=== PATIENT | female | born 1940 | race Caucasian/White ===

== ENCOUNTER 2020-03-13 11:50 | Outpatient (CLI) | payer MEDICARE, SELFPAY ==
--- NOTE | 2020-03-13 11:56 | MM_ITS ---
WS: [id number] BILATERAL DIGITAL SCREENING MAMMOGRAPHY WITH CAD CLINICAL INFORMATION: SCREENING HISTORY: Screening mammogram. No current complaints. COMPARISON: TECHNIQUE: Bilateral CC and MLO views. FINDINGS: Inverted right nipple Scattered fibroglandular densities bilaterally. No suspicious focal mass, asymmetry, calcifications, or architectural distortion. No evidence of malignancy. Punctate and lucent centered calcifications. Vascular calcifications. MM/[place] [id number] IMPRESSION: BI-RADS: 2-Benign FOLLOW UP: 1 Year Follow-up Recommend return to annual screening mammography.
== END 2020-03-13 11:51 | disposition home or self-care (01) ==
LOC: RADSHAW 11:53
PROVIDERS: PCP Nurse Practitioner Family; Visit Provider Nurse Practitioner Family
DX: Z12.31 Encounter for screening mammogram for malignant neoplasm of breast (principal)
CPT/HCPCS: 77067

== ENCOUNTER 2020-10-10 14:46 | Outpatient (CLI) | payer MEDICARE, SELFPAY ==
--- NOTE | 2020-10-10 14:54 | XR_ITS ---
WS: [id number] Left wrist, 3 views, 10/10/2020 Clinical Data: INJURY OF RIGHT AND LEFT WRIST, INITIAL ENCOUNTER Comparison: None. Findings: There is an irregularity noted on the dorsal view which may represent a triquetral fracture. The PA a nd oblique views are normal. The distal left radius and ulna are unremarkable. XR/XR wrist LT min 3V* [id number] Impression: Possible triquetral fracture of the left wrist.
--- NOTE | 2020-10-10 14:54 | XR_ITS ---
WS: [id number] Right wrist, 3 views, 10/10/2020 Clinical Data: INJURY OF RIGHT AND LEFT WRIST, INITIAL ENCOUNTER Comparison: None. Findings: No fractures or dislocations are seen. The carpal bones are intact. There is no soft tissue swelling. The distal radius and ulna are not remarkable. XR/XR wrist RT min 3V* [id number] Impression: Negative right wrist.
== END 2020-10-10 14:47 | disposition home or self-care (01) ==
PROVIDERS: PCP Nurse Practitioner Family; Visit Provider Nurse Practitioner Family
DX: S69.92XA Unspecified injury of left wrist, hand and finger(s), initial encounter (principal); S69.91XA Unspecified injury of right wrist, hand and finger(s), initial encounter; X58.XXXA Exposure to other specified factors, initial encounter
CPT/HCPCS: 73110

== ENCOUNTER → 2020-11-10 11:16 | Outpatient (BNVA) | payer MEDICARE, SELFPAY | PROVIDERS: PCP Nurse Practitioner Family; Visit Provider Orthopaedic Surgery | DX: S62.001A Unspecified fracture of navicular [scaphoid] bone of right wrist, initial encounter for closed fracture (principal); X58.XXXA Exposure to other specified factors, initial encounter; Z46.89 Encounter for fitting and adjustment of other specified devices; S62.024D Nondisplaced fracture of middle third of navicular [scaphoid] bone of right wrist, subsequent encounter for fracture with routine healing; X58.XXXD Exposure to other specified factors, subsequent encounter | CPT/HCPCS: 73110; 97760; L3984 ==

== ENCOUNTER 2020-11-10 15:06 | Outpatient (CLI) | payer MEDICARE, SELFPAY | END 2020-11-10 15:07 | disposition home or self-care (01) | LOC: SPT 15:07 | PROVIDERS: PCP Nurse Practitioner Family; Visit Provider Orthopaedic Surgery | DX: Z46.89 Encounter for fitting and adjustment of other specified devices (principal); S62.024D Nondisplaced fracture of middle third of navicular [scaphoid] bone of right wrist, subsequent encounter for fracture with routine healing; X58.XXXD Exposure to other specified factors, subsequent encounter | CPT/HCPCS: 97760; L3984 ==

== ENCOUNTER → 2020-12-09 09:25 | Outpatient (BNVA) | payer MEDICARE, SELFPAY | PROVIDERS: PCP Nurse Practitioner Family; Visit Provider Orthopaedic Surgery | DX: S66.911A Strain of unspecified muscle, fascia and tendon at wrist and hand level, right hand, initial encounter (principal); S66.912A Strain of unspecified muscle, fascia and tendon at wrist and hand level, left hand, initial encounter; S62.001A Unspecified fracture of navicular [scaphoid] bone of right wrist, initial encounter for closed fracture; W19.XXXA Unspecified fall, initial encounter | CPT/HCPCS: 73110 ==

== ENCOUNTER → 2021-12-16 10:16 | Outpatient (BNVA) | payer MEDICARE, SELFPAY | PROVIDERS: PCP Family Medicine; Visit Provider Family Medicine | DX: E03.9 Hypothyroidism, unspecified (principal); E78.2 Mixed hyperlipidemia; I10 Essential (primary) hypertension; Z76.89 Persons encountering health services in other specified circumstances; R79.89 Other specified abnormal findings of blood chemistry | CPT/HCPCS: 80053; 80061; 84439; 84443; 85025 ==

== ENCOUNTER 2022-06-27 12:08 | Inpatient (IN) | payer MEDICARE, SELFPAY ==
[2022-06-27 12:13] VITALS: BP 127/77; PULSE 114; RESP 24; TEMP 36.9; O2SAT 96
[2022-06-27 13:13] LABS: Glucose Point of Care 145 mg/dL (70-110)
--- NOTE | 2022-06-27 14:39 | W.ED.ABDPA2 ---
HPI - Abdominal Pain General: Chief Complaint: Abdominal Pain Stated Complaint: stomach pain Time Seen by Provider: 06/27/22 14:39 History of Present Illness: Ms. Butcher is an 81-year-old lady with history of hypertension, hyperlipidemia, thyroid disorder, depression presenting to the emergency department due to generalized illness. She reports approximately 3 days of subjective fevers chills and associated abdominal discomfort. Cramping bilateral pain associated nausea. Worsening in course and moderate in intensity. Denies changes in bowel movements or urination. Denies other specific provoking factors. No other specific changes in health, exacerbating, or alleviating factors identified. Onset (ago): day(s) Pain Consistency: constant Severity: moderate Quality: cramping Radiation: none Migration to: no migration Exacerbating factors: eating, movement and other Relieving factors: nothing Associated Symptoms: Reports nausea, poor appetite and other Review of Systems General: Reports: 10 or more systems reviewed and unremarkable except in HPI and below GI: Reports: nausea and other PFSH ED PFSH: Medical History (Updated 07/01/22 @ 00:00 by JESSICA Go) History of hyperlipidemia Hyperlipidemia Hypertension JAK2 [id number] mutation Surgical History H/O hemorrhoidectomy H/O oophorectomy H/O thyroidectomy H/O: hysterectomy Family History Father Brain aneurysm Mother Scleroderma CAD (coronary artery disease) Brother CAD (coronary artery disease) Social History Smoking and tobacco status: never smoked Alcohol intake: never Female Reproductive History: Spontaneous abortions: No Physical Exam Const: COMMON NORMALS: alert GENERAL APPEARANCE: cooperative and well developed HENMT: COMMON NORMALS: normocephalic and atraumatic HEAD & SCALP: normocephalic and atraumatic THROAT: posterior oropharynx normal Eye: COMMON NORMALS: conjunctivae normal CONJUNCTIVA: Yes conjunctivae normal SCLERA: sclerae normal Neck/C-Spine: COMMON NORMALS: supple GENERAL: Yes trachea midline Resp: COMMON NORMALS: clear to auscultation bilaterally EFFORT & INSPECTION: Yes able to speak in complete sentences AUSCULTATION: clear to auscultation bilaterally Cardio: COMMON NORMALS: regular rate and regular rhythm RATE: regular rate RHYTHM: regular rhythm GI: COMMON NORMALS: Soft to palpation PALPATION: Yes Soft to palpation, Yes Tenderness to palpation present (GI), No Guarding due to palpation present (GI) and No Rigid due to palpation Extremity: GENERAL: Yes normal exam except as noted and No edema Neuro: COMMON NORMALS: moves all extremities SENSORIUM/ORIENTATION: Yes alert and No Orientation impaired Psych: COMMON NORMALS: mental status grossly normal and Normal thought process present THOUGHT PROCESS: Normal thought process present Course Vital Signs: Vital signs: Vital Signs Temperature 98.5 F 06/30/22 11:53 Pulse Rate 82 06/30/22 11:53 Respiratory Rate 18 06/30/22 11:53 Blood Pressure 106/74 06/30/22 11:53 Pulse Oximetry 94 06/30/22 11:53 Oxygen Delivery Me thod 06/30/22 11:53 Oxygen Flow Rate 4 06/29/22 07:47 MDM - Abdominal Pain Medical Decision Making 81-year-old lady presenting with abdominal pain for a few days associated with generalized illness. Exam as above. Abdominal tenderness without evidence of acute surgical abdomen. EKG notable for sinus rhythm with nonspecific ST segment abnormalities. Left axis deviation. Mild irregularity. Normal intervals. No STEMI. Similar upon repeat. Labs notable for leukocytosis with elevated platelet count. Metabolic panel with mild evidence of dehydration and metabolic stress. Negative range 2-hour delta troponin. No UTI. Viral panel is negative. Chest x-ray with mild left basilar infiltrate, no lobar consolidation or pneumothorax. CT abdomen pelvis with some evidence of constipation, incidental findings discussed with patient. Patient treated with antiemetic, analgesia, IV fluids and antibiotics. Only mild improvement. Given degree of illness as well as physical exam findings and lack of significant improvement patient requires inpatient observation for pneumonia, abdominal pain, dehydration. The results of ED evaluation were discussed with the patient including plan for admission due to requirement for level of care not available if discharged to prevent significant worsening/deterioration. Patient agreeable with plan. Discussed with hospitalist service who was agreeable to admit patient. Medical Records I reviewed the patient's medical records. Lab Data I reviewed the patient's lab results. 06/27/22 15:25 06/27/22 15:25 Labs/Radiology: Radiology Impressions Chest X-Ray 06/27/22 14:41 IMPRESSION: Slight increased interstitial markings left lung base and consider mild interstitial left basilar infiltrate. No consolidation. Abdomen/Pelvis CT 06/27/22 15:01 IMPRESSION: 1. Mild interstitial infiltrate posterior right lung base could reflect acute or chronic change. 2. Suggestion of bilateral hypodense renal cortical cysts. 3. Colonic diverticulosis without CT findings to indicate diverticulitis. 4. 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 5. Increased stool within the distal colon within the pelvis. 6. Suggestion of prior hysterectomy. 7. Degenerative changes with degenerative disc disease lumbar spine, along with prominent old or chronic appearing compression deformity at T12. COMMENTS: Consistent with the [employer] [place] [employer]'s Incidental Findings Committee white paper (J Am Nataliia Radiol 2018): Any incidental renal lesion less than 1 cm or classified as too small to characterize, or any incidental cystic renal lesion characterized as simple-appearing, is likely benign. No follow-up imaging is recommended for these lesions per consensus recommendations based on imaging criteria. Chest CT 06/28/22 08:00 IMPRESSION: 1. Volume loss RIGHT lower lobe with elevation RIGHT hemidiaphragm. Patchy infiltrates in the RIGHT lower lobe with subsegmental atelectasis in RIGHT middle lobe and RIGHT lower lobe with air bronchograms. Recommend correlation for pneumonia. 2. LEFT lung is well aerated. 3. No other acute findings. Head CT 06/28/22 08:00 IMPRESSION: 1. No evidence of intracranial hemorrhage or mass effect. 2. . Mild small vessel changes with moderate parenchymal volume loss. 3. Intracranial vascular calcification. 4. No acute intracranial findings. Laboratory Results WBC 17.2 10^3/uL (4.0-10.0) H 06/27/22 15:25 RBC 4.55 10^6/uL (4.1-5.3) 06/27/22 15:25 Hgb 12.8 g/dL (11.5-15.3) 06/27/22 15:25 Hct 41.1 % (37.0-47.0) 06/27/22 15:25 MCV 90.3 fl (81-99) 06/27/22 15:25 MCH 28.1 pg (28.0-34.0) 06/27/22 15:25 MCHC 31.1 g/dL (30.0-36.0) 06/27/22 15:25 RDW 15.1 % (12.1-15.1) 06/27/22 15:25 Plt Count 575 10^3/cmm (130-400) H 06/27/22 15:25 MPV 11.6 fL (7.4-10.4) H 06/27/22 15:25 Neut % (Auto) 70.2 % 06/27/22 15:25 Lymph % (Auto) 20.2 % 06/27/22 15:25 [place] % (Auto) 7.1 % 06/27/22 15:25 Eos % (Auto) 0.6 % 06/27/22 15:25 Baso % (Auto) 1.0 % 06/27/22 15:25 Neut # (Auto) 12.09 10^3/uL (1.8-7.7) H 06/27/22 15:25 Lymph # (Auto) 3.5 10^3/uL (0.8-4.8) 06/27/22 15:25 [place] # (Auto) 1.2 10^3/uL (0.2-0.9) H 06/27/22 15:25 Eos # (Auto) 0.1 10^3/uL (0.0-0.8) 06/27/22 15:25 Baso # (Auto) 0.2 10^3/uL (0.0-0.1) H 06/27/22 15:25 Nucleated RBC % (auto) 0 % 06/27/22 15:25 Nucleated RBCs # 0.0 /100WBC 06/27/22 15:25 ESR 14 mm/hr (0-15) 06/27/22 15:25 Sodium 140 mmol/L (136-145) 06/27/22 15:25 Potassium 5.2 mmol/L (3.5-5.1) H 06/27/22 15:25 Chloride 103 mmol/L (98-107) 06/27/22 15:25 Carbon Dioxide 23 mmol/L (22-29) 06/27/22 15:25 Anion Gap 19.2 (5-19) H 06/27/22 15:25 BUN 40 mg/dL (8-23) H 06/27/22 15:25 Creatinine 0.9 mg/dL (0.5-0.9) 06/27/22 15:25 GFR Calculation Not Reportable 06/27/22 15:25 Glucose 126 mg/dL (65-115) H 06/27/22 15:25 POC Glucose 145 mg/dL (70-110) H 06/27/22 13:04 Estimat Average Glucose 137 06/27/22 15:25 Hemoglobin A1c 6.4 % (4.0-6.0) H 06/27/22 15:25 Calculated Osmolality 301 mOsm/kg (285-295) H 06/27/22 15:25 Lactate 2.9 mmol/L (0.5-2.2) H 06/27/22 15:25 Calcium 10.1 mg/dL (8.5-10.5) 06/27/22 15:25 Total Bilirubin 0.4 mg/dL (0.15-1.2) 06/27/22 15:25 AST 11 U/L (0-32) 06/27/22 15:25 ALT 8 U/L (0-33) 06/27/22 15:25 Alkaline Phosphatase 57 U/L (35-105) 06/27/22 15:25 Troponin T Baseline 9 ng/L (0-10) 06/27/22 15:25 Troponin T 120 Minute 8.96 ng/L (0-10) 06/27/22 16:41 Delta Troponin T -0.04 ABS# (0-10) L 06/27/22 16:41 C-Reactive Protein 3.0 mg/L (0.0-4.9) 06/27/22 16:41 NT-Pro-B Natriuret Pep 150 pg/mL (0-450) 06/27/22 16:41 Total Protein 6.9 g/dL (6.6-8.7) 06/27/22 15:25 Albumin 3.9 g/dL (3.5-5.2) 06/27/22 15:25 Globulin 3.0 g/dL (1.3-4.6) 06/27/22 15:25 Triglycerides 137 mg/dL (0-150) 06/27/22 16:41 Cholesterol 121 mg/dL (0-200) 06/27/22 16:41 LDL Cholesterol, Calc 66 mg/dL (50-129) 06/27/22 16:41 HDL Cholesterol 28 mg/dL (60-100) L 06/27/22 16:41 LDL/HDL Ratio 2.36 RATIO (0.00-3.22) 06/27/22 16:41 Cholesterol/HDL Ratio 4.32 mg/dL (0.0-4.40) 06/27/22 16:41 Lipase 33 U/L (13-60) 06/27/22 15:25 Procalcitonin 0.10 ng/mL (0-0.5) 06/27/22 16:41 TSH 1.52 uIU/mL (0.27-4.20) 06/27/22 16:41 Urine Color Dark yellow (Yellow) 06/27/22 15:31 Urine Appearance Clear (CLEAR) 06/27/22 15:31 Urine pH 5 (5-7) 06/27/22 15:31 Ur Specific [place] 1.020 (1.005-1.030) 06/27/22 15:31 Urine Protein Neg (Negative) 06/27/22 15:31 Urine Glucose (UA) Norm (Normal) 06/27/22 15:31 Urine Ketones 1+ (Negative) H 06/27/22 15:31 Urine Blood Neg (Negative) 06/27/22 15:31 Urine Nitrate Negative (Negative) 06/27/22 15:31 Urine Bilirubin 1+ (Negative) H 06/27/22 15:31 Urine Urobilinogen Norm mg/dL (Negative) 06/27/22 15:31 Ur Leukocyte Esterase Negative (Negative) 06/27/22 15:31 Salicylates 0.3 mg/dL (3-10) L 06/27/22 16:41 Urine Opiates Screen Negative ng/mL (Negative) 06/27/22 15:31 Acetaminophen < 5.0 ug/mL (10-30) L 06/27/22 16:41 Ur Barbiturates Screen Negative ng/mL (Negative) 06/27/22 15:31 Ur Phencyclidine Scrn Negative ng/mL (Negative) 06/27/22 15:31 Ur Amphetamines Screen Negative ng/mL (Negative) 06/27/22 15:31 U Benzodiazepines Scrn Negative ng/mL (Negative) 06/27/22 15:31 Urine Cocaine Screen Negative ng/mL (Negative) 06/27/22 15:31 U Marijuana (THC) Screen Negative ng/mL (Negative) 06/27/22 15:31 Ethyl Alcohol 10 mg/dL (0-10) 06/27/22 16:41 Influenza Type A Ag negative (Negative) 06/27/22 17:24 Influenza Type B Ag negative (Negative) 06/27/22 17:24 SARS-CoV-2 Ag (Rapid) negative (Negative) 06/27/22 17:24 Discharge Plan Discharge Patient Disposition: Placed in Observation Admit Provider: Chris Alan Clinical Impression: Pneumonia, Abdominal pain, Diarrhea, Leukocytosis, Dehydration Discharge Diet: Cardiac Discharge Activity: Increase activity as tolerated Coding Level of Care Code ED Paraeducator for Elias Miller
--- NOTE | 2022-06-27 14:41 | XRR_ITS ---
PROCEDURE INFORMATION: Exam: XR Chest Exam date and time: 06/27/2022 2:51 PM Age: 81 years old Clinical indication: Dyspnea; Additional info: Tachycardia TECHNIQUE: Imaging protocol: Radiologic exam of the chest. Views: 1 view. COMPARISON: CR XR chest 2V* [id number] 11/02/2017 2:41 PM FINDINGS: Lungs: Small amount of right basilar atelectasis or scarring. Slight increased interstitial markings in the left lung base with today's exam in relation to prior exam and consider minimal interstitial infiltrate. No consolidation. Pleural spaces: Unremarkable. No pleural effusion. No pneumothorax. Heart/Mediastinum: Unremarkable. No cardiomegaly. Vasculature: Mild arteriosclerosis of the thoracic aorta. Diaphragm: [id number] chronic eventration of the right hemidiaphragm with prior exam November 02, 2017. Bones/joints: Spondylotic change thoracic spine. XR/XR chest 1V portable [id number] IMPRESSION: Slight increased interstitial markings left lung base and consider mild interstitial left basilar infiltrate. No consolidation.
--- NOTE | 2022-06-27 15:01 | CTR_ITS ---
PROCEDURE INFORMATION: Exam: CT Abdomen And Pelvis With Contrast Exam date and time: 06/27/2022 4:20 PM Age: 81 years old Clinical indication: Abdominal pain; Generalized; Additional info: Abd pain TECHNIQUE: Imaging protocol: Computed tomography of the abdomen and pelvis with contrast. Radiation optimization: All CT scans at this facility use at least one of these dose optimization techniques: automated exposure control; mA and/or kV adjustment per patient size (includes targeted exams where dose is matched to clinical indication); or iterative reconstruction. Contrast material: OMNI 350; Contrast volume: 100 ml; Contrast route: INTRAVENOUS (IV); COMPARISON: CR XR KUB [id number] 12/06/2016 2:02 PM RADIATION DOSE METRICS: Total DLP (mGy-cm): 932.56 FINDINGS: Lungs: Lung windows through the lung bases demonstrate mild interstitial infiltrate within the posterior right lung base (not within the left lung base as questioned on chest radiograph). Liver: Normal. No mass. Benign calcified granuloma within the left lobe. Gallbladder and bile ducts: Normal. No calcified stones. No ductal dilation. Pancreas: Normal. No ductal dilation. Spleen: Normal. No splenomegaly. Adrenal glands: Normal. No mass. Kidneys and ureters: A couple of rounded hypodense foci with partial exophytic appearance and predominant fluid density with Hounsfield measurements are seen from the cortex of both kidneys, of 1-1.5 cm in approximate size. These findings likely reflect small renal cysts. Kidneys are otherwise unremarkable. Stomach and bowel: Colonic diverticulosis is seen without CT findings to indicate diverticulitis. Mild increased stool load within the distal colon within the pelvis. Appendix: The appendix is visualized and no CT findings of appendicitis. Intraperitoneal space: Unremarkable. No free air. No significant fluid collection. Vasculature: Atherosclerotic disease of the abdominal aorta and tributaries, without aneurysmal dilatation of the abdominal aorta. Lymph nodes: Unremarkable. No enlarged lymph nodes. Urinary bladder: Unremarkable as visualized. Reproductive: Suggestion of prior hysterectomy. Bones/joints: Degenerative change lumbar spine with degenerative disc disease, along with mild spondylolisthesis L4-5. Prominent old or chronic appearing compression deformity of T12 is seen with increased kyphosis at this level. Soft tissues: Tiny supraumbilical hernia of fat. CT/CT abdomen pelvis w con* [id number] IMPRESSION: 1. Mild interstitial infiltrate posterior right lung base could reflect acute or chronic change. 2. Suggestion of bilateral hypodense renal cortical cysts. 3. Colonic diverticulosis without CT findings to indicate diverticulitis. 4. 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 5. Increased stool within the distal colon within the pelvis. 6. Suggestion of prior hysterectomy. 7. Degenerative changes with degenerative disc disease lumbar spine, along with prominent old or chronic appearing compression deformity at T12. COMMENTS: Consistent with the [place] [employer]'s Incidental Findings Committee white paper (J Am Nataliia Radiol 2018): Any incidental renal lesion less than 1 cm or classified as too small to characterize, or any incidental cystic renal lesion characterized as simple-appearing, is likely benign. No follow-up imaging is recommended for these lesions per consensus recommendations based on imaging criteria.
--- NOTE | 2022-06-27 15:04 | ECG_ITS ---
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 Measurements Intervals [place] Rate: 79 P: -18 SD: 180 QRS: -15 QRSD: 84 T: 42 QT: 370 QTc: 425 Interpretive Statements SINUS RHYTHM INFERIOR MYOCARDIAL INFARCTION , PROBABLY OLD [40+ ms Q WAVE AND/OR ST/T ABNORMALITY IN II/aVF] No previous ECG available for comparison Electronically Signed On 06-29-2022 7:45:46 MILK POWDER GRINDER by Shelton Nash M.D. [id number]
[2022-06-27 15:47] LABS: Add Urine Microscopic? NO; Charge for UA Resulting for Rev
[2022-06-27 15:47] LABS: Basophils # 0.2 10^3/uL (0.0-0.1); Eosinophils # 0.1 10^3/uL (0.0-0.8); Eosinophils % 0.6 %; Hematocrit 41.1 % (37.0-47.0); Hemoglobin 12.8 g/dL (11.5-15.3); Lymphocytes # 3.5 10^3/uL (0.8-4.8); Lymphocytes % 20.2 %; Mean Corpuscular HGB Conc 31.1 g/dL (30.0-36.0); Mean Corpuscular Hemoglobin 28.1 pg (28.0-34.0); Mean Corpuscular Volume 90.3 fl (81-99); Mean Platelet Volume 11.6 fL (7.4-10.4); Monocytes # 1.2 10^3/uL (0.2-0.9); Monocytes % 7.1 %; Neutrophils # 12.09 10^3/uL (1.8-7.7); Neutrophils % 70.2 %; Nucleated Red Blood Cells % 0 %; Platelet Count 575 10^3/cmm (130-400); Red Blood Count 4.55 10^6/uL (4.1-5.3); Red Cell Distribution Width 15.1 % (12.1-15.1); White Blood Count 17.2 10^3/uL (4.0-10.0)
[2022-06-27 15:49] LABS: Urine Appearance Clear (CLEAR); Urine Color Dark Yellow (Yellow)
[2022-06-27 15:50] LABS: Bilirubin Urine 1+ (Negative); Blood Urine Neg (Negative); Glucose Urine UA Norm (Normal); Ketones Urine 1+ (Negative); Leukocyte Esterase Urine Negative (Negative); Nitrate Urine Negative (Negative); Protein Urine Neg (Negative); Urobilinogen Urine Norm (Negative); pH Urine 5 (5-7)
[2022-06-27 16:04] LABS: Lactate (Lactic Acid level) 2.9 mmol/L (0.5-2.2)
[2022-06-27 16:05] LABS: Alanine Aminotransferase 8 U/L (0-33); Albumin Level 3.9 g/dL (3.5-5.2); Alkaline Phosphatase 57 U/L (35-105); Aspartate Amino Transferase 11 U/L (0-32); Blood Urea Nitrogen 40 mg/dL (8-23); Calcium 10.1 mg/dL (8.5-10.5); Carbon Dioxide 23 mmol/L (22-29); Chloride 103 mmol/L (98-107); Creatinine Clr Calc Pharmacy 48.9575; Glucose 126 mg/dL (65-115); Lipase 33 U/L (13-60); Osmolality Calculated 301 mOsm/kg (285-295); Sodium 140 mmol/L (136-145); Total Bilirubin 0.4 mg/dL (0.15-1.2); Total Protein 6.9 g/dL (6.6-8.7)
[2022-06-27 16:06] LABS: Troponin(5th) Baseline 9 ng/L (0-10)
[2022-06-27 16:07] LABS: Anion Gap 19.2 (5-19); Potassium 5.2 mmol/L (3.5-5.1)
[2022-06-27] MEDS: iohexol 350 mg/mL 500 mL Btl (per mL) IV (16:21)
--- NOTE | 2022-06-27 16:41 | ECG_ITS ---
[facility] Test Date: 2022-06-27 Pat Name: Rain Butcher Department: Room: Gender: Female Egg Buyer: : 1940 Requested By: Sudeep Paez Order Number: [id number] Brandon MD: Shelton Nash M.D. Measurements Intervals [place] Rate: 77 P: 6 UT: 188 QRS: -13 QRSD: 86 T: 55 QT: 380 QTc: 430 Interpretive Statements SINUS RHYTHM WITH SINUS ARRHYTHMIA POSSIBLE INFERIOR MYOCARDIAL INFARCTION , PROBABLY OLD [30 ms Q WAVE IN II/aVF] Compared to ECG 06/27/2022 15:04:51 No significant changes Electronically Signed On 06-29-2022 7:50:54 MILLWRIGHT INSTRUCTOR by Shelton Nash M.D. [email or web address] [email or web address]/store/[id number] f
[2022-06-27] MEDS: sodium chloride 0.9% 1,000 ML 999 ML IV (17:04)
[2022-06-27 17:13] LABS: Troponin 5 2HR 8.96 ng/L (0-10)
[2022-06-27 17:49] LABS: Troponin 5 2HR Delta -0.04 ABS# (0-10)
[2022-06-27] MEDS: piperacillin-tazobactam 4.5 GM in sodium chloride 0.9% (plus) 50 ML IV (18:17)
[2022-06-27 18:20] VITALS: BP 133/92; PULSE 87; RESP 16; O2SAT 91
[2022-06-27 18:53] LABS: Influenza A by IFA negative (Negative); Influenza B by IFA negative (Negative)
[2022-06-27 18:54] LABS: SARS Covid-2 Antigen negative (Negative)
--- NOTE | 2022-06-27 19:15 | PC.NURSE ---
REPORT GIVEN TO ANAIS Muñoz RN.
[2022-06-27] MEDS: LORazepam 2 mg/mL INJ 1 mL 0.5 MG IVP (20:22)
--- NOTE | 2022-06-27 20:41 | ECG_ITS ---
[facility] Test Date: 2022-06-27 Pat Name: Rain Butcher Department: Room: Gender: Female Support Specialist: : 1940 Requested By: Sudeep Paez Order Number: [id number] Brandon MD: Diana Plaza M.D. Measurements Intervals [place] Rate: P: 0 KS: 0 QRS: 0 QRSD: 0 T: 0 QT: 0 QTc: 0 Interpretive Statements SINUS RHYTHM WITH PAC'S WARNING: DATA QUALITY MAY AFFECT INTERPRETATION Compared to ECG 06/27/2022 16:40:34 Sinus rhythm no longer present Sinus arrhythmia no longer present Myocardial infarct finding no longer present Electronically Signed On 06-29-2022 7:50:31 FRONT LOADER RESIDENTIAL DRIVER by Diana Plaza M.D. [id number]
[2022-06-27 21:00] VITALS: BP 152/85; PULSE 101; RESP 18; TEMP 36.9; O2SAT 94
[2022-06-27 21:01] VITALS: BP 160/86; PULSE 98; O2SAT 96
[2022-06-27 21:13] VITALS: RESP 20
[2022-06-27 21:27] VITALS: PULSE 87; RESP 17; O2SAT 98
--- NOTE | 2022-06-27 21:28 | P.HP_ITS ---
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 Currently patient was seen in the emergency room, she is experiencing severe chills and rigors she tells me that she is alternating between hot and cold. And this has been happening for the last 4 days that is the primary reason why she is here in the emergency room. She has not been feeling well for the last 4 days, having alternating hot and cold, severe chills and rigors. She is also very anxious because she is having the symptoms that she does not align. She denies any headaches or any blurry vision or any neck pain or neck stiffness. No recent travel. No history of COVID-19 or flu positivity. No cough, no shortness of breath. She does tell me that today she started to experience some abdominal pain, mild, diffuse associated with dark- colored stools. Denies any history of food poisoning. Denies any recent blood thinner use. Denies any recent history of NSAID use. But she says that currently the symptoms are mild denies any current back pain, she did feel nauseous, poor appetite. No dysuria, no hematuria Review of Systems Const: Reports: chills; Denies: fever(s) Eyes: Denies: change in vision or blurry vision ENMT: Denies: nasal congestion Card: Denies: chest pain or palpitations Resp: Denies: dyspnea, productive cough, non-productive cough or wheezing GI: Denies: vomiting, hematemesis, diarrhea, constipation or hematochezia : Denies: flank pain, dysuria or urinary frequency Musc: Denies: neck pain or back pain Skin/Breast: Denies: rash Neuro: Denies: headache(s), dizziness or vertigo Psych: Denies: depression Endo: Denies: polyuria or polydipsia Forrest/Lymph: Denies: petechiae or tender lymph nodes Medications/Allergies Home Medications Medication Instructions Recorded Confirmed Last Taken Type cholecalciferol (vitamin D3) 50 50 mcg PO DAILY 12/16/21 05/06/22 Unknown Hi story mcg (2,000 unit) capsule docusate sodium 100 mg capsule 100 mg PO DAILY 12/16/21 05/06/22 Unknown History omega 8-nwa-oxt-fish oil 1,000 mg 1 cap PO DAILY 12/16/21 05/06/22 Unknown His tory (120 mg-180 mg) capsule (Fish Oil) gabapentin 400 mg capsule 400 mg PO TID #90 caps 01/22/22 05/06/22 Unknown Rx metoprolol succinate 50 mg 50 mg PO DAILY #90 tabs 01/22/22 05/06/22 Unknown Rx tablet,extended release 24 hr losartan 100 mg tablet 100 mg PO DAILY #90 tabs 02/05/22 05/06/22 Unknown Rx alendronate 70 mg tablet 70 mg PO .weekly #12 tabs 02/23/22 05/06/22 Unknown Rx levothyroxine 150 mcg tablet 150 mcg PO DAILY #90 tabs 02/23/22 05/06/22 Unknown Rx lovastatin 40 mg tablet 40 mg PO DAILY #90 tabs 02/23/22 05/06/22 Unknown Rx spironolactone 25 mg tablet 25 mg PO DAILY #90 tabs 02/23/22 05/06/22 Unknown Rx amoxicillin 875 mg-potassium 1 tab PO BID 7 days #14 tabs 03/17/22 05/06/22 Unknown Rx clavulanate 125 mg tablet venlafaxine 100 mg tablet See Rx Instructions .Route 03/17/22 05/06/22 Unknown Rx .COMPLEX #270 tabs mirtazapine 15 mg tablet See Rx Instructions .Route 04/05/22 05/06/22 Unknown Rx .COMPLEX #90 tabs Allergies Allergy/AdvReac Type Severity Reaction Status Date / Time No Known Allergies Allergy Verified 05/06/22 10:33 PFSH Acute PFSH: Medical History (Updated 06/27/22 @ 21:47 by Chris Alan MD) History of hyperlipidemia Hypertension JAK2 V617F mutation Surgical History (Updated 06/27/22 @ 21:34 by Chris Alan MD) H/O hemorrhoidectomy H/O oophorectomy H/O thyroidectomy H/O: hysterectomy Family History (Updated 06/27/22 @ 21:35 by Chris Alan MD) Father Brain aneurysm Mother Scleroderma CAD (coronary artery disease) Brother CAD (coronary artery disease) Social History (Updated 06/27/22 @ 21:35 by Chris Alan MD) Smoking and tobacco status: never smoked Alcohol intake: never Substance/Drug Use: never Female Reproductive History: Spontaneous abortions: No Vitals/I&O/Wt Last Vital Signs Temp 98.5 F 06/27/22 12:13 Pulse 98 06/27/22 21:01 Resp 20 H 06/27/22 21:13 BP 160/86 06/27/22 21:01 Pulse Ox 96 06/27/22 21:01 O2 Del Method 06/27/22 21:01 06/27/22 06/27/22 06/27/22 06:59 14:59 22:59 Intake Total 1050 / 1050 Balance 1050 / 1050 Weight last 48 hrs Weight 81.647 kg Physical Exam Const: COMMON NORMALS: no acute distress and patient oriented x3 HENMT: COMMON NORMALS: normocephalic HEAD & SCALP: normocephalic Eye: COMMON NORMALS: Equal, round and reactive pupils present and EOMs intact bilaterally Neck/C-Spine: COMMON NORMALS: no JVD GENERAL: Yes normal visual inspection and No Meningeal signs present Lymph: LYMPHATIC: no lymphadenopathy noted Chest: COMMONS NORMALS: normal inspection of the chest Resp: COMMON NORMALS: normal respiratory effort, No retractions, No use of accessory muscles and clear to auscultation bilaterally AUSCULTATION: clear to auscultation bilaterally Cardio: COMMON NORMALS: no JVD, regular rate, regular rhythm, S1 normal heart sound present and S2 normal heart sound present RATE: regular rate RHYTHM: regular rhythm HEART SOUNDS: S1 normal heart sound present and S2 normal hear t sound present GI: COMMON NORMALS: Normal to inspection, nondistended, normoactive bowel sounds present, Soft to palpation, non-tender, No hepatosplenomegaly present, no masses and no bruits PALPATION: Yes Soft to palpation and Yes No hepatosplenomegaly present : COMMON NORMALS: Yes no CVA tenderness Extremity: COMMON NORMALS: capillary refill normal, no clubbing, cyanosis or edema, no calf tenderness and no pedal edema Neuro: COMMON NORMALS: patient oriented x3, CN's II-XII intact bilaterally, moves all extremities, no focal motor deficits and no sensory deficits noted Psych: COMMON NORMALS: mental status grossly normal OTHER: anxious Data 06/27/22 15:25 06/27/22 15:25 Micro: Microbiology 06/27/22 18:04 Blood Culture - Preliminary Blood SPECIMEN COLLECTED 06/27/22 17:58 Blood Culture - Preliminary Blood SPECIMEN COLLECTED A&P Assessment and plan (1) Rigors: (2) Chills: (3) Pneumonia: (4) Abdominal pain: (5) Diarrhea: (6) Leukocytosis: (7) Dehydration: (8) Mixed dyslipidemia: (9) Acquired hypothyroidism: (10) Goals of care, counseling/discussion: (11) Thrombocytosis: (12) Elevated lactic acid level: (13) Acute encephalopathy: Plan Fatigue, malaise, chills, rigors -Etiology unclear at this point -However with her chills and or rigors seems a lot like bacteremia -COVID test negative, flu negative will order COVID PCR -UA negative for UTI -Abdominal CT negative for any acute source -Chest x-ray and abdominal CT possibly shows mild residual infiltrate posterior right lung base which could reflect acute or chronic change -We will obtain a CT of the chest however is not requiring any oxygen, Pro-Santiago, CRP, ESR -Sputum cultures, blood cultures, urine bacterial antigens -The other thought is could she have meningitis although my no meningeal signs she has been having intermittent episodes of confusion according to her, she was having episodes he was she was not acting right but cannot give exact detail -We will do CT of the head -Based upon work-up we will consider lumbar puncture -Also obtain a TSH rule out myxedema -For now we will keep her on broad-spectrum antibiotic therapy vancomycin, Zosyn -Goals of care discussion she would like to be a full code -DVT prophylaxis SCDs for now, hold off on Lovenox as there might be plans on a lumbar puncture Elevated lactic acid, etiology unclear possible dehydration IV fluids Thrombocytosis history of JAK2 positivity possibly reactive, IV fluids monitor Leukocytosis, as above, Resume home medications Abdominal pain/ diarrhea -Stool studies, no recent antibiotic use, no history of food poisoning, no his tory of well water use -Abdominal CT does show 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 -However her abdominal exam is not significant, no significant bowel tenderness or distention, no guarding, no rebound, no rigidity -Monitor lactic acid thought was could this be ischemic colitis and I think very unlikely -Treat nausea, vomiting Acute encephalopathy, following all commands, alcohol, salicylate, Tylenol, TSH Attestations Medical Necessity Statement*: Patient requires hospitalization, inpatient, greater than 2 midnights, for chills, rigors, elevated lactic acid, leukocytosis, fatigue, malaise, abdominal pain, uncertain etiology requiring further work-up Coding Level of Care Code Acute Code for Chg Fwd Diagnoses Rigors R68.89 Chills R68.83 Pneumonia J18.9 Abdominal pain R10.9 Diarrhea R19.7 Leukocytosis D72.829 Dehydration E86.0 Mixed dyslipidemia E78.2 Acquired hypothyroidism E03.9 Goals of care, counseling/discussion Z71.89 Thrombocytosis D75.839 Elevated lactic acid level R79.89 Acute encephalopathy G93.40
[2022-06-27 23:48] LABS: Erythrocyte Sedimentation Rate 14 mm/hr (0-15)
[2022-06-27] MEDS: pantoprazole 40 mg SDV IVP (23:53)
[2022-06-27] MEDS: sodium chloride 0.9% 1,000 ML 100 ML IV (23:54)
[2022-06-27] MEDS: vancomycin 1,000 MG in sodium chloride 0.9% 250 ML 250 MG IV (23:56)
[2022-06-28] VITALS (13 sets, daily range): BP systolic 123–167; BP diastolic 64–83; PULSE 60–98; RESP 16–20; TEMP 36.6–37.1; O2SAT 90–98
[2022-06-28 00:11] LABS: INR 1.14 (0.8-1.2)
[2022-06-28 00:15] LABS: Estmated Average Glucose 137; Hemoglobin A1C 6.4 % (4.0-6.0)
[2022-06-28 00:21] LABS: NT Pro B Type Natriuretic Pept 150 pg/mL (0-450); Thyroid Stimulating Hormone 1.52 uIU/mL (0.27-4.20)
[2022-06-28 00:23] LABS: Troponin 5 6HR 13.38 ng/L (0-10)
[2022-06-28 00:30] LABS: Troponin 5 6HR Delta 4.38 ng/L (0-12)
[2022-06-28 00:33] LABS: Chol HDL Ratio 4.32 mg/dL (0.0-4.40); Cholesterol 121 mg/dL (0-200); LDL Cholesterol Calculated 66 mg/dL (50-129); LDL HDL Ratio 2.36 RATIO (0.00-3.22); Triglycerides 137 mg/dL (0-150)
[2022-06-28 00:49] LABS: HDL Cholesterol 28 mg/dL (60-100)
[2022-06-28 00:50] LABS: Acetaminophen < 5.0 ug/mL (10-30); Alcohol Level 10 mg/dL (0-10); Salicylate 0.3 mg/dL (3-10)
[2022-06-28 02:14] LABS: Amphetamines Screen Urine Negative (Negative); Barbiturates Screen Urine Negative (Negative); Benzodiazepines Screen Urine Negative (Negative); Cocaine Screen Urine Negative (Negative); Opiate Screen Urine Negative (Negative); PCP Screen Urine Negative (Negative); THC Screen Urine Negative (Negative)
[2022-06-28] MEDS: piperacillin-tazobactam 3.375 GM in sodium chloride 0.9% (plus) 50 ML IV ×3 (02:29→17:47)
[2022-06-28 03:44] LABS: Adenovirus Not Detected (NOT DETECT); Chlamydia Pneumoniae Not Detected (NOT DETECT); Coronavirus 229E,HKU1,NL63,OC4 Not Detected (NOT DETECT); Human Metapneumovirus Not Detected (NOT DETECT); Human Rhinovirus/Enterovirus Not Detected (NOT DETECT); Influenza A Not Detected (NOT DETECT); Influenza A H1 Not Detected (NOT DETECT); Influenza A H1-2009 Not Detected (NOT DETECT); Influenza A H3 Not Detected (NOT DETECT); Influenza B Not Detected (NOT DETECT); Mycoplasma Pneumoniae Not Detected (NOT DETECT); Parainfluenza Virus Type 1 Not Detected (NOT DETECT); Parainfluenza Virus Type 2 Not Detected (NOT DETECT); Parainfluenza Virus Type 3 Not Detected (NOT DETECT); Parainfluenza Virus Type 4 Not Detected (NOT DETECT); Respiratory Syncytial Virus A Not Detected (NOT DETECT); Respiratory Syncytial Virus B Not Detected (NOT DETECT); SARS-COV-2 Not Detected (NOT DETECT)
[2022-06-28 05:50] LABS: Basophils # 0.1 10^3/uL (0.0-0.1); Basophils % 0.9 %; Eosinophils # 0.1 10^3/uL (0.0-0.8); Eosinophils % 0.5 %; Hematocrit 35.4 % (37.0-47.0); Hemoglobin 11.2 g/dL (11.5-15.3); Lymphocytes # 3.6 10^3/uL (0.8-4.8); Lymphocytes % 22.8 %; Mean Corpuscular HGB Conc 31.6 g/dL (30.0-36.0); Mean Corpuscular Hemoglobin 28.8 pg (28.0-34.0); Mean Platelet Volume 11.7 fL (7.4-10.4); Monocytes # 1.5 10^3/uL (0.2-0.9); Monocytes % 9.4 %; Neutrophils # 10.35 10^3/uL (1.8-7.7); Neutrophils % 65.9 %; Nucleated Red Blood Cells % 0 %; Platelet Count 452 10^3/cmm (130-400); Red Blood Count 3.89 10^6/uL (4.1-5.3); Red Cell Distribution Width 15.8 % (12.1-15.1); White Blood Count 15.7 10^3/uL (4.0-10.0)
[2022-06-28 06:09] LABS: Blood Urea Nitrogen 47 mg/dL (8-23); Carbon Dioxide 21 mmol/L (22-29); Chloride 110 mmol/L (98-107); Creatinine Clr Calc Pharmacy 55.0772; Glucose 110 mg/dL (65-115); Osmolality Calculated 307 mOsm/kg (285-295); Sodium 142 mmol/L (136-145)
[2022-06-28 06:11] LABS: Lactic Sepsis W/Reflex 1.5 mmol/L (0.5-2.2)
[2022-06-28 06:12] LABS: Anion Gap 15.6 (5-19); Potassium 4.6 mmol/L (3.5-5.1)
--- NOTE | 2022-06-28 08:00 | CT_ITS ---
WS: [id number] CT HEAD TECHNIQUE: Noncontrast CT of the head obtained from the skullbase to the vertex. CLINICAL INFORMATION: ams COMPARISON: MRI 2008 DLP: 1118.[address] scans at [facility] use at least one of these dose optimization techniques: automated e xposure control; mA and/or kV adjustment per patient size (includes targeted exams where dose is matc hed to clinical indication); or iterative reconstruction. FINDINGS: No evidence of intracranial hemorrhage or mass effect. Ventricular system and basal cisterns are dunn nt. Mild small vessel changes with moderate parenchymal volume loss. Incidental cavum septum pellucid um. Vascular calcification. No extra-axial fluid collections. No evidence of mass or mass effect. Paranasal sinuses and mastoid air cells are well aerated. .Normal visualized soft tissues. CT/CT head wo con* [id number] IMPRESSION: 1. No evidence of intracranial hemorrhage or mass effect. 2. . Mild small vessel changes with moderate parenchymal volume loss. 3. Intracranial vascular calcification. 4. No acute intracranial findings.
--- NOTE | 2022-06-28 08:00 | CT_ITS ---
WS: [id number] CT CHEST TECHNIQUE: Noncontrast CT of the chest with coronal and sagittal reformatted images. CLINICAL INFORMATION: fever, chills rigors COMPARISON: CT abdomen pelvis June 27, 2022 DLP: 458.[address] scans at [facility] use at least one of these dose optimization techniques: automated e xposure control; mA and/or kV adjustment per patient size (includes targeted exams where dose is matc hed to clinical indication); or iterative reconstruction. FINDINGS: Patchy interstitial and airspace infiltrates in RIGHT lower lobe suspicious for pneumonia. This is si milar in appearance the prior CT abdomen pelvis. LEFT lung is well aerated. Volume loss RIGHT lower l obe with elevation RIGHT hemidiaphragm. A few air bronchograms in the RIGHT lower lobe. Additional castaneda bsegmental atelectasis within the RIGHT middle lobe with volume loss. Upper lobes are well aerated. Normal caliber thoracic aorta. Aortic calcification. Coronary calcifica tion. No mediastinal or hilar lymphadenopathy. Small esophageal hernia. No axillary lymphadenopathy. Splenic artery calcification. Fatty atrophy of the pancreas. CT/CT chest wo con [id number] IMPRESSION: 1. Volume loss RIGHT lower lobe with elevation RIGHT hemidiaphragm. Patchy inf iltrates in the RIGHT lower lobe with subsegmental atelectasis in RIGHT middle lobe and RIGHT lower lobe with air bronchograms. Recommend correlation for pneu monia. 2. LEFT lung is well aerated. 3. No other acute findings.
--- NOTE | 2022-06-28 10:39 | P.PN_ITS ---
Subjective Subjective: History and physical reviewed. Patient reports she had some epigastric discomfort upon coming in but it is since improved. Nurse related she had a dark stool last night. She had another 1 today the nurse believes was melanotic. It has been sent for stool Hemoccult. Patient reports she feels w eak, but better than she did yesterday. She is somewhat anxious and wants to make sure she is receiving her venlafaxine. Medications: Reviewed: Yes Vitals/I&O/Wt Last Vital Signs Temp 98.5 F 06/28/22 07:25 Pulse 98 06/28/22 07:25 Resp 20 H 06/28/22 07:25 BP 143/83 06/28/22 07:25 Pulse Ox 94 06/28/22 07:25 O2 Del Method 06/28/22 07:25 06/27/22 06/28/22 06/28/22 22:59 06:59 14:59 Intake Total 1050 / 1050 1061.667 / 1061.667 Balance 1050 / 1050 1061.667 / 1061.667 Weight last 48 hrs Weight 81.647 kg Physical Exam Narrative: General exam is no distress, conversant Neck is supple no lymphadenopathy thyromegaly Cardiovascular regular rate and rhythm without murmur Lungs clear Abdomen is soft, positive bowel sounds Extremities no sinus clubbing or edema Neuro no obvious focal deficits. Data 06/28/22 05:33 06/28/22 05:33 Micro: Microbiology 06/27/22 15:31 Bacterial Antigens - Final Urine,Clean Catch 06/27/22 18:04 Blood Culture - Preliminary Blood SPECIMEN COLLECTED 06/27/22 17:58 Blood Culture - Preliminary Blood SPECIMEN COLLECTED A&P Assessment and plan (1) Abdominal pain: Concern of melanotic stool this morning. Increase Protonix to 40 mg twice daily INR was checked and normal Change diet to clear liquids Repeat hemoglobin now, perform serial hemoglobins Surgery consult for possible EGD Initial lactate elevated but on repeat normal (2) Acute encephalopathy: Likely secondary to pneumonia/abdominal pain. I think she is currently back to baseline (3) Pneumonia: Concern for right lung pneumonia Continue vancomycin, Zosyn Plan Hypertension, continue metoprolol Other medical problems as listed in past medical history Full code currently SCDs for DVT prophylaxis, anticoagulation contraindicated secondary to possible upper GI bleed Attestations Medical Necessity Statement*: Needs continued hospital stay secondary to upper GI bleeding, pneumonia Coding Level of Care Code Acute Code for Chg Fwd Diagnoses Abdominal pain R10.9 Acute encephalopathy G93.40 Pneumonia J18.9
[2022-06-28 11:37] LABS: Hematocrit 32.9 % (37.0-47.0); Hemoglobin 10.5 g/dL (11.5-15.3)
[2022-06-28] MEDS: pantoprazole 40 mg SDV IVP ×2 (11:54→23:27)
[2022-06-28] MEDS: venlafaxine 75 mg Tablet 150 MG PO (11:57)
--- NOTE | 2022-06-28 12:01 | PC.CHAP ---
Pastoral Care Encounter/Spiritual Assessment Type of Contact [] Declined dial marker visit [] Patient/Family/Request visit [] Outpatient visit [] Follow-up visit [] Physician referral [] Code/Alert [b] Routine visit [] Staff referral [] Actively dying [] Patient sleeping [] Family support [] [] Out of room [] Palliative care [] [] Receiving care in room [] Pre-surgical visit [] Trauma [] Long length of stay [] ICU visit [] Other: Relational/Emotional Strength [b] Patient feels connected with others/family/visitors/staff [] Distress [] Loneliness/isolation [] Abandonment Spirituality of Patient [b [] There are Spiritual issues to be addressed [employer]ylinder [employer] Helper Interventions [] Prayer [bxx]b Active listening []b Non-anxious presence b[] Spiritual/emotional support [] Crisis/trauma care [] Spiritual counseling [] Bereavement support [] Provided bereavement packet [] Provided Bible/devotional materials [] Provided toy/stuffed animal, coloring book to patient or family member [] Provided Communion [] Anointing/[place] [] Salvation [x] Completed spiritual assessment [] Other: Impact on Illness or Injury [] Angry [] Fearful [] Anxious [] Often cries [] Exhaustion [] Unable to work [] Unable to attend adventist [] Unable to walk/stand [] Unable to read [] Unable to drive [] Unable to eat/drink [] Unable to sleep [] Unable to be with family [] Patient intubated [] Other: Summary Time spent with patient 10 min
[2022-06-28] MEDS: sodium chloride 0.9% 1,000 ML 100 ML IV ×2 (14:11→23:28)
[2022-06-28] MEDS: gabapentin 400 mg Capsule PO ×2 (14:16→20:41)
--- NOTE | 2022-06-28 14:19 | P.CONIM_ITS ---
Providers/Reason For Consult Consulting Physician/Specialty*: Dr. Jaime Singh DO/General surgery Reason for Consult*: Melena Attending Physician: Davion Church MD Primary Care Provider: Robin Crum DO History of Present Illness History of Present Illness Rain Butcher is a 81 year old female who presents to the hospital with weakness and chills. She was found to have pneumonia. While in the hospital today she had melanotic stools. Patient is acutely confused. She is only oriented to self. For this reason HPI and review of systems are limited. The is at the bedside. He says she is not normally confused. She denies any abdominal pain, nausea, emesis. The says there was no melanotic stools yesterday. She reports that she does not normally get heartburn. Review of Systems General: Reports: ROS unobtainable due to mental status Medications/Allergies Home Medications Medication Instructions Recorded Confirmed Last Taken Type cholecalciferol (vitamin D3) 50 50 mcg PO DAILY 12/16/21 06/28/22 Unknown History mcg (2,000 unit) capsule docusate sodium 100 mg capsule 100 mg PO DAILY 12/16/21 06/28/22 Unknown History omega 8-szl-ctw-fish oil 1,000 mg 1 cap PO DAILY 12/16/21 06/28/22 Unknown History (120 mg-180 mg) capsule (Fish Oil) gabapentin 400 mg capsule 400 mg PO TID #90 caps 01/22/22 06/28/22 Unknown Rx metoprolol succinate 50 mg 50 mg PO DAILY #90 tabs 01/22/22 06/28/22 Unknown Rx tablet,extended release 24 hr losartan 100 mg tablet 100 mg PO DAILY #90 tabs 02/05/22 06/28/22 Unknown Rx alendronate 70 mg tablet 70 mg PO .weekly #12 tabs 02/23/22 06/28/22 Unknown Rx levothyroxine 150 mcg tablet 150 mcg PO DAILY #90 tabs 02/23/22 06/28/22 Unknown Rx lovastatin 40 mg tablet 40 mg PO DAILY #90 tabs 02/23/22 06/28/22 Unknown Rx spironolactone 25 mg tablet 25 mg PO DAILY #90 tabs 02/23/22 06/28/22 Unknown Rx venlafaxine 100 mg tablet See Rx Instructions .Route 03/17/22 06/28/22 Unknown Rx .COMPLEX #270 tabs mirtazapine 15 mg tablet See Rx Instructions .Route 04/05/22 06/28/22 Unknown Rx .COMPLEX #90 tabs Allergies Allergy/AdvReac Type Severity Reaction Status Date / Time No Known Allergies Allergy Verified 05/06/22 10:33 Current Medications Generic Name Dose Route Start Last Admin Trade Name Juwan PRN Reason Stop Dose Admin Gabapentin 400 mg 06/28/22 15:00 06/28/22 14:16 Gabapentin 400 Mg Capsule PO 400 mg TID DARIUS Administration Sodium Chloride 1,000 mls @ 100 mls/hr 06/27/22 22:47 06/28/22 14:11 Sodium Chloride 0.9% IV 100 mls/hr .Q10H DARIUS Administration Piperacillin Sod/Tazobactam 50 mls @ 12.5 mls/hr 06/28/22 02:00 06/28/22 11:55 Sod 3.375 gm/ Sodium Chloride IV 12.5 mls/hr Q8H DARIUS Administration Vancomycin HCl 1,000 mg/ 250 mls @ 250 mls/hr 06/27/22 23:00 06/28/22 07:32 Sodium Chloride IV Infused Q24H DARIUS Infusion Pantoprazole Sodium 40 mg 06/28/22 10:45 06/28/22 11:54 Pantoprazole 40 Mg Sdv IVP 40 mg Q12H DARIUS Administration Venlafaxine HCl 150 mg 06/28/22 12:00 06/28/22 11:57 Venlafaxine 75 Mg Tablet PO 150 mg QNOON DARIUS Administration PFSH Acute PFSH: Medical History (Updated 06/28/22 @ 14:23 by Jaime Singh DO) History of hyperlipidemia Hyperlipidemia Hypertension JAK2 V617F mutation Surgical History H/O hemorrhoidectomy H/O oophorectomy H/O thyroidectomy H/O: hysterectomy Family History Father Brain aneurysm Mother Scleroderma CAD (coronary artery disease) Brother CAD (coronary artery disease) Social History Smoking and tobacco status: never smoked Alcohol intake: never Substance/Drug Use: never Female Reproductive History: Spontaneous abortions: No Vitals/I&O/Wt Last Vital Signs Temp 98.4 F 06/28/22 12:00 Pulse 60 06/28/22 12:00 Resp 20 H 06/28/22 12:00 BP 126/64 06/28/22 12:00 Pulse Ox 98 06/28/22 12:00 O2 Del Method 06/28/22 12:00 06/27/22 06/28/22 06/28/22 22:59 06:59 14:59 Intake Total 1050 / 1050 1300.000 / 1300.000 Balance 1050 / 1050 1300.000 / 1300.000 Weight last 48 hrs Weight 180 lb Physical Exam Narrative: General : Patient is well developed, oriented only to self Head : Normal cephalic, a-traumatic. Ears : Pinnae and external canal are normal. Hearing is normal. Eyes : PERRLA, Sclera and injection are normal. No conjunctival discharge. Nose : Mucous membranes are without erythema. Throat : buccal mucosa is normal, gums are without significant recession or hypertrophy. Lungs : Equal chest rise bilaterally, no use of accessory muscles, trachea is midline. Cor : Rate and rhythm are normal. Abdomen : Soft, ND, NT, no g/r/m Extremities : No edema, no cyanosis or clubbing, dorsalis pedis pulses are present bilaterally, non-tender to palpation of calves. Upper extremities are normal bilaterally. Back : non-tender to palpation, no CVA tenderness. Neuro : CN II - XII intact, Upper and lower extremities have equal and full strength Data 06/28/22 11:03 06/28/22 05:33 Micro: Microbiology 06/27/22 10:30 Occult Blood (FIT) - Final Stool 06/27/22 15:31 Bacterial Antigens - Final Urine,Clean Catch 06/27/22 18:04 Blood Culture - Preliminary Blood SPECIMEN COLLECTED 06/27/22 17:58 Blood Culture - Preliminary Blood SPECIMEN COLLECTED A&P Assessment and plan (1) Melena: Plan EGD The risks and benefits of the procedure, including bleeding, infection, intestinal perforation requiring surgery, missed lesion were explained to the patient. The patient is understanding of the risks and wishes to proceed. Procedure will be at 7 AM tomorrow. She should continue her Protonix IV twice daily. Coding Level of Care Code Acute Code for [facility] Fwd Diagnoses Melena K92.1
[2022-06-28] MEDS: venlafaxine 75 mg Tablet PO (17:50)
[2022-06-28 19:16] LABS: Hematocrit 31.5 % (37.0-47.0); Hemoglobin 9.8 g/dL (11.5-15.3)
[2022-06-28] MEDS: metoprolol tartrate 25 mg Tablet PO (20:41)
[2022-06-28] MEDS: vancomycin 1,000 MG in sodium chloride 0.9% 250 ML 250 MG IV (23:27)
[2022-06-29] VITALS (28 sets, daily range): BP systolic 123–175; BP diastolic 64–100; PULSE 62–123; RESP 16–20; TEMP 36.4–37; O2SAT 91–98
[2022-06-29] MEDS: piperacillin-tazobactam 3.375 GM in sodium chloride 0.9% (plus) 50 ML IV ×3 (02:11→17:27)
[2022-06-29 06:12] LABS: Basophils # 0.2 10^3/uL (0.0-0.1); Basophils % 1.2 %; Eosinophils # 0.6 10^3/uL (0.0-0.8); Eosinophils % 5.1 %; Hematocrit 30.8 % (37.0-47.0); Hemoglobin 9.2 g/dL (11.5-15.3); Lymphocytes # 3.6 10^3/uL (0.8-4.8); Lymphocytes % 29.4 %; Mean Corpuscular HGB Conc 29.9 g/dL (30.0-36.0); Mean Corpuscular Hemoglobin 28.7 pg (28.0-34.0); Mean Platelet Volume 11.5 fL (7.4-10.4); Monocytes # 0.9 10^3/uL (0.2-0.9); Monocytes % 7.5 %; Neutrophils # 6.93 10^3/uL (1.8-7.7); Neutrophils % 56.2 %; Nucleated Red Blood Cells % 0 %; Platelet Count 492 10^3/cmm (130-400); Red Blood Count 3.21 10^6/uL (4.1-5.3); White Blood Count 12.3 10^3/uL (4.0-10.0)
[2022-06-29 06:28] LABS: Blood Urea Nitrogen 29 mg/dL (8-23); Calcium 8.3 mg/dL (8.5-10.5); Carbon Dioxide 20 mmol/L (22-29); Chloride 112 mmol/L (98-107); Creatinine Clr Calc Pharmacy 55.0772; Glucose 97 mg/dL (65-115); Osmolality Calculated 296 mOsm/kg (285-295); Sodium 140 mmol/L (136-145)
[2022-06-29] MEDS: sodium chloride 0.9% 1,000 ML 30 ML IV (06:39)
--- NOTE | 2022-06-29 07:02 | ANES.PREANE2 ---
Pre-Anesthetic Assessment Height/Weight: Height 1.63 m Weight 81.647 kg Temp Pulse Resp BP Pulse Ox O2 Del Method 97.7 F 77 16 155/84 92 06/29/22 06:31 06/29/22 06:31 06/29/22 06:31 06/29/22 06:31 06/29/22 06:31 06/29/22 06:31 Preop Diagnosis: Melanic stools, abd pain Operation Date: 06/29/22 06:45 Proposed Procedures p EGD(Not Applicable) - Jaime Singh, DO Was Beta Buzz taken within 24 hours: Yes Was Clonidine taken within 24 hours: N/A Last intake: Intake Last Liquid Date 06/28/22 Last Solid Date 06/28/22 Social No alcohol and No tobacco Exam alert, oriented x 3, clear to auscultation bilaterally and regular rate & rhythm Airway Submandibular: within normal limits Cervical ROM: within normal limits Mallampati: Class II Dentition: false History/ROS No significant history except as noted and No significant complaints Pulmonary None reported CV/HEM Hypertension None reported Hepatic None reported GI None reported Metabolic Thyroid Disease Musc/skel Osteoarthritis/DJD Hx Morrison's Palsy Neuropsych None reported Anesthetic Plan ASA status: 3 Anesthesia: Anesthesia Evaluation and MAC Risk of > 500 ml blood loss (7ml/kg in children): No Medications/Allergies Home Medications Medication Instructions Recorded Confirmed Last Taken Type cholecalciferol (vitamin D3) 50 50 mcg PO DAILY 12/16/21 06/28/22 Unknown History mcg (2,000 unit) capsule docusate sodium 100 mg capsule 100 mg PO DAILY 12/16/21 06/28/22 Unknown History omega 1-poy-xbx-fish oil 1,000 mg 1 cap PO DAILY 12/16/21 06/28/22 Unknown History (120 mg-180 mg) capsule (Fish Oil) gabapentin 400 mg capsule 400 mg PO TID #90 caps 01/22/22 06/28/22 Unknown Rx metoprolol succinate 50 mg 50 mg PO DAILY #90 tabs 01/22/22 06/28/22 Unknown Rx tablet,extended release 24 hr losartan 100 mg tablet 100 mg PO DAILY #90 tabs 02/05/22 06/28/22 Unknown Rx alendronate 70 mg tablet 70 mg PO .weekly #12 tabs 09/20/22 01/23/23 Unknown Rx levothyroxine 150 mcg tablet 150 mcg PO DAILY #90 tabs 02/23/22 06/28/22 Unknown Rx lovastatin 40 mg tablet 40 mg PO DAILY #90 tabs 02/23/22 06/28/22 Unknown Rx spironolactone 25 mg tablet 25 mg PO DAILY #90 tabs 02/23/22 06/28/22 Unknown Rx venlafaxine 100 mg tablet See Rx Instructions .Route 03/17/22 06/28/22 Unknown Rx .COMPLEX #270 tabs mirtazapine 15 mg tablet See Rx Instructions .Route 04/05/22 06/28/22 Unknown Rx .COMPLEX #90 tabs Allergies Allergy/AdvReac Type Severity Reaction Status Date / Time No Known Allergies Allergy Verified 05/06/22 10:33 Current Medications Generic Name Dose Route Start Last Admin Trade Name Freq PRN Reason Stop Dose Admin Gabapentin 400 mg 06/28/22 15:00 06/28/22 20:41 Gabapentin 400 Mg Capsule PO 400 mg TID DARIUS Administration Sodium Chloride 1,000 mls @ 100 mls/hr 06/27/22 22:47 06/28/22 23:28 Sodium Chloride 0.9% IV 100 mls/hr .Q10H DARIUS Administration Piperacillin Sod/Tazobactam 50 mls @ 12.5 mls/hr 06/28/22 02:00 06/29/22 02:11 Sod 3.375 gm/ Sodium Chloride IV 12.5 mls/hr Q8H DARIUS Administration Vancomycin HCl 1,000 mg/ 250 mls @ 250 mls/hr 06/27/22 23:00 06/28/22 23:27 Sodium Chloride IV 250 mls/hr Q24H DARIUS Administration Sodium Chloride 1,000 mls @ 30 mls/hr 06/29/22 06:30 06/29/22 06:39 Sodium Chloride 0.9% IV 06/30/22 06:29 30 mls/hr .Q24H DARIUS Administration Metoprolol Tartrate 25 mg 06/28/22 21:00 06/28/22 20:41 Metoprolol Tartrate 25 Mg Tablet PO 25 mg BID@0900,2100 DARIUS Administration Pantoprazole Sodium 40 mg 06/28/22 10:45 06/28/22 23:27 Pantoprazole 40 Mg Sdv IVP 40 mg Q12H DARIUS Administration Venlafaxine HCl 150 mg 06/28/22 12:00 06/28/22 11:57 Venlafaxine 75 Mg Tablet PO 150 mg QNOON DARIUS Administration Venlafaxine HCl 75 mg 06/28/22 18:00 06/28/22 17:50 Venlafaxine 75 Mg Tablet PO 75 mg QPM DARIUS Administration [facility] Anesthesia Medical History (Updated 06/28/22 @ 14:23 by Jaime Singh DO) History of hyperlipidemia Hyperlipidemia Hypertension JAK2 [id number] mutation Surgical History H/O hemorrhoidectomy H/O oophorectomy H/O thyroidectomy H/O: hysterectomy Family History Father Brain aneurysm Mother Scleroderma CAD (coronary artery disease) Brother CAD (coronary artery disease) Social History Smoking and tobacco status: never smoked Alcohol intake: never Substance/Drug Use: never Female Reproductive History Spontaneous abortions: No Data Anesthesia 06/29/22 05:49 06/29/22 05:49 Short CBC 06/27/22 06/28/22 06/28/22 Range/Units 15:25 05:33 11:03 WBC 17.2 H 15.7 H (4.0-10.0) 10^3/uL Hgb 12.8 11.2 L 10.5 L (11.5-15.3) g/dL Hct 41.1 35.4 L 32.9 L (37.0-47.0) % MCV 90.3 91.0 (81-99) fl Plt Count 575 H 452 H (130-400) 10^3/cmm Neut % (Auto) 70.2 65.9 % Neut # (Auto) 12.09 H 10.35 H (1.8-7.7) 10^3/uL 06/28/22 06/29/22 Range/Units 19:06 05:49 WBC 12.3 H (4.0-10.0) 10^3/uL Hgb 9.8 L 9.2 L (11.5-15.3) g/dL Hct 31.5 L 30.8 L (37.0-47.0) % MCV 96.0 D (81-99) fl Plt Count 492 H (130-400) 10^3/cmm Neut % (Auto) 56.2 % Neut # (Auto) 6.93 (1.8-7.7) 10^3/uL BMP 06/27/22 06/28/22 06/29/22 15:25 05:33 05:49 Sodium 140 142 140 Potassium 5.2 H 4.6 4.0 Chloride 103 110 H 112 H Carbon Dioxide 23 21 L 20 L BUN 40 H 47 H 29 H Creatinine 0.9 0.7 0.8 Glucose 126 H 110 97 Calcium 10.1 9.0 8.3 L Cardiac Enzymes 06/27/22 06/27/22 06/27/22 Range/Units 15:25 16:41 16:41 Troponin T Baseline 9 (0-10) ng/L Troponin T 120 Minute 8.96 (0-10) ng/L Delta Troponin T -0.04 L (0-10) ABS# Troponin T Hi Sens 6Hr (0-10) ng/L Troponin T Hi Sens 6Hr Delta (0-12) ng/L NT-Pro-B Natriuret Pep 150 (0-450) pg/mL 06/27/22 Range/Units 23:43 Troponin T Baseline (0-10) ng/L Troponin T 120 Minute (0-10) ng/L Delta Troponin T (0-10) ABS# Troponin T Hi Sens 6Hr 13.38 H (0-10) ng/L Troponin T Hi Sens 6Hr Delta 4.38 (0-12) ng/L NT-Pro-B Natriuret Pep (0-450) pg/mL Liver Function 06/27/22 Range/Units 15:25 Total Bilirubin 0.4 (0.15-1.2) mg/dL AST 11 (0-32) U/L ALT 8 (0-33) U/L Alkaline Phosphatase 57 (35-105) U/L Albumin 3.9 (3.5-5.2) g/dL Urine 06/27/22 Range/Units 15:31 Urine Color Dark yellow (Yellow) Urine Appearance Clear (CLEAR) Urine pH 5 (5-7) Ur Specific [place] 1.020 (1.005-1.030) Urine Protein Neg (Negative) Urine Glucose (UA) Norm (Normal) Urine Ketones 1+ H (Negative) Urine Nitrate Negative (Negative) Urine Bilirubin 1+ H (Negative) Ur Leukocyte Esterase Negative (Negative) COVID Results 06/27/22 06/28/22 17:24 01:40 Coronavirus 229E (PCR) Not detected SARS-CoV-2 (PCR) Not detected SARS-CoV-2 Ag (Rapid) negative Coags 06/27/22 06/27/22 06/27/22 15:25 16:41 23:43 ESR 14 PT 14.90 INR 1.14 C-Reactive Protein 3.0 Microbiology 06/27/22 18:04 Blood Culture - Preliminary Blood NEGATIVE TO DATE 06/27/22 17:58 Blood Culture - Preliminary Blood NEGATIVE TO DATE 06/28/22 01:40 MRSA Culture - Final Nose 06/27/22 10:30 C.difficile Toxin B Gene (PCR) - Final Stool 06/27/22 10:30 Occult Blood (FIT) - Final Stool 06/27/22 15:31 Bacterial Antigens - Final Urine,Clean Catch Cardiac Studies: No Data to Display
--- NOTE | 2022-06-29 07:03 | W.PM.OPSUD ---
Surgery/Procedure H&P Update DATE OF PROCEDURE: June 29, 2022 DATE H&P PERFORMED: 06/28/22 PLANNED PROCEDURE: Operation Date: 06/29/22 06:45 Proposed Procedures p EGD(Not Applicable) - Jaime Singh DO
--- NOTE | 2022-06-29 07:15 | P.ANESASSM_ITS ---
Pre-Anesthetic Assessment Height/Weight: Height 1.63 m Weight 81.647 kg Temp Pulse Resp BP Pulse Ox O2 Del Method 97.7 F 77 16 155/84 92 06/29/22 06:31 06/29/22 06:31 06/29/22 06:31 06/29/22 06:31 06/29/22 06:31 06/29/22 06:31 Preop Diagnosis: Melanic stools, abd pain Operation Date: 06/29/22 06:45 Proposed Procedures p EGD(Not Applicable) - Jaime Singh, DO Was Beta Buzz taken within 24 hours: Yes Last intake: Intake Last Liquid Date 06/28/22 Last Solid Date 06/28/22 Social No alcohol and No tobacco Exam alert, oriented x 3, clear to auscultation bilaterally and regular rate & rhythm Airway Submandibular: within normal limits Cervical ROM: within normal limits Mallampati: Class II Dentition: false History/ROS No significant history except as noted and No significant complaints Pulmonary None reported CV/HEM Hypertension None reported Hepatic None reported GI None reported Metabolic Thyroid Disease [facility] [place] Osteoarthritis/DJD Neuropsych Dementia Hx Morrison's palsy Anesthetic Plan ASA status: 3 Anesthesia: Anesthesia Evaluation and MAC Risk of > 500 ml blood loss (7ml/kg in children): No Medications/Allergies Home Medications Medication Instructions Recorded Confirmed Last Taken Type cholecalciferol (vitamin D3) 50 50 mcg PO DAILY 12/16/21 06/28/22 Unknown History mcg (2,000 unit) capsule docusate sodium 100 mg capsule 100 mg PO DAILY 12/16/21 06/28/22 Unknown History omega 7-lfc-rgt-fish oil 1,000 mg 1 cap PO DAILY 12/16/21 06/28/22 Unknown History (120 mg-180 mg) capsule (Fish Oil) gabapentin 400 mg capsule 400 mg PO TID #90 caps 01/22/22 06/28/22 Unknown Rx metoprolol succinate 50 mg 50 mg PO DAILY #90 tabs 01/22/22 06/28/22 Unknown Rx tablet,extended release 24 hr losartan 100 mg tablet 100 mg PO DAILY #90 tabs 02/05/22 06/28/22 Unknown Rx alendronate 70 mg tablet 70 mg PO .weekly #12 tabs 02/23/22 06/28/22 Unknown Rx levothyroxine 150 mcg tablet 150 mcg PO DAILY #90 tabs 02/23/22 06/28/22 Unknown Rx lovastatin 40 mg tablet 40 mg PO DAILY #90 tabs 02/23/22 06/28/22 Unknown Rx spironolactone 25 mg tablet 25 mg PO DAILY #90 tabs 02/23/22 06/28/22 Unknown Rx venlafaxine 100 mg tablet See Rx Instructions .Route 03/17/22 06/28/22 Unknown Rx .COMPLEX #270 tabs mirtazapine 15 mg tablet See Rx Instructions .Route 04/05/22 06/28/22 Unknown Rx .COMPLEX #90 tabs Allergies Allergy/AdvReac Type Severity Reaction Status Date / Time No Known Allergies Allergy Verified 05/06/22 10:33 Current Medications Generic Name Dose Route Start Last Admin Trade Name eNoq PRN Reason Stop Dose Admin Gabapentin 400 mg 06/28/22 15:00 06/28/22 20:41 Gabapentin 400 Mg Capsule PO 400 mg TID DARIUS Administration Sodium Chloride 1,000 mls @ 100 mls/hr 06/27/22 22:47 06/28/22 23:28 Sodium Chloride 0.9% IV 100 mls/hr .Q10H DARIUS Administration Piperacillin Sod/Tazobactam 50 mls @ 12.5 mls/hr 06/28/22 02:00 06/29/22 02:11 Sod 3.375 gm/ Sodium Chloride IV 12.5 mls/hr Q8H DARIUS Administration Vancomycin HCl 1,000 mg/ 250 mls @ 250 mls/hr 06/27/22 23:00 06/28/22 23:27 Sodium Chloride IV 250 mls/hr Q24H DARIUS Administration Sodium Chloride 1,000 mls @ 30 mls/hr 06/29/22 06:30 06/29/22 06:39 Sodium Chloride 0.9% IV 06/30/22 06:29 30 mls/hr .Q24H DARIUS Administration Metoprolol Tartrate 25 mg 06/28/22 21:00 06/28/22 20:41 Metoprolol Tartrate 25 Mg Tablet PO 25 mg BID@0900,2100 DARIUS Administration Pantoprazole Sodium 40 mg 06/28/22 10:45 06/28/22 23:27 Pantoprazole 40 Mg Sdv IVP 40 mg Q12H DARIUS Administration Venlafaxine HCl 150 mg 06/28/22 12:00 06/28/22 11:57 Venlafaxine 75 Mg Tablet PO 150 mg QNOON DARIUS Administration Venlafaxine HCl 75 mg 06/28/22 18:00 06/28/22 17:50 Venlafaxine 75 Mg Tablet PO 75 mg QPM DARIUS Administration [facility] Anesthesia Medical History (Updated 06/28/22 @ 14:23 by Jaime Singh DO) History of hyperlipidemia Hyperlipidemia Hypertension JAK2 V617F mutation Surgical History H/O hemorrhoidectomy H/O oophorectomy H/O thyroidectomy H/O: hysterectomy Family History Father Brain aneurysm Mother Scleroderma CAD (coronary artery disease) Brother CAD (coronary artery disease) Social History Smoking and tobacco status: never smoked Alcohol intake: never Substance/Drug Use: never Female Reproductive History Spontaneous abortions: No Data Anesthesia 06/29/22 05:49 06/29/22 05:49 Short CBC 06/27/22 06/28/22 06/28/22 Range/Units 15:25 05:33 11:03 WBC 17.2 H 15.7 H (4.0-10.0) 10^3/uL Hgb 12.8 11.2 L 10.5 L (11.5-15.3) g/dL Hct 41.1 35.4 L 32.9 L (37.0-47.0) % MCV 90.3 91.0 (81-99) fl Plt Count 575 H 452 H (130-400) 10^3/cmm Neut % (Auto) 70.2 65.9 % Neut # (Auto) 12.09 H 10.35 H (1.8-7.7) 10^3/uL 06/28/22 06/29/22 Range/Units 19:06 05:49 WBC 12.3 H (4.0-10.0) 10^3/uL Hgb 9.8 L 9.2 L (11.5-15.3) g/dL Hct 31.5 L 30.8 L (37.0-47.0) % MCV 96.0 D (81-99) fl Plt Count 492 H (130-400) 10^3/cmm Neut % (Auto) 56.2 % Neut # (Auto) 6.93 (1.8-7.7) 10^3/uL BMP 06/27/22 06/28/22 06/29/22 15:25 05:33 05:49 Sodium 140 142 140 Potassium 5.2 H 4.6 4.0 Chloride 103 110 H 112 H Carbon Dioxide 23 21 L 20 L BUN 40 H 47 H 29 H Creatinine 0.9 0.7 0.8 Glucose 126 H 110 97 Calcium 10.1 9.0 8.3 L Cardiac Enzymes 06/27/22 06/27/22 06/27/22 Range/Units 15:25 16:41 16:41 Troponin T Baseline 9 (0-10) ng/L Troponin T 120 Minute 8.96 (0-10) ng/L Delta Troponin T -0.04 L (0-10) ABS# Troponin T Hi Sens 6Hr (0-10) ng/L Troponin T Hi Sens 6Hr Delta (0-12) ng/L NT-Pro-B Natriuret Pep 150 (0-450) pg/mL 06/27/22 Range/Units 23:43 Troponin T Baseline (0-10) ng/L Troponin T 120 Minute (0-10) ng/L Delta Troponin T (0-10) ABS# Troponin T Hi Sens 6Hr 13.38 H (0-10) ng/L Troponin T Hi Sens 6Hr Delta 4.38 (0-12) ng/L NT-Pro-B Natriuret Pep (0-450) pg/mL Liver Function 06/27/22 Range/Units 15:25 Total Bilirubin 0.4 (0.15-1.2) mg/dL AST 11 (0-32) U/L ALT 8 (0-33) U/L Alkaline Phosphatase 57 (35-105) U/L Albumin 3.9 (3.5-5.2) g/dL Urine 06/27/22 Range/Units 15:31 Urine Color Dark yellow (Yellow) Urine Appearance Clear (CLEAR) Urine pH 5 (5-7) Ur Specific [place] 1.020 (1.005-1.030) Urine Protein Neg (Negative) Urine Glucose (UA) Norm (Normal) Urine Ketones 1+ H (Negative) Urine Nitrate Negative (Negative) Urine Bilirubin 1+ H (Negative) Ur Leukocyte Esterase Negative (Negative) COVID Results 06/27/22 06/28/22 17:24 01:40 Coronavirus 229E (PCR) Not detected SARS-CoV-2 (PCR) Not detected SARS-CoV-2 Ag (Rapid) negative Coags 06/27/22 06/27/22 06/27/22 15:25 16:41 23:43 ESR 14 PT 14.90 INR 1.14 C-Reactive Protein 3.0 Microbiology 06/27/22 18:04 Blood Culture - Preliminary Blood NEGATIVE TO DATE 06/27/22 17:58 Blood Culture - Preliminary Blood NEGATIVE TO DATE 06/28/22 01:40 MRSA Culture - Final Nose 06/27/22 10:30 C.difficile Toxin B Gene (PCR) - Final Stool 06/27/22 10:30 Occult Blood (FIT) - Final Stool 06/27/22 15:31 Bacterial Antigens - Final Urine,Clean Catch Cardiac Studies: No Data to Display
[2022-06-29] MEDS: EPINEPHrine 1 mg/mL INJ XX (07:37)
--- NOTE | 2022-06-29 08:52 | P.PN_ITS ---
Subjective Subjective: Rain reports her black and tarry stools have slowed down. She underwent an EGD this morning demonstrated a gastric ulcer with a small amount of bleeding as well as some gastritis. Epinephrine was used on the ulcer. She denies any abdominal discomfort. Medications: Reviewed: Yes Vitals/I&O/Wt Last Vital Signs Temp 98.1 F 06/29/22 07:29 Pulse 71 06/29/22 08:03 Resp 20 H 06/29/22 08:03 BP 136/83 06/29/22 08:03 Pulse Ox 92 06/29/22 08:03 O2 Del Method 06/29/22 08:03 O2 Flow Rate 4 06/29/22 07:47 06/28/22 06/29/22 06/29/22 22:59 06:59 14:59 Intake Total 100 / 1400.000 928.333 / 2328.333 600 / 600 Balance 100 / 1400.000 928.333 / 2328.333 600 / 600 Weight last 48 hrs Weight 81.647 kg Physical Exam Narrative: General exam is no distress Neck is supple no lymphadenopathy thyromegaly Cardiovascular regular rate and rhythm without murmur Lungs clear Abdomen is soft, positive bowel sounds Extremities no sinus clubbing or edema Neuro no obvious focal deficits. Skin without rash Data 06/29/22 05:49 06/29/22 05:49 Micro: Microbiology 06/27/22 18:04 Blood Culture - Preliminary Blood NEGATIVE TO DATE 06/27/22 17:58 Blood Culture - Preliminary Blood NEGATIVE TO DATE 06/28/22 01:40 MRSA Culture - Final Nose 06/27/22 10:30 C.difficile Toxin B Gene (PCR) - Final Stool 06/27/22 10:30 Occult Blood (FIT) - Final Stool 06/27/22 15:31 Bacterial Antigens - Final Urine,Clean Catch A&P Assessment and plan (1) Abdominal pain: Melanotic stool started occurring while in the hospital consistent with upper GI bleed. EGD today demonstrated gastritis, gastric ulcer with small amount of bleeding and epinephrine was injected Continue Protonix to 40 mg IV twice daily INR was checked and normal Diet has been advanced by surgery, and Carafate added Repeat CBC tomorrow (2) Acute encephalopathy: Likely secondary to pneumonia/abdominal pain. I think she is currently back to baseline (3) Pneumonia: Concern for right lung pneumonia Continue Zosyn Discontinue vancomycin, MRSA PCR negative Blood cultures are negative to date. Plan Hypertension, continue metoprolol Other medical problems as listed in past medical history Full code currently SCDs for DVT prophylaxis, anticoagulation contraindicated secondary to possible upper GI bleed Attestations Medical Necessity Statement*: Needs continued hospitalization for close monitoring following upper GI bleeding, with treatment of bleeding ulcer this morning by EGD. Coding Level of Care Code Acute Code for [facility] Fwd Diagnoses Abdominal pain R10.9 Acute encephalopathy G93.40 Pneumonia J18.9
[2022-06-29] MEDS: losartan 50 mg Tablet PO (09:30)
[2022-06-29] MEDS: pantoprazole 40 mg SDV IVP ×2 (11:01→23:51)
[2022-06-29] MEDS: sucralfate 1 gm/10 mL Oral Liq UDC PO ×3 (11:12→20:00)
--- NOTE | 2022-06-29 12:27 | ANE.PACU2 ---
Inpatient post-anesthesia follow up: Airway intact: Yes Vital signs: Temperature 97.6 F Pulse Rate 68 Respiratory Rate 20 Blood Pressure 156/80 Pulse Oximetry 93 Oxygen Delivery Me thod Room Air Oxygen Flow Rate 4 Fraction of Inspir ed Oxygen Hydration adequate: Yes Nausea and vomiting: No Pain level: 1 Mental status: Baseline
[2022-06-29] MEDS: venlafaxine 75 mg Tablet 150 MG PO ×2 (12:55→17:27)
[2022-06-29 13:19] LABS: Cytomegalovirus Antibody (IGM) <30.00 AU/mL
[2022-06-29] MEDS: sodium chloride 0.9% 1,000 ML 100 ML IV ×2 (14:19→23:52)
[2022-06-29] MEDS: gabapentin 400 mg Capsule PO ×2 (17:27→20:01)
[2022-06-29] MEDS: venlafaxine 75 mg Tablet PO (17:30)
[2022-06-29] MEDS: metoprolol tartrate 25 mg Tablet PO (20:00)
[2022-06-30] VITALS (12 sets, daily range): BP systolic 106–150; BP diastolic 72–80; PULSE 64–82; RESP 16–20; TEMP 36.8–36.9; O2SAT 91–98
[2022-06-30] MEDS: piperacillin-tazobactam 3.375 GM in sodium chloride 0.9% (plus) 50 ML IV ×2 (01:44→10:15)
[2022-06-30 04:53] LABS: Basophils # 0.1 10^3/uL (0.0-0.1); Eosinophils # 0.7 10^3/uL (0.0-0.8); Eosinophils % 6.7 %; Hematocrit 29.4 % (37.0-47.0); Hemoglobin 9.1 g/dL (11.5-15.3); Lymphocytes # 3.6 10^3/uL (0.8-4.8); Lymphocytes % 33.4 %; Mean Corpuscular Hemoglobin 28.7 pg (28.0-34.0); Mean Corpuscular Volume 92.7 fl (81-99); Mean Platelet Volume 10.9 fL (7.4-10.4); Monocytes # 0.9 10^3/uL (0.2-0.9); Monocytes % 8.4 %; Neutrophils # 5.44 10^3/uL (1.8-7.7); Neutrophils % 49.9 %; Nucleated Red Blood Cells % 0 %; Platelet Count 391 10^3/cmm (130-400); Red Blood Count 3.17 10^6/uL (4.1-5.3); White Blood Count 10.9 10^3/uL (4.0-10.0)
[2022-06-30 05:13] LABS: Anion Gap 12.7 (5-19); Blood Urea Nitrogen 16 mg/dL (8-23); Calcium 8.3 mg/dL (8.5-10.5); Carbon Dioxide 21 mmol/L (22-29); Chloride 112 mmol/L (98-107); Creatinine Clr Calc Pharmacy 55.0772; Glucose 93 mg/dL (65-115); Osmolality Calculated 295 mOsm/kg (285-295); Potassium 3.7 mmol/L (3.5-5.1); Sodium 142 mmol/L (136-145)
[2022-06-30] MEDS: venlafaxine 75 mg Tablet 112.5 MG PO (05:50)
[2022-06-30] MEDS: sucralfate 1 gm/10 mL Oral Liq UDC PO ×2 (06:40→10:56)
[2022-06-30] MEDS: levothyroxine 150 mcg Tablet PO (08:49)
[2022-06-30] MEDS: atorvastatin 40 mg Tablet 20 MG PO (08:49)
[2022-06-30] MEDS: losartan 50 mg Tablet PO (08:49)
[2022-06-30] MEDS: metoprolol tartrate 25 mg Tablet PO (08:49)
[2022-06-30] MEDS: gabapentin 400 mg Capsule PO (08:49)
--- NOTE | 2022-06-30 09:17 | P.DS_ITS ---
Discharge Providers Date of Admission: 06/27/22 21:15 Date of Discharge: June 30, 2022 Attending Provider at Admission: Chris Alan MD Attending Provider at Discharge: Davion Church MD Primary Care Provider: Robin Crum DO Diagnoses at Discharge Discharge Diagnosis (1) Abdominal pain: Status: Acute (2) Acute encephalopathy: Status: Acute (3) Pneumonia: Status: Acute Reason for Visit Reason for Visit: stomach pain Hospital Course Hospital Course Rain is an 81-year-old white female who presented to the hospital with fatigue, chills, and some abdominal discomfort. Pneumonia was diagnosed and she was started on antibiotics. Shortly after admission to her hospital. Chest CT was consistent with pneumonia. Head CT negative. Abdominal CT demonstrated increased stool burden. Shortly after admission it became apparent that she was having an upper GI bleed with melanotic stools. She was placed on Protonix IV and serial hemoglobins were obtained. Surgery consult was obtained. She underwent an EGD on June 29, demonstrating gastritis and a gastric ulcer with a small amount of bleeding. Epinephrine was injected with resolution of bleeding. She continue to be followed until the next day and hemoglobin was stable. She was tolerating a soft diet without difficulty. Surgery believes she could be discharged home, on Protonix and Carafate. I discussed with her the importance of not using any anti-inflammatories. She will follow-up with surgery in 2 weeks by telehealth, her primary care provider in 3 to 5 days with a CBC. She should return for any bleeding. She will also finish a short course of Augmentin for concern of pneumonia. She was given an opportunity to ask questions, and agreed with the plan. Discharge hemoglobin was 9.1. Physical Exam Narrative: General exam no distress Neck is supple Cardiovascular regular rate and rhythm without murmur Lungs clear Abdomen is soft with positive bowel sounds. No obvious organomegaly exam is deferred Extremities no cyanosis clubbing or edema, cap refill brisk. Skin no rash Discharge Data Studies Completed and Pending Completed Studies During Hospitalization Category Date Time Status CT abdomen pelvis w con* [id number] Stat Cat Scan 06/27/22 15:[address] chest wo con [id number] Routine Cat Scan 06/28/22 08:[address] head wo con* [id number] Routine Cat Scan 06/28/22 08:00 Completed XR chest 1V portable [id number] Stat Exams 06/27/22 14:41 Completed Pending at discharge Category Date Time Status Blood Culture Stat Lab 06/27/22 18:04 Results Fecal Occult Blood [Immunochemical Fecal OCB] Routine Lab 06/28/22 10:38 Ordered Sputum Culture and Gram Stain Stat Lab 06/27/22 21:27 Uncollected Pathology: Surgical [PTH] Routine Pth 06/29/22 07:29 Received Radiology Impressions Chest X-Ray 06/27/22 14:41 IMPRESSION: Slight increased interstitial markings left lung base and consider mild interstitial left basilar infiltrate. No consolidation. Abdomen/Pelvis CT 06/27/22 15:01 IMPRESSION: 1. Mild interstitial infiltrate posterior right lung base could reflect acute or chronic change. 2. Suggestion of bilateral hypodense renal cortical cysts. 3. Colonic diverticulosis without CT findings to indicate diverticulitis. 4. 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 5. Increased stool within the distal colon within the pelvis. 6. Suggestion of prior hysterectomy. 7. Degenerative changes with degenerative disc disease lumbar spine, along with prominent old or chronic appearing compression deformity at T12. COMMENTS: Consistent with the [employer]'s Incidental Findings Committee white paper (J Am Nataliia Radiol 2018): Any incidental renal lesion less than 1 cm or classified as too small to characterize, or any incidental cystic renal lesion characterized as simple-appearing, is likely benign. No follow-up imaging is recommended for these lesions per consensus recommendations based on imaging criteria. Chest CT 06/28/22 08:00 IMPRESSION: 1. Volume loss RIGHT lower lobe with elevation RIGHT hemidiaphragm. Patchy infiltrates in the RIGHT lower lobe with subsegmental atelectasis in RIGHT middle lobe and RIGHT lower lobe with air bronchograms. Recommend correlation for pneumonia. 2. LEFT lung is well aerated. 3. No other acute findings. Head CT 06/28/22 08:00 IMPRESSION: 1. No evidence of intracranial hemorrhage or mass effect. 2. . Mild small vessel changes with moderate parenchymal volume loss. 3. Intracranial vascular calcification. 4. No acute intracranial findings. Laboratory Results WBC 10.9 10^3/uL (4.0-10.0) H 06/30/22 04:38 RBC 3.17 10^6/uL (4.1-5.3) L 06/30/22 04:38 Hgb 9.1 g/dL (11.5-15.3) L 06/30/22 04:38 Hct 29.4 % (37.0-47.0) L 06/30/22 04:38 MCV 92.7 fl (81-99) 06/30/22 04:38 MCH 28.7 pg (28.0-34.0) 06/30/22 04:38 MCHC 31.0 g/dL (30.0-36.0) 06/30/22 04:38 RDW 16.0 % (12.1-15.1) H 06/30/22 04:38 Plt Count 391 10^3/cmm (130-400) 06/30/22 04:38 MPV 10.9 fL (7.4-10.4) H 06/30/22 04:38 Neut % (Auto) 49.9 % 06/30/22 04:38 Lymph % (Auto) 33.4 % 06/30/22 04:38 [place] % (Auto) 8.4 % 06/30/22 04:38 Eos % (Auto) 6.7 % 06/30/22 04:38 Baso % (Auto) 1.0 % 06/30/22 04:38 Neut # (Auto) 5.44 10^3/uL (1.8-7.7) 06/30/22 04:38 Lymph # (Auto) 3.6 10^3/uL (0.8-4.8) 06/30/22 04:38 [place] # (Auto) 0.9 10^3/uL (0.2-0.9) 06/30/22 04:38 Eos # (Auto) 0.7 10^3/uL (0.0-0.8) 06/30/22 04:38 Baso # (Auto) 0.1 10^3/uL (0.0-0.1) 06/30/22 04:38 Nucleated RBC % (auto) 0 % 06/30/22 04:38 Nucleated RBCs # 0.0 /100WBC 06/30/22 04:38 ESR 14 mm/hr (0-15) 06/27/22 15:25 PT 14.90 SECONDS (12.1-14.9) 06/27/22 23:43 INR 1.14 (0.8-1.2) 06/27/22 23:43 Sodium 142 mmol/L (136-145) 06/30/22 04:38 Potassium 3.7 mmol/L (3.5-5.1) 06/30/22 04:38 Chloride 112 mmol/L (98-107) H 06/30/22 04:38 Carbon Dioxide 21 mmol/L (22-29) L 06/30/22 04:38 Anion Gap 12.7 (5-19) 06/30/22 04:38 BUN 16 mg/dL (8-23) 06/30/22 04:38 Creatinine 0.8 mg/dL (0.5-0.9) 06/30/22 04:38 GFR Calculation Not Reportable 06/30/22 04:38 Glucose 93 mg/dL (65-115) 06/30/22 04:38 POC Glucose 145 mg/dL (70-110) H 06/27/22 13:04 Estimat Average Glucose 137 06/27/22 15:25 Hemoglobin A1c 6.4 % (4.0-6.0) H 06/27/22 15:25 Calculated Osmolality 295 mOsm/kg (285-295) 06/30/22 04:38 Lactic Acid 1.5 mmol/L (0.5-2.2) 06/28/22 05:33 Lactate 2.9 mmol/L (0.5-2.2) H 06/27/22 15:25 Calcium 8.3 mg/dL (8.5-10.5) L 06/30/22 04:38 Magnesium 2.0 mg/dL (1.7-2.3) 06/29/22 05:49 Total Bilirubin 0.4 mg/dL (0.15-1.2) 06/27/22 15:25 AST 11 U/L (0-32) 06/27/22 15:25 ALT 8 U/L (0-33) 06/27/22 15:25 Alkaline Phosphatase 57 U/L (35-105) 06/27/22 15:25 Troponin T Baseline 9 ng/L (0-10) 06/27/22 15:25 Troponin T 120 Minute 8.96 ng/L (0-10) 06/27/22 16:41 Delta Troponin T -0.04 ABS# (0-10) L 06/27/22 16:41 Troponin T Hi Sens 6Hr 13.38 ng/L (0-10) H 06/27/22 23:43 Troponin T Hi Sens 6Hr Delta 4.38 ng/L (0-12) 06/27/22 23:43 C-Reactive Protein 3.0 mg/L (0.0-4.9) 06/27/22 16:41 NT-Pro-B Natriuret Pep 150 pg/mL (0-450) 06/27/22 16:41 Total Protein 6.9 g/dL (6.6-8.7) 06/27/22 15:25 Albumin 3.9 g/dL (3.5-5.2) 06/27/22 15:25 Globulin 3.0 g/dL (1.3-4.6) 06/27/22 15:25 Triglycerides 137 mg/dL (0-150) 06/27/22 16:41 Cholesterol 121 mg/dL (0-200) 06/27/22 16:41 LDL Cholesterol, Calc 66 mg/dL (50-129) 06/27/22 16:41 HDL Cholesterol 28 mg/dL (60-100) L 06/27/22 16:41 LDL/HDL Ratio 2.36 RATIO (0.00-3.22) 06/27/22 16:41 Cholesterol/HDL Ratio 4.32 mg/dL (0.0-4.40) 06/27/22 16:41 Lipase 33 U/L (13-60) 06/27/22 15:25 Procalcitonin 0.10 ng/mL (0-0.5) 06/27/22 16:41 TSH 1.52 uIU/mL (0.27-4.20) 06/27/22 16:41 Urine Color Dark yellow (Yellow) 06/27/22 15:31 Urine Appearance Clear (CLEAR) 06/27/22 15:31 Urine pH 5 (5-7) 06/27/22 15:31 Ur Specific [place] 1.020 (1.005-1.030) 06/27/22 15:31 Urine Protein Neg (Negative) 06/27/22 15:31 Urine Glucose (UA) Norm (Normal) 06/27/22 15:31 Urine Ketones 1+ (Negative) H 06/27/22 15:31 Urine Blood Neg (Negative) 06/27/22 15:31 Urine Nitrate Negative (Negative) 06/27/22 15:31 Urine Bilirubin 1+ (Negative) H 06/27/22 15:31 Urine Urobilinogen Norm mg/dL (Negative) 06/27/22 15:31 Ur Leukocyte Esterase Negative (Negative) 06/27/22 15:31 Salicylates 0.3 mg/dL (3-10) L 06/27/22 16:41 Urine Opiates Screen Negative ng/mL (Negative) 06/27/22 15:31 Acetaminophen < 5.0 ug/mL (10-30) L 06/27/22 16:41 Ur Barbiturates Screen Negative ng/mL (Negative) 06/27/22 15:31 Ur Phencyclidine Scrn Negative ng/mL (Negative) 06/27/22 15:31 Ur Amphetamines Screen Negative ng/mL (Negative) 06/27/22 15:31 U Benzodiazepines Scrn Negative ng/mL (Negative) 06/27/22 15:31 Urine Cocaine Screen Negative ng/mL (Negative) 06/27/22 15:31 U Marijuana (THC) Screen Negative ng/mL (Negative) 06/27/22 15:31 Ethyl Alcohol 10 mg/dL (0-10) 06/27/22 16:41 Coronavirus 229E (PCR) Not detected (NOT DETECT) 06/28/22 01:40 CMV IgG Ab 4.10 U/mL H 06/27/22 23:43 CMV IgM Ab <30.00 AU/mL 06/27/22 23:43 Influenza Type A Ag negative (Negative) 06/27/22 17:24 Influenza Type B Ag negative (Negative) 06/27/22 17:24 SARS-CoV-2 (PCR) Not detected (NOT DETECT) 06/28/22 01:40 SARS-CoV-2 Ag (Rapid) negative (Negative) 06/27/22 17:24 Vitals Last Vital Signs Temp 98.5 F 06/30/22 07:58 Pulse 74 06/30/22 07:58 Resp 20 H 06/30/22 07:58 BP 134/74 06/30/22 08:49 Pulse Ox 97 06/30/22 07:58 O2 Del Method 06/30/22 07:58 O2 Flow Rate 4 06/29/22 07:47 Discharge Plan Discharge Patient Disposition: Home Condition: Stable Prescriptions: New pantoprazole [Protonix] 40 mg tablet,delayed release (DR/EC) 40 mg PO BID Qty: 60 0RF amoxicillin-pot clavulanate 875-125 mg tablet 1 tab PO BID Qty: 10 0RF sucralfate 100 mg/mL Suspension 1 g PO AC&BEDTIME Qty: 120 0RF Continued venlafaxine 100 mg tablet See Rx Instructions .ROUTE .COMPLEX Qty: 270 1RF Rx Instructions: TAKE 1 AND 1/4 TABS IN THE MORNING, 1 AND 1/2 TABS AT NOON, AND 1 TAB AT NIGHT docusate sodium 100 mg capsule 100 mg PO DAILY cholecalciferol (vitamin D3) 50 mcg (2,000 unit) capsule 50 mcg PO DAILY metoprolol succinate 50 mg tablet extended release 24 hr 50 mg PO DAILY Qty: 90 4RF gabapentin 400 mg capsule 400 mg PO TID Qty: 90 2RF losartan 100 mg tablet 100 mg PO DAILY Qty: 90 1RF spironolactone 25 mg tablet 25 mg PO DAILY Qty: 90 1RF lovastatin 40 mg tablet 40 mg PO DAILY Qty: 90 3RF levothyroxine 150 mcg tablet 150 mcg PO DAILY Qty: 90 3RF alendronate 70 mg tablet 70 mg PO .weekly Qty: 12 1RF Rx Instructions: Take one tablet by mouth weekly mirtazapine 15 mg tablet See Rx Instructions .ROUTE .COMPLEX Qty: 90 1RF Dose Instruction: TAKE 1 TABLET EVERY DAY Rx Instructions: TAKE 1 TABLET EVERY DAY Discontinued omega 4-aeq-bxr-fish oil [Fish Oil] 1,000 mg (120 mg-180 mg) capsule 1 cap PO DAILY Discharge Orders: Discharge Order (Routine); Ordered 06/30/22 Ordered By: Davion Church Referrals: Robin Crum DO [Primary Care Provider] - 4-7 days (CBC on follow-up) Jaime Singh DO [Physician] - 2 weeks (Telehealth visit) Discharge Diet: Cardiac Discharge Activity: Increase activity as tolerated Patient Instructions: GI Discharge Instructions, Opioid Safety Activity Restrictions/Additional Instructions: Take all medicine as prescribed Do not take any anti-inflammatories Return for any bleeding Carafate should be taken for 1 month Protonix should be taken for minimum of 6 weeks twice daily, then further instruction by surgery or family practice regarding continuation Patient's Health Concerns: Abdominal pain Assessment: Upper GI bleed with gastric ulcer Pneumonia Plan of Treatment: Avoid anti-inflammatories Protonix, Carafate Finish antibiotic treatment Discharge Attestations Time Spent in Discharge Care*: greater than 30 min Quality Metrics Clinical Quality Measures [ No reported AMI, CVA or VTE this stay] Coding Level of Care Code Acute Chg FW DC note Diagnoses Abdominal pain R10.9 Acute encephalopathy G93.40 Pneumonia J18.9
[2022-06-30] MEDS: sodium chloride 0.9% 1,000 ML 100 ML IV (10:16)
[2022-06-30] MEDS: pantoprazole 40 mg SDV IVP (10:56)
--- NOTE | 2022-06-30 13:48 | PC.SOCIAL ---
IMM update IMM updated with patient at bedside. Copy of page 2 provided. Patient verbalized understanding. Copy in chart initialed, dated and timed.
== END 2022-06-30 12:16 | disposition home health service (06) | DRG 377 ==
LOC: ER 20:19 → MEDSURG 22:47
PROVIDERS: Surgery; Admitting Provider Family Medicine; Emergency Provider Emergency Medicine; PCP Family Medicine; Visit Provider Internal Medicine
PROC: 0DJ08ZZ Inspection of Upper Intestinal Tract, Via Natural or Artificial Opening Endoscopic (ICD-10-PCS; CPT 43235; principal; 2022-06-29 06:45)
DX: K25.4 Chronic or unspecified gastric ulcer with hemorrhage (principal); J18.9 Pneumonia, unspecified organism; K29.51 Unspecified chronic gastritis with bleeding; I10 Essential (primary) hypertension; E78.2 Mixed hyperlipidemia; E03.9 Hypothyroidism, unspecified; F41.9 Anxiety disorder, unspecified; F32.A Depression, unspecified; D50.9 Iron deficiency anemia, unspecified; E86.0 Dehydration; D75.839 Thrombocytosis, unspecified
CPT/HCPCS: 36415; 36416; 43239; 43255; 70450; 71045; 71250; 74177; 80048; 80053; 80061; 80306; 80307; 81003; 82274; 82962; 83036; 83605; 83690; 83735; 83880; 84145; 84443; 84484; 85014; 85018; 85025; 85610; 85651; 86140; 86403; 87040; 87426; 87493; 87506; 87635; 87641; 87804; 88305; 93005; 94664; 96365; 96375; 99285; C9113; J0171; J2060; J2543; J3370; J3490; J7030; J7050; Q9967

== ENCOUNTER 2022-07-13 16:26 | Emergency (ER) | payer MEDICARE, SELFPAY ==
[2022-07-13 16:36] VITALS: BP 186/82; PULSE 84; RESP 17; TEMP 36.8; O2SAT 97; BMI 30.4
--- NOTE | 2022-07-13 18:28 | ED_ITS ---
HPI - General Adult General: Chief complaint: Extremity Problem,Nontraumatic Stated complaint: facial swelling Time Seen by Provider: 07/13/22 17:00 History of Present Illness: Ms. Butcher is an 81-year-old lady scented to the emergency department due to left-sided facial swelling and pain. She reports perhaps eating some nuts but does not recall any specific pain until the next mo rning when she woke up with left-sided facial pain and swelling. She has limited range of motion of the jaw and pain that radiates down the neck. Moderate in intensity and worse with jaw movement. No airway compromise or other signs of systemic illness. No history of similar. No other specific changes in health, exacerbating, or alleviating factors identified. Onset (ago): day(s) Location: face Radiation: neck Severity: moderate Quality: aching and sharp Pain Consistency: constant Relieving factors: none Exacerbating factors: other (Jaw range of motion) Review of Systems General: Reports: 10 or more systems reviewed and unremarkable except in HPI and below PFSH ED PFSH: Medical History History of hyperlipidemia Hyperlipidemia Hypertension JAK2 V617F mutation Surgical History H/O hemorrhoidectomy H/O oophorectomy H/O thyroidectomy H/O: hysterectomy Family History Father Brain aneurysm Mother Scleroderma CAD (coronary artery disease) Brother CAD (coronary artery disease) Social History Smoking and tobacco status: never smoked Alcohol intake: never Female Reproductive History: Spontaneous abortions: No Physical Exam Const: COMMON NORMALS: alert GENERAL APPEARANCE: cooperative and well developed HENMT: COMMON NORMALS: atraumatic HEAD & SCALP: atraumatic OTHER: Significant left-sided facial swelling about the posterior mandible and inframandibular region, mild overlying erythema, no evidence of intraoral pathology or distortion of normal anatomy, no acute concern over airway compromise. No evidence of WET [employer]ESS [employer] MILLER or deep tissue infection within the oropharynx. Eye: COMMON NORMALS: conjunctivae normal CONJUNCTIVA: Yes conjunctivae normal SCLERA: sclerae normal Neck/C-Spine: COMMON NORMALS: supple GENERAL: Yes trachea midline Resp: COMMON NORMALS: clear to auscultation bilaterally EFFORT & INSPECTION: Yes able to speak in complete sentences AUSCULTATION: clear to auscultation bilaterally Cardio: COMMON NORMALS: regular rate and regular rhythm RATE: regular rate RHYTHM: regular rhythm GI: COMMON NORMALS: Soft to palpation PALPATION: Yes Soft to palpation and No Tenderness to palpation present (GI) Extremity: GENERAL: Yes normal exam except as noted and No edema Neuro: COMMON NORMALS: moves all extremities SENSORIUM/ORIENTATION: Yes alert and No Orientation impaired Psych: COMMON NORMALS: mental status grossly normal and Normal thought process present THOUGHT PROCESS: Normal thought process present Course Vital Signs: Vital signs: Vital Signs Temperature 98.2 F 07/13/22 16:36 Pulse Rate 84 07/13/22 16:36 Respiratory Rate 16 07/13/22 22:31 Blood Pressure 186/82 07/13/22 16:36 Pulse Oximetry 97 07/13/22 16:36 Oxygen Delivery Me thod 07/13/22 16:36 [facility] - General Adult Medical Decision Making 81-year-old lady presenting with facial swelling. Exam as above. Patient is nontoxic. Labs notable for leukocytosis, near baseline normocytic anemia, thrombocytosis which is likely reactive. No significant metabolic abnormalities. CT imaging demonstrates left parotitis which likely explain symptoms. Discussed results with the patient. Patient improved with analgesia, she was also given antibiotics. The results of ED evaluation were discussed with the patient including prescriptions and/or symptomatic cares (if applicable) including appropriate and responsible use, followup plan, and return precautions. The patient verbalized understanding and felt safe for discharge. Medical Records I reviewed the patient's medical records. Lab Data I reviewed the patient's lab results. 07/13/22 19:50 07/13/22 19:[address] 07/13/22 18:43 IMPRESSION: 1. Infectious versus inflammatory left parotitis, with mild surrounding cellulitis or edema. An underlying neoplastic process is considered unlikely but cannot be entirely excluded without IV contrast. 2. Prominent left cervical and submandibular lymph nodes are most likely reactive. Neck CT 07/13/22 18:43 IMPRESSION: 1. Diffuse left parotid enhancement and enlargement, consistent with infectious versus inflammatory parotitis. No evidence for neoplastic process. Laboratory Results WBC 18.2 10^3/uL (4.0-10.0) H 07/13/22 19:50 RBC 3.72 10^6/uL (4.1-5.3) L 07/13/22 19:50 Hgb 10.4 g/dL (11.5-15.3) L 07/13/22 19:50 Hct 33.6 % (37.0-47.0) L 07/13/22 19:50 MCV 90.3 fl (81-99) 07/13/22 19:50 MCH 28.0 pg (28.0-34.0) 07/13/22 19:50 MCHC 31.0 g/dL (30.0-36.0) 07/13/22 19:50 RDW 16.9 % (12.1-15.1) H 07/13/22 19:50 Plt Count 514 10^3/cmm (130-400) H 07/13/22 19:50 MPV 11.6 fL (7.4-10.4) H 07/13/22 19:50 Neut % (Auto) 71.4 % 07/13/22 19:50 Lymph % (Auto) 15.6 % 07/13/22 19:50 [place] % (Auto) 10.1 % 07/13/22 19:50 Eos % (Auto) 1.8 % 07/13/22 19:50 Baso % (Auto) 0.7 % 07/13/22 19:50 Neut # (Auto) 12.97 10^3/uL (1.8-7.7) H 07/13/22 19:50 Lymph # (Auto) 2.8 10^3/uL (0.8-4.8) 07/13/22 19:50 [place] # (Auto) 1.8 10^3/uL (0.2-0.9) H 07/13/22 19:50 Eos # (Auto) 0.3 10^3/uL (0.0-0.8) 07/13/22 19:50 Baso # (Auto) 0.1 10^3/uL (0.0-0.1) 07/13/22 19:50 Nucleated RBC % (auto) 0 % 07/13/22 19:50 Nucleated RBCs # 0.0 /100WBC 07/13/22 19:50 Sodium 136 mmol/L (136-145) 07/13/22 19:50 Potassium 4.3 mmol/L (3.5-5.1) 07/13/22 19:50 Chloride 100 mmol/L (98-107) 07/13/22 19:50 Carbon Dioxide 25 mmol/L (22-29) 07/13/22 19:50 Anion Gap 15.3 (5-19) 07/13/22 19:50 BUN 13 mg/dL (8-23) 07/13/22 19:50 Creatinine 0.8 mg/dL (0.5-0.9) 07/13/22 19:50 GFR Calculation Not Reportable 07/13/22 19:50 Glucose 103 mg/dL (65-115) 07/13/22 19:50 Calculated Osmolality 282 mOsm/kg (285-295) L 07/13/22 19:50 Calcium 10.3 mg/dL (8.5-10.5) 07/13/22 19:50 Total Bilirubin 0.6 mg/dL (0.15-1.2) 07/13/22 19:50 AST 10 U/L (0-32) 07/13/22 19:50 ALT < 5 U/L (0-33) 07/13/22 19:50 Alkaline Phosphatase 73 U/L (35-105) 07/13/22 19:50 Total Protein 7.5 g/dL (6.6-8.7) 07/13/22 19:50 Albumin 4.2 g/dL (3.5-5.2) 07/13/22 19:50 Globulin 3.3 g/dL (1.3-4.6) 07/13/22 19:50 Discharge Plan Discharge Patient Disposition: Home Clinical Impression: Acute parotitis, Leukocytosis Condition: Stable Prescriptions: New ondansetron 4 mg tablet,disintegrating 4 mg PO Q8H PRN (Reason: nausea and vomiting) Qty: 15 0RF oxycodone 5 mg tablet 5 mg PO Q4H PRN (Reason: pain) Qty: 18 0RF No Action docusate sodium 100 mg capsule 100 mg PO DAILY cholecalciferol (vitamin D3) 50 mcg (2,000 unit) capsule 50 mcg PO DAILY clarithromycin 500 mg tablet 500 mg PO BID 14 Days Qty: 28 0RF amoxicillin 500 mg tablet 1,000 mg PO BID 14 Days Qty: 56 0RF metoprolol succinate 50 mg tablet extended release 24 hr 50 mg PO DAILY Qty: 90 4RF spironolactone 25 mg tablet 25 mg PO DAILY Qty: 90 1RF lovastatin 40 mg tablet 40 mg PO DAILY Qty: 90 3RF levothyroxine 150 mcg tablet 150 mcg PO DAILY Qty: 90 3RF alendronate 70 mg tablet 70 mg PO .weekly Qty: 12 1RF Rx Instructions: Take one tablet by mouth weekly mirtazapine 15 mg tablet See Rx Instructions .ROUTE .COMPLEX Qty: 90 1RF Dose Instruction: TAKE 1 TABLET EVERY DAY Rx Instructions: TAKE 1 TABLET EVERY DAY losartan 100 mg tablet See Rx Instructions .ROUTE .COMPLEX Qty: 90 0RF Dose Instruction: TAKE 1 TABLET EVERY DAY Rx Instructions: TAKE 1 TABLET EVERY DAY venlafaxine 100 mg tablet See Rx Instructions .ROUTE .COMPLEX Qty: 338 0RF Dose Instruction: TAKE 1 AND 1/4 TABS IN THE MORNING, 1 AND 1/2 TABS AT NOON, AND 1 TAB AT NIGHT Rx Instructions: TAKE 1 AND 1/4 TABS IN THE MORNING, 1 AND 1/2 TABS AT NOON, AND 1 TAB AT NIGHT gabapentin 400 mg capsule See Rx Instructions .ROUTE .COMPLEX Qty: 90 0RF Dose Instruction: TAKE 1 CAPSULE THREE TIMES DAILY Rx Instructions: TAKE 1 CAPSULE THREE TIMES DAILY sucralfate 100 mg/mL Suspension 1 g PO AC&BEDTIME Qty: 120 0RF Protonix 40 mg tablet,delayed release (DR/EC) 40 mg PO BID Qty: 60 0RF amoxicillin-pot clavulanate 875-125 mg tablet 1 tab PO BID Qty: 10 0RF Discharge Orders: Discharge ED (Routine); Ordered 07/13/22 Ordered By: Sudeep Paez Referrals: Robin Crum DO [Primary Care Provider] - Discharge Diet: Usual diet Discharge Activity: Increase activity as tolerated Patient Instructions: Opioid Safety, Parotid Gland Infection Activity Restrictions/Additional Instructions: Thank you for visiting the emergency department. You were seen and evaluated for facial swelling and pain. The most likely cause of your symptoms is a condition called parotitis. This will be treated with antibiotics. May use Tylenol. Please continue to avoid NSAIDs given history of ulcers. I will prescribe oxycodone, use this cautiously as discussed. Please follow-up with your primary care provider. Return to the emergency department for worsening symptoms, uncontrolled pain, fevers, difficulty breathing or swallowing, or anything else that you are concerned about and feel needs emergency department evaluation Coding Level of Care Code ED Licensed Practical Nurse Clinic Nurse for Elias Miller
--- NOTE | 2022-07-13 18:28 | ED_ITS ---
HPI - Extremity Problem General: Chief complaint: Extremity Problem,Nontraumatic Stated complaint: facial swelling Time Seen by Provider: 07/13/22 17:00 [facility] ED PFSH: Medical History History of hyperlipidemia Hyperlipidemia Hypertension JAK2 V617F mutation Surgical History H/O hemorrhoidectomy H/O oophorectomy H/O thyroidectomy H/O: hysterectomy Family History Father Brain aneurysm Mother Scleroderma CAD (coronary artery disease) Brother CAD (coronary artery disease) Social History Smoking and tobacco status: never smoked Alcohol intake: never Female Reproductive History: Spontaneous abortions: No Course Vital Signs: Vital signs: Vital Signs Temperature 98.2 F 07/13/22 16:36 Pulse Rate 84 07/13/22 16:36 Respiratory Rate 17 07/13/22 16:36 Blood Pressure 186/82 07/13/22 16:36 Pulse Oximetry 97 07/13/22 16:36 Oxygen Delivery Me thod 07/13/22 16:36 Discharge Plan Discharge Condition: Stable Prescriptions: No Action docusate sodium 100 mg capsule 100 mg PO DAILY cholecalciferol (vitamin D3) 50 mcg (2,000 unit) capsule 50 mcg PO DAILY metoprolol succinate 50 mg tablet extended release 24 hr 50 mg PO DAILY Qty: 90 4RF gabapentin 400 mg capsule 400 mg PO TID Qty: 90 2RF spironolactone 25 mg tablet 25 mg PO DAILY Qty: 90 1RF lovastatin 40 mg tablet 40 mg PO DAILY Qty: 90 3RF levothyroxine 150 mcg tablet 150 mcg PO DAILY Qty: 90 3RF alendronate 70 mg tablet 70 mg PO .weekly Qty: 12 1RF Rx Instructions: Take one tablet by mouth weekly mirtazapine 15 mg tablet See Rx Instructions .ROUTE .COMPLEX Qty: 90 1RF Dose Instruction: TAKE 1 TABLET EVERY DAY Rx Instructions: TAKE 1 TABLET EVERY DAY losartan 100 mg tablet See Rx Instructions .ROUTE .COMPLEX Qty: 90 0RF Dose Instruction: TAKE 1 TABLET EVERY DAY Rx Instructions: TAKE 1 TABLET EVERY DAY venlafaxine 100 mg tablet See Rx Instructions .ROUTE .COMPLEX Qty: 338 0RF Dose Instruction: TAKE 1 AND 1/4 TABS IN THE MORNING, 1 AND 1/2 TABS AT NOON, AND 1 TAB AT NIGHT Rx Instructions: TAKE 1 AND 1/4 TABS IN THE MORNING, 1 AND 1/2 TABS AT NOON, AND 1 TAB AT NIGHT sucralfate 100 mg/mL Suspension 1 g PO AC&BEDTIME Qty: 120 0RF Protonix 40 mg tablet,delayed release (DR/EC) 40 mg PO BID Qty: 60 0RF amoxicillin-pot clavulanate 875-125 mg tablet 1 tab PO BID Qty: 10 0RF Referrals: Robin Crum DO [Primary Care Provider] - Coding Level of Care Code ED Engineering Manager for Elias Miller
--- NOTE | 2022-07-13 18:43 | CTR_ITS ---
PROCEDURE INFORMATION: Exam: CT Neck With Contrast Exam date and time: 07/13/2022 9:28 PM Age: 81 years old Clinical indication: Mass, lump, or swelling in neck; Left; Additional info: L facial/neck swellling TECHNIQUE: Imaging protocol: Computed tomography of the neck with contrast. Radiation optimization: All CT scans at this facility use at least one of these dose optimization techniques: automated exposure control; mA and/or kV adjustment per patient size (includes targeted exams where dose is matched to clinical indication); or iterative reconstruction. Contrast material: OMNI 350; Contrast volume: 95 ml; Contrast route: INTRAVENOUS (IV); Other protocol: This patient has received 4 known CTs and 0 known cardiac nuclear medicine studies in the 12 months prior to the current study. COMPARISON: CT facial bones wo con* [id number] 07/13/2022 7:17 PM RADIATION DOSE METRICS: Total DLP (mGy-cm): 251.61 FINDINGS: Orbital cavities: Prior cataract surgery. Paranasal sinuses: Retention cyst in the left maxillary sinus. The other sinuses are clear. Dental: Edentulous patient with dentures in place. Pharynx: Unremarkable. No significant tonsillar enlargement. Larynx: Unremarkable. Epiglottis is normal. Prevertebral and retropharyngeal spaces: Unremarkable. Salivary glands: Diffuse enlargement and non masslike parenchymal enhancement of the left parotid gland. The right parotid gland and submandibular glands are unremarkable. Thyroid: Resection of the thyroid gland with calcifications and scarring in the left thyroid bed. Lymph nodes: Benign sized left cervical and submandibular lymph nodes are most likely reactive. Trachea: Visualized trachea is unremarkable. Lungs: Mild atelectasis or scarring in both lungs. Bones/joints: Curvature and degenerative changes of the cervical spine. Soft tissues: Mild soft tissue edema surrounding the left parotid gland. CT/CT neck w con* [id number] IMPRESSION: 1. Diffuse left parotid enhancement and enlargement, consistent with infectious versus inflammatory parotitis. No evidence for neoplastic process.
--- NOTE | 2022-07-13 18:43 | CTR_ITS ---
PROCEDURE INFORMATION: Exam: CT Maxillofacial Without Contrast Exam date and time: 07/13/2022 7:17 PM Age: 81 years old Clinical indication: Mass, lump, or swelling; Other: Swelling in front of left ear; Jaw pain; Additional info: L mandiublar pain, swelling TECHNIQUE: Imaging protocol: Computed tomography of the face without contrast. Radiation optimization: All CT scans at this facility use at least one of these dose optimization techniques: automated exposure control; mA and/or kV adjustment per patient size (includes targeted exams where dose is matched to clinical indication); or iterative reconstruction. Other protocol: This patient has received 3 known CTs and 0 known cardiac nuclear medicine studies in the 12 months prior to the current study. COMPARISON: CT head wo con* [id number] 06/28/2022 8:20 AM RADIATION DOSE METRICS: Total DLP (mGy-cm): 549.38 FINDINGS: Orbital cavities: Prior cataract surgery. Bones/joints: Degenerative changes of the cervical spine and left TMJ. No fracture. Paranasal sinuses: Retention cyst in the left maxillary sinus. The other sinuses are clear. Salivary glands: Diffuse enlargement of the left parotid gland with multiple tiny intraparotid lymph nodes. No focal lesion identified. Lymph nodes: Prominent left cervical and submandibular lymph nodes are most likely reactive. Soft tissues: Subcutaneous and mild submandibular fat stranding surrounding the left parotid gland. The right parotid gland and the submandibular glands are within normal limits. Dental: The patient is edentulous with dentures in place. CT/CT facial bones wo con* [id number] IMPRESSION: 1. Infectious versus inflammatory left parotitis, with mild surrounding cellulitis or edema. An underlying neoplastic process is considered unlikely but cannot be entirely excluded without IV contrast. 2. Prominent left cervical and submandibular lymph nodes are most likely reactive.
[2022-07-13 19:58] LABS: Basophils # 0.1 10^3/uL (0.0-0.1); Basophils % 0.7 %; Eosinophils # 0.3 10^3/uL (0.0-0.8); Eosinophils % 1.8 %; Hematocrit 33.6 % (37.0-47.0); Hemoglobin 10.4 g/dL (11.5-15.3); Lymphocytes # 2.8 10^3/uL (0.8-4.8); Lymphocytes % 15.6 %; Mean Corpuscular Volume 90.3 fl (81-99); Mean Platelet Volume 11.6 fL (7.4-10.4); Monocytes # 1.8 10^3/uL (0.2-0.9); Monocytes % 10.1 %; Neutrophils # 12.97 10^3/uL (1.8-7.7); Neutrophils % 71.4 %; Nucleated Red Blood Cells % 0 %; Platelet Count 514 10^3/cmm (130-400); Red Blood Count 3.72 10^6/uL (4.1-5.3); Red Cell Distribution Width 16.9 % (12.1-15.1); White Blood Count 18.2 10^3/uL (4.0-10.0)
[2022-07-13] MEDS: morphine 4 mg/mL SDV 1 mL IVP ×2 (20:03→22:31)
[2022-07-13 20:19] LABS: Alanine Aminotransferase < 5 U/L (0-33); Albumin Level 4.2 g/dL (3.5-5.2); Alkaline Phosphatase 73 U/L (35-105); Anion Gap 15.3 (5-19); Aspartate Amino Transferase 10 U/L (0-32); Blood Urea Nitrogen 13 mg/dL (8-23); Calcium 10.3 mg/dL (8.5-10.5); Carbon Dioxide 25 mmol/L (22-29); Chloride 100 mmol/L (98-107); Globulin 3.3 g/dL (1.3-4.6); Glucose 103 mg/dL (65-115); Osmolality Calculated 282 mOsm/kg (285-295); Potassium 4.3 mmol/L (3.5-5.1); Sodium 136 mmol/L (136-145); Total Bilirubin 0.6 mg/dL (0.15-1.2); Total Protein 7.5 g/dL (6.6-8.7)
[2022-07-13] MEDS: clindamycin 600 MG/50 ML PREMIX 100 MG IV (20:40)
[2022-07-13] MEDS: iohexol 350 mg/mL 500 mL Btl (per mL) IV (21:33)
[2022-07-13 22:31] VITALS: RESP 16
== END 2022-07-13 22:40 | disposition home or self-care (01) ==
PROVIDERS: Emergency Provider Emergency Medicine; PCP Family Medicine
DX: K11.21 Acute sialoadenitis (principal); D72.829 Elevated white blood cell count, unspecified; E78.5 Hyperlipidemia, unspecified; I10 Essential (primary) hypertension
CPT/HCPCS: 70486; 70491; 80053; 85025; 96365; 96375; 96376; 99285; J2270; J3490; Q9967

== ENCOUNTER → 2022-07-14 16:03 | Outpatient (BNVA) | payer MEDICARE, SELFPAY | PROVIDERS: PCP Family Medicine; Visit Provider Surgery | DX: Z09 Encounter for follow-up examination after completed treatment for conditions other than malignant neoplasm (principal); K29.70 Gastritis, unspecified, without bleeding; B96.81 Helicobacter pylori [H. pylori] as the cause of diseases classified elsewhere | CPT/HCPCS: 99212 ==

== ENCOUNTER 2022-10-06 20:10 | Emergency (ER) | payer MEDICARE, SELFPAY ==
[2022-10-06 20:13] VITALS: BP 166/61; PULSE 73; RESP 18; TEMP 36.7; O2SAT 96; BMI 29.3
--- NOTE | 2022-10-06 20:51 | XRR_ITS ---
PROCEDURE INFORMATION: Exam: XR Left Hand Exam date and time: 10/06/2022 9:00 PM Age: 81 years old Clinical indication: Left; Patient HX: C/O hand pain with swelling. No injury. TECHNIQUE: Imaging protocol: Radiologic exam of the left hand. Views: 3 or more views. COMPARISON: No relevant prior studies available. FINDINGS: Bones/joints: Three views submitted. The lateral view of the digits is somewhat limited due to overlapping. Well-corticated ossific density at the dorsal carpal region measuring about 4 mm which may represent an old injury. Otherwise no obvious acute fracture dislocation. Osteopenia is present. There is moderate-marked joint space narrowing osteophyte formation and subchondral cysts involving multiple joints, most pronounced at the DIP and 1st CMC joints consistent with osteoarthritis. No obvious bony erosions. Soft tissues: No soft tissue gas. There is soft tissue thickening/swelling around the 4th proximal phalanx. If there is a concern for soft tissue pathology, follow-up assessment by targeted ultrasound or MRI correlation may also be considered. XR/XR hand LT min 3V* [id number] IMPRESSION: Osteoarthritis with no obvious acute fracture. Soft tissue and other findings as above.
--- NOTE | 2022-10-06 20:51 | W.ED.EXTPRO ---
HPI - Extremity Problem General: Chief complaint: Extremity Injury, Upper Stated complaint: pain and swelling left thumb Time Seen by Provider: 10/06/22 20:51 History of Present Illness: 81-year-old female comes in today with pain and swelling of the left metacarpal joint thumb. Patient been using some yard work over the weekend and tonight she noticed increased pain and swelling to the left MCP joint of the thumb on the left hand. Patient has a history of fracture to the hand. Review of the record also noted a history of cellulitis in the hands. Patient appears nontoxic. Patient appears in no acute distress. There does seem to be some streaking from the joint up to the mid arm. Associated symptoms: Deny chest pain or fever(s) Review of Systems General: Reports: 10 or more systems reviewed and unremarkable except in HPI and below Const: Denies: fever(s) Card: Denies: chest pain Resp: Denies: dyspnea GI: Denies: vomiting : Denies: difficulty voiding Musc: Reports: extremity pain, joint pain, joint swelling, joint redness and joint warmth PFSH ED PFSH: Medical History History of hyperlipidemia Hyperlipidemia Hypertension JAK2 [id number] mutation Surgical History H/O hemorrhoidectomy H/O oophorectomy H/O thyroidectomy H/O: hysterectomy Family History Father Brain aneurysm Mother Scleroderma CAD (coronary artery disease) Brother CAD (coronary artery disease) Social History Smoking and tobacco status: never smoked Alcohol intake: never Substance/Drug Use: never Female Reproductive History: Spontaneous abortions: No Physical Exam Const: COMMON NORMALS: alert HENMT: COMMON NORMALS: normocephalic HEAD & SCALP: normocephalic Neck/C-Spine: COMMON NORMALS: full ROM Chest: COMMONS NORMALS: normal inspection of the chest Resp: COMMON NORMALS: normal respiratory effort and clear to auscultation bilaterally AUSCULTATION: clear to auscultation bilaterally Cardio: COMMON NORMALS: regular rate and regular rhythm RATE: regular rate RHYTHM: regular rhythm GI: COMMON NORMALS: non-tender Back/Pelvis: COMMON NORMALS: thoracic and lumbar spine normal to inspection Extremity: LEFT UPPER EXTREMITY: Yes hand & digits (Erythema and warmth to the metacarpal joint left thumb) Left hand and digits: Yes inspection Neuro: SENSORIUM/ORIENTATION: Yes alert Skin: NARRATIVE SKIN EXAM: Redness to the metacarpal joint of left thumb with some streaking up to the mid inner forearm Course Vital Signs: Vital signs: Vital Signs Temperature 98.0 F 10/06/22 20:13 Pulse Rate 73 10/06/22 20:13 Respiratory Rate 18 10/06/22 20:13 Blood Pressure 166/61 10/06/22 20:13 Pulse Oximetry 96 10/06/22 20:13 Oxygen Delivery Me thod Room Air 10/06/22 20:13 MDM - Extremity (Nontraumatic) Medical Decision Making 81-year-old female comes in today for pain and swelling with redness to the left metacarpal joint. Patient reports she was doing some yard work this weekend and then started having some pain and discomfort today and then noticed redness and swelling to the joint area tonight. Patient has a significantly enlarged joint. Patient reports been big since her fall last year to the same hand. Review of the record also noted a history of cellulitis to the hand. Patient has some tenderness to the joint but has good range of motion with distal cap refill and sensation. Differential diagnosis includes inflammatory arthritis, osteoarthritis, cellulitis, septic arthritis. No signs of severe illness is noted. Suspect probably osteoarthritis flare or gouty arthritis. Patient was given 10 mg of dexamethasone and started on Celebrex. I will cover for secondary cellulitis due to patient's history of yard work. Patient was given a gram of Rocephin will be continued on Keflex due to his no sign of abscess or significant fluid collection. Patient reported understanding of care plan and need for follow-up or return. Discharge Plan Discharge Patient Disposition: Home Clinical Impression: Arthritis of carpometacarpal (CMC) joint of left thumb, History of cellulitis Condition: Stable Prescriptions: New celecoxib 200 mg capsule 200 mg PO BID Qty: 20 0RF cephalexin 500 mg capsule 500 mg PO TID 7 Days Qty: 21 0RF No Action gabapentin 400 mg capsule See Rx Instructions .ROUTE .COMPLEX Qty: 270 3RF Dose Instruction: TAKE 1 CAPSULE THREE TIMES DAILY Rx Instructions: TAKE 1 CAPSULE THREE TIMES DAILY docusate sodium 100 mg capsule 100 mg PO DAILY cholecalciferol (vitamin D3) 50 mcg (2,000 unit) capsule 50 mcg PO DAILY clarithromycin 500 mg tablet 500 mg PO BID 14 Days Qty: 28 0RF amoxicillin 500 mg tablet 1,000 mg PO BID 14 Days Qty: 56 0RF metoprolol succinate 50 mg tablet extended release 24 hr 50 mg PO DAILY Qty: 90 4RF lovastatin 40 mg tablet 40 mg PO DAILY Qty: 90 3RF levothyroxine 150 mcg tablet 150 mcg PO DAILY Qty: 90 3RF mirtazapine 15 mg tablet See Rx Instructions .ROUTE .COMPLEX Qty: 90 1RF Dose Instruction: TAKE 1 TABLET EVERY DAY Rx Instructions: TAKE 1 TABLET EVERY DAY losartan 100 mg tablet See Rx Instructions .ROUTE .COMPLEX Qty: 90 0RF Dose Instruction: TAKE 1 TABLET EVERY DAY Rx Instructions: TAKE 1 TABLET EVERY DAY venlafaxine 100 mg tablet See Rx Instructions .ROUTE .COMPLEX Qty: 338 0RF Dose Instruction: TAKE 1 AND 1/4 TABS IN THE MORNING, 1 AND 1/2 TABS AT NOON, AND 1 TAB AT NIGHT Rx Instructions: TAKE 1 AND 1/4 TABS IN THE MORNING, 1 AND 1/2 TABS AT NOON, AND 1 TAB AT NIGHT alendronate 70 mg tablet See Rx Instructions .ROUTE .COMPLEX Qty: 12 0RF Dose Instruction: TAKE 1 TABLET ONE TIME WEEKLY Rx Instructions: TAKE 1 TABLET ONE TIME WEEKLY spironolactone 25 mg tablet See Rx Instructions .ROUTE .COMPLEX Qty: 90 0RF Dose Instruction: TAKE 1 TABLET EVERY DAY Rx Instructions: TAKE 1 TABLET EVERY DAY sucralfate 100 mg/mL Suspension 1 g PO AC&BEDTIME Qty: 120 0RF Protonix 40 mg tablet,delayed release (DR/EC) 40 mg PO BID Qty: 60 0RF ondansetron 4 mg tablet,disintegrating 4 mg PO Q8H PRN (Reason: nausea and vomiting) Qty: 15 0RF oxycodone 5 mg tablet 5 mg PO Q4H PRN (Reason: pain) Qty: 18 0RF Discharge Orders: Discharge ED (Routine); Ordered 10/06/22 Ordered By: Shayne Bolden Referrals: Robin Crum DO [Primary Care Provider] - Discharge Diet: Usual diet Discharge Activity: Increase activity as tolerated Patient Instructions: Arthritis (ED) Activity Restrictions/Additional Instructions: Take cephalexin 500 mg 3 times a day for the next 7 days. Use Celebrex 200 mg 1 capsule 2 times a day for pain and inflammation. Rest hand. Follow-up with primary care in 3 to 5 days for recheck. Return to emergency department for worsening symptoms such as increasing swelling to the hand, high fever, or new concerns. Coding Level of Care Code ED Personnel Associate for Elias Miller
[2022-10-06] MEDS: dexamethasone 10 mg/mL INJ IM (21:20)
[2022-10-06] MEDS: cefTRIAXone 1,000 MG in water for injection-sterile 2.1 ML 1 MG IM (21:20)
== END 2022-10-06 21:27 | disposition home or self-care (01) ==
PROVIDERS: Emergency Provider Nurse Practitioner Family; PCP Family Medicine
DX: M18.9 Osteoarthritis of first carpometacarpal joint, unspecified (principal); I10 Essential (primary) hypertension; E78.5 Hyperlipidemia, unspecified
CPT/HCPCS: 73130; 96372; 99284; J0696; J1100

== ENCOUNTER → 2023-06-07 13:46 | Outpatient (BNVA) | payer MEDICARE, SELFPAY | PROVIDERS: PCP Family Medicine; Visit Provider Family Medicine | DX: N64.4 Mastodynia (principal); N63.0 Unspecified lump in unspecified breast; E03.9 Hypothyroidism, unspecified; I10 Essential (primary) hypertension; E78.2 Mixed hyperlipidemia; R79.89 Other specified abnormal findings of blood chemistry; L82.1 Other seborrheic keratosis; Z79.899 Other long term (current) drug therapy | CPT/HCPCS: 80053; 80061; 83036; 84439; 84443; 85025 ==

== ENCOUNTER 2023-06-23 12:20 | Outpatient (CLI) | payer MEDICARE, SELFPAY ==
--- NOTE | 2023-06-23 12:23 | MM_ITS ---
WS: [id number] BILATERAL 3D TOMOSYNTHESIS DIGITAL DIAGNOSTIC MAMMOGRAPHY WITH CAD CLINICAL INFORMATION: Right Breast pain, Bilateral breast lumps. HISTORY: RIGHT nipple itching COMPARISON: 2020 TECHNIQUE: Bilateral CC, MLO, and ML views. FINDINGS: Scattered fibroglandular densities bilaterally. Punctate and lucent centered calcifications. Vascular calcifications. No parenchymal abnormalities at the RIGHT areola. Ultrasound is pending. LEFT breast is unremarkable and unchanged. ULTRASOUND BREAST RIGHT TECHNIQUE: Ultrasound right breast focused area of concern. CLINICAL INFORMATION: Right Breast pain, Bilateral breast lumps. FINDINGS: Ultrasound RIGHT breast in the area of concern RIGHT areola. No suspicious findings deep to the RIGHT areola. No suspicious lesions to target for biopsy. No cystic or solid lesions. Normal underlying pa renchymal tissue. Recommend return to annual screening mammography. IMPRESSION: MM/[place] [id number] BI-RADS: 2-Benign FOLLOW UP: 1 Year Follow-up Recommend return to annual screening mammography.
== END 2023-06-23 12:21 | disposition home or self-care (01) ==
LOC: RAD 12:20
PROVIDERS: PCP Family Medicine; Visit Provider Family Medicine
DX: N64.4 Mastodynia (principal); N63.41 Unspecified lump in right breast, subareolar; N63.20 Unspecified lump in the left breast, unspecified quadrant; R92.323 Mammographic fibroglandular density, bilateral breasts
CPT/HCPCS: 76642; 77062; G0279

== ENCOUNTER 2023-08-26 10:32 | Inpatient (IN) | payer MEDICARE, SELFPAY ==
[2023-08-26] VITALS (55 sets, daily range): BP systolic 120–168; BP diastolic 58–81; PULSE 75–104; RESP 16–38; TEMP 36.4–37.2; O2SAT 78–96; BMI 29.2
--- NOTE | 2023-08-26 10:37 | XR_ITS ---
WS: [id number] Portable AP upright chest, 08/26/2023 Clinical Data: dyspnea/cough Comparison: Portable chest, 06/27/2022 Findings: The right diaphragm remains elevated. There our patchy opacities over the surface of both t he right and left diaphragms which may represent atelectasis and/or pneumonia. The upper lobes are cl ear. The heart has not changed in size. No pneumothorax is present. The aortic arch and descending th oracic aorta show calcification and minimal tortuosity. Impression: 1. Bilateral patchy opacities over the surface of both diaphragms which may represent atelectasis and /or pneumonia. 2. Atherosclerosis and elevated right diaphragm.
--- NOTE | 2023-08-26 10:37 | CTR_ITS ---
PROCEDURE INFORMATION: Exam: CT Head Without Contrast Exam date and time: 08/26/2023 11:12 AM Age: 82 years old Clinical indication: Altered mental status/memory loss; Additional info: Fall/ams TECHNIQUE: Imaging protocol: Computed tomography of the head without contrast. Radiation optimization: All CT scans at this facility use at least one of these dose optimization techniques: automated exposure control; mA and/or kV adjustment per patient size (includes targeted exams where dose is matched to clinical indication); or iterative reconstruction. COMPARISON: CT head wo con* [id number] 06/28/2022 8:20 AM RADIATION DOSE METRICS: Total DLP (mGy-cm): 1092.08 FINDINGS: Brain: No acute intracranial hemorrhage or abnormal intracranial mass effect is identified. Mild chronic appearing small-vessel ischemic changes are noted in the white matter. There are no subdural collections. Cerebral ventricles: The ventricles are stable size and position compared to 06/28/2022.Cavum septi pellucidum is noted as an incidental variant. Paranasal sinuses: Large mucous retention cyst posteriorly in the left maxillary sinus. Mastoid air cells: Visualized portions of mastoid sinuses are not opacified. Bones/joints: No obvious fracture or aggressive destructive lesion involving the cranium. Soft tissues: Other than as stated above, no obvious acute abnormality. CT/CT head wo con* [id number] IMPRESSION: No acute intracranial hemorrhage or mass effect.
--- NOTE | 2023-08-26 10:54 | ECG_ITS ---
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 Measurements Intervals [place] Rate: 98 P: 0 AR: 0 QRS: -37 QRSD: 85 T: 38 QT: 312 QTc: 399 Interpretive Statements SUPRAVENTRICULAR RHYTHM LEFT AXIS DEVIATION [QRS AXIS < -30] POSSIBLE ANTERIOR MYOCARDIAL INFARCTION , PROBABLY OLD [30 ms Q WAVE IN V3/V4, OR R < 0.2 mV IN V4] POSSIBLE INFERIOR MYOCARDIAL INFARCTION , PROBABLY OLD [30 ms Q WAVE IN II/aVF] Compared to ECG 06/27/2022 20:59:33 Supraventricular rhythm now present Left-axis deviation now present Myocardial infarct finding now present Sinus rhythm no longer present Electronically Signed On 08-27-2023 15:55:57 CDT by Shelton Nash M.D. [email or web address]
[2023-08-26 11:15] LABS: Basophils % 0.6 %; Hematocrit 37.2 % (36-47); Lymphocytes # 0.8 10^3/uL (0.8-4.8); Lymphocytes % 17.1 %; Mean Corpuscular HGB Conc 30.4 g/dL (30-55); Mean Corpuscular Hemoglobin 22.9 pg (27-33); Mean Corpuscular Volume 75.3 fl (85-98); Monocytes # 0.4 10^3/uL (0.2-0.9); Monocytes % 7.7 %; Neutrophils # 3.46 10^3/uL (1.8-7.7); Neutrophils % 73.7 %; Nucleated Red Blood Cells % 0 %; Platelet Count 191 10^3/cmm (157-399); Red Blood Count 4.94 10^6/uL (3.85-5.65); Red Cell Distribution Width 20.2 % (12.1-15.1); White Blood Count 4.69 10^3/uL (3.29-11.43)
--- NOTE | 2023-08-26 11:18 | W.ED.AMS ---
HPI - Altered Mental Status General: Chief Complaint: Altered Mental Status Stated Complaint: AMS/ fall on tuesday Time Seen by Provider: 08/26/23 10:37 Source: patient Mode of arrival: EMS History of Present Illness: 82 yo female presents to the ER with compalitns of confusion and hypoxia. Pt not asnwering questions well. Fell 2 days ago and was able to get up on her own. Usually she ambulates independently. She continues to be very weak had a bit of a cough. Last evening she slept in her chair when she got up to try to get out this morning she is tumbled onto the floor and was not able to stand. Her last known well was approximately 12 hours prior to arrival. MD complaint: altered mental status and confusion Timing confirmed by: spouse Severity: mild Review of Systems Const: Denies: fever(s) or chills Card: Denies: chest pain Resp: Denies: dyspnea GI: Denies: abdominal pain : Denies: dysuria, urinary frequency or urinary urgency Musc: Denies: neck pain or back pain Skin/Breast: Denies: rash PFSH ED PFSH: Medical History 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 History of hyperlipidemia Hypertension Surgical History H/O thyroidectomy H/O oophorectomy H/O: hysterectomy H/O hemorrhoidectomy Family History Father Brain aneurysm Mother Scleroderma CAD (coronary artery disease) Brother CAD (coronary artery disease) Social History Smoking and tobacco/nicotine status: never used tobacco/nicotine Alcohol intake: never Substance/Drug Use: never Female Reproductive History: Spontaneous abortions: No Physical Exam Const: GENERAL APPEARANCE: cooperative and comfortable ORIENTATION/CONSCIOUSNESS: Yes awake HENMT: COMMON NORMALS: normocephalic, atraumatic and hearing grossly normal bilaterally HEAD & SCALP: normocephalic and atraumatic Resp: COMMON NORMALS: normal respiratory effort, No retractions, No use of accessory muscles and clear to auscultation bilaterally AUSCULTATION: clear to auscultation bilaterally Cardio: COMMON NORMALS: regular rate, regular rhythm and No murmurs present (Cardio) RATE: regular rate RHYTHM: regular rhythm GI: COMMON NORMALS: Soft to palpation and No hepatosplenomegaly present AUSCULTATION: Yes normoactive bowel sounds PALPATION: Yes Soft to palpation, No Tenderness to palpation present (GI), No Guarding due to palpation present (GI) and Yes No hepatosplenomegaly present Extremity: COMMON NORMALS: normal to inspection, capillary refill normal, no clubbing, cyanosis or edema, no calf tenderness and no pedal edema Skin: COMMON NORMALS: no rashes or lesions noted GENERAL SKIN EXAM: no rashes or lesions noted Course Vital Signs: Vital signs: Vital Signs Temperature 99.7 F H 08/27/23 08:00 Pulse Rate 102 H 08/27/23 08:00 Respiratory Rate 24 H 08/27/23 08:00 Blood Pressure 118/66 08/27/23 08:00 Pulse Oximetry 91 08/27/23 08:00 Oxygen Delivery Me thod Nasal Cannula 08/27/23 08:00 Oxygen Flow Rate 4 08/27/23 08:00 MDM - Altered Mental Status Medical Decision Making She does have pneumonia with hypoxia. She improves a bit with oxygenation but she is still fairly confused. She is 12 hours from last known well per the 's report. She may have had a stroke some of her confusion may be due to her pneumonia as well. From her her last known well was last night. CT of the head is negative. CTA head and neck pending. NIH score of 4. She is outside the window for thrombolytics and is not a thrombectomy candidate Medical Records I reviewed the patient's medical records. Lab Data I reviewed the patient's lab results. 08/27/23 04:47 08/27/23 04:[address] 08/26/23 10:37 IMPRESSION: No acute intracranial hemorrhage or mass effect. Abdomen/Pelvis CT 08/26/23 12:08 IMPRESSION: No obvious acute abnormality detected within the abdomen or pelvis. Various incidental and nonacute findings as reported above. Head/Neck CTA 08/26/23 13:44 IMPRESSION: No intracranial stenosis or occlusion IMPRESSION: No carotid or vertebral artery stenosis. REFERENCES: NASCET CRITERIA. The degree of stenosis in the cervical segment of the internal carotid artery is based on NASCET criteria. Normal is no stenosis. Mild is less than 50% stenosis. Moderate is 50-69% stenosis. Severe is 70% to 99% stenosis. Total occlusion is no detectable patent lumen. Laboratory Results WBC 4.69 10^3/uL (3.29-11.43) 08/26/23 10:10 RBC 4.94 10^6/uL (3.85-5.65) 08/26/23 10:10 Hgb 11.30 g/dL (11.27-16.99) 08/26/23 10:10 Hct 37.2 % (36-47) 08/26/23 10:10 MCV 75.3 fl (85-98) L 08/26/23 10:10 MCH 22.9 pg (27-33) L 08/26/23 10:10 MCHC 30.4 g/dL (30-55) 08/26/23 10:10 RDW 20.2 % (12.1-15.1) H 08/26/23 10:10 Plt Count 191 10^3/cmm (157-399) 08/26/23 10:10 MPV Not Reportable 08/26/23 10:10 Neut % (Auto) 73.7 % 08/26/23 10:10 Lymph % (Auto) 17.1 % 08/26/23 10:10 [place] % (Auto) 7.7 % 08/26/23 10:10 Eos % (Auto) 0.0 % 08/26/23 10:10 Baso % (Auto) 0.6 % 08/26/23 10:10 Neut # (Auto) 3.46 10^3/uL (1.8-7.7) 08/26/23 10:10 Lymph # (Auto) 0.8 10^3/uL (0.8-4.8) 08/26/23 10:10 [place] # (Auto) 0.4 10^3/uL (0.2-0.9) 08/26/23 10:10 Eos # (Auto) 0.0 10^3/uL (0.0-0.8) 08/26/23 10:10 Baso # (Auto) 0.0 10^3/uL (0.0-0.1) 08/26/23 10:10 Nucleated RBC % (auto) 0 % 08/26/23 10:10 Nucleated RBCs # 0.0 /100WBC 08/26/23 10:10 ESR 26 mm/hr (0-15) H 08/26/23 10:10 Sodium 131 mmol/L (136-145) L 08/26/23 10:10 Potassium 4.3 mmol/L (3.5-5.1) 08/26/23 10:10 Chloride 97 mmol/L (98-107) L 08/26/23 10:10 Carbon Dioxide 22 mmol/L (22-29) 08/26/23 10:10 Anion Gap 16.3 (5-19) 08/26/23 10:10 BUN 28 mg/dL (8-23) H 08/26/23 10:10 Creatinine 1.3 mg/dL (0.5-0.9) H 08/26/23 10:10 GFR Calculation Not Reportable 08/26/23 10:10 Glucose 83 mg/dL (65-115) 08/26/23 10:10 Calculated Osmolality 277 mOsm/kg (285-295) L 08/26/23 10:10 Lactic Acid 2.6 mmol/L (0.5-2.2) H 08/26/23 12:00 Calcium 9.0 mg/dL (8.5-10.5) 08/26/23 10:10 Magnesium 2.0 mg/dL (1.7-2.3) 08/26/23 10:10 Total Bilirubin 0.4 mg/dL (0.15-1.2) 08/26/23 10:10 AST 100 U/L (0-32) H 08/26/23 10:10 ALT 41 U/L (0-33) H 08/26/23 10:10 Alkaline Phosphatase 68 U/L (35-105) 08/26/23 10:10 Creatine Kinase 338 U/L (26-192) H* 08/26/23 10:10 Troponin T Baseline 19 ng/L (0-10) H 08/26/23 10:10 Troponin T 120 Minute 16.69 ng/L (0-10) H 08/26/23 12:00 Delta Troponin T -2.31 ABS# (0-10) L 08/26/23 12:00 C-Reactive Protein 32.4 mg/L (0.0-4.9) H 08/26/23 10:10 NT-Pro-B Natriuret Pep 492 pg/mL (0-450) H 08/26/23 12:00 Total Protein 7.3 g/dL (6.6-8.7) 08/26/23 10:10 Albumin 3.7 g/dL (3.5-5.2) 08/26/23 10:10 Globulin 3.6 g/dL (1.3-4.6) 08/26/23 10:10 Lipase 74 U/L (13-60) H 08/26/23 10:10 Procalcitonin 1.15 ng/mL (0-0.5) H 08/26/23 10:10 Urine Color Yellow (Yellow) 08/26/23 11:47 Urine Appearance Clear (CLEAR) 08/26/23 11:47 Urine pH 5 (5-7) 08/26/23 11:47 Ur Specific [place] 1.015 (1.005-1.030) 08/26/23 11:47 Urine Protein 1+ (Negative) H 08/26/23 11:47 Urine Glucose (UA) Norm (Normal) 08/26/23 11:47 Urine Ketones 1+ (Negative) H 08/26/23 11:47 Urine Blood 3+ (Negative) H 08/26/23 11:47 Urine Nitrate Negative (Negative) 08/26/23 11:47 Urine Bilirubin Neg (Negative) 08/26/23 11:47 Urine Urobilinogen Norm mg/dL (Negative) 08/26/23 11:47 Ur Leukocyte Esterase Negative (Negative) 08/26/23 11:47 Urine RBC 0-4 /hpf (0-2) H 08/26/23 11:47 Urine WBC 0-4 /hpf (0-5) H 08/26/23 11:47 Ur Squamous Epith Cells 5-10 /hpf (0-5) H 08/26/23 11:47 Amorphous Sediment Not Reportable 08/26/23 11:47 Urine Bacteria 1+ /hpf (NONE) H 08/26/23 11:47 Influenza Type A Ag negative (Negative) 08/26/23 13:53 Influenza Type B Ag negative (Negative) 03/22/24 13:53 All radiology interpretation(s) finalized by discharge Discharge Plan Discharge Patient Disposition: Admitted As Inpatient Admit Provider: Chris Alan Clinical Impression: Pneumonia, Acute CVA (cerebrovascular accident) Condition: Stable Coding Level of Care Code 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
--- NOTE | 2023-08-26 11:22 | PC.PHAR ---
FAMILY UNABLE TO VERIFY MEDICATIONS. PHONED [facility] MAIL ORDER. [facility] WENT OVER ENTIRE MED LIST BY PHONE. 08/26/23
[2023-08-26 11:40] LABS: Alanine Aminotransferase 41 U/L (0-33); Albumin Level 3.7 g/dL (3.5-5.2); Alkaline Phosphatase 68 U/L (35-105); Aspartate Amino Transferase 100 U/L (0-32); Blood Urea Nitrogen 28 mg/dL (8-23); Carbon Dioxide 22 mmol/L (22-29); Chloride 97 mmol/L (98-107); Creatinine Clr Calc Pharmacy 32.3763; Globulin 3.6 g/dL (1.3-4.6); Glucose 83 mg/dL (65-115); Lipase 74 U/L (13-60); Osmolality Calculated 277 mOsm/kg (285-295); Sodium 131 mmol/L (136-145); Total Bilirubin 0.4 mg/dL (0.15-1.2); Total Protein 7.3 g/dL (6.6-8.7)
[2023-08-26 11:42] LABS: Troponin(5th) Baseline 19 ng/L (0-10)
[2023-08-26 11:46] LABS: Anion Gap 16.3 (5-19); Creatine Phosphokinase 338 U/L (26-192); Potassium 4.3 mmol/L (3.5-5.1)
[2023-08-26 12:06] LABS: Add Urine Microscopic? YES; Bilirubin Urine Neg (Negative); Blood Urine 3+ (Negative); Glucose Urine UA Norm (Normal); Ketones Urine 1+ (Negative); Leukocyte Esterase Urine Negative (Negative); Nitrate Urine Negative (Negative); Protein Urine 1+ (Negative); Specific Gravity, Urine 1.015 (1.005-1.030); Urine Appearance Clear (CLEAR); Urine Color Yellow (Yellow); Urobilinogen Urine Norm (Negative); pH Urine 5 (5-7)
[2023-08-26 12:07] LABS: Add Urine Culture? No; Bacteria Urine 1+ /hpf; RBC Urine 0-4 /hpf (0-2); WBC Urine 0-4 /hpf (0-5)
--- NOTE | 2023-08-26 12:08 | CTR_ITS ---
PROCEDURE INFORMATION: Exam: CT Abdomen And Pelvis Without Contrast Exam date and time: 08/26/2023 12:57 PM Age: 82 years old Clinical indication: Abdominal pain TECHNIQUE: Imaging protocol: Computed tomography of the abdomen and pelvis without contrast. Radiation optimization: All CT scans at this facility use at least one of these dose optimization techniques: automated exposure control; mA and/or kV adjustment per patient size (includes targeted exams where dose is matched to clinical indication); or iterative reconstruction. COMPARISON: CT abdomen pelvis w con* [id number] 06/27/2022 4:20 PM RADIATION DOSE METRICS: Total DLP (mGy-cm): 984.37 FINDINGS: Lungs: Chronic right lower lobe atelectasis, increased slightly since 06/27/2022. Chronic elevation or eventration of right hemidiaphragm. Liver: No obvious acute abnormality of the unenhanced liver. Gallbladder and bile ducts: Moderately distended gallbladder without obvious gallbladder wall thickening or biliary duct dilation. Pancreas: No acute abnormality or obvious pancreatic duct dilation. Spleen: Spleen slightly prominent size but no acute abnormality detected. Adrenal glands: No suspicious adrenal masses. Kidneys and ureters: Unenhanced kidneys demonstrate no hydronephrosis. Stomach and bowel: Severe sigmoid diverticulosis without evidence of acute diverticulitis or bowel obstruction. Appendix: No evidence of appendicitis. Intraperitoneal space: No free intraperitoneal air, significant ascites, or localized fluid collections. Vasculature: Aortoiliac and visceral artery atherosclerotic disease without evidence of aneurysmal dilation the abdominal aorta. Lymph nodes: No enlarged lymph nodes. Urinary bladder: No significant bladder wall thickening. Reproductive: Visualized portions show no obvious acute abnormality. Bones/joints: Chronic multilevel lumbar degenerative disc disease and facet arthropathy with variable degrees of chronic narrowing of the lumbar canal. No obvious acute osseous abnormality detected. Severe chronic T12 compression deformity with posterior bony ridging encroaching on the canal, similar to prior study. Chronic grade 1 retrolisthesis at L3-L4 and grade 1 anterolisthesis at L4-L5 similar to prior study. Soft tissues: Unremarkable. CT/CT abdomen pelvis con [id number] IMPRESSION: No obvious acute abnormality detected within the abdomen or pelvis. Various incidental and nonacute findings as reported above.
--- NOTE | 2023-08-26 12:37 | ECG_ITS ---
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 Measurements Intervals [place] Rate: 97 P: 0 CT: 0 QRS: -27 QRSD: 84 T: 33 QT: 316 QTc: 402 Interpretive Statements SINUS RHYTHM POSSIBLE ANTERIOR MYOCARDIAL INFARCTION , PROBABLY OLD [30 ms Q WAVE IN V3/V4, OR R < 0.2 mV IN V4] Compared to ECG 08/26/2023 10:54:29 Left-axis deviation no longer present Myocardial infarct finding still present Electronically Signed On 08-27-2023 15:59:45 CDT by Shelton Nash M.D. [id number]
[2023-08-26 12:43] LABS: Lactic Sepsis W/Reflex 2.6 mmol/L (0.5-2.2)
[2023-08-26 12:47] LABS: Troponin 5 2HR 16.69 ng/L (0-10)
[2023-08-26 12:48] LABS: Troponin 5 2HR Delta -2.31 ABS# (0-10)
[2023-08-26] MEDS: sodium chloride 0.9% 1,000 ML 999 ML IV (13:33)
[2023-08-26] MEDS: levofloxacin-dextrose 5 % 500 MG/100 ML PREMIX 100 MG IV (13:35)
--- NOTE | 2023-08-26 13:44 | CTR_ITS ---
PROCEDURE INFORMATION: Exam: CTA Head With Contrast, Arteriography Exam date and time: 08/26/2023 2:24 PM Age: 82 years old Clinical indication: Other: CVA TECHNIQUE: Imaging protocol: Computed tomographic angiography of the head with contrast. Exam focused on the arteries. 3D rendering (Not supervised by radiologist): MIP and/or 3D reconstructed images were created by the technologist. Radiation optimization: All CT scans at this facility use at least one of these dose optimization techniques: automated exposure control; mA and/or kV adjustment per patient size (includes targeted exams where dose is matched to clinical indication); or iterative reconstruction. Contrast material: OMNI 350; Contrast volume: 100 ml; Contrast route: INTRAVENOUS (IV); COMPARISON: CT head wo con* [id number] 08/26/2023 11:12 AM RADIATION DOSE METRICS: Total DLP (mGy-cm): 443.12 FINDINGS: ANTERIOR CIRCULATION: Right internal carotid artery: There is calcified plaque in the right carotid siphon without significant stenosis. No aneurysm. Right middle cerebral artery: No occlusion or significant stenosis. No aneurysm. Right anterior cerebral artery: No occlusion or significant stenosis. No aneurysm. Left internal carotid artery: There is calcified plaque in the left carotid siphon without significant stenosis. No aneurysm. Left middle cerebral artery: No occlusion or significant stenosis. No aneurysm. Left anterior cerebral artery: No occlusion or significant stenosis. No aneurysm. POSTERIOR CIRCULATION: Right vertebral artery: No occlusion or significant stenosis. No aneurysm. Left vertebral artery: No occlusion or significant stenosis. No aneurysm. Basilar artery: No occlusion or significant stenosis. No aneurysm. Right posterior cerebral artery: No occlusion or significant stenosis. No aneurysm. Left posterior cerebral artery: No occlusion or significant stenosis. No aneurysm. Brain: See head CT PROCEDURE INFORMATION: Exam: CTA Neck With Contrast Exam date and time: 08/26/2023 2:24 PM Age: 82 years old Clinical indication: Other: CVA TECHNIQUE: Imaging protocol: Computed tomographic angiography of the neck with contrast. Exam focused on the cervical segments of the vasculature. 3D rendering (Not supervised by radiologist): MIP and/or 3D reconstructed images were created by the technologist. Radiation optimization: All CT scans at this facility use at least one of these dose optimization techniques: automated exposure control; mA and/or kV adjustment per patient size (includes targeted exams where dose is matched to clinical indication); or iterative reconstruction. Contrast material: OMNI 350; Contrast volume: 100 ml; Contrast route: INTRAVENOUS (IV); COMPARISON: CT neck w con* [id number] 07/13/2022 9:28 PM RADIATION DOSE METRICS: Total DLP (mGy-cm): 443.12 FINDINGS: Right common carotid artery: No stenosis. No dissection or occlusion. Right internal carotid artery: No stenosis of the extracranial segment. No dissection or occlusion. Right external carotid artery: No occlusion or stenosis of the origin. Left common carotid artery: No stenosis. No dissection or occlusion. Left internal carotid artery: No stenosis of the extracranial segment. No dissection or occlusion. Left external carotid artery: No occlusion or stenosis of the origin. Right vertebral artery: No stenosis. No dissection or occlusion. Left vertebral artery: No stenosis. No dissection or occlusion. Soft tissues: Normal. No significant soft tissue swelling. Bones/joints: There is multilevel cervical spondylosis and disc space narrowing. No fracture. Lungs: There is a partly visible focus of atelectasis or consolidation on the most inferior image. CT/CT angio headneck* [id number] IMPRESSION: No intracranial stenosis or occlusion IMPRESSION: No carotid or vertebral artery stenosis. REFERENCES: NASCET CRITERIA. The degree of stenosis in the cervical segment of the internal carotid artery is based on NASCET criteria. Normal is no stenosis. Mild is less than 50% stenosis. Moderate is 50-69% stenosis. Severe is 70% to 99% stenosis. Total occlusion is no detectable patent lumen.
[2023-08-26 14:08] LABS: Reflex Lactate Order REFLEX LACTIC ORDERD
[2023-08-26 14:11] LABS: Erythrocyte Sedimentation Rate 26 mm/hr (0-15)
[2023-08-26 14:15] LABS: Influenza A by IFA negative (Negative); Influenza B by IFA negative (Negative)
[2023-08-26] MEDS: iohexol 350 mg/mL 500 mL Btl (per mL) IV (14:24)
[2023-08-26 14:28] LABS: C Reactive Protein 32.4 mg/L (0.0-4.9)
[2023-08-26 14:35] LABS: Procalcitonin 1.15 ng/mL (0-0.5)
--- NOTE | 2023-08-26 15:29 | PM.HP ---
Providers/Chief Complaint Admitting Physician: Chris Alan MD Primary Care Provider: Robin Crum DO Chief Complaint: AMS/ fall on tuesday History of Present Illness Rain Butcher is a 82 year old female with a past medical history of hypothyroidism, iron deficiency anemia, JAK2 mutation, history of myeloproliferative disorder, hypertension, hyperlipidemia, who presents [facility] for falls, altered mental status. Currently patient is alert oriented x 0, she does not know her name, she does not know her birthdate, she does recognize her at bedside, she can follow commands she can squeeze my fingers bilaterally has good assembler engine strength, can lift both her legs off the gurney, with equal strength, but diminished strength, she is able to smile for me, her ytagan-vj-zrmt is abnormal bilaterally, pupils equal round reactive to light, she has global encephalopathy, she does have mild intermittent slurring of her words, NIH stroke scale is difficult to assess, given her global encephalopathy, but is at 8, her last known well normal was at 9 AM. 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 care of him, as he has cancer, she is ambulatory, she can cook she can clean, she takes care of the bills, she can drive a car, he tells me that this all started on Tuesday when she fell, trying to get up out of bed, her son had to come to her home to help her get up off the floor, they did not notice any confusion, there is nothing out of the ordinary, they went to sleep last night about 9 PM, they slept in the recliner, when her woke up this morning, their dog was in her lap, and she was a bit confused, and when she tried to get up out of the recliner she actually fell, this is when her noticed that she was very confused, mild intermittent slurring of her words, no facial droop, both legs were weak, so he called EMS to come out to their home, here in the emergency room, she is normotensive, heart rate 101, respiratory 25, she is on 4 L she does not use oxygen at home, workup in the emergency room chest x-ray shows radiographic evidence of pneumonia, white blood cell count 4.69, troponin 19, CRP 32.4, Pro-Santiago 1.15, CT head within normal limits, during my examination, she has abnormal ldblve-ez-[id number] bilaterally, she is globally encephalopathic I cannot discern any slurring of words no facial droop, she is able to track me, she does have some word finding difficulty, word salad, my concern was for acute CVA, she is out of the tPA window, discussed with the ER physician, about performing a CT angiogram of the head and neck, patient underwent CT angiogram of the head and neck, no large vessel occlusion, no acute thrombus, I went back and reexamined patient with family members at bedside including patient's son, she remains alert oriented x 0, she does not know her name, she can follow commands such as raising both arms, which she held up against gravity she is able to now lift both legs off the gurney and is able to hold him against gravity equal strength bilaterally but diminished significant in both lower extremities, I cannot discern any facial droop no slurring of words, I discussed with son and at bedside that she definitely has acute hypoxic respiratory failure likely secondary to pneumonia I am suspicious that this might be an aspiration pneumonia, from original fall potentially on Tuesday, the question is is that this is just a pneumonia or has she suffered a stroke, based upon her symptomatology and her history I am very suspicious that she has had a stroke potentially posterior circulation, my plan would be she has received Levaquin here in the emergency room continue antibiotics continue fluid management allow for permissive hypertension treat her if she has had a stroke unfortunate she is out of the window for tPA, she is not a thrombectomy candidate, or vascular stent candidate, but we can continue to medically manage her closely, patient son and voiced understanding, all questions answered, agreed to proceed, Review of Systems General: Reports: ROS unobtainable due to mental status Medications/Allergies Home Medications Medication Instructions Recorded Confirmed Last Taken Type cholecalciferol (vitamin D3) 50 50 mcg PO DAILY 12/16/21 08/26/23 Unknown History mcg (2,000 unit) capsule docusate sodium 100 mg capsule 100 mg PO DAILY 12/16/21 08/26/23 Unknown History levothyroxine 150 mcg tablet 150 mcg PO DAILY #90 tabs 01/31/23 08/26/23 08/26/23 Rx lovastatin 40 mg tablet 40 mg PO DAILY #90 tabs 01/31/23 08/26/23 08/25/23 Rx venlafaxine 100 mg tablet See Rx Instructions .Route 06/07/23 08/26/23 08/26/23 Rx .COMPLEX #338 tabs alendronate 70 mg tablet 70 mg PO Q7D 08/26/23 08/26/23 Unknown History gabapentin 400 mg capsule 400 mg PO TID 08/26/23 08/26/23 Unknown History losartan 100 mg tablet 100 mg PO DAILY 08/26/23 08/26/23 08/25/23 History metoprolol succinate 50 mg 50 mg PO DAILY 08/26/23 08/26/23 08/25/23 History tablet,extended release 24 hr mirtazapine 15 mg tablet 15 mg PO DAILY 08/26/23 08/26/23 08/25/23 History spironolactone 25 mg tablet 25 mg PO DAILY 08/26/23 08/26/23 08/25/23 History Allergies Allergy/AdvReac Type Severity Reaction Status Date / Time No Known Allergies Allergy Verified 07/25/23 13:53 PFSH Acute PFSH: Medical History 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 History of hyperlipidemia Hypertension Surgical History H/O thyroidectomy H/O oophorectomy H/O: hysterectomy H/O hemorrhoidectomy Family History Father Brain aneurysm Mother Scleroderma CAD (coronary artery disease) Brother CAD (coronary artery disease) Social History Smoking and tobacco/nicotine status: never used tobacco/nicotine Alcohol intake: never Substance/Drug Use: never Female Reproductive History: Spontaneous abortions: No Vitals/I&O/Wt Last Vital Signs Temp 99.0 F 08/26/23 10:33 Pulse 101 H 08/26/23 15:10 Resp 31 H 08/26/23 15:10 BP 135/58 08/26/23 15:10 Pulse Ox 91 08/26/23 15:10 O2 Del Method Nasal Cannula 08/26/23 10:33 O2 Flow Rate 4 08/26/23 10:33 08/26/23 08/26/23 08/26/23 06:59 14:59 22:59 Intake Total 100 / 100 Balance 100 / 100 Weight last 48 hrs Weight 77.111 kg Physical Exam Const: COMMON NORMALS: no acute distress HENMT: COMMON NORMALS: normocephalic HEAD & SCALP: normocephalic Eye: COMMON NORMALS: Equal, round and reactive pupils present OTHER: At times she is able to track me, both left and right, Neck/C-Spine: COMMON NORMALS: no JVD Lymph: LYMPHATIC: no lymphadenopathy noted Resp: COMMON NORMALS: normal respiratory effort, No retractions and No use of accessory muscles Cardio: COMMON NORMALS: regular rate, regular rhythm, S1 normal heart sound present and S2 normal heart sound present RATE: regular rate RHYTHM: regular rhythm HEART SOUNDS: S1 normal heart sound present and S2 normal heart sound present GI: COMMON NORMALS: Normal to inspection, nondistended, normoactive bowel sounds present, Soft to palpation and non-tender Extremity: COMMON NORMALS: no calf tenderness and no pedal edema Neuro: OTHER: Difficult to follow neurologic testing, NIH stroke scale at 8, is able to raise both arms above the gurney, equally, able to raise both legs but significant diminished tract bilaterally, no significant extension, has mild to moderate dysarthria, intermittent slurring according to family over his I could not discern any, she does have mild to moderate aphasia, 2 limb ataxia, normal facial symmetry, difficult to assess visual gomes, can perform 1 task such as blinking her eyes she is alert, keenly responsive Data 08/26/23 10:10 08/26/23 10:10 Micro: Microbiology 08/26/23 12:00 Blood Culture - Preliminary Blood SPECIMEN COLLECTED 08/26/23 12:00 Blood Culture - Preliminary Blood SPECIMEN COLLECTED A&P Assessment and plan (1) Acute encephalopathy: (2) Pneumonia: (3) Falls: (4) Acute CVA (cerebrovascular accident): (5) History of GI bleed: (6) Goals of care, counseling/discussion: (7) Essential hypertension: (8) Mixed dyslipidemia: (9) Thrombocytosis: (10) Chronic anemia: (11) Acute hypoxic respiratory failure: Plan Acute encephalopathy ? Likely multifactorial -Likely significant component related to pneumonia, possible aspiration pneumonia ? Highly suspicious for acute CVA also has an etiology given her NIH stroke scale of 8, her presentation and symptomatology ? CT head within normal limits, ? CTA head and neck within normal limits, ? Plan ? [facility] ? Start Rocephin azithromycin tomorrow morning ? Sputum cultures, blood cultures, ? Monitor respiratory status closely, ? Neurochecks, and a stroke scale, aspiration precautions ? Rectal aspirin ? Allow for permissive hypertension, treat systolic blood pressure if greater than 220 or diastolic blood pressure is greater than 120 ? Cardiac echo, consent?telemetry monitoring ? IV fluids, ? PT OT, speech therapy eval ? Goals of care discussion with , Rain so full code ? Lovenox for DVT prophylaxis Acute hypoxic respiratory failure ? Secondary to pneumonia, ? As above Acute CVA concerns, as above History of GI bleed, ? Monitor as patient is on aspirin, therapeutic Lovenox, ? Protonix Falls, PT OT - ? Full code, ?will need a one-to-one consider ? Will keep n.p.o. due to high aspiration risk, Attestations Medical Necessity Statement*: Tuesday, patient requires hospitalization, ifor acute encephalopathy concerning for acute CVA, concerns for pneumonia, respiratory failure, inpatient, greater than 2 midnights Diagnoses Acute encephalopathy G93.40 Pneumonia J18.9 Falls W19.XXXA Acute CVA (cerebrovascular accident) I63.9 History of GI bleed Z87.19 Goals of care, counseling/discussion Z71.89 Essential hypertension I10 Mixed dyslipidemia E78.2 Thrombocytosis D75.839 Chronic anemia D64.9 Acute hypoxic respiratory failure J96.01
[2023-08-26 16:18] LABS: NT Pro B Type Natriuretic Pept 492 pg/mL (0-450)
[2023-08-26] MEDS: pantoprazole 40 mg SDV IVP (16:40)
[2023-08-26] MEDS: aspirin 300 mg Supp PR (16:40)
[2023-08-26] MEDS: enoxaparin 40 mg/0.4 mL Syringe SUBCUT (16:40)
[2023-08-26] MEDS: sodium chloride 0.9% 1,000 ML 75 ML IV (16:41)
--- NOTE | 2023-08-26 16:43 | ECG_ITS ---
[facility] Test Date: 2023-08-26 Pat Name: Rain Butcher Department: Room: 255 Gender: Female Support Services Specialist: : 1940 Requested By: Heladio Vazquez Order Number: [id number] Brandon MD: Shelton Nash M.D. Measurements Intervals [place] Rate: 100 P: 20 [place]: 160 QRS: -27 QRSD: 86 T: 27 QT: 305 QTc: 395 Interpretive Statements SINUS TACHYCARDIA POSSIBLE ANTERIOR MYOCARDIAL INFARCTION , PROBABLY OLD [30 ms Q WAVE IN V3/V4, OR R < 0.2 mV IN V4] INFERIOR MYOCARDIAL INFARCTION , PROBABLY OLD [40+ ms Q WAVE AND/OR ST/T ABNORMALITY IN II/aVF] Compared to ECG 08/26/2023 12:37:57 Supraventricular rhythm no longer present Myocardial infarct finding still present Electronically Signed On 08-27-2023 15:58:47 CDT by Shelton Nash M.D. [id number]
[2023-08-26 17:54] LABS: Lactic Acid level (Lactate) 2.3 mmol/L (0.5-2.2)
[2023-08-26 18:13] LABS: Troponin 5 6HR 18.49 ng/L (0-10)
[2023-08-26 18:20] LABS: Cholesterol 78 mg/dL (0-200); HDL Cholesterol 15 mg/dL (60-100); LDL Cholesterol Calculated 27 mg/dL (50-129); Thyroid Stimulating Hormone 2.09 uIU/mL (0.27-4.20); Triglycerides 178 mg/dL (0-150)
[2023-08-26 18:22] LABS: Troponin 5 6HR Delta -0.51 ng/L (0-12)
[2023-08-26 19:31] LABS: Adenovirus Not Detected (NOT DETECT); Chlamydia Pneumoniae Not Detected (NOT DETECT); Coronavirus 229E,HKU1,NL63,OC4 Not Detected (NOT DETECT); Human Metapneumovirus Not Detected (NOT DETECT); Human Rhinovirus/Enterovirus Not Detected (NOT DETECT); Influenza A Not Detected (NOT DETECT); Influenza A H1 Not Detected (NOT DETECT); Influenza A H1-2009 Not Detected (NOT DETECT); Influenza A H3 Not Detected (NOT DETECT); Influenza B Not Detected (NOT DETECT); Mycoplasma Pneumoniae Not Detected (NOT DETECT); Parainfluenza Virus Type 1 Not Detected (NOT DETECT); Parainfluenza Virus Type 2 Not Detected (NOT DETECT); Parainfluenza Virus Type 3 Not Detected (NOT DETECT); Parainfluenza Virus Type 4 Not Detected (NOT DETECT); Respiratory Syncytial Virus A Not Detected (NOT DETECT); Respiratory Syncytial Virus B Not Detected (NOT DETECT); SARS-COV-2 Not Detected (NOT DETECT)
[2023-08-26 20:15] LABS: Estmated Average Glucose 123; Hemoglobin A1C 5.9 % (4.0-6.0)
[2023-08-26 21:51] LABS: Glucose Urine UA Norm (Normal); Ketones Urine Negative (Negative); Protein Urine Trace (Negative); Specific Gravity, Urine 1.005 (1.005-1.030); Urine Appearance Clear (CLEAR); Urine Color Yellow (Yellow); pH Urine 5 (5-7)
[2023-08-26 21:52] LABS: Bacteria Urine 2+ /hpf; Bilirubin Urine Neg (Negative); Blood Urine 3+ (Negative); Hyaline Casts Urine 0-4 /lpf; Leukocyte Esterase Urine Negative (Negative); Mucus Urine TRACE /hpf; Nitrate Urine Negative (Negative); RBC Urine 0-4 /hpf (0-2); Squamous Epithelial Cell Urine 0-4 /hpf (0-5); Urobilinogen Urine Neg (Negative); WBC Urine 0-4 /hpf (0-5)
[2023-08-27] VITALS (11 sets, daily range): BP systolic 102–153; BP diastolic 54–71; PULSE 73–118; RESP 19–32; TEMP 37–39.1; O2SAT 90–95
[2023-08-27] MEDS: pantoprazole 40 mg SDV IVP ×2 (02:55→15:56)
[2023-08-27] MEDS: sodium chloride 0.9% 1,000 ML 75 ML IV ×2 (05:03→21:14)
[2023-08-27] MEDS: cefTRIAXone 1,000 MG in sodium chloride 0.9% (plus) 50 ML 100 MG IV (05:04)
[2023-08-27 05:25] LABS: Basophils % 0.4 %; Hematocrit 31.5 % (36-47); Lymphocytes # 0.6 10^3/uL (0.8-4.8); Lymphocytes % 23.4 %; Mean Corpuscular HGB Conc 30.2 g/dL (30-55); Mean Corpuscular Hemoglobin 22.5 pg (27-33); Mean Corpuscular Volume 74.6 fl (85-98); Monocytes # 0.2 10^3/uL (0.2-0.9); Monocytes % 8.2 %; Neutrophils % 66.4 %; Nucleated Red Blood Cells % 0 %; Platelet Count 132 10^3/cmm (157-399); Red Blood Count 4.22 10^6/uL (3.85-5.65); Red Cell Distribution Width 19.7 % (12.1-15.1); White Blood Count 2.56 10^3/uL (3.29-11.43)
[2023-08-27 05:38] LABS: Procalcitonin 1.22 ng/mL (0-0.5)
[2023-08-27 05:43] LABS: Alanine Aminotransferase 41 U/L (0-33); Alkaline Phosphatase 55 U/L (35-105); Anion Gap 15.1 (5-19); Aspartate Amino Transferase 95 U/L (0-32); Blood Urea Nitrogen 27 mg/dL (8-23); C Reactive Protein 43.3 mg/L (0.0-4.9); Calcium 7.7 mg/dL (8.5-10.5); Carbon Dioxide 19 mmol/L (22-29); Chloride 106 mmol/L (98-107); Creatinine Clr Calc Pharmacy 35.0744; Globulin 2.5 g/dL (1.3-4.6); Glucose 83 mg/dL (65-115); Magnesium 1.9 mg/dL (1.7-2.3); Osmolality Calculated 286 mOsm/kg (285-295); Phosphorus 3.7 mg/dL (2.5-4.5); Potassium 4.1 mmol/L (3.5-5.1); Sodium 136 mmol/L (136-145); Total Bilirubin 0.3 mg/dL (0.15-1.2); Total Protein 5.5 g/dL (6.6-8.7)
[2023-08-27] MEDS: azithromycin 500 MG in sodium chloride 0.9% 250 ML 250 MG IV (05:57)
[2023-08-27] MEDS: levothyroxine 100 mcg SDV 75 MCG IVP (09:03)
--- NOTE | 2023-08-27 13:44 | P.PN_ITS ---
Subjective 2 Subjective: Patient was seen this morning, nursing staff at bedside, speech therapy at bedside, this morning she has a slight left facial droop, she has slight left upper extremity weakness 3 out of 5, left lower extremity strength compared to the right is 4 out of 5, continues to have word salad, word finding difficulty she does not know her name, she does not know the place, she can follow commands she is able to smile for me she is able to move her extremities, spoke to patient's outside the room, about patient's acute CVA continue to medically manage, PT OT, speech eval, aspirin, permissive hypertension, he voiced understanding, all questions answered Vitals/I&O/Wt Last Vital Signs Temp 99.7 F H 08/27/23 08:00 Pulse 102 H 08/27/23 08:00 Resp 24 H 08/27/23 08:00 BP 118/66 08/27/23 08:00 Pulse Ox 91 08/27/23 08:00 O2 Del Method Nasal Cannula 08/27/23 08:00 O2 Flow Rate 4 08/27/23 08:00 08/26/23 08/27/23 08/27/23 22:59 06:59 14:59 Intake Total 1000 / 1100 1011.25 / 2111.25 250 / 250 Output Total 845 / 845 Balance 1000 / 1100 166.25 / 1266.25 250 / 250 Weight last 48 hrs Weight 78.245 kg Weight 77.111 kg Weight 77.111 kg Physical Exam 2 Const: COMMON NORMALS: no acute distress Eye: COMMON NORMALS: Equal, round and reactive pupils present PUPIL: Yes Equal, round and reactive pupils present Resp: COMMON NORMALS: normal respiratory effort, No retractions, No use of accessory muscles and clear to auscultation bilaterally AUSCULTATION: clear to auscultation bilaterally Cardio: COMMON NORMALS: regular rate, regular rhythm, S1 normal heart sound present and S2 normal heart sound present RATE: regular rate RHYTHM: r egular rhythm HEART SOUNDS: S1 normal heart sound present and S2 normal heart sound present GI: COMMON NORMALS: Normal to inspection, nondistended, normoactive bowel sounds present and non-tender Extremity: COMMON NORMALS: no pedal edema Neuro: OTHER: Alert oriented x 0, word finding difficulty, receptive aphasia, can follow commands, at times, left upper extremity strength 3 out of 5 in left lower extremity strength 4-5, slight left facial droop Psych: COMMON NORMALS: mental status grossly normal Urinary Catheter Management: [place]: Cath Placed During This Visit: yes Reason for Continuing Indwelling Catheter: Acute Urinary Retention or Obstruction Urinary Catheter Date of Insertion: 08/26/23 Urinary Catheter Time of Insertion: 21:33 Data 08/27/23 04:47 08/27/23 04:47 Micro: Microbiology 08/26/23 12:00 Blood Culture - Preliminary Blood NEGATIVE TO DATE 08/26/23 12:00 Blood Culture - Preliminary Blood A&P Assessment and plan (1) Acute encephalopathy: (2) Pneumonia: (3) Falls: (4) Acute CVA (cerebrovascular accident): (5) History of GI bleed: (6) Goals of care, counseling/discussion: (7) Essential hypertension: (8) Mixed dyslipidemia: (9) Thrombocytosis: (10) Chronic anemia: (11) Acute hypoxic respiratory failure: Plan Acute encephalopathy ? Likely multifactorial - component related to pneumonia, possible aspiration pneumonia ? Acute CVA, Alert oriented x 0, word finding difficulty, receptive aphasia, can follow commands, at times, left upper extremity strength 3 out of 5 in left lower extremity strength 4-5, slight left facial droop ? CT head within normal limits, ? CTA head and neck within normal limits, ? Plan - Rocephin azithromycin tomorrow morning ? Sputum cultures, blood cultures, ? Monitor respiratory status closely, ? Neurochecks, and a stroke scale, aspiration precautions ? Rectal aspirin ? Allow for permissive hypertension, treat systolic blood pressure if greater than 220 or diastolic blood pressure is greater than 120 ? Cardiac echo, consent?telemetry monitoring ? IV fluids, ? PT OT, speech therapy eval ? Goals of care discussion with Rain is a full code ? Lovenox for DVT prophylaxis Acute hypoxic respiratory failure ? Secondary to pneumonia, ? As above Acute CVA , with left-sided deficits, out of tPA window, not a candidate for vascular intervention History of GI bleed, ? Monitor as patient is on aspirin, therapeutic Lovenox, ? Protonix [place], PT OT - ? Full code, ?will need a one-to-one consider ? Will keep n.p.o. due to high aspiration risk, speech therapy eval, will advance as tolerated Attestations 2 Medical Necessity Statement*: Patient requires hospitalization for acute CVA with left-sided deficits acute encephalopathy, respiratory failure secondary pneumonia Diagnoses Acute encephalopathy G93.40 Pneumonia J18.9 Falls W19.XXXA Acute CVA (cerebrovascular accident) I63.9 History of GI bleed Z87.19 Goals of care, counseling/discussion Z71.89 Essential hypertension I10 Mixed dyslipidemia E78.2 Thrombocytosis D75.839 Chronic anemia D64.9 Acute hypoxic respiratory failure J96.01
[2023-08-27] MEDS: enoxaparin 40 mg/0.4 mL Syringe SUBCUT (15:56)
[2023-08-27] MEDS: acetaminophen 1,000 MG/100 ML PIGGYBACK 400 MG IV (16:00)
[2023-08-27] MEDS: aspirin 300 mg Supp PR (16:01)
--- NOTE | 2023-08-27 16:57 | ECG_ITS ---
[facility] Test Date: 2023-08-27 Pat Name: Rain Butcher Department: Room: 255 Gender: Female Manager Clinical Pharmacy: : 1940 Requested By: Chris Alan Order Number: [id number] Brandon MD: Shelton Nash M.D. Measurements Intervals [place] Rate: 123 P: 0 CO: 0 QRS: -19 QRSD: 83 T: 31 QT: 307 QTc: 441 Interpretive Statements ATRIAL FIBRILLATION WITH RAPID VENTRICULAR RESPONSE WITH ABERRANT CONDUCTION OR VENTRICULAR PREMATURE COMPLEXES INFERIOR MYOCARDIAL INFARCTION , PROBABLY OLD [40+ ms Q WAVE AND/OR ST/T ABNORMALITY IN II/aVF] Compared to ECG 08/26/2023 16:43:48 Ventricular premature complex(es) now present Aberrant conduction of supraventricular beat(s) now present Sinus tachycardia no longer present Myocardial infarct finding still present Electronically Signed On 08-28-2023 23:56:47 CDT by Shelton Nash M.D. [id number]
--- NOTE | 2023-08-27 17:16 | PC.NURSE ---
Notified Dr. Dayanna trivedi of 102.4. No orders at this time
[2023-08-27 17:37] LABS: Troponin(5th) Baseline 24 ng/L (0-10)
[2023-08-27 18:08] LABS: Adenovirus Not Detected (NOT DETECT); Chlamydia Pneumoniae Not Detected (NOT DETECT); Coronavirus 229E,HKU1,NL63,OC4 Not Detected (NOT DETECT); Human Metapneumovirus Not Detected (NOT DETECT); Human Rhinovirus/Enterovirus Not Detected (NOT DETECT); Influenza A Not Detected (NOT DETECT); Influenza A H1 Not Detected (NOT DETECT); Influenza A H1-2009 Not Detected (NOT DETECT); Influenza A H3 Not Detected (NOT DETECT); Influenza B Not Detected (NOT DETECT); Mycoplasma Pneumoniae Not Detected (NOT DETECT); Parainfluenza Virus Type 1 Not Detected (NOT DETECT); Parainfluenza Virus Type 2 Not Detected (NOT DETECT); Parainfluenza Virus Type 3 Not Detected (NOT DETECT); Parainfluenza Virus Type 4 Not Detected (NOT DETECT); Respiratory Syncytial Virus A Not Detected (NOT DETECT); Respiratory Syncytial Virus B Not Detected (NOT DETECT); SARS-COV-2 Not Detected (NOT DETECT)
--- NOTE | 2023-08-27 18:51 | ECG_ITS ---
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 Measurements Intervals [place] Rate: 112 P: 0 NC: 0 QRS: -26 QRSD: 90 T: 26 QT: 337 QTc: 461 Interpretive Statements ATRIAL FIBRILLATION WITH RAPID VENTRICULAR RESPONSE INFERIOR MYOCARDIAL INFARCTION , PROBABLY OLD [40+ ms Q WAVE AND/OR ST/T ABNORMALITY IN II/aVF] Compared to ECG 08/27/2023 16:57:37 Ventricular premature complex(es) no longer present Aberrant conduction of supraventricular beat(s) no longer present Myocardial infarct finding still present Electronically Signed On 08-28-2023 23:59:30 CDT by Shelton Nash M.D. [email or web address] [email or web address] [email or web address]/OM/[id number]
--- NOTE | 2023-08-27 19:33 | PC.NURSE ---
Report given to Rupa in CSU. Pt status, diet, lab, v/s, and current orders discussed. All questions answered, will transport pt to CSU.
--- NOTE | 2023-08-27 19:37 | PC.NURSE ---
Notified Dr. lAan with patients heart rate in the 180s's. Vitals were BP 128/64, temp 98.6, 92% RA, 22 resp
--- NOTE | 2023-08-27 19:47 | CTR_ITS ---
PROCEDURE INFORMATION: Exam: CT Head Without Contrast Exam date and time: 08/27/2023 8:09 PM Age: 82 years old Clinical indication: Altered mental status/memory loss; Patient HX: Worsening mentation since sustaining a fall three days ago. Patient awake but non verbal. ; Additional info: AMS TECHNIQUE: Imaging protocol: Computed tomography of the head without contrast. Radiation optimization: All CT scans at this facility use at least one of these dose optimization techniques: automated exposure control; mA and/or kV adjustment per patient size (includes targeted exams where dose is matched to clinical indication); or iterative reconstruction. COMPARISON: CT angio headneck* [id number] 08/26/2023 2:24 PM RADIATION DOSE METRICS: Total DLP (mGy-cm): 1128.58 FINDINGS: Brain: No acute intracranial hemorrhage. No acute territorial region of dwyer-white dedifferentiation. No extra-axial collection. No mass effect or midline shift. Mild burden of nonspecific white matter hypoattenuation, likely chronic microvascular ischemic change. Generalized parenchymal volume loss. Cerebral ventricles: No acute hydrocephalus. Paranasal sinuses: Left maxillary sinus mucous retention cyst Visualized sinuses otherwise well-aerated. No fluid levels. Mastoid air cells: Visualized mastoid air cells are well aerated. Orbital cavities: No acute abnormality. Bones/joints: No acute calvarial fracture. Soft tissues: No acute abnormality. CT/CT head wo con* [id number] IMPRESSION: No acute intracranial hemorrhage or evidence of acute territorial infarct. If there is high clinical suspicion for acute ischemia, recommend MRI as CT sensitivity is limited.
[2023-08-27 20:06] LABS: Troponin 5 2HR 23.63 ng/L (0-10)
[2023-08-27 20:11] LABS: Troponin 5 2HR Delta -0.37 ABS# (0-10)
[2023-08-27] MEDS: amiodarone 150 MG/100 ML PREMIX 400 MG IV (20:27)
--- NOTE | 2023-08-27 22:51 | ECG_ITS ---
[facility] Test Date: 2023-08-27 Pat Name: Rain Butcher Department: Room: 111 Gender: Female Websphere Commerce Architect: : 1940 Requested By: Chris Alan Order Number: [id number] Brandon MD: Shelton Nash M.D. Measurements Intervals [place] Rate: 93 P: -58 AR: 140 QRS: -19 QRSD: 90 T: 10 QT: 369 QTc: 459 Interpretive Statements SINUS RHYTHM Compared to ECG 08/27/2023 18:20:25 Atrial fibrillation no longer present Myocardial infarct finding no longer present Electronically Signed On 08-28-2023 23:59:03 CDT by Shelton Nash M.D. [email or web address] Nok Labsgrove hill memorial hospitalPogoseatfair[facility].NetTalon/store/[id number]
[2023-08-27 23:48] LABS: Troponin 5 6HR 26.52 ng/L (0-10); Troponin 5 6HR Delta 2.52 ng/L (0-12)
[2023-08-27] MEDS: morphine 4 mg/mL SDV 1 mL 2 MG IVP (23:57)
[2023-08-28] VITALS (54 sets, daily range): BP systolic 80–156; BP diastolic 44–94; PULSE 82–117; RESP 19–56; TEMP 36.7–37.8; O2SAT 83–98
[2023-08-28] MEDS: pantoprazole 40 mg SDV IVP ×2 (04:32→15:33)
[2023-08-28] MEDS: acetaminophen 325 mg Tablet 650 MG PO (04:36)
[2023-08-28] MEDS: cefTRIAXone 1,000 MG in sodium chloride 0.9% (plus) 50 ML 100 MG IV (05:17)
[2023-08-28 05:28] LABS: Lymphocytes # 0.5 10^3/uL (0.8-4.8); Lymphocytes % 24.5 %; Mean Corpuscular HGB Conc 30.6 g/dL (30-55); Mean Corpuscular Hemoglobin 22.9 pg (27-33); Mean Corpuscular Volume 74.7 fl (85-98); Monocytes # 0.1 10^3/uL (0.2-0.9); Monocytes % 5.9 %; Neutrophils # 1.37 10^3/uL (1.8-7.7); Neutrophils % 67.1 %; Nucleated Red Blood Cells % 0 %; Platelet Count 118 10^3/cmm (157-399); Red Blood Count 4.42 10^6/uL (3.85-5.65); Red Cell Distribution Width 20.8 % (12.1-15.1); White Blood Count 2.04 10^3/uL (3.29-11.43)
[2023-08-28] MEDS: azithromycin 500 MG in sodium chloride 0.9% 250 ML 250 MG IV (05:52)
[2023-08-28 05:55] LABS: Procalcitonin 1.37 ng/mL (0-0.5)
[2023-08-28 06:00] LABS: Alanine Aminotransferase 42 U/L (0-33); Albumin Level 2.8 g/dL (3.5-5.2); Alkaline Phosphatase 54 U/L (35-105); Aspartate Amino Transferase 102 U/L (0-32); Blood Urea Nitrogen 27 mg/dL (8-23); C Reactive Protein 62.5 mg/L (0.0-4.9); Calcium 7.8 mg/dL (8.5-10.5); Carbon Dioxide 16 mmol/L (22-29); Chloride 110 mmol/L (98-107); Creatinine Clr Calc Pharmacy 32.8007; Globulin 2.8 g/dL (1.3-4.6); Glucose 105 mg/dL (65-115); Magnesium 1.9 mg/dL (1.7-2.3); Osmolality Calculated 295 mOsm/kg (285-295); Phosphorus 2.6 mg/dL (2.5-4.5); Sodium 140 mmol/L (136-145); Total Bilirubin 0.3 mg/dL (0.15-1.2); Total Protein 5.6 g/dL (6.6-8.7)
--- NOTE | 2023-08-28 08:34 | MRR_ITS ---
PROCEDURE INFORMATION: Exam: MR Head Without Contrast Exam date and time: 08/28/2023 11:08 AM Age: 82 years old Clinical indication: Altered mental status/memory loss and speech disturbance; Confusion or disorientation; Slurred speech; Additional info: CVA TECHNIQUE: Imaging protocol: Magnetic resonance imaging of the head without contrast. COMPARISON: CT head wo con* [id number] 08/27/2023 8:09 PM FINDINGS: Brain: Normal. No acute infarct. No hemorrhage. Subcortical and periventricular FLAIR hyperintensities which may reflect chronic ischemic small-vessel disease. No edema. Cerebral ventricles: Normal. No ventriculomegaly. Normal variant of cavum pellucidum. Bones/joints: Unremarkable. Paranasal sinuses: Partial opacification of the left maxillary sinus, representing mucous retention cyst. Mastoid air cells: Normal as visualized. No mastoid effusion. Orbital cavities: Unremarkable. Soft tissues: Unremarkable. MR/MR head wo con* [id number] IMPRESSION: 1. No acute ischemic stroke. 2. Left maxillary sinus mucous retention cyst, unchanged. 3. Chronic mild ischemic small-vessel disease, unchanged.
--- NOTE | 2023-08-28 08:36 | USCV_ITS ---
Rain Butcher Age: 82 Gender: F : 1940 Exam Date: 08/28/2023 09:43 Ordering Phys: Chris Alan MD Technologist: Colin Nunes [place] [facility] [place]: cva BP: / HR: 104 Rhythm: Sinus Technical Quality: Adequate MEASUREMENTS (Male / Female) Normal Values 2D ECHO LVOT Diameter 2.0 cm LV Ejection Fraction MOD 2C 73.6 % LV Ejection Fraction 2C AL 75.1 % LA Diameter 3.9 cm RA Systolic Volume 4C AL 31.5 ml RA Systolic Volume 4C MOD 29.4 ml Aorta at Sinotubular Diameter 2.3 cm IVC Diameter 1.9 cm M-MODE LA Ao Ratio MM 1.2 AV Cusp Separation MM 1.9 cm DOPPLER AV Peak Velocity 247.0 cm/s LVOT Peak Velocity 177.0 cm/s AV Area Cont Eq vti 2.1 cm squared AV Area Cont Eq pk 2.3 cm squared MV Peak Velocity 118.0 cm/s MV Area PHT 3.8 cm squared Mitral E to A Ratio 0.7 TV Peak Velocity 238.5 cm/s TR Peak Velocity 295.0 cm/s TR Peak Gradient 34.8 mmHg TR Mean Velocity 225.0 cm/s TR Mean Gradient 22.4 mmHg TR Velocity Time Integral 66.0 cm PV Peak Velocity 99.0 cm/s RV Ejection Time 0.2 s FINDINGS Left Ventricle Normal left ventricular size and systolic function, EF 73%.mild left ventricular hypertrophy. No regional wall motion abnormalities. Right Ventricle The right ventricle is normal in size and function. Right Atrium The right atrium is normal in size. Left Atrium The left atrium is normal in size. Mitral Valve Mild mitral annular calcification. Trace to mild mitral valve regurgitation. Aortic Valve Mild aortic valve stenosis, mean gradient 16.3 mmHg, KATE 2.1 cm squared. Peak velocity of 2.5 m/s Tricuspid Valve Trace tricuspid valve regurgitation. Pulmonic Valve No gross abnormalities noted Pericardium Normal pericardium without effusion. Aorta Normal ascending aorta dimension. IVC Normal inferior vena cava. CONCLUSIONS Normal left ventricular size and systolic function, EF 73%.mild left ventricular hypertrophy. No regional wall motion abnormalities. Mild mitral annular calcification. Trace to mild mitral valve regurgitation. Mild aortic valve stenosis, mean gradient 16.3 mmHg, KATE 2.1 cm squared. Peak velocity of 2.5 m/s Trace tricuspid valve regurgitation. Estimated pulmonary artery peak systolic pressure within normal limits No similar previous studies are available for comparison Dr Herminia Cortes MD [facility] (Electronically Signed) Final Date: 29 August 2023 21:19 S
[2023-08-28] MEDS: levothyroxine 100 mcg SDV 75 MCG IVP (08:53)
[2023-08-28 09:19] LABS: Ferritin 379 ng/mL (15-150); Iron 14 ug/dL (37-145)
[2023-08-28 09:34] LABS: Folate Level 4.4 ng/mL (4.8-37.3); Vitamin B12 294 pg/mL (232-1245)
[2023-08-28] MEDS: aspirin 81 mg EC Tablet PO (10:00)
--- NOTE | 2023-08-28 10:03 | XRR_ITS ---
PROCEDURE INFORMATION: Exam: XR Chest Exam date and time: 08/28/2023 9:44 AM Age: 82 years old Clinical indication: Shortness of breath; Additional info: SOB TECHNIQUE: Imaging protocol: Radiologic exam of the chest. Views: 1 view. COMPARISON: CR XR chest 1V portable [id number] 08/26/2023 10:56 AM FINDINGS: Lungs: Chronic elevation of the right hemidiaphragm with compressive atelectasis, unchanged. Pleural spaces: No pneumothorax. Mild blunting of the left costophrenic angle which may represent a small left-sided pleural effusion. Heart/Mediastinum: Mild cardiomegaly, unchanged. Bones/joints: Unremarkable. XR/XR chest 1V portable [id number] IMPRESSION: 1. Chronic elevation of the right hemidiaphragm with compressive atelectasis, unchanged. 2. Mild cardiomegaly, unchanged. 3. Mild blunting of the left costophrenic angle which may represent a small left-sided pleural effusion.
[2023-08-28 10:06] LABS: ABG PCO2 32.6 mmHg (35-45); ABG PH Result 7.32 (7.35-7.45); Alveolar-Arterial Oxygen Gradi 5.4 mmHg (5-10); Arterial Blood Gas Hematocrit 30.8 % (37-47); Base Excess ABG -8.6 mmol/L (-2.0-2.0); Blood Gas Operator Identificat AMH; Blood Gas Sample Site Brachial, right; Blood Gas Sample Type Arterial; HCO3 ABG 16.6 mmol/L (22-26); HGB O2 Sat 91.2 % (95-100); Ionized Calcium Level - ABG 1.2 mmol/L (1.1-1.4); Methemoglobin 1.1 % (0.4-1.5); Oxygen Device OXY MASK; Oxygen Saturation ABG 93.2; PO2 ABG 66.8 mmHg (80.0-100.0); Potassium Level - ABG 3.6 mmol/L (3.5-5.0); Total Hemoglobin 10.1 g/dL (12-16)
[2023-08-28] MEDS: morphine 4 mg/mL SDV 1 mL 2 MG IVP (10:46)
--- NOTE | 2023-08-28 11:00 | PC.PHAR ---
VANCOMYCIN PHARMACY TO DOSE Vanco Initial Dosing Patient Information Sex F M/F Last Name Hadley AGE 82 years First Name Rain Ht 64 inches : 1940 ABW 79.2 kg Location: [facility] IBW 54.7 kg If loading dose given: DW 64.5 kg Loading DOSE: 1250 mg SCr 1.3 mg/dl This Dose = 19.4 mg/kg CrCl 27.8 ml/min 1st dose Cmax: 25.5 mcg/ml Vd 48.375 liters Time elapsed: 48.0 hrs Ke 0.027 hrs-1 Serum Conc. = 6.8 mcg/ml t1/2 25 hrs Hrs until 20 mcg/ml 9.8 hrs Hrs until 15 mcg/ml 20.3 hours Hrs until 10 mcg/ml 35.0 hours Dose Tau (Freq) Levels expected Standard 1250 48 Cmax 34.3 Targets 19.38 37.8 Cpeak 33.4 25 to 40 mg/kg hours Cmin 9.7 10 to 20
--- NOTE | 2023-08-28 11:18 | USR_ITS ---
PROCEDURE INFORMATION: Exam: US Duplex Lower Extremity Veins, Bilateral Exam date and time: 08/28/2023 4:18 PM Age: 82 years old Clinical indication: Abnormal findings; Abnormal lab test; Elevated d-dimer; Additional info: Dvt TECHNIQUE: Imaging protocol: Real-time duplex ultrasound of the bilateral extremities with 2-D dwyer scale, color Doppler flow and spectral waveform analysis including responses to compression and other maneuvers (when performed) with image documentation. Complete exam focused on the lower extremity veins. COMPARISON: CT abdomen pelvis wo con [id number] 08/26/2023 12:57 PM FINDINGS: Right deep veins: Unremarkable. The common femoral, femoral, proximal profunda femoral and popliteal veins are patent without thrombus. Normal Doppler waveforms. Normal compressibility and/or augmentation response. Left deep veins: Unremarkable. The common femoral, femoral, proximal profunda femoral and popliteal veins are patent without thrombus. Normal Doppler waveforms. Normal compressibility and/or augmentation response. Superficial veins: Greater saphenous veins at the saphenofemoral junctions are patent bilaterally without thrombus. Soft tissues: Mild soft tissue edema US/CV venous duplex [facility] [id number] IMPRESSION: No evidence of deep vein thrombosis.
[2023-08-28] MEDS: vancomycin 1,250 MG/250 ML PIGGYBACK 250 MG IV (12:25)
[2023-08-28] MEDS: sodium bicarbonate 8.4% 1 mEq/mL 50mL Syr 50 MEQ IVP (12:26)
[2023-08-28] MEDS: FUROsemide 10 mg/mL SDV 4mL 40 MG IVP ×2 (12:26→18:25)
[2023-08-28] MEDS: LORazepam 2 mg/mL INJ 1 mL 0.5 MG IVP (12:27)
[2023-08-28 13:03] LABS: NT Pro B Type Natriuretic Pept 2102 pg/mL (0-450)
--- NOTE | 2023-08-28 13:20 | P.PN_ITS ---
Subjective 2 Subjective: -Yesterday evening, patient developed A- fib with RVR, moved down to CSU placed on an amiodarone drip, given amiodarone bolus, this morning she is converted over to normal sinus rhythm, out of A-fib, normotensive, did have febrile episodes in the last 24 hours, on 7 L Patient was seen early this morning, currently on 7 L, family members at bedside she is alert to person, not to place, not to time she can follow commands she does have a left facial droop mild, left upper extremity weakness is difficult for hold for her to follow commands to assess left lower extremity strength, discussed with patient's family members about her respiratory failure we will have to monitor respiratory status closely, she did have low-grade fevers throughout the night ? Will give her 40 mg IV Lasix, an amp of bicarb she does have metabolic acidosis, ? ABG shows hypoxic respiratory failure, return to 12 L, will monitor respiratory status closely keep n.p.o. as I am suspicious she might have a aspiration pneumonitis or recurrent aspiration, keep n.p.o. ? Will broaden antibiotic coverage to vancomycin, Zosyn ? Patient had received morphine, Ativan for MRI due to agitation, and severe back pain ? Patient went to MRI, she was taken to CT to do a CAT scan of her lungs, I observed her in CAT scan, her O2 sats are in the 76-78, instructed nursing staff to take patient back to CSU, As patient was taken back to CSU, was placed on 12 L, O2 stats to remain in the low 80s ? She was placed on BiPAP, ? Currently resting comfortably on BiPAP, she does awaken, but falls back asleep, will repeat ABG in 2 hours, currently O2 sats 100% on 60%, ? Patient's family informed about patient's worsening respiratory status, will broaden her antibiotic coverage, diurese her, she does have evidence of metabolic acidosis ? Will order CT angiogram of the chest when she is more stable, ? Patient is currently alert to person, not to place, not to time she does awaken, but falls back asleep does not follow commands currently on BiPAP, normotensive, normal sinus rhythm heart rates in the 90s Vitals/I&O/Wt Last Vital Signs Temp 100.0 F H 08/28/23 07:21 Pulse 94 03/24/24 12:20 Resp 35 H 08/28/23 09:50 BP 113/46 08/28/23 07:21 Pulse Ox 97 08/28/23 12:20 O2 Del Method Oxymask 08/28/23 10:05 O2 Flow Rate 12 08/28/23 10:05 FiO2 65 08/28/23 12:20 08/27/23 08/28/23 08/28/23 22:59 06:59 14:59 Intake Total 1225.25 / 1475.25 498.869 / 0205.216 2172 / 1200 Balance 1225.25 / 1475.25 498.869 / 5983.240 1311 / 1200 Weight last 48 hrs Weight 79.197 kg Weight 78.245 kg Weight 77.111 kg Physical Exam 2 Const: COMMON NORMALS: no acute distress EXAM LIMITATIONS: altered mental status ORIENTATION/CONSCIOUSNESS: Yes awake, Yes oriented to person and Yes confused; not oriented to place and not oriented to time Eye: COMMON NORMALS: Equal, round and reactive pupils present and EOMs intact bilaterally PUPIL: Yes Equal, round and reactive pupils present Resp: COMMON NORMALS: normal respiratory effort, No retractions and No use of accessory muscles AUSCULTATION: crackles and wheezes Cardio: COMMON NORMALS: regular rate, regular rhythm, S1 normal heart sound present and S2 normal heart sound present RATE: regular rate RHYTHM: r egular rhythm HEART SOUNDS: S1 normal heart sound present and S2 normal heart sound present GI: COMMON NORMALS: Normal to inspection, nondistended, normoactive bowel sounds present and non-tender Extremity: COMMON NORMALS: no pedal edema Neuro: SENSORIUM/ORIENTATION: Yes oriented to person, No oriented to place and No oriented to time OTHER: Slight left facial droop, left upper extremity weakness 4-5 compared to 5 of 5 in the right, left lower extremity weakness, remains encephalopathic Psych: COMMON NORMALS: mental status grossly normal Urinary Catheter Management: [place]: Cath Placed During This Visit: yes Reason for Continuing Indwelling Catheter: Acute Urinary Retention or Obstruction Urinary Catheter Date of Insertion: 08/26/23 Urinary Catheter Time of Insertion: 21:33 Data 08/28/23 05:06 08/28/23 05:06 Micro: Microbiology 08/26/23 12:00 Blood Culture - Preliminary Blood Staphylococcus sp coag neg 08/26/23 12:00 Blood Culture - Preliminary Blood NEGATIVE TO DATE A&P Assessment and plan (1) Gram-positive bacteremia: (2) Acute hypoxic respiratory failure: (3) Atrial fibrillation with RVR: (4) Acute encephalopathy: (5) Pneumonia: (6) Falls: (7) Acute CVA (cerebrovascular accident): (8) History of GI bleed: (9) Goals of care, counseling/discussion: (10) Essential hypertension: (11) Mixed dyslipidemia: (12) Thrombocytosis: (13) Chronic anemia: Plan Acute encephalopathy ? Likely multifactorial - component related to pneumonia, possible aspiration pneumonia ? Acute CVA, Alert oriented x 0, word finding difficulty, receptive aphasia, can follow commands, at times, left upper extremity strength 3 out of 5 in left lower extremity strength 4-5, slight left facial droop ? CT head within normal limits, ? CTA head and neck within normal limits, ? Plan ? Sputum cultures, blood cultures, ? Monitor respiratory status closely, ? Neurochecks, and a stroke scale, aspiration precautions ? Rectal aspirin ? Allow for permissive hypertension, treat systolic blood pressure if greater than 220 or diastolic blood pressure is greater than 120 ? Cardiac echo, consent ?telemetry monitoring ? DC IV fluids ? PT OT, speech therapy eval ? Goals of care discussion with Rain is a full code ? Lovenox for DVT prophylaxis Acute hypoxic respiratory failure ? Secondary to pneumonia -suspicion for recurrent aspiration event, ? Fluid overload ? A-fib with RVR ? Plan ?monitor respiratory status closely, ? Repeat ABG ? Continue BiPAP ? Broaden antibiotic coverage to vancomycin, Zosyn, ? Will keep n.p.o., will consider modified barium swallow based on clinical progress, ? Cardiac echo pending ? Venous ultrasound pending, ? Will consider CT angiogram the chest Atrial fibrillation with rapid ventricular response ? Continue amiodarone drip, ? Anticoagulation currently on hold due to acute encephalopathy likely secondary acute CVA, risk of hemorrhagic conversion Acute hypoxic respiratory failure ? Secondary to pneumonia, ? As above Acute CVA , with left-sided deficits, out of tPA window, not a candidate for vascular intervention History of GI bleed, ? Monitor as patient is on aspirin, therapeutic Lovenox, ? Protonix Folic acid deficiency, start folic acid Falls, PT OT - ? Full code, ?will need a one-to-one consider ? Will keep n.p.o. due to high aspiration risk, -Yesterday evening, patient developed A-fib with RVR, moved down to CSU placed on an amiodarone drip, given amiodarone bolus, this morning she is converted over to normal sinus rhythm, out of A-fib, normotensive, did have febrile episodes in the last 24 hours, on 7 L Patient was seen early this morning, currently on 7 L, family members at bedside she is alert to person, not to place, not to time she can follow commands she does have a left facial droop mild, left upper extremity weakness is difficult for hold for her to follow commands to assess left lower extremity strength, discussed with patient's family members about her respiratory failure we will have to monitor respiratory status closely, she did have low-grade fevers throughout the night ? Will give her 40 mg IV Lasix, an amp of bicarb she does have metabolic acidosis, ? ABG shows hypoxic respiratory failure, return to 12 L, will monitor respiratory status closely keep n.p.o. as I am suspicious she might have a aspiration pneumonitis or recurrent aspiration, keep n.p.o. ? Will broaden antibiotic coverage to vancomycin, Zosyn ? Patient had received morphine, Ativan for MRI due to agitation, and severe back pain ? Patient went to MRI, she was taken to CT to do a CAT scan of her lungs, I observed her in CAT scan, her O2 sats are in the 76-78, instructed nursing staff to take patient back to CSU, As patient was taken back to CSU, was placed on 12 L, O2 stats to remain in the low 80s ? She was placed on BiPAP, ? Currently resting comfortably on BiPAP, she does awaken, but falls back asleep, will repeat ABG in 2 hours, currently O2 sats 100% on 60%, ? Patient's family informed about patient's worsening respiratory status, will broaden her antibiotic coverage, diurese her, she does have evidence of metabolic acidosis ? Will order CT angiogram of the chest when she is more stable, ? Spoke to patient, spoke to nursing staff spoke to patient's family multiple times, patient seen multiple times Attestations 2 Medical Necessity Statement*: Patient requires hospitalization for acute hypoxic respiratory failure, recurrent aspiration aspiration pneumonia, fluid overload, systolic CHF, acute CVA, Diagnoses Gram-positive bacteremia R78.81 Acute hypoxic respiratory failure J96.01 Atrial fibrillation with RVR I48.91 Acute encephalopathy G93.40 Pneumonia J18.9 Falls W19.XXXA Acute CVA (cerebrovascular accident) I63.9 History of GI bleed Z87.19 Goals of care, counseling/discussion Z71.89 Essential hypertension I10 Mixed dyslipidemia E78.2 Thrombocytosis D75.839 Chronic anemia D64.9
[2023-08-28 14:08] LABS: ABG PCO2 32.3 mmHg (35-45); ABG PH Result 7.35 (7.35-7.45); Base Excess ABG -6.7 mmol/L (-2.0-2.0); Blood Gas Allen Test Pos; Blood Gas Sample Type Arterial; PO2 ABG 93.8 mmHg (80.0-100.0)
[2023-08-28 14:09] LABS: Blood Gas Operator Identificat MONRO; Blood Gas Sample Site Radial, left; Oxygen Device BIPAP; PO2 FiO2 Ratio Arterial Blood 0
[2023-08-28] MEDS: piperacillin-tazobactam 3.375 GM in sodium chloride 0.9% (plus) 50 ML IV ×2 (14:46→21:06)
[2023-08-28] MEDS: enoxaparin 40 mg/0.4 mL Syringe SUBCUT (15:33)
[2023-08-28 17:23] LABS: Anion Gap 17.8 (5-19); Blood Urea Nitrogen 37 mg/dL (8-23); Carbon Dioxide 17 mmol/L (22-29); Chloride 112 mmol/L (98-107); Glucose 103 mg/dL (65-115); Osmolality Calculated 305 mOsm/kg (285-295); Potassium 3.8 mmol/L (3.5-5.1); Sodium 143 mmol/L (136-145)
[2023-08-28 17:25] LABS: Creatinine Clr Calc Pharmacy 28.4272
[2023-08-28 22:10] LABS: ABG PCO2 31.1 mmHg (35-45); ABG PH Result 7.38 (7.35-7.45); Arterial Blood Gas Hematocrit 30.4 % (37-47); Base Excess ABG -5.7 mmol/L (-2.0-2.0); Blood Gas Allen Test Pos; Blood Gas Sample Site Radial, right; Blood Gas Sample Type Arterial; HCO3 ABG 18.5 mmol/L (22-26); Oxygen Device BIPAP; PO2 ABG 81.3 mmHg (80.0-100.0); PO2 FiO2 Ratio Arterial Blood 0
--- NOTE | 2023-08-28 23:00 | PC.NURSE ---
Spoke with regarding patients elevated HR, in afib. The patient had previously been on an amio gtt but was switched to PO. The patient however was not awake or alert enough to take PO so had not been getting her PO dose. gave orders to restart amiodarone gtt at maintance dose. Before starting gtt patient BPs were noted to be soft, running 80/48. said give 250ml bolus and start amiodarone gtt.
[2023-08-28] MEDS: sodium chloride 0.9% 250 ML IV (23:14)
[2023-08-29] VITALS (54 sets, daily range): BP systolic 83–130; BP diastolic 40–65; PULSE 84–121; RESP 18–40; TEMP 36.4–38.4; O2SAT 66–99
--- NOTE | 2023-08-29 03:03 | PC.NURSE ---
Spoke with regarding patient pulling at tubes and wires, pulling off BIPAP. Nursing made patient one to one for safety and to prevent patient from pulling out IV and removing tele. gave order for patient to be a one to one sit.
[2023-08-29] MEDS: LORazepam 2 mg/mL INJ 1 mL 0.5 MG IVP (04:06)
[2023-08-29] MEDS: piperacillin-tazobactam 3.375 GM in sodium chloride 0.9% (plus) 50 ML IV ×3 (04:07→20:09)
[2023-08-29] MEDS: pantoprazole 40 mg SDV IVP ×2 (04:07→16:11)
[2023-08-29 05:12] LABS: Basophils % 0.4 %; Hematocrit 32.7 % (36-47); Mean Corpuscular HGB Conc 31.5 g/dL (30-55); Mean Corpuscular Hemoglobin 22.9 pg (27-33); Mean Corpuscular Volume 72.8 fl (85-98); Monocytes # 0.2 10^3/uL (0.2-0.9); Neutrophils # 1.41 10^3/uL (1.8-7.7); Neutrophils % 52.7 %; Nucleated Red Blood Cells % 0 %; Platelet Count 102 10^3/cmm (157-399); Red Blood Count 4.49 10^6/uL (3.85-5.65); Red Cell Distribution Width 20.8 % (12.1-15.1); White Blood Count 2.67 10^3/uL (3.29-11.43)
[2023-08-29 05:34] LABS: Procalcitonin 1.83 ng/mL (0-0.5)
[2023-08-29 05:38] LABS: Alanine Aminotransferase 36 U/L (0-33); Albumin Level 2.6 g/dL (3.5-5.2); Alkaline Phosphatase 49 U/L (35-105); Anion Gap 18.9 (5-19); Aspartate Amino Transferase 83 U/L (0-32); Blood Urea Nitrogen 41 mg/dL (8-23); C Reactive Protein 78.8 mg/L (0.0-4.9); Calcium 7.8 mg/dL (8.5-10.5); Carbon Dioxide 18 mmol/L (22-29); Chloride 115 mmol/L (98-107); Creatinine Clr Calc Pharmacy 22.4426; Globulin 2.7 g/dL (1.3-4.6); Glucose 84 mg/dL (65-115); Osmolality Calculated 315 mOsm/kg (285-295); Phosphorus 3.7 mg/dL (2.5-4.5); Potassium 3.9 mmol/L (3.5-5.1); Sodium 148 mmol/L (136-145); Total Bilirubin 0.2 mg/dL (0.15-1.2); Total Protein 5.3 g/dL (6.6-8.7)
--- NOTE | 2023-08-29 07:00 | XRR_ITS ---
PROCEDURE INFORMATION: Exam: XR Chest Exam date and time: 08/29/2023 6:20 AM Age: 82 years old Clinical indication: Shortness of breath; Additional info: SOB TECHNIQUE: Imaging protocol: Radiologic exam of the chest. Views: 1 view. COMPARISON: CR (CHEST, ) 08/28/2023 9:44 AM FINDINGS: Lungs: Marked elevation of the right hemidiaphragm with mild bilateral airspace disease. Pleural spaces: No significant pleural effusion. Heart/Mediastinum: No cardiomegaly. Bones/joints: Degenerative change. XR/XR chest 1V portable [id number] IMPRESSION: Marked elevation of the right hemidiaphragm with mild bilateral airspace disease.
[2023-08-29] MEDS: albumin 50 G/200 ML BAG 60 G IV (08:32)
[2023-08-29] MEDS: sodium bicarbonate 8.4% 1 mEq/mL 50mL Syr 50 MEQ IVP (08:33)
[2023-08-29 09:08] LABS: NT Pro B Type Natriuretic Pept 1579 pg/mL (0-450)
[2023-08-29 09:28] LABS: Lactic Sepsis W/Reflex 3.1 mmol/L (0.5-2.2)
--- NOTE | 2023-08-29 10:02 | PC.NURSE ---
Patient is to be kept NPO, she is unable to swallow at this time. Provider ordered to change her aspirin to rectally from oral.
[2023-08-29] MEDS: aspirin 300 mg Supp PR (10:09)
[2023-08-29 10:29] LABS: ABG PCO2 35.8 mmHg (35-45); ABG PH Result 7.37 (7.35-7.45); Arterial Blood Gas Hematocrit 28.5 % (37-47); Base Excess ABG -4.4 mmol/L (-2.0-2.0); Blood Gas Allen Test Pos; Blood Gas Operator Identificat WALCI; Blood Gas Sample Site Radial, left; Blood Gas Sample Type Arterial; HCO3 ABG 20.4 mmol/L (22-26); Oxygen Device BIPAP; PO2 FiO2 Ratio Arterial Blood 0
[2023-08-29 10:55] LABS: Reflex Lactate Order REFLEX LACTIC ORDERD
[2023-08-29] MEDS: levothyroxine 100 mcg SDV 75 MCG IVP (12:05)
[2023-08-29 12:24] LABS: Lactic Acid level (Lactate) 3.5 mmol/L (0.5-2.2)
--- NOTE | 2023-08-29 13:33 | P.PN_ITS ---
Subjective 2 Subjective: Overnight patient developed A-fib with RVR placed back on amiodarone drip, this morning patient was seen, she is alert to person, not to place, not to time she remains encephalopathic she is on 60% FiO2, atrial fibrillation blood pressures are soft but maps around 65, afebrile overnight, urine output has been lackluster this morning, she is about 200 cc in the bag had a detailed discussion with the patient's at bedside, discussed respiratory failure likely secondary fluid overload aspiration pneumonia, aspiration pneumonitis, with evidence of sepsis given her elevated lactic acid, she is encephalopathic so it is hard for me to discern any focal weakness from her stroke, we discussed MRI findings within normal limits, but did discuss that she did have significant left-sided deficits, that it could take time for MRI to show the left-sided deficits, it is highly suspicious that she did have a stroke with her atrial fibrillation which has professed to itself here in the hospital, my concern would be her worsening respiratory status requiring ICU admission and intubation, and mechanical ventilation and intubation renal failure, as her urine output has been lackluster, and her creatinine is up to 1.9, discussed morbidity and mortality associated with the respiratory failure her renal failure, he voiced understanding, all questions answered, he tells me he wants everything to be done for now, will continue to monitor closely ? 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 Had a detailed discussion with patient's son at bedside discussed patient's respiratory failure likely from fluid overload load, recurrent aspiration pneumonia aspiration pneumonitis or sepsis elevated lactic acid, soft blood pressures A-fib, discussed my concerns for her respiratory status, requiring ICu admission, intubation, and her worsening renal function potentially requiring dialysis will consult nephrology, discussed monitoring her closely, but she might require ICU admission based on clinical progress might require intubation, might require dialysis, she remains a full code as per her , he voiced understanding, all questions answered, agreed to proceed ? Plan for today continue BiPAP therapy, continue broad-spectrum antibiotic, monitor urine function closely consult nephrology, he voiced understanding, all questions answered Vitals/I&O/Wt Last Vital Signs Temp 98.6 F 08/29/23 08:00 Pulse 84 08/29/23 10:35 Resp 18 08/29/23 08:00 BP 101/58 08/29/23 08:00 Pulse Ox 99 08/29/23 10:35 O2 Del Method BiPAP 08/29/23 08:00 O2 Flow Rate 12 08/28/23 10:05 FiO2 60 08/29/23 10:35 08/28/23 08/29/23 08/29/23 22:59 06:59 14:59 Intake Total 247.778 / 1697.778 300 / 1997.778 441.149 / 441.149 Output Total 1150 / 1150 400 / 1550 Balance -902.222 / 547.778 -100 / 447.778 441.149 / 441.149 Weight last 48 hrs Weight 78.018 kg Weight 79.197 kg Physical Exam 2 Const: COMMON NORMALS: no acute distress EXAM LIMITATIONS: altered mental status Eye: COMMON NORMALS: Equal, round and reactive pupils present PUPIL: Yes Equal, round and reactive pupils present Neck/C-Spine: COMMON NORMALS: no JVD Resp: COMMON NORMALS: normal respiratory effort, No retractions and No use of accessory muscles AUSCULTATION: crackles Cardio: COMMON NORMALS: no JVD, regular rate, regular rhythm, S1 normal heart sound present and S2 normal heart sound present RATE: regular rate RHYTHM: regular rhythm HEART SOUNDS: S1 normal heart sound present and S2 normal heart sound present GI: COMMON NORMALS: Normal to inspection, nondistended, normoactive bowel sounds present and non-tender Extremity: COMMON NORMALS: no pedal edema Urinary Catheter Management: Barksdale: Cath Placed During This Visit: yes Reason for Continuing Indwelling Catheter: Acute Urinary Retention or Obstruction Urinary Catheter Date of Insertion: 08/26/23 Urinary Catheter Time of Insertion: 21:33 Data 08/29/23 04:51 08/29/23 04:51 Micro: Microbiology 08/29/23 11:17 Blood Culture - Preliminary Blood SPECIMEN COLLECTED 08/29/23 11:12 Blood Culture - Preliminary Blood SPECIMEN COLLECTED 08/26/23 12:00 Blood Culture - Preliminary Blood Staphylococcus sp coag neg A&P Assessment and plan (1) Gram-positive bacteremia: (2) Acute hypoxic respiratory failure: (3) Atrial fibrillation with RVR: (4) Acute encephalopathy: (5) Pneumonia: (6) Falls: (7) Acute CVA (cerebrovascular accident): (8) History of GI bleed: (9) Goals of care, counseling/discussion: (10) Essential hypertension: (11) Mixed dyslipidemia: (12) Thrombocytosis: (13) Chronic anemia: (14) Acute kidney injury: (15) Sepsis: (16) Folic acid deficiency: (17) Aspiration pneumonia: (18) Aspiration pneumonitis: (19) Fluid overload: (20) CHF exacerbation: Plan Acute encephalopathy ? Likely multifactorial - component related to pneumonia, aspiration pneumonia, hypoxia, fluid overload, CHF exacerbation ? Acute CVA, Alert oriented x 0, word finding difficulty, receptive aphasia, can follow commands, at times, left upper extremity strength 3 out of 5 in left lower extremity strength 4-5, slight left facial droop ? Now with more global encephalopathy ? CT head within normal limits, ? CTA head and neck within normal limits, MRI no acute findings ? Plan ? Keep n.p.o. ? Sputum cultures, blood cultures, ? Monitor respiratory status closely, ? Neurochecks, and a stroke scale, aspiration precautions ? Rectal aspirin ? Allow for permissive hypertension, treat systolic blood pressure if greater than 220 or diastolic blood pressure is greater than 120 ? Cardiac ech0 ?telemetry monitoring ? DC IV fluids ? PT OT, speech therapy eval ? Goals of care discussion with Rain is a full code ? Lovenox for DVT prophylaxis Acute hypoxic respiratory failure ? Secondary to pneumonia -component related to pneumonia, aspiration pneumonia, hypoxia, fluid overload, CHF exacerbation ? Fluid overload ? A-fib with RVR ? Plan ?monitor respiratory status closely, ? Keep n.p.o. ? Continue BiPAP ? vancomycin, Zosyn, ? Will keep n.p.o., will consider modified barium swallow based on clinical progress, ? Status post 2 doses of IV Lasix hold off for now given elevated creatinine ? 1 dose of IV albumin ? Cardiac echo pending ? Venous ultrasound within normal limits ?Monitor respiratory status closely Sepsis, secondary to pneumonia, aspiration pneumonitis, sepsis features met given elevated lactic acid, leukopenia, elevated inflammatory markers, encephalopathy, hypoxia, soft blood pressures Acute kidney injury ? Likely multifactorial from sepsis, contrast-induced nephropathy, ? Consult nephrology, - Monitor urine output, monitor creatinine Atrial fibrillation with rapid ventricular response ? Continue amiodarone drip, ? Anticoagulation currently on hold due to acute encephalopathy likely secondary acute CVA, risk of hemorrhagic conversion Acute hypoxic respiratory failure ? Secondary to pneumonia, ? As above Acute CVA , with left-sided deficits, out of tPA window, not a candidate for vascular intervention History of GI bleed, ? Monitor as patient is on aspirin, therapeutic Lovenox, ? Protonix Folic acid deficiency, start folic acid Falls, PT OT - ? Full code, ?will need a one-to-one consider ? Will keep n.p.o. due to high aspiration risk, -Yesterday evening, patient developed A-fib with RVR, moved down to [facility] placed on an amiodarone drip, given amiodarone bolus, this morning she is converted over to normal sinus rhythm, out of A-fib, normotensive, did have febrile episodes in the last 24 hours, on 7 L Patient was seen early this morning, currently on 7 L, family members at bedside she is alert to person, not to place, not to time she can follow commands she does have a left facial droop mild, left upper extremity weakness is difficult for hold for her to follow commands to assess left lower extremity strength, discussed with patient's family members about her respiratory failure we will have to monitor respiratory status closely, she did have low-grade fevers throughout the night ? Will give her 40 mg IV Lasix, an amp of bicarb she does have metabolic acidosis, ? ABG shows hypoxic respiratory failure, return to 12 L, will monitor respiratory status closely keep n.p.o. as I am suspicious she might have a aspiration pneumonitis or recurrent aspiration, keep n.p.o. ? Will broaden antibiotic coverage to vancomycin, Zosyn ? Patient had received morphine, Ativan for MRI due to agitation, and severe back pain ? Patient went to MRI, she was taken to CT to do a CAT scan of her lungs, I observed her in CAT scan, her O2 sats are in the 76-78, instructed nursing staff to take patient back to CSU, As patient was taken back to CSU, was placed on 12 L, O2 stats to remain in the low 80s ? She was placed on BiPAP, ? Currently resting comfortably on BiPAP, she does awaken, but falls back asleep, will repeat ABG in 2 hours, currently O2 sats 100% on 60%, ? Patient's family informed about patient's worsening respiratory status, will broaden her antibiotic coverage, diurese her, she does have evidence of metabolic acidosis ? Will order CT angiogram of the chest when she is more stable, ? Spoke to patient, spoke to nursing staff spoke to patient's family multiple times, patient seen multiple times Attestations 2 Medical Necessity Statement*: Patient requires hospitalization for respiratory failure, sepsis, pneumonia, aspiration pneumonitis, stroke, acute kidney injury, encephalopathy elevated lactic acid, sepsis Diagnoses Gram-positive bacteremia R78.81 Acute hypoxic respiratory failure J96.01 Atrial fibrillation with RVR I48.91 Acute encephalopathy G93.40 Pneumonia J18.9 Falls W19.XXXA Acute CVA (cerebrovascular accident) I63.9 History of GI bleed Z87.19 Goals of care, counseling/discussion Z71.89 Essential hypertension I10 Mixed dyslipidemia E78.2 Thrombocytosis D75.839 Chronic anemia D64.9 Acute kidney injury N17.9 Sepsis A41.9 Folic acid deficiency E53.8 Aspiration pneumonia J69.0 Aspiration pneumonitis J69.0 Fluid overload E87.70 CHF exacerbation I50.9
--- NOTE | 2023-08-29 13:54 | PC.SOCIAL ---
Pg 2 IMM Explained to pt's & her son Pg 2 IMM. No questions voiced. Provided pt a copy. Initialed, dated, & timed a copy & placed in chart.
--- NOTE | 2023-08-29 14:29 | PC.NURSE ---
Provider and respiratory was notified that patient is starting to pull at her Bipap. Family is asking if she could have it off for now. An oxymask is placed at 11L
--- NOTE | 2023-08-29 14:29 | PM.CONSULT ---
Providers/Reason For Consult Consulting Physician/Specialty*: kommana/nephrology Reason for Consult*: JEISON Attending Physician: Chris Alan MD Primary Care Provider: Robin Crum DO History of Present Illness History of Present Illness Rain Butcher is a 82 year old female patient is a 82-year-old female with past medical history of hypothyroidism history of myeloproliferative disorder, hypertension, dyslipidemia was admitted to the hospital due to falls and altered mental status on 08/26/2023. In the emergency department she was tachycardic lab data significant for elevated CRP and troponin. Chest x-ray showed possible pneumonia. Patient received IV contrast for CT angiogram of the head and neck which was negative.. Over the course of the next 3 days patient has developed A-fib with RVR. Patient continued to have altered mental status and worsening respiratory failure currently requiring 11 L of O2 by facemask, family at bedside. Baseline creatinine was 0.7, creatinine on presentation was 1.3 worsened to 1.9 today. Poor p.o. intake and lethargic. Review of Systems Narrative: cannot obtain Medications/Allergies Home Medications Medication Instructions Recorded Confirmed Last Taken Type cholecalciferol (vitamin D3) 50 50 mcg PO DAILY 12/16/21 08/26/23 Unknown History mcg (2,000 unit) capsule docusate sodium 100 mg capsule 100 mg PO DAILY 12/16/21 08/26/23 Unknown History levothyroxine 150 mcg tablet 150 mcg PO DAILY #90 tabs 01/31/23 08/26/23 08/26/23 Rx lovastatin 40 mg tablet 40 mg PO DAILY #90 tabs 01/31/23 08/26/23 08/25/23 Rx venlafaxine 100 mg tablet See Rx Instructions .Route 06/07/23 08/26/23 08/26/23 Rx .COMPLEX #338 tabs alendronate 70 mg tablet 70 mg PO Q7D 08/26/23 08/26/23 Unknown History gabapentin 400 mg capsule 400 mg PO TID 08/26/23 08/26/23 Unknown History losartan 100 mg tablet 100 mg PO DAILY 08/26/23 08/26/23 08/25/23 History metoprolol succinate 50 mg 50 mg PO DAILY 08/26/23 08/26/23 08/25/23 History tablet,extended release 24 hr mirtazapine 15 mg tablet 15 mg PO DAILY 08/26/23 08/26/23 08/25/23 History spironolactone 25 mg tablet 25 mg PO DAILY 08/26/23 08/26/23 08/25/23 History Allergies Allergy/AdvReac Type Severity Reaction Status Date / Time No Known Allergies Allergy Verified 07/25/23 13:53 Current Medications Generic Name Dose Route Start Last Admin Trade Name Freq PRN Reason Stop Dose Admin Acetaminophen 650 mg 08/26/23 15:54 08/28/23 04:36 Acetaminophen 325 Mg Tablet PO 650 mg Q6H PRN Administration Mild/Mod Pain Or Temp >/= 101 Aspirin 300 mg 08/29/23 09:00 08/29/23 10:09 Aspirin 300 Mg Supp [place] 300 mg DAILY DARIUS Administration Atorvastatin Calcium 40 mg 08/28/23 21:00 08/28/23 21:05 Atorvastatin 40 Mg Tablet PO Not Given BEDTIME DARIUS Ferrous Sulfate 325 mg 08/28/23 18:00 08/29/23 10:03 Ferrous Sulfate Ec 325 Mg Tablet PO Not Given BIDWM DARIUS Folic Acid 1 mg 08/28/23 18:00 08/29/23 10:04 Folic Acid 1 Mg Tablet PO Not Given BID DARISU Piperacillin Sod/Tazobactam 50 mls @ 12.5 mls/hr 08/28/23 13:00 08/29/23 12:05 Sod 3.375 gm/ Sodium Chloride IV 12.5 mls/hr Q8H DARIUS Administration Protocol Vancomycin/PEG/NADA/Lysine/Water 1,250 mg in 250 mls @ 250 mls/hr 08/28/23 11:00 08/28/23 13:26 Vancocin IV Infused Q48H DARIUS Infusion Amiodarone HCl/Dextrose 360 mg in 200 mls @ 0 mls/hr 08/28/23 22:30 08/29/23 10:44 Nexterone IV 0.5 mg/min .Q0M DARIUS 16.67 mls/hr Administration Protocol Per Protocol Levothyroxine Sodium 75 mcg 08/29/23 10:20 08/29/23 12:05 Levothyroxine 100 Mcg Sdv IVP 75 mcg DAILY DARIUS Administration Lorazepam 0.5 mg 08/28/23 11:31 08/29/23 04:06 Lorazepam 2 Mg/Ml Inj 1 Ml IVP 0.5 mg Q8H PRN Administration ANXIETY Morphine Sulfate 2 mg 08/26/23 15:54 08/28/23 10:46 Morphine 4 Mg/Ml Sdv 1 Ml IVP 2 mg Q4H PRN Administration SEVERE PAIN Pantoprazole Sodium 40 mg 08/26/23 15:54 08/29/23 04:07 Pantoprazole 40 Mg Sdv IVP 40 mg Q12H DARIUS Administration Sucralfate 1 gm 08/28/23 11:30 08/29/23 11:58 Sucralfate 1 Gm/10 Ml Oral Liq Udc PO Not Given Q12H DARIUS PFSH Acute PFSH: Medical History 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 History of hyperlipidemia Hypertension Surgical History H/O thyroidectomy H/O oophorectomy H/O: hysterectomy H/O hemorrhoidectomy Family History Father Brain aneurysm Mother Scleroderma CAD (coronary artery disease) Brother CAD (coronary artery disease) Social History Smoking and tobacco/nicotine status: never used tobacco/nicotine Alcohol intake: never Substance/Drug Use: never Female Reproductive History: Spontaneous abortions: No Vitals/I&O/Wt Last Vital Signs Temp 98.6 F 08/29/23 08:00 Pulse 96 08/29/23 14:20 Resp 29 H 08/29/23 14:20 BP 93/45 08/29/23 14:20 Pulse Ox 95 08/29/23 14:20 O2 Del Method BiPAP 08/29/23 14:20 O2 Flow Rate 12 08/28/23 10:05 FiO2 60 08/29/23 10:35 08/28/23 08/29/23 08/29/23 22:59 06:59 14:59 Intake Total 247.778 / 1697.778 300 / 1997.778 441.149 / 441.149 Output Total 1150 / 1150 400 / 1550 Balance -902.222 / 547.778 -100 / 447.778 441.149 / 441.149 Weight last 48 hrs Weight 78.018 kg Weight 79.197 kg Physical Exam Narrative: lethargic , no distress family @ bedside + edema Urinary Catheter Management: Barksdale: Cath Placed During This Visit: yes Reason for Continuing Indwelling Catheter: Acute Urinary Retention or Obstruction Urinary Catheter Date of Insertion: 08/26/23 Urinary Catheter Time of Insertion: 21:33 Data 08/29/23 04:51 08/29/23 04:51 Micro: Microbiology 08/29/23 11:17 Blood Culture - Preliminary Blood SPECIMEN COLLECTED 08/29/23 11:12 Blood Culture - Preliminary Blood SPECIMEN COLLECTED 08/26/23 12:00 Blood Culture - Preliminary Blood Staphylococcus sp coag neg A&P Assessment and plan (1) Acute kidney injury: Plan 1. Acute kidney injury: Baseline creatinine was 0.7 in June 2023. Now has an JEISON with a creatinine of 1.9. Most likely multifactorial including possible ATN in the setting of infection/pneumonia and contrast exposure. -Discussed with family at bedside-discussed options of temporary dialysis if renal function gets worse versus conservative management. Family indicated that they will discuss with the rest of the family and inform regarding choice of treatments. -Continue to monitor renal function closely, -Avoid nephrotoxins and IV contrast studies 2. Acute on chronic respiratory failure: Multifactorial in the setting of pneumonia and volume overload, Lasix as needed 3. Metabolic acidosis: Mild, monitor 4. Hyponatremia: Sodium 148, monitor encourage p.o. fluid intake for now Consult Attestations Medical Necessity Statement: per victorino Coding Level of Care Code Acute Code for [facility] Fwd Diagnoses Acute kidney injury N17.9
[2023-08-29] MEDS: enoxaparin 30 mg/0.3 mL Syringe SUBCUT (16:11)
[2023-08-29] MEDS: morphine 4 mg/mL SDV 1 mL 2 MG IVP ×2 (16:36→22:25)
[2023-08-30] VITALS (28 sets, daily range): BP systolic 92–135; BP diastolic 38–64; PULSE 70–107; RESP 19–39; TEMP 36.6–38; O2SAT 86–97
--- NOTE | 2023-08-30 00:23 | PC.NURSE ---
Spoke with regarding patient will temp 101.2, on ABT and has been afebrile since 08/26. Patient only has PO Tylenol ordered but is NPO. ordered rectal Tylenol PRN.
[2023-08-30] MEDS: acetaminophen 650 mg Supp PR (00:57)
[2023-08-30] MEDS: haloperidol inj 5 mg/mL INJ 1 mL 1 MG IM ×2 (01:02→10:55)
[2023-08-30 03:52] LABS: Basophils % 0.8 %; Hematocrit 30.3 % (36-47); Lymphocytes % 50.1 %; Mean Corpuscular HGB Conc 30.7 g/dL (30-55); Mean Corpuscular Hemoglobin 22.6 pg (27-33); Mean Corpuscular Volume 73.5 fl (85-98); Monocytes # 0.2 10^3/uL (0.2-0.9); Neutrophils # 1.63 10^3/uL (1.8-7.7); Neutrophils % 40.8 %; Nucleated Red Blood Cells % 0 %; Platelet Count 124 10^3/cmm (157-399); Red Blood Count 4.12 10^6/uL (3.85-5.65); Red Cell Distribution Width 21.3 % (12.1-15.1); White Blood Count 3.99 10^3/uL (3.29-11.43)
[2023-08-30 04:03] LABS: INR 1.28 (0.8-1.2)
[2023-08-30 04:15] LABS: Alanine Aminotransferase 26 U/L (0-33); Alkaline Phosphatase 42 U/L (35-105); Anion Gap 17.7 (5-19); Aspartate Amino Transferase 65 U/L (0-32); Blood Urea Nitrogen 48 mg/dL (8-23); C Reactive Protein 62.7 mg/L (0.0-4.9); Calcium 7.7 mg/dL (8.5-10.5); Carbon Dioxide 21 mmol/L (22-29); Chloride 115 mmol/L (98-107); Creatinine Clr Calc Pharmacy 22.2785; Globulin 2.7 g/dL (1.3-4.6); Glucose 88 mg/dL (65-115); Magnesium 2.3 mg/dL (1.7-2.3); Osmolality Calculated 322 mOsm/kg (285-295); Phosphorus 4.3 mg/dL (2.5-4.5); Potassium 3.7 mmol/L (3.5-5.1); Slide Review Slide Review Perform; Sodium 150 mmol/L (136-145); Total Bilirubin 0.3 mg/dL (0.15-1.2); Total Protein 5.7 g/dL (6.6-8.7)
[2023-08-30] MEDS: piperacillin-tazobactam 3.375 GM in sodium chloride 0.9% (plus) 50 ML IV ×3 (04:15→22:02)
[2023-08-30 04:16] LABS: Lactate (Lactic Acid level) 2.4 mmol/L (0.5-2.2); Mean Platelet Volume 13.8 fL (7.4-10.4)
[2023-08-30] MEDS: pantoprazole 40 mg SDV IVP ×2 (04:16→17:04)
[2023-08-30 04:30] LABS: NT Pro B Type Natriuretic Pept 2967 pg/mL (0-450)
[2023-08-30 04:51] LABS: ABG PCO2 48.5 mmHg (35-45); ABG PH Result 7.29 (7.35-7.45); Arterial Blood Gas Hematocrit 28.7 % (37-47); Base Excess ABG -3.4 mmol/L (-2.0-2.0); Blood Gas Sample Site Brachial, right; Blood Gas Sample Type Arterial; HCO3 ABG 23.2 mmol/L (22-26); Oxygen Device OXY MASK; PO2 ABG 64.4 mmHg (80.0-100.0); PO2 FiO2 Ratio Arterial Blood 0
[2023-08-30] MEDS: aspirin 300 mg Supp PR (09:37)
[2023-08-30] MEDS: levothyroxine 100 mcg SDV 75 MCG IVP (09:37)
--- NOTE | 2023-08-30 10:43 | CT_ITS ---
WS: [id number] CT HEAD TECHNIQUE: Noncontrast CT of the head obtained from the skullbase to the vertex. CLINICAL INFORMATION: ams COMPARISON: CT 08/27/2023 DLP: 1057.[address] scans at [facility] use at least one of these dose optimization techniques: automated e xposure control; mA and/or kV adjustment per patient size (includes targeted exams where dose is matc hed to clinical indication); or iterative reconstruction. FINDINGS: No evidence of intracranial hemorrhage or mass effect. Ventricular system and basal cisterns are dunn nt. Mild small vessel changes with moderate parenchymal volume loss. No extra-axial fluid collections . No evidence of mass or mass effect. Cavum septum pellucida and vergae. Intracranial vascular calcif ication. Incidental small lipoma along the falx. Paranasal sinuses and mastoid air cells are well aerated. .Normal visualized soft tissues. IMPRESSION: 1. No evidence of intracranial hemorrhage or mass effect. 2. No acute intracranial findings.
[2023-08-30] MEDS: vancomycin 1,250 MG/250 ML PIGGYBACK 250 MG IV (10:56)
[2023-08-30 13:52] LABS: Anion Gap 18.6 (5-19); Blood Urea Nitrogen 46 mg/dL (8-23); Calcium 7.6 mg/dL (8.5-10.5); Carbon Dioxide 20 mmol/L (22-29); Chloride 114 mmol/L (98-107); Creatinine Clr Calc Pharmacy 21.4044; Glucose 87 mg/dL (65-115); Osmolality Calculated 319 mOsm/kg (285-295); Potassium 3.6 mmol/L (3.5-5.1); Sodium 149 mmol/L (136-145)
--- NOTE | 2023-08-30 16:18 | P.PN_ITS ---
Subjective 2 Subjective: Patient was seen this morning, patient's and son are at bedside, patient received Ativan and morphine during the night, she is a bit somnolent, but does awaken, does not follow commands, is on 40% BiPAP, had a febrile episode at night, discussed extensively with patient's family that urine output was 950, her creatinine has stabilized to 1.9, she still has severe respiratory failure, renal failure, will continue to monitor her closely monitor her serum sodium, will repeat her CT of her head, spoke to nephrology, Vitals/I&O/Wt Last Vital Signs Temp 97.9 F 08/30/23 09:42 Pulse 82 08/30/23 13:55 Resp 24 H 08/30/23 13:55 BP 113/60 08/30/23 12:00 Pulse Ox 86 L 08/30/23 13:55 O2 Del Method Nasal Cannula 08/30/23 13:55 O2 Flow Rate 5 08/30/23 13:55 FiO2 40 08/30/23 13:22 08/30/23 08/30/23 08/30/23 06:59 14:59 22:59 Intake Total 50 / 733.132 500 / 500 Output Total 450 / 975 Balance -400 / -241.868 500 / 500 Weight last 48 hrs Weight 79.832 kg Weight 78.018 kg Physical Exam 2 Const: COMMON NORMALS: no acute distress EXAM LIMITATIONS: altered mental status Resp: COMMON NORMALS: normal respiratory effort, No retractions, No use of accessory muscles and clear to auscultation bilaterally AUSCULTATION: clear to auscultation bilaterally Cardio: COMMON NORMALS: regular rate, regular rhythm, S1 normal heart sound present and S2 normal heart sound present RATE: regular rate RHYTHM: r egular rhythm HEART SOUNDS: S1 normal heart sound present and S2 normal heart sound present GI: COMMON NORMALS: Normal to inspection, nondistended, normoactive bowel sounds present and non-tender Extremity: COMMON NORMALS: no pedal edema Urinary Catheter Management: Barksdale: Cath Placed During This Visit: yes Reason for Continuing Indwelling Catheter: Acute Urinary Retention or Obstruction Urinary Catheter Date of Insertion: 08/26/23 Urinary Catheter Time of Insertion: 21:33 Data 08/30/23 03:43 08/30/23 13:27 Micro: Microbiology 08/26/23 12:00 Blood Culture - Final Blood Staphylococcus hominis 08/29/23 11:17 Blood Culture - Preliminary Blood NEGATIVE TO DATE 08/29/23 11:12 Blood Culture - Preliminary Blood NEGATIVE TO DATE A&P Assessment and plan (1) Gram-positive bacteremia: (2) Acute hypoxic respiratory failure: (3) Atrial fibrillation with RVR: (4) Acute encephalopathy: (5) Pneumonia: (6) Falls: (7) Acute CVA (cerebrovascular accident): (8) History of GI bleed: (9) Goals of care, counseling/discussion: (10) Essential hypertension: (11) Mixed dyslipidemia: (12) Thrombocytosis: (13) Chronic anemia: (14) Acute kidney injury: (15) Sepsis: (16) Folic acid deficiency: (17) Aspiration pneumonia: (18) Aspiration pneumonitis: (19) Fluid overload: (20) CHF exacerbation: (21) Hypernatremia: Plan Acute encephalopathy ? Likely multifactorial - component related to pneumonia, aspiration pneumonia, hypoxia, fluid overload, CHF exacerbation ? Acute CVA, Alert oriented x 0, word finding difficulty, receptive aphasia, can follow commands, at times, left upper extremity strength 3 out of 5 in left lower extremity strength 4-5, slight left facial droop ? Now with more global encephalopathy ? CT head within normal limits, ? CTA head and neck within normal limits, MRI no acute findings ? Plan ? Keep n.p.o. ? Sputum cultures, blood cultures, ? Monitor respiratory status closely, ? Neurochecks, and a stroke scale, aspiration precautions ? Rectal aspirin ? Allow for permissive hypertension, treat systolic blood pressure if greater than 220 or diastolic blood pressure is greater than 120 ? Cardiac ech0 Normal left ventricular size and systolic function, EF 73%.mild left ventricular hypertrophy. No regional wall motion abnormalities. Mild mitral annular calcification. Trace to mild mitral valve regurgitation. Mild aortic valve stenosis, mean gradient 16.3 mmHg, KATE 2.1 cm squared. Peak velocity of 2.5 m/s Trace tricuspid valve regurgitation. Estimated pulmonary artery peak systolic pressure within normal limits No similar previous studies are available for comparison ?telemetry monitoring ? DC IV fluids ? PT OT, speech therapy eval ? Goals of care discussion with , Rain is a full code ? Lovenox for DVT prophylaxis Acute hypoxic respiratory failure ? Secondary to pneumonia -component related to pneumonia, aspiration pneumonia, hypoxia, fluid overload, CHF exacerbation ? Fluid overload ? A-fib with RVR ? Plan ?monitor respiratory status closely, ? Keep n.p.o. ? Continue BiPAP ? vancomycin, Zosyn, ? Will keep n.p.o., will consider modified barium swallow based on clinical progress, ? Status post 2 doses of IV Lasix hold off for now given elevated creatinine ? 1 dose of IV albumin ? Cardiac echo pending ? Venous ultrasound within normal limits ?Monitor respiratory status closely Sepsis, secondary to pneumonia, aspiration pneumonitis, sepsis features met given elevated lactic acid, leukopenia, elevated inflammatory markers, encephalopathy, hypoxia, soft blood pressures Acute kidney injury ? Likely multifactorial from sepsis, contrast-induced nephropathy, ? Consult nephrology, - Monitor urine output, monitor creatinine Atrial fibrillation with rapid ventricular response ? Continue amiodarone drip, ? Anticoagulation currently on hold due to acute encephalopathy likely secondary acute CVA, risk of hemorrhagic conversion Acute hypoxic respiratory failure ? Secondary to pneumonia, ? As above Acute CVA , with left-sided deficits, out of tPA window, not a candidate for vascular intervention History of GI bleed, ? Monitor as patient is on aspirin, therapeutic Lovenox, ? Protonix Folic acid deficiency, start folic acid Hyponatremia, monitor serum sodiums, will consider D5 water based on clinical progress Falls, PT OT - ? Full code, ?will need a one-to-one consider ? Will keep n.p.o. due to high aspiration risk, Patient was seen this morning, patient's and son are at bedside, patient received Ativan and morphine during the night, she is a bit somnolent, but does awaken, does not follow commands, is on 40% BiPAP, had a febrile episode at night, discussed extensively with patient's family that urine output was 950, her creatinine has stabilized to 1.9, she still has severe respiratory failure, renal failure, will continue to monitor her closely monitor her serum sodium, will repeat her CT of her head, spoke to nephrology, - Attestations 2 Medical Necessity Statement*: Patient requires hospitalization for acute hypoxic respiratory failure, encephalopathy, acute renal failure, hyponatremia, sepsis, pneumonia Diagnoses Gram-positive bacteremia R78.81 Acute hypoxic respiratory failure J96.01 Atrial fibrillation with RVR I48.91 Acute encephalopathy G93.40 Pneumonia J18.9 Falls [id number].XXXA Acute CVA (cerebrovascular accident) I63.9 History of GI bleed Z87.19 Goals of care, counseling/discussion Z71.89 Essential hypertension I10 Mixed dyslipidemia E78.2 Thrombocytosis D75.839 Chronic anemia D64.9 Acute kidney injury N17.9 Sepsis A41.9 Folic acid deficiency E53.8 Aspiration pneumonia J69.0 Aspiration pneumonitis J69.0 Fluid overload E87.70 CHF exacerbation I50.9 Hypernatremia E87.0
[2023-08-30] MEDS: enoxaparin 30 mg/0.3 mL Syringe SUBCUT (17:04)
--- NOTE | 2023-08-30 22:52 | P.PN_ITS ---
Subjective 2 Subjective: on bipap Medications: Reviewed: Yes Vitals/I&O/Wt Last Vital Signs Temp 98.5 F 08/30/23 21:34 Pulse 83 08/30/23 21:34 Resp 35 H 08/30/23 21:34 BP 130/58 08/30/23 21:34 Pulse Ox 94 08/30/23 21:34 O2 Del Method Oxymask 08/30/23 21:34 O2 Flow Rate 10 08/30/23 20:20 FiO2 40 08/30/23 13:22 08/30/23 08/30/23 08/30/23 06:59 14:59 22:59 Intake Total 50 / 733.132 500 / 500 50 / 550 Output Total 450 / 975 550 / 550 Balance -400 / -241.868 500 / 500 -500 / 0 Weight last 48 hrs Weight 79.832 kg Weight 78.018 kg Physical Exam 2 Narrative: lethargic , no distress family @ bedside + edema Urinary Catheter Management: Barksdale: Cath Placed During This Visit: yes Reason for Continuing Indwelling Catheter: Accurate Measurement of Urinary Output in Critically Ill Patients Urinary Catheter Date of Insertion: 08/26/23 Urinary Catheter Time of Insertion: 21:33 Data 08/30/23 03:43 08/30/23 13:27 Micro: Microbiology 08/26/23 12:00 Blood Culture - Final Blood Staphylococcus hominis 08/29/23 11:17 Blood Culture - Preliminary Blood NEGATIVE TO DATE 08/29/23 11:12 Blood Culture - Preliminary Blood NEGATIVE TO DATE A&P Assessment and plan (1) Acute kidney injury: Plan 1. Acute kidney injury: Baseline creatinine was 0.7 in June 2023. Now has an JEISON with a creatinine of 2.0. Most likely multifactorial including possible ATN in the setting of infection/pneumonia and contrast exposure. -Discussed with family at bedside-discussed options of temporary dialysis if renal function gets worse versus conservative management. Family indicated that they will discuss with the rest of the family and inform regarding choice of treatments. -PRN lasix -Continue to monitor renal function closely, -Avoid nephrotoxins and IV contrast studies 2. Acute on chronic respiratory failure: Multifactorial in the setting of pneumonia and volume overload, Lasix as needed 3. Metabolic acidosis: Mild, monitor 4. Hypernatremia: Sodium 148, monitor encourage p.o. fluid intake for now Attestations 2 Medical Necessity Statement*: per medicine Coding Level of Care Code Acute Code for Chg Fwd Diagnoses Acute kidney injury N17.9
[2023-08-31] VITALS (11 sets, daily range): BP systolic 145–159; BP diastolic 57–83; PULSE 76–104; RESP 16–28; TEMP 36.4–37; O2SAT 91–97; BMI 29.5
[2023-08-31] MEDS: morphine 4 mg/mL SDV 1 mL 2 MG IVP ×2 (01:29→15:25)
[2023-08-31 03:52] LABS: Basophils # 0.1 10^3/uL (0.0-0.1); Basophils % 1.7 %; Eosinophils % 0.2 %; Hematocrit 33.3 % (36-47); Lymphocytes # 2.7 10^3/uL (0.8-4.8); Lymphocytes % 55.8 %; Mean Corpuscular HGB Conc 29.4 g/dL (30-55); Mean Corpuscular Hemoglobin 22.5 pg (27-33); Mean Corpuscular Volume 76.4 fl (85-98); Monocytes # 0.3 10^3/uL (0.2-0.9); Monocytes % 5.8 %; Neutrophils % 35.1 %; Nucleated Red Blood Cells % 0.4 %; Platelet Count 157 10^3/cmm (157-399); Red Blood Count 4.36 10^6/uL (3.85-5.65); White Blood Count 4.84 10^3/uL (3.29-11.43)
[2023-08-31 04:05] LABS: INR 1.48 (0.8-1.2)
[2023-08-31 04:12] LABS: Slide Review Slide Review Perform
[2023-08-31 04:13] LABS: Mean Platelet Volume 13.2 fL (7.4-10.4)
[2023-08-31 04:24] LABS: Lactate (Lactic Acid level) 2.4 mmol/L (0.5-2.2)
[2023-08-31 04:26] LABS: NT Pro B Type Natriuretic Pept 1747 pg/mL (0-450); Procalcitonin 1.03 ng/mL (0-0.5)
[2023-08-31 04:29] LABS: Alanine Aminotransferase 24 U/L (0-33); Albumin Level 2.9 g/dL (3.5-5.2); Alkaline Phosphatase 45 U/L (35-105); Anion Gap 17.6 (5-19); Aspartate Amino Transferase 49 U/L (0-32); Blood Urea Nitrogen 49 mg/dL (8-23); C Reactive Protein 46.2 mg/L (0.0-4.9); Calcium 7.9 mg/dL (8.5-10.5); Carbon Dioxide 22 mmol/L (22-29); Chloride 119 mmol/L (98-107); Creatinine Clr Calc Pharmacy 25.1816; Globulin 2.9 g/dL (1.3-4.6); Glucose 94 mg/dL (65-115); Magnesium 2.5 mg/dL (1.7-2.3); Osmolality Calculated 333 mOsm/kg (285-295); Phosphorus 3.5 mg/dL (2.5-4.5); Potassium 3.6 mmol/L (3.5-5.1); Sodium 155 mmol/L (136-145); Total Bilirubin 0.4 mg/dL (0.15-1.2); Total Protein 5.8 g/dL (6.6-8.7)
[2023-08-31 05:33] LABS: ABG PCO2 42.1 mmHg (35-45); ABG PH Result 7.36 (7.35-7.45); Arterial Blood Gas Hematocrit 31.4 % (37-47); Base Excess ABG -1.6 mmol/L (-2.0-2.0); Blood Gas Allen Test Pos; Blood Gas Sample Site Radial, right; Blood Gas Sample Type Arterial; HCO3 ABG 23.8 mmol/L (22-26); Oxygen Device OXY MASK
[2023-08-31] MEDS: pantoprazole 40 mg SDV IVP ×2 (05:44→15:36)
[2023-08-31] MEDS: piperacillin-tazobactam 3.375 GM in sodium chloride 0.9% (plus) 50 ML IV ×3 (05:44→21:49)
[2023-08-31] MEDS: levothyroxine 100 mcg SDV 75 MCG IVP (08:15)
[2023-08-31] MEDS: aspirin 300 mg Supp PR (08:15)
--- NOTE | 2023-08-31 08:35 | XR_ITS ---
WS: [id number] Exam: XR chest 1V portable [id number] Date/Time of Exam: 08/31/2023 9:09 AM Reason For Exam: sob Compared to the latest exam 08/29/2023. Patchy airspace infiltrates have developed throughout both lungs since last exam. Mild cardiac enlarg ement unchanged. No pneumothorax. Chronically elevated RIGHT diaphragm. No pleural effusions are seen . The mediastinum is normal in contour. Bony structures are intact. IMPRESSION: 1. Patchy airspace infiltrates seen throughout both lungs which have developed since the last study. 2. Mild cardiac enlargement unchanged.
--- NOTE | 2023-08-31 09:28 | PC.SOCIAL ---
IMM Update Pg. 2 of IMM updated and reviewed with patient's . Copy provided. Copy in chart updated.
[2023-08-31] MEDS: haloperidol inj 5 mg/mL INJ 1 mL 1 MG IM (10:26)
[2023-08-31] MEDS: dextrose 5% 1,000 ML 50 ML IV (12:56)
[2023-08-31 14:33] LABS: Sodium 157 mmol/L (136-145)
--- NOTE | 2023-08-31 14:58 | P.PN_ITS ---
Subjective 2 Subjective: Patient was seen this morning, is at bedside, she is alert to person, not to place, not to time she remains encephalopathic, throughout the night she had episodes of agitation and pulling at her oxime mask, pulling on her IVs, pupils are equal round reactive to light, currently normal sinus rhythm, on 15 L, oxygen mask, Vitals/I&O/Wt Last Vital Signs Temp 97.6 F 08/31/23 05:44 Pulse 104 H 08/31/23 11:35 Resp 22 H 08/31/23 11:35 BP 145/72 08/31/23 05:44 Pulse Ox 97 08/31/23 11:35 O2 Del Method Oxymask 08/31/23 11:35 O2 Flow Rate 15 08/31/23 11:35 FiO2 40 08/30/23 13:22 08/30/23 08/31/23 08/31/23 22:59 06:59 14:59 Intake Total 50 / 550 250 / 800 250 / 250 Output Total 1000 / 1000 275 / 1275 Balance -950 / -450 -25 / -475 250 / 250 Weight last 48 hrs Weight 78.109 kg Weight 79.832 kg Physical Exam 2 Const: COMMON NORMALS: no acute distress ORIENTATION/CONSCIOUSNESS: Yes awake and Yes confused; not oriented to person, not oriented to place and not oriented to time HENMT: COMMON NORMALS: normocephalic HEAD & SCALP: normocephalic Eye: COMMON NORMALS: Equal, round and reactive pupils present PUPIL: Yes Equal, round and reactive pupils present Neck/C-Spine: COMMON NORMALS: no lymphadenopathy Resp: COMMON NORMALS: normal respiratory effort, No retractions, No use of accessory muscles and clear to auscultation bilaterally AUSCULTATION: clear to auscultation bilaterally Cardio: COMMON NORMALS: regular rate, regular rhythm, S1 normal heart sound present and S2 normal heart sound present RATE: regular rate RHYTHM: r egular rhythm HEART SOUNDS: S1 normal heart sound present and S2 normal heart sound present GI: COMMON NORMALS: Normal to inspection, nondistended, normoactive bowel sounds present and non-tender Extremity: COMMON NORMALS: no pedal edema Neuro: SENSORIUM/ORIENTATION: No oriented to person, No oriented to place and No oriented to time Urinary Catheter Management: [place]: Cath Placed During This Visit: yes Reason for Continuing Indwelling Catheter: Accurate Measurement of Urinary Output in Critically Ill Patients Urinary Catheter Date of Insertion: 08/26/23 Urinary Catheter Time of Insertion: 21:33 Data 08/31/23 03:38 08/31/23 13:20 Micro: Microbiology 08/26/23 12:00 Blood Culture - Final Blood NO GROWTH AFTER 5 DAYS 08/26/23 12:00 Blood Culture - Final Blood Staphylococcus hominis 08/29/23 11:17 Blood Culture - Preliminary Blood NEGATIVE TO DATE 08/29/23 11:12 Blood Culture - Preliminary Blood NEGATIVE TO DATE A&P Assessment and plan (1) Gram-positive bacteremia: (2) Acute hypoxic respiratory failure: (3) Atrial fibrillation with RVR: (4) Acute encephalopathy: (5) Pneumonia: (6) Falls: (7) Acute CVA (cerebrovascular accident): (8) History of GI bleed: (9) Goals of care, counseling/discussion: (10) Essential hypertension: (11) Mixed dyslipidemia: (12) Thrombocytosis: (13) Chronic anemia: (14) Acute kidney injury: (15) Sepsis: (16) Folic acid deficiency: (17) Aspiration pneumonia: (18) Aspiration pneumonitis: (19) Fluid overload: (20) CHF exacerbation: (21) Hypernatremia: Plan Acute encephalopathy ? Likely multifactorial - component related to pneumonia, aspiration pneumonia, hypoxia, fluid overload, CHF exacerbation ? Acute CVA, Alert oriented x 0, word finding difficulty, receptive aphasia, can follow commands, at times, left upper extremity strength 3 out of 5 in left lower extremity strength 4-5, slight left facial droop ?Continues to have global encephalopathy ? Hypernatremia potentially a role ? Possible gabapentin withdrawal ? CT head within normal limits, ? CTA head and neck within normal limits, MRI no acute findings ? Plan ? Keep n.p.o. ? Sputum cultures, blood cultures, ? Monitor respiratory status closely, ? Neurochecks, and a stroke scale, aspiration precautions ? Rectal aspirin ? Completed permissive hypertension window ? Cardiac ech0 Normal left ventricular size and systolic function, EF 73%.mild left ventricular hypertrophy. No regional wall motion abnormalities. Mild mitral annular calcification. Trace to mild mitral valve regurgitation. Mild aortic valve stenosis, mean gradient 16.3 mmHg, KATE 2.1 cm squared. Peak velocity of 2.5 m/s Trace tricuspid valve regurgitation. Estimated pulmonary artery peak systolic pressure within normal limits No similar previous studies are available for comparison ?telemetry monitoring ? DC IV fluids ? PT OT, speech therapy eval ? Goals of care discussion with , Rain is a full code ? Lovenox for DVT prophylaxis Acute hypoxic respiratory failure ? Secondary to pneumonia -component related to pneumonia, aspiration pneumonia, hypoxia, fluid overload, CHF exacerbation ? Fluid overload ? A-fib with RVR ? Plan ?monitor respiratory status closely, ? Keep n.p.o. ? Continue BiPAP ? vancomycin, Zosyn, ? Will keep n.p.o., will consider modified barium swallow based on clinical progress, ? Status post 2 doses of IV Lasix hold off for now given elevated creatinine -Cardiac echo -CONCLUSIONS Normal left ventricular size and systolic function, EF 73%.mild left ventricular hypertrophy. No regional wall motion abnormalities. Mild mitral annular calcification. Trace to mild mitral valve regurgitation. Mild aortic valve stenosis, mean gradient 16.3 mmHg, KATE 2.1 cm squared. Peak velocity of 2.5 m/s Trace tricuspid valve regurgitation. Estimated pulmonary artery peak systolic pressure within normal limits No similar previous studies are available for comparison ? Venous ultrasound within normal limits ?Monitor respiratory status closely Sepsis, resolving secondary to pneumonia, aspiration pneumonitis, sepsis features met given elevated lactic acid, leukopenia, elevated inflammatory markers, encephalopathy, hypoxia, soft blood pressures Acute kidney injury, 1.7 ? Likely multifactorial from sepsis, contrast-induced nephropathy, ? Consult nephrology, - Monitor urine output, monitor creatinine Atrial fibrillation with rapid ventricular response ? Continue amiodarone drip, ? Anticoagulation currently on hold due to acute encephalopathy likely secondary acute CVA, risk of hemorrhagic conversion Acute hypoxic respiratory failure ? Secondary to pneumonia, ? As above Acute CVA , with left-sided deficits, out of tPA window, not a candidate for vascular intervention History of GI bleed, ? Monitor as patient is on aspirin, therapeutic Lovenox, ? Protonix Folic acid deficiency, start folic acid Hypernatremia -Spoke to nephrology ? Start D5 water ? Check serum sodiums every 4 hours Falls, PT OT - ? Full code, ?will need a one-to-one consider ? Will keep n.p.o. due to high aspiration risk, Patient was seen this morning, patient's and son are at bedside, patient received Ativan and morphine during the night, she is a bit somnolent, but does awaken, does not follow commands, is on 40% BiPAP, had a febrile episode at night, discussed extensively with patient's family that urine output was 950, her creatinine has stabilized to 1.9, she still has severe respiratory failure, renal failure, will continue to monitor her closely monitor her serum sodium, will repeat her CT of her head, spoke to nephrology, - Attestations 2 Medical Necessity Statement*: Patient requires hospitalization for acute hypoxic respiratory failure 50 L, acute renal failure, aspiration pneumonia, sepsis, acute encephalopathy, acute CVA Diagnoses Gram-positive bacteremia R78.81 Acute hypoxic respiratory failure J96.01 Atrial fibrillation with RVR I48.91 Acute encephalopathy G93.40 Pneumonia J18.9 Falls [id number].XXXA Acute CVA (cerebrovascular accident) I63.9 History of GI bleed Z87.19 Goals of care, counseling/discussion Z71.89 Essential hypertension I10 Mixed dyslipidemia E78.2 Thrombocytosis D75.839 Chronic anemia D64.9 Acute kidney injury N17.9 Sepsis A41.9 Folic acid deficiency E53.8 Aspiration pneumonia J69.0 Aspiration pneumonitis J69.0 Fluid overload E87.70 CHF exacerbation I50.9 Hypernatremia E87.0
[2023-08-31] MEDS: enoxaparin 30 mg/0.3 mL Syringe SUBCUT (15:26)
--- NOTE | 2023-08-31 15:47 | P.PN_ITS ---
Subjective 2 Subjective: pt lethargic , unresponsive Medications: Reviewed: Yes Vitals/I&O/Wt Last Vital Signs Temp 97.6 F 08/31/23 05:44 Pulse 104 H 08/31/23 11:35 Resp 28 H 08/31/23 15:25 BP 145/72 08/31/23 05:44 Pulse Ox 92 08/31/23 15:25 O2 Del Method Oxymask 08/31/23 11:35 O2 Flow Rate 15 08/31/23 11:35 FiO2 40 08/30/23 13:22 08/31/23 08/31/23 08/31/23 06:59 14:59 22:59 Intake Total 250 / 800 250 / 250 200 / 450 Output Total 275 / 1275 Balance -25 475 250 / 250 200 / 450 Weight last 48 hrs Weight 78.109 kg Weight 79.832 kg Physical Exam 2 Narrative: lethargic , no distress family @ bedside + edema Urinary Catheter Management: Barksdale: Cath Placed During This Visit: yes Reason for Continuing Indwelling Catheter: Accurate Measurement of Urinary Output in Critically Ill Patients Urinary Catheter Date of Insertion: 08/26/23 Urinary Catheter Time of Insertion: 21:33 Data 08/31/23 03:38 08/31/23 13:20 Micro: Microbiology 08/26/23 12:00 Blood Culture - Final Blood NO GROWTH AFTER 5 DAYS 08/26/23 12:00 Blood Culture - Final Blood Staphylococcus hominis 08/29/23 11:17 Blood Culture - Preliminary Blood NEGATIVE TO DATE 08/29/23 11:12 Blood Culture - Preliminary Blood NEGATIVE TO DATE A&P Assessment and plan (1) Acute kidney injury: Plan 1. Acute kidney injury: Baseline creatinine was 0.7 in June 2023. Now has an JEISON with a creatinine of 2.0 range . Most likely multifactorial including possible ATN in the setting of infection/pneumonia and contrast exposure. -Discussed with family at bedside-discussed options of temporary dialysis if renal function gets worse versus conservative management. Family indicated that they will discuss with the rest of the family and inform regarding choice of treatments. -PRN lasix -Continue to monitor renal function closely, -Avoid nephrotoxins and IV contrast studies - overall poor prognosis 2. Acute on chronic respiratory failure: Multifactorial in the setting of pneumonia and volume overload, Lasix as needed 3. Metabolic acidosis: Mild, monitor 4. Hypernatremia: Sodium 157 , on d5w - increase to 75 cc/hr Attestations 2 Medical Necessity Statement*: per [facility] Coding Level of Care Code Acute Code for g Fwd Diagnoses Acute kidney injury N17.9
--- NOTE | 2023-08-31 17:44 | PC.NURSE ---
pt did open her eyes to name today.does not follow commands.does move all extremities spontaneously at times.continues to pull at iv's and lines requiring 1:1 sitter care.
[2023-08-31 19:58] LABS: Sodium 156 mmol/L (136-145)
[2023-08-31 21:04] LABS: Glucose Point of Care 125 mg/dL (70-110)
[2023-08-31 21:48] LABS: Sodium 155 mmol/L (136-145)
[2023-09-01] VITALS (25 sets, daily range): BP systolic 146–176; BP diastolic 62–97; PULSE 79–104; RESP 17–45; TEMP 36.3–39; O2SAT 84–98
[2023-09-01 01:21] LABS: Sodium 156 mmol/L (136-145)
[2023-09-01 04:12] LABS: Basophils # 0.1 10^3/uL (0.0-0.1); Basophils % 1.3 %; Eosinophils % 0.4 %; Lymphocytes # 2.9 10^3/uL (0.8-4.8); Lymphocytes % 61.1 %; Mean Corpuscular HGB Conc 29.7 g/dL (30-55); Mean Corpuscular Hemoglobin 22.7 pg (27-33); Mean Corpuscular Volume 76.6 fl (85-98); Monocytes # 0.2 10^3/uL (0.2-0.9); Neutrophils # 1.42 10^3/uL (1.8-7.7); Neutrophils % 29.9 %; Nucleated Red Blood Cells % 0.6 %; Platelet Count 175 10^3/cmm (157-399); Red Blood Count 4.44 10^6/uL (3.85-5.65); Red Cell Distribution Width 22.5 % (12.1-15.1); White Blood Count 4.76 10^3/uL (3.29-11.43)
[2023-09-01 04:22] LABS: INR 1.74 (0.8-1.2)
[2023-09-01 04:30] LABS: ABG PCO2 36.9 mmHg (35-45); ABG PH Result 7.45 (7.35-7.45); Arterial Blood Gas Hematocrit 31.2 % (37-47); Base Excess ABG 1.4 mmol/L (-2.0-2.0); Blood Gas Allen Test Pos; Blood Gas Sample Site Radial, left; Blood Gas Sample Type Arterial; HCO3 ABG 25.4 mmol/L (22-26); Oxygen Device BIPAP; PO2 FiO2 Ratio Arterial Blood 0
[2023-09-01 04:35] LABS: Alanine Aminotransferase 20 U/L (0-33); Albumin Level 2.8 g/dL (3.5-5.2); Alkaline Phosphatase 47 U/L (35-105); Anion Gap 14.5 (5-19); Aspartate Amino Transferase 34 U/L (0-32); Blood Urea Nitrogen 37 mg/dL (8-23); C Reactive Protein 29.7 mg/L (0.0-4.9); Carbon Dioxide 22 mmol/L (22-29); Chloride 120 mmol/L (98-107); Creatinine Clr Calc Pharmacy 32.5794; Globulin 2.7 g/dL (1.3-4.6); Glucose 134 mg/dL (65-115); Magnesium 2.6 mg/dL (1.7-2.3); Osmolality Calculated 327 mOsm/kg (285-295); Phosphorus 1.5 mg/dL (2.5-4.5); Potassium 3.5 mmol/L (3.5-5.1); Sodium 153 mmol/L (136-145); Total Bilirubin 0.4 mg/dL (0.15-1.2); Total Protein 5.5 g/dL (6.6-8.7)
[2023-09-01] MEDS: pantoprazole 40 mg SDV IVP ×2 (04:39→15:49)
[2023-09-01 04:40] LABS: Lactate (Lactic Acid level) 3.4 mmol/L (0.5-2.2)
[2023-09-01 04:42] LABS: NT Pro B Type Natriuretic Pept 933 pg/mL (0-450); Procalcitonin 0.57 ng/mL (0-0.5)
[2023-09-01 04:46] LABS: Slide Review Slide Review Perform
[2023-09-01 04:48] LABS: Mean Platelet Volume 13.5 fL (7.4-10.4)
[2023-09-01] MEDS: dextrose 5% 1,000 ML 75 ML IV ×2 (04:51→20:31)
[2023-09-01] MEDS: piperacillin-tazobactam 3.375 GM in sodium chloride 0.9% (plus) 50 ML IV ×3 (04:52→20:07)
[2023-09-01] MEDS: acetaminophen 650 mg Supp PR ×2 (05:19→20:04)
[2023-09-01] MEDS: morphine 4 mg/mL SDV 1 mL 2 MG IVP ×2 (05:19→21:54)
[2023-09-01 06:39] LABS: Glucose Point of Care 146 mg/dL (70-110)
[2023-09-01 08:41] LABS: Sodium 152 mmol/L (136-145)
--- NOTE | 2023-09-01 09:36 | PM.PN ---
Subjective Subjective: on bipap Medications: Reviewed: Yes Vitals/I&O/Wt Last Vital Signs Temp 98.0 F 09/01/23 08:00 Pulse 79 09/01/23 08:00 Resp 24 H 09/01/23 08:00 BP 146/62 09/01/23 08:00 Pulse Ox 93 09/01/23 07:45 O2 Del Method BiPAP 09/01/23 07:40 O2 Flow Rate 15 08/31/23 11:35 FiO2 40 09/01/23 07:40 08/31/23 09/01/23 09/01/23 22:59 06:59 14:59 Intake Total 445.833 / 695.833 854.167 / 1550.000 50 / 50 Output Total 650 / 650 500 / 1150 Balance -204.167 / 45.833 354.167 / 400.000 50 / 50 Weight last 48 hrs Weight 81.193 kg Weight 78.109 kg Physical Exam Narrative: on bipap family @ bedside no edema Urinary Catheter Management: Barksdale: Cath Placed During This Visit: yes Reason for Continuing Indwelling Catheter: Accurate Measurement of Urinary Output in Critically Ill Patients Urinary Catheter Date of Insertion: 08/26/23 Urinary Catheter Time of Insertion: 21:33 Data 09/01/23 04:04 09/01/23 07:50 Micro: Microbiology 08/26/23 12:00 Blood Culture - Final Blood NO GROWTH AFTER 5 DAYS A&P Assessment and plan (1) Acute kidney injury: Plan 1. Acute kidney injury: Baseline creatinine was 0.7 in June 2023. Now has an JEISON with a creatinine of 2.0 range . Most likely multifactorial including possible ATN in the setting of infection/pneumonia and contrast exposure. -cr improving , ordered IV lasix 60 mg x1 -Continue to monitor renal function closely, -Avoid nephrotoxins and IV contrast studies 2. Acute on chronic respiratory failure: Multifactorial in the setting of pneumonia and volume overload, Lasix as needed 3. Metabolic acidosis: Mild, monitor 4. Hypernatremia: Sodium 152 , on d5w -, DC when pt able to take pO Attestations Medical Necessity Statement*: per medicine Coding Level of Care Code Acute Code for [facility] Diagnoses Acute kidney injury N17.9
[2023-09-01] MEDS: levothyroxine 100 mcg SDV 75 MCG IVP (09:43)
[2023-09-01] MEDS: FUROsemide 10 mg/mL SDV 10mL 60 MG IVP (09:43)
[2023-09-01] MEDS: aspirin 300 mg Supp PR (09:44)
[2023-09-01] MEDS: vancomycin 1,250 MG/250 ML PIGGYBACK 250 MG IV (10:41)
[2023-09-01] MEDS: haloperidol inj 5 mg/mL INJ 1 mL 1 MG IM (10:41)
[2023-09-01 11:53] LABS: Glucose Point of Care 125 mg/dL (70-110)
--- NOTE | 2023-09-01 12:15 | XR_ITS ---
WS: [id number] Exam: XR chest 1V portable [id number] Date/Time of Exam: 09/01/2023 12:15 PM Reason For Exam: resp failure Comparison 08/31/2023. Previously noted bilateral infiltrates have resolved. Plaque atelectasis in the RIGHT base. Chronical ly elevated RIGHT diaphragm. Normal cardiomediastinal silhouette. IMPRESSION: 1. Previously noted bilateral infiltrates have resolved. 2. Plaque atelectasis in the RIGHT lower lung zone.
--- NOTE | 2023-09-01 12:22 | P.PN_ITS ---
Subjective 2 Subjective: patient was sen this morning, she does awaken to do her name, but falls back asleep, is significantly encephalopathic, does have equal pupillary reflexes, does withdraw from pain, does localize pain, does respond to her name, she had 1 episode of fever during the night and since then has been normotensive, heart rates are reasonable, currently normal sinus rhythm, patient's is at bedside discussed her persistent respiratory failure and encephalopathy, given her creatinine is reasonable, discussed risk and benefits of performing a CT angiogram of the chest to rule out a PE as she remains in respiratory failure 40% FiO2 on the BiPAP, agreed to proceed, we will continue to monitor mentation, will consider further imaging of her brain MRI based on clinical progress, her serum sodium levels have improved slightly there 152, will continue D5 water, Vitals/I&O/Wt Last Vital Signs Temp 97.4 F L 09/01/23 11:57 Pulse 86 09/01/23 11:57 Resp 22 H 09/01/23 11:57 BP 150/63 09/01/23 11:57 Pulse Ox 84 L 09/01/23 11:57 O2 Del Method BiPAP 09/01/23 07:40 O2 Flow Rate 15 08/31/23 11:35 FiO2 40 09/01/23 10:54 08/31/23 09/01/23 09/01/23 22:59 06:59 14:59 Intake Total 445.833 / 695.833 854.167 / 1550.000 50 / 50 Output Total 650 / 650 500 / 1150 Balance -204.167 / 45.833 354.167 / 400.000 50 / 50 Weight last 48 hrs Weight 81.193 kg Weight 78.109 kg Physical Exam 2 Const: COMMON NORMALS: no acute distress EXAM LIMITATIONS: altered mental status ORIENTATION/CONSCIOUSNESS: Yes awake and Yes confused; not oriented to person, not oriented to place and not oriented to time Resp: COMMON NORMALS: normal respiratory effort, No retractions, No use of accessory muscles and clear to auscultation bilaterally AUSCULTATION: clear to auscultation bilaterally Cardio: COMMON NORMALS: regular rate, regular rhythm, S1 normal heart sound present and S2 normal heart sound present RATE: regular rate RHYTHM: r egular rhythm HEART SOUNDS: S1 normal heart sound present and S2 normal heart sound present GI: COMMON NORMALS: Normal to inspection, nondistended, normoactive bowel sounds present and non-tender Extremity: COMMON NORMALS: no pedal edema Neuro: SENSORIUM/ORIENTATION: No oriented to person, No oriented to place and No oriented to time Urinary Catheter Management: Barksdale: Cath Placed During This Visit: yes Reason for Continuing Indwelling Catheter: Accurate Measurement of Urinary Output in Critically Ill Patients Urinary Catheter Date of Insertion: 08/26/23 Urinary Catheter Time of Insertion: 21:33 Data 09/01/23 04:04 09/01/23 12:08 Micro: Microbiology 08/26/23 12:00 Blood Culture - Final Blood NO GROWTH AFTER 5 DAYS A&P Assessment and plan (1) Gram-positive bacteremia: (2) Acute hypoxic respiratory failure: (3) Atrial fibrillation with RVR: (4) Acute encephalopathy: (5) Pneumonia: (6) Falls: (7) Acute CVA (cerebrovascular accident): (8) History of GI bleed: (9) Goals of care, counseling/discussion: (10) Essential hypertension: (11) Mixed dyslipidemia: (12) Thrombocytosis: (13) Chronic anemia: (14) Acute kidney injury: (15) Sepsis: (16) Folic acid deficiency: (17) Aspiration pneumonia: (18) Aspiration pneumonitis: (19) Fluid overload: (20) CHF exacerbation: (21) Hypernatremia: Plan Acute encephalopathy ? Likely multifactorial - component related to pneumonia, aspiration pneumonia, hypoxia, fluid overload, CHF exacerbation ? Acute CVA, Alert oriented x 0, word finding difficulty, receptive aphasia, can follow commands, at times, left upper extremity strength 3 out of 5 in left lower extremity strength 4-5, slight left facial droop ?Continues to have global encephalopathy ? Hypernatremia potentially a role ? Possible gabapentin withdrawal ? CT head within normal limits, ? CTA head and neck within normal limits, MRI no acute findings ? Plan ? Keep n.p.o. ? Sputum cultures, blood cultures, so far unremarkable ? Monitor respiratory status closely, ? Neurochecks, and a stroke scale, aspiration precautions ? Rectal aspirin ? Completed permissive hypertension window ? Cardiac ech0 Normal left ventricular size and systolic function, EF 73%.mild left ventricular hypertrophy. No regional wall motion abnormalities. Mild mitral annular calcification. Trace to mild mitral valve regurgitation. Mild aortic valve stenosis, mean gradient 16.3 mmHg, KATE 2.1 cm squared. Peak velocity of 2.5 m/s Trace tricuspid valve regurgitation. Estimated pulmonary artery peak systolic pressure within normal limits No similar previous studies are available for comparison ?telemetry monitoring ? On D5 water ? PT OT, speech therapy eval ? Goals of care discussion with Rain is a full code ? Lovenox for DVT prophylaxis Acute hypoxic respiratory failure ? Secondary to pneumonia -component related to pneumonia, aspiration pneumonia, hypoxia, fluid overload, CHF exacerbation ? Fluid overload ? A-fib with RVR ? Plan ?monitor respiratory status closely, ? Keep n.p.o. ? Continue BiPAP ? vancomycin, Zosyn, ? 1 dose IV Lasix ? Given persistent hypoxic respiratory failure, will do a CT angiogram of the chest to rule out PE, given elevated D-dimer, -Cardiac echo -CONCLUSIONS Normal left ventricular size and systolic function, EF 73%.mild left ventricular hypertrophy. No regional wall motion abnormalities. Mild mitral annular calcification. Trace to mild mitral valve regurgitation. Mild aortic valve stenosis, mean gradient 16.3 mmHg, KATE 2.1 cm squared. Peak velocity of 2.5 m/s Trace tricuspid valve regurgitation. Estimated pulmonary artery peak systolic pressure within normal limits No similar previous studies are available for comparison ? Venous ultrasound within normal limits ?Monitor respiratory status closely Sepsis, resolving secondary to pneumonia, aspiration pneumonitis, sepsis features met given elevated lactic acid, leukopenia, elevated inflammatory markers, encephalopathy, hypoxia, soft blood pressures Staph hominis bacteremia, likely contamination repeat blood cultures negative Acute kidney injury, 1.3 ? Likely multifactorial from sepsis, contrast-induced nephropathy, ? Consult nephrology, - Monitor urine output, monitor creatinine Atrial fibrillation with rapid ventricular response ? Off amiodarone drip ? Anticoagulation currently on hold due to acute encephalopathy likely secondary acute CVA, risk of hemorrhagic conversion Acute hypoxic respiratory failure ? Secondary to pneumonia, ? As above Acute CVA , with left-sided deficits, out of tPA window, not a candidate for vascular intervention History of GI bleed, ? Monitor as patient is on aspirin, ? Protonix Folic acid deficiency, start folic acid Hypernatremia -Spoke to nephrology ? D5 water ? Check serum sodiums every 4 hours Falls, PT OT - ? Full code, ?will need a one-to-one consider ? Will keep n.p.o. due to high aspiration risk, patient was sen this morning, she does awaken to do her name, but falls back asleep, is significantly encephalopathic, does have equal pupillary reflexes, does withdraw from pain, does localize pain, does respond to her name, she had 1 episode of fever during the night and since then has been normotensive, heart rates are reasonable, currently normal sinus rhythm, patient's is at bedside discussed her persistent respiratory failure and encephalopathy, given her creatinine is reasonable, discussed risk and benefits of performing a CT angiogram of the chest to rule out a PE as she remains in respiratory failure 40% FiO2 on the BiPAP, agreed to proceed, we will continue to monitor mentation, will consider further imaging of her brain MRI based on clinical progress, her serum sodium levels have improved slightly there 152, will continue D5 water, - Attestations 2 Medical Necessity Statement*: Patient requires hospitalization for acute hypoxic respiratory failure, secondary to pneumonia, now proceeding to CT abdomen distress, encephalopathy Diagnoses Gram-positive bacteremia R78.81 Acute hypoxic respiratory failure J96.01 Atrial fibrillation with RVR I48.91 Acute encephalopathy G93.40 Pneumonia J18.9 Falls W19.XXXA Acute CVA (cerebrovascular accident) I63.9 History of GI bleed Z87.19 Goals of care, counseling/discussion Z71.89 Essential hypertension I10 Mixed dyslipidemia E78.2 Thrombocytosis D75.839 Chronic anemia D64.9 Acute kidney injury N17.9 Sepsis A41.9 Folic acid deficiency E53.8 Aspiration pneumonia J69.0 Aspiration pneumonitis J69.0 Fluid overload E87.70 CHF exacerbation I50.9 Hypernatremia E87.0
[2023-09-01 12:59] LABS: Sodium 154 mmol/L (136-145); Thyroid Stimulating Hormone 2.79 uIU/mL (0.27-4.20)
[2023-09-01 13:00] LABS: Reflex FDPQ test REFLEX FDP QUEST TES
[2023-09-01 13:20] LABS: INR 1.87 (0.8-1.2)
[2023-09-01 13:21] LABS: D Dimer 3.12 ug/mLFEU (0-0.59)
[2023-09-01 13:22] LABS: Fibrinogen 244 mg/dL (174-498); Partial Thromboplastin Time 40.3 SECONDS (23.9-36.7)
[2023-09-01 13:24] LABS: Ammonia 79 umol/L (11-51)
--- NOTE | 2023-09-01 14:55 | CTR_ITS ---
PROCEDURE INFORMATION: Exam: CTA Chest With Contrast Exam date and time: 09/01/2023 9:30 PM Age: 82 years old Clinical indication: Dyspnea; Additional info: SOB, resp failure, TECHNIQUE: Imaging protocol: Computed tomographic angiography of the chest with contrast. Exam focused on the arteries. 3D rendering (Not supervised by radiologist): MIP and/or 3D reconstructed images were created by the technologist. Radiation optimization: All CT scans at this facility use at least one of these dose optimization techniques: automated exposure control; mA and/or kV adjustment per patient size (includes targeted exams where dose is matched to clinical indication); or iterative reconstruction. Contrast material: OMNI 350; Contrast volume: 54 ml; Contrast route: INTRAVENOUS (IV); COMPARISON: CT chest wo con [id number] 06/28/2022 8:23 AM RADIATION DOSE METRICS: Total DLP (mGy-cm): 384.4 FINDINGS: Pulmonary arteries: Evaluation for pulmonary thromboembolism is limited beyond the main and interlobar pulmonary arteries due to marked respiratory motion. No central PE. Aorta: No evidence of aneurysmal dilatation or dissection of the thoracic aorta. Lungs: There is mid to lower lung atelectasis bilaterally, predominantly dependent, likely related to the expiratory phase of respiration. There is segmental atelectasis of the right basilar segments. Superimposed infection would be difficult to exclude in the proper clinical setting. Pleural spaces: Trace-small left-sided pleural effusion. No pneumothorax. Heart: No cardiomegaly. No pericardial effusion. Mediastinal space: No evidence of mediastinal mass, fluid collection or hematoma. Lymph nodes: No mediastinal or hilar adenopathy. Bones/joints: No evidence of acute fracture or aggressive osseous lesion. Soft tissues: No evidence of fluid collection or hematoma in the superficial soft tissues. Other findings: No evidence of acute abnormality in the upper abdomen. Hepatic cirrhosis and splenomegaly. CT/CT angio chest PE protcl [id number] IMPRESSION: 1. No evidence of central PE or acute aortic abnormality. 2. Mid to lower lung atelectasis. Superimposed infection in the right lung base would be difficult to exclude in the proper clinical setting. 3. Trace-small left-sided pleural effusion.
[2023-09-01] MEDS: enoxaparin 30 mg/0.3 mL Syringe SUBCUT (16:03)
--- NOTE | 2023-09-01 16:13 | CTR_ITS ---
PROCEDURE INFORMATION: Exam: CT Head Without Contrast Exam date and time: 09/01/2023 9:28 PM Age: 82 years old Clinical indication: Altered mental status/memory loss; Additional info: AMS TECHNIQUE: Imaging protocol: Computed tomography of the head without contrast. Radiation optimization: All CT scans at this facility use at least one of these dose optimization techniques: automated exposure control; mA and/or kV adjustment per patient size (includes targeted exams where dose is matched to clinical indication); or iterative reconstruction. COMPARISON: CT head wo con* [id number] 08/30/2023 11:07 AM RADIATION DOSE METRICS: Total DLP (mGy-cm): 1083.7 FINDINGS: Brain: Sequela of mild chronic microvascular ischemic changes. Villegas-white differentiation is otherwise maintained. No evidence of intra-axial or extra-axial hemorrhage. No mass effect or midline shift. Basilar cisterns are patent. Cerebral ventricles: No hydrocephalus. Paranasal sinuses: The visualized paranasal sinuses are well aerated. Mastoid air cells: The visualized mastoids and middle ears are clear. Bones/joints: The visualized calvarium and bony orbits are intact. Soft tissues: No gross soft tissue abnormality. CT/CT head wo con* [id number] IMPRESSION: 1. No acute intracranial abnormality.
[2023-09-01 20:55] LABS: Sodium 157 mmol/L (136-145)
[2023-09-01 21:11] LABS: Glucose Point of Care 121 mg/dL (70-110)
[2023-09-01 21:18] LABS: ABG PCO2 36.5 mmHg (35-45); ABG PH Result 7.44 (7.35-7.45); Alveolar-Arterial Oxygen Gradi 23.3 mmHg (5-10); Arterial Blood Gas Hematocrit 31.4 % (37-47); Base Excess ABG 0.4 mmol/L (-2.0-2.0); Blood Gas Allen Test Pos; Blood Gas Sample Site Radial, right; Blood Gas Sample Type Arterial; Carboxyhemoglobin 1.1 %THgb (0.4-20.1); HCO3 ABG 24.5 mmol/L (22-26); HGB O2 Sat 90.8 % (95-100); Ionized Calcium Level - ABG 1.2 mmol/L (1.1-1.4); Methemoglobin 1.2 % (0.4-1.5); Oxygen Device BIPAP; Oxygen Saturation ABG 92.9; PO2 ABG 60.6 mmHg (80.0-100.0); PO2 FiO2 Ratio Arterial Blood 0; Potassium Level - ABG 3.1 mmol/L (3.5-5.0); Total Hemoglobin 10.2 g/dL (12-16)
[2023-09-01] MEDS: iohexol 350 mg/mL 500 mL Btl (per mL) IV (21:36)
[2023-09-01] MEDS: acetaminophen 1,000 MG/100 ML PIGGYBACK 400 MG IV (21:44)
--- NOTE | 2023-09-01 22:14 | PC.NURSE ---
I have contact the doc multiple this evening about this patients respirations and temp, received new orders and carried out got the doc to come see pt, pt is being transfer to ICU
--- NOTE | 2023-09-01 22:39 | P.PCN_ITS ---
Acute Procedures Intubation: Time out performed: Yes Sedative: etomidate Mg given: 20 Paralytic: rocuronium Mg given: 100 Laryngoscope: fiber optic video scope Assist device used: fiber optic device ET tube size: 8 ET tube uncuffed: No Tube secured depth (cm): 20 Tube secured location: lips Tube placement confirmation: visualized tube passing through cords, equal breath sounds bilaterally, no breath sounds over epigastrium, confirmation by capnometry and color change noted Patient tolerated procedure: well Intubation complications: none Additional comments: Please note there was a lot of superficial skin sloughing noted around her epiglottis, it almost looks like a thin textured film of plastic which could h ave been the cause of worsening of hypoxia and tachypnea That was suctioned Endotracheal tube was passed through the vocal cords, color change was noted Initially endotracheal tube was around 23 cm at the lip her O2 saturation was around 84%, we retracted the tube up to 20 cm her O2 saturation improved above 91% Blood pressure stable Will get chest x-ray after getting OG tube Total time spent: 30 minutes
--- NOTE | 2023-09-01 22:39 | PM.CCNAC ---
Critical Care Event Note - I was asked to evaluate physician because of her tachypnea Reviewed the chart, reviewed progress note, nephrology note, CTA chest did not show any signs of PE, she has significant atelectasis of right lung, she is febrile, cannot take p.o. Tylenol IV Tylenol was administered . She does have low phosphorus along high magnesium creatinine 1.3 Patient was tachypneic her work of breathing was extremely high She was semiconscious Will be redirectable but falls back to sleep right away Drowsy state It was very dangerous for her to stay on BiPAP she will not be able to make her needs known in case she was nauseous I requested stat transfer to ICU to intubate her Son was notified The high probability of a clinically significant, sudden or life threatening deterioration of the patient's [] system(s) required my full and direct attention, intervention and personal management. The critical care time is as shown. This time is in addition to time spent performing any reported procedures but includes the following: [x] Data and vital sign review and interpretation [x] Patient assessment, examination and intervention [x] Documentation [x] Medication orders and management Critical Care Time Code activated: No Critical Care Time (min): 30 Additional information about critical care time: 30 Coding Level of Care Code Acute Code for Chg Fwd
[2023-09-01] MEDS: etomidate 2 mg/mL INJ SDV 10 mL 20 MG IVP (22:53)
[2023-09-01] MEDS: rocuronium 10 mg/mL INJ 5mL 100 MG IVP (22:54)
--- NOTE | 2023-09-01 22:58 | XRR_ITS ---
PROCEDURE INFORMATION: Exam: XR Chest Exam date and time: 09/01/2023 10:19 PM Age: 82 years old Clinical indication: Device placement; Ett placement (vent status); Additional info: Intubation TECHNIQUE: Imaging protocol: Radiologic exam of the chest. Views: 1 view. COMPARISON: CT angio chest PE protcl [id number] 09/01/2023 9:30 PM FINDINGS: Tubes, catheters and devices: Endotracheal tube tip in place 3.7 cm above the geeta. Enteric tube tip extending below the diaphragm inferiorly off the field of view. Lungs: Right lower lobe atelectasis versus minimal infiltrate. Pleural spaces: Unremarkable. No pleural effusion. No pneumothorax. Heart/Mediastinum: Unremarkable. No cardiomegaly. Bones/joints: Unremarkable. XR/XR chest 1V portable [id number] IMPRESSION: 1. Endotracheal tube tip in place 3.7 cm above the geeta. 2. Enteric tube tip extending below the diaphragm inferiorly off the field of view. 3. Right lower lobe atelectasis versus minimal infiltrate.
[2023-09-01] MEDS: propofol 1,000 MG/100 ML INJ 4.87000000000000011 MG IV (23:03)
--- NOTE | 2023-09-01 23:26 | PC.NURSE ---
Pt arrived from [facility]. This nurse checked IV access and orders. Dr. Robles placed orders for meds for intubation. After intubation, D5W resumed.
[2023-09-02] VITALS (62 sets, daily range): BP systolic 97–143; BP diastolic 40–73; PULSE 67–110; RESP 16–29; TEMP 36.5–38.7; O2SAT 89–98
[2023-09-02 00:28] LABS: ABG PCO2 36.6 mmHg (35-45); Arterial Blood Gas Hematocrit 31.6 % (37-47); Base Excess ABG -1.7 mmol/L (-2.0-2.0); Blood Gas Allen Test Pos; Blood Gas Sample Site Radial, left; Blood Gas Sample Type Arterial; Blood Gas Tidal Volume 0.45; HCO3 ABG 22.8 mmol/L (22-26); Oxygen Device VENT; PO2 FiO2 Ratio Arterial Blood 0
[2023-09-02] MEDS: norepinephrine 4 MG/250 ML BAG 7.5 MG IV (01:06)
[2023-09-02 01:13] LABS: Sodium 150 mmol/L (136-145)
[2023-09-02] MEDS: morphine 4 mg/mL SDV 1 mL 2 MG IVP ×4 (01:30→20:47)
[2023-09-02] MEDS: pantoprazole 40 mg SDV IVP ×2 (04:04→15:00)
[2023-09-02] MEDS: piperacillin-tazobactam 3.375 GM in sodium chloride 0.9% (plus) 50 ML IV ×3 (04:04→20:46)
[2023-09-02 04:06] LABS: Basophils % 0.5 %; Eosinophils % 0.2 %; Hematocrit 31.1 % (36-47); Lymphocytes # 3.8 10^3/uL (0.8-4.8); Lymphocytes % 58.7 %; Mean Corpuscular HGB Conc 29.9 g/dL (30-55); Mean Corpuscular Hemoglobin 22.2 pg (27-33); Mean Corpuscular Volume 74.2 fl (85-98); Monocytes # 0.3 10^3/uL (0.2-0.9); Monocytes % 4.5 %; Neutrophils # 2.09 10^3/uL (1.8-7.7); Neutrophils % 32.7 %; Nucleated Red Blood Cells % 0.5 %; Platelet Count 188 10^3/cmm (157-399); Red Blood Count 4.19 10^6/uL (3.85-5.65); Red Cell Distribution Width 22.2 % (12.1-15.1); White Blood Count 6.39 10^3/uL (3.29-11.43)
[2023-09-02 04:30] LABS: Slide Review Slide Review Perform
[2023-09-02 04:32] LABS: Mean Platelet Volume 13.3 fL (7.4-10.4)
[2023-09-02 04:38] LABS: Alanine Aminotransferase 18 U/L (0-33); Albumin Level 2.7 g/dL (3.5-5.2); Alkaline Phosphatase 46 U/L (35-105); Anion Gap 18.2 (5-19); Aspartate Amino Transferase 32 U/L (0-32); Blood Urea Nitrogen 41 mg/dL (8-23); C Reactive Protein 19.4 mg/L (0.0-4.9); Calcium 7.6 mg/dL (8.5-10.5); Carbon Dioxide 21 mmol/L (22-29); Chloride 118 mmol/L (98-107); Creatinine Clr Calc Pharmacy 25.3934; Globulin 3.3 g/dL (1.3-4.6); Glucose 146 mg/dL (65-115); Magnesium 2.4 mg/dL (1.7-2.3); Osmolality Calculated 331 mOsm/kg (285-295); Phosphorus 2.2 mg/dL (2.5-4.5); Potassium 3.2 mmol/L (3.5-5.1); Sodium 154 mmol/L (136-145); Total Bilirubin 0.4 mg/dL (0.15-1.2)
[2023-09-02 04:40] LABS: Procalcitonin 0.83 ng/mL (0-0.5)
[2023-09-02 04:45] LABS: ABG PCO2 38.2 mmHg (35-45); ABG PH Result 7.38 (7.35-7.45); Blood Gas Allen Test Pos; Blood Gas Sample Site Radial, left; Blood Gas Sample Type Arterial; Blood Gas Tidal Volume 0.45; HCO3 ABG 22.8 mmol/L (22-26); Oxygen Device VENT; PO2 ABG 83.6 mmHg (80.0-100.0); PO2 FiO2 Ratio Arterial Blood 0
--- NOTE | 2023-09-02 07:05 | P.PN_ITS ---
Subjective 2 Subjective: intubated overnight on 40 % fio2 Medications: Reviewed: Yes Vitals/I&O/Wt Last Vital Signs Temp 98.7 F 09/02/23 04:34 Pulse 71 09/02/23 05:53 Resp 16 09/02/23 04:31 BP 104/54 09/02/23 04:34 Pulse Ox 96 09/02/23 04:34 O2 Del Method BiPAP 09/01/23 21:30 O2 Flow Rate 15 08/31/23 11:35 FiO2 50 09/02/23 04:31 09/01/23 09/02/23 09/02/23 22:59 06:59 14:59 Intake Total 1150 / 1450 121.010 / 1571.010 54.057 / 54.057 Output Total 900 / 1400 400 / 1800 Balance 250 / 50 -278.990 / -228.990 54.057 / 54.057 Weight last 48 hrs Weight 79.379 kg Weight 81.193 kg Physical Exam 2 Narrative: on bipap family @ bedside no edema Urinary Catheter Management: [place]ks[place]: Cath Placed During This Visit: yes Reason for Continuing Indwelling Catheter: Accurate Measurement of Urinary Output in Critically Ill Patients Urinary Catheter Date of Insertion: 08/26/23 Urinary Catheter Time of Insertion: 21:33 Data 09/02/23 03:45 09/02/23 06:36 Micro: Microbiology 09/01/23 00:48 Blood Culture - Preliminary Blood SPECIMEN COLLECTED 09/01/23 00:44 Blood Culture - Preliminary Blood SPECIMEN COLLECTED A&P Assessment and plan (1) Acute kidney injury: Plan 1. Acute kidney injury: Baseline creatinine was 0.7 in June 2023. Now has an JEISON with a creatinine of 2.0 range . Most likely multifactorial including possible ATN in the setting of infection/pneumonia and contrast exposure. -cr improving , ordered IV lasix 60 mg x1 -Continue to monitor renal function closely, -Avoid nephrotoxins and IV contrast studies 2. Acute on chronic respiratory failure: Multifactorial in the setting of pneumonia and volume overload,on vent , on levophed 3. Metabolic acidosis: Mild, monitor 4. Hypernatremia: Sodium 154 , free water via OGT 300 ml q 6 hours Attestations 2 Medical Necessity Statement*: per medicne Coding Level of Care Code Acute Code for [facility] Diagnoses Acute kidney injury N17.9
[2023-09-02 07:13] LABS: NT Pro B Type Natriuretic Pept 1185 pg/mL (0-450); Sodium 151 mmol/L (136-145)
[2023-09-02] MEDS: albuterol 2.5 mg/3 mL Neb INHALATION (08:02)
[2023-09-02] MEDS: ferrous sulfate EC 325 mg Tablet PO ×2 (09:31→17:06)
[2023-09-02] MEDS: aspirin 81 mg EC Tablet PO (09:31)
[2023-09-02] MEDS: folic acid 1 mg Tablet PO ×2 (09:31→17:06)
[2023-09-02] MEDS: FUROsemide 10 mg/mL SDV 10mL 60 MG IVP (09:32)
[2023-09-02] MEDS: acyclovir 1,000 MG in sodium chloride 0.9% 250 ML 270 MG IV ×2 (10:04→18:12)
[2023-09-02] MEDS: levothyroxine 100 mcg SDV 75 MCG IVP (10:04)
[2023-09-02] MEDS: dextrose 5% 1,000 ML 75 ML IV (10:21)
--- NOTE | 2023-09-02 10:40 | PC.NURSE ---
MTS notified of pt now on vent.
[2023-09-02] MEDS: sucralfate 1 gm/10 mL Oral Liq UDC PO ×2 (11:25→22:48)
--- NOTE | 2023-09-02 11:48 | PC.OT ---
Pt place on hold for OT services due to pt being placed on intubation last night; will attempt treatment at later time.
--- NOTE | 2023-09-02 12:15 | PC.NURSE ---
Vent alarming; Pt coughing and reaching for tubing. She did grasp her OG. Suctioning provided. Repositioning provided. Pt setled down. OG and ETT remain intact and in place.
--- NOTE | 2023-09-02 12:29 | PC.SOCIAL ---
IMM Updated Updated pt's on IMM. No questions voiced. Provided him a copy. Initialed, dated, & timed copy in chart.
[2023-09-02 13:01] LABS: Sodium 150 mmol/L (136-145)
--- NOTE | 2023-09-02 13:30 | PC.NURSE ---
PICC placement on hold at this time. Spoke with Dr Alan, he okay'd. Levophed stopped at this time. Dr Alan has been speaking with family about probably neurological insult and care choices.
[2023-09-02] MEDS: levETIRAcetam 1,000 MG/100 ML PREMIX 400 MG IV (13:46)
--- NOTE | 2023-09-02 13:51 | PC.NURSE ---
Vascular access nurse to place PICC line as ordered. Pt bedside nurse, Sultana, states pt may be going on comfort care and PICC not indicated. Dr. Alan notified. PICC cancelled at this time.
--- NOTE | 2023-09-02 14:07 | P.PN_ITS ---
Subjective 2 Subjective: Patient was seen this morning, overnight events, patient went into respiratory distress, tachypneic, was intubated currently on 40% FiO2, on 6 of Levophed, febrile episodes at night, this morning she was seen with family members at bedside, has pupillary reflex, has corneal reflex, has cough reflex, she does not withdraw from pain, Babinski is downward going bilaterally, she does open her eyes to her name, but does not track, urine output 1300 ? I had a detailed discussion with patient's son, patient's , and also spoke to patient's [id number] over the phone -Discussed patient's acute hypoxic respi ratory failure, likely secondary to pneumonia, aspiration pneumonitis, fluid overload now developing acute respiratory distress syndrome, given her increased oxygen requirements, acute respiratory distress syndrome has increased risk of morbidity and mortality, risk of prolonged intubation, risk of requiring tracheostomy, however we can give her time, and see if her ox requirements improved, although she is on 40% ? In terms of her kidney function creatinine is up to 1.7 will continue to monitor her urine output was 1300, ? Cardiac echo was within normal limits, ? All her cultures have been unremarkable ? Given her fevers, seems like cyclic fevers, my concern would be already drug induced fevers or other central fevers from significant neurologic injury ?in terms of her encephalopathy, acute CVA, patient remains globally encephalopathic, since this morning at about 7, her propofol was turned off upon my request, upon my examination, she is not following commands will continue to recheck her neurologic status, but my concern is is that with her hypoxic respiratory failure with her acute CVA, she sustained significant neurologic injury and my concern is that this will be Rain's quality of life, she will likely require life-sustaining interventions such as ventilation, tracheostomy, PEG tube placement -Other possibility includes withdrawal f rom gabapentin, venlafaxine, resume, -Other possibilities include possible se izures would require trial of seizures ? Other possibilities include possible viral encephalitis will do a trial of acyclovir ? However as per my discussion with patient's family on Tuesday, and review of patient's healthcare directive, she would not want any life-sustaining measures such as tracheostomy prolonged intubation, PEG tube placement if the likelihood of meaningful recovery is very unlikely, in addition along the lines of her wishes, she would want all life-sustaining measures to be discontinued if the likelihood of meaningful recovery is very unlikely ? However there is certainly a dwyer area she just been intubated, continuing medical interventions the question is that how long do we give her before making that decision to proceed with her wishes and make her comfortable and ease her pain and ease her suffering and terminally extubate her ? This is ultimately up to her , and her family, what I would encourage is for the family to have a meeting, give him time to digest the information, I would keep her off sedation and monitor mentation, within the next 24 to 48 hours if her mentation does not improve, I would say that the likelihood of her having meaningful recovery is fairly unlikely, I did do a CT of her head yesterday, it was within normal limits, unfortunate cannot do an MRI given that we do not have portable MRIs here at [facility], ? I have also given her a trial of Keppra to see if that improves her mentation potentially she could be having subclinical seizures, unfortunately do not do EEGs here over the weekend ? Certainly if the family decides we could consult neurology on Tuesday do an EEG, hopefully that could help in the decision-making process, ? But I advised family that I think it would be reasonable to give her time monitor mentation, and to see if her mentation has improved, and if it is ultimately up to their decision if they want all life-sustaining measures to be discontinued, for us to ease her pain and ease her suffering allow her to pass away comfortably on hospice care I think that would be reasonable and in line with her wishes, as it is my concern that she has had sustained significant neurologic injury and she will not have a good quality of life Vitals/I&O/Wt Last Vital Signs Temp 97.8 F 09/02/23 12:30 Pulse 95 09/02/23 12:30 Resp 19 H 09/02/23 13:53 BP 138/68 09/02/23 12:30 Pulse Ox 93 09/02/23 13:53 O2 Del Method Mechanical Ventilation 09/02/23 12:30 O2 Flow Rate 15 08/31/23 11:35 FiO2 40 09/02/23 13:53 09/01/23 09/02/23 09/02/23 22:59 06:59 14:59 Intake Total 1150 / 1450 121.010 / 8587.351 0266.014 / 1818.014 Output Total 900 / 1400 400 / 1800 Balance 250 / 50 -278.990 / -609.615 8872.014 / 1818.014 Weight last 48 hrs Weight 79.379 kg Weight 81.193 kg Physical Exam 2 Const: COMMON NORMALS: no acute distress OTHER: Currently intubated, off sedation Resp: COMMON NORMALS: normal respiratory effort, No retractions, No use of accessory muscles and clear to auscultation bilaterally AUSCULTATION: clear to auscultation bilaterally Cardio: COMMON NORMALS: regular rate, regular rhythm, S1 normal heart sound present and S2 normal heart sound present RATE: regular rate RHYTHM: r egular rhythm HEART SOUNDS: S1 normal heart sound present and S2 normal heart sound present GI: COMMON NORMALS: Normal to inspection, nondistended, normoactive bowel sounds present and non-tender Extremity: COMMON NORMALS: no pedal edema Urinary Catheter Management: [place]: Cath Placed During This Visit: yes Reason for Continuing Indwelling Catheter: Accurate Measurement of Urinary Output in Critically Ill Patients Urinary Catheter Date of Insertion: 08/26/23 Urinary Catheter Time of Insertion: 21:33 Data 09/02/23 03:45 09/02/23 12:31 Micro: Microbiology 09/02/23 04:40 Gram Stain - Final Sputum - Endotracheal Tube Aspirate 09/01/23 00:48 Blood Culture - Preliminary Blood SPECIMEN COLLECTED 09/01/23 00:44 Blood Culture - Preliminary Blood SPECIMEN COLLECTED A&P Assessment and plan (1) Gram-positive bacteremia: (2) Acute hypoxic respiratory failure: (3) Atrial fibrillation with RVR: (4) Acute encephalopathy: (5) Pneumonia: (6) Falls: (7) Acute CVA (cerebrovascular accident): (8) History of GI bleed: (9) Goals of care, counseling/discussion: (10) Essential hypertension: (11) Mixed dyslipidemia: (12) Thrombocytosis: (13) Chronic anemia: (14) Acute kidney injury: (15) Sepsis: (16) Folic acid deficiency: (17) Aspiration pneumonia: (18) Aspiration pneumonitis: (19) Fluid overload: (20) CHF exacerbation: (21) Hypernatremia: Plan Acute encephalopathy -Concerns for irreversible neurologic injury, from acute CVA, hypoxia -Continues to have cyclic fevers, concerns for central fevers ? Likely multifactorial - component related to pneumonia, aspiration pneumonia, hypoxia, fluid overload, CHF exacerbation ? Acute CVA, Alert oriented x 0, word finding difficulty, receptive aphasia, can follow commands, at times, left upper extremity strength 3 out of 5 in left lower extremity strength 4-5, slight left facial droop, however now globally encephalopathic ?Continues to have global encephalopathy ? Hypernatremia potentially playing a role ? Possible gabapentin withdrawal? Venlafaxine withdrawal? Resume gabapentin, venlafaxine ? Repeat CT head within normal limits, ? CTA head and neck within normal limits, MRI no acute findings likely it was done too early to show any radiographic findings from acute CVA ? Plan ? Keep n.p.o. ? Sputum cultures, blood cultures, so far unremarkable ? Monitor respiratory status closely, ? Neurochecks, and a stroke scale, aspiration precautions ? aspirin ? Completed permissive hypertension window ? Cardiac echo Normal left ventricular size and systolic function, EF 73%.mild left ventricular hypertrophy. No regional wall motion abnormalities. Mild mitral annular calcification. Trace to mild mitral valve regurgitation. Mild aortic valve stenosis, mean gradient 16.3 mmHg, KATE 2.1 cm squared. Peak velocity of 2.5 m/s Trace tricuspid valve regurgitation. Estimated pulmonary artery peak systolic pressure within normal limits No similar previous studies are available for comparison ?telemetry monitoring ? On D5 water -Resume gabapentin, venlafaxine -Will do a trial of Keppra ? PT OT, speech therapy eval ? Goals of care discussion with , Rain is a full code ? Lovenox for DVT prophylaxis Acute hypoxic respiratory failure ? Secondary to pneumonia -component related to pneumonia, aspiration pneumonia, hypoxia, fluid overload, CHF exacerbation ? Fluid overload ? A-fib with RVR ? Plan -Currently intubated, on mechanical ventilation, 40 percent FiO2, minimize PEEP, minimize tidal volume ?monitor respiratory status closely, ? Keep n.p.o. ? Continue BiPAP ? vancomycin, Zosyn, -Trial for acyclovir for viral encephalitis ? Given persistent hypoxic respiratory failure, will do a CT angiogram of the chest to rule out PE, given elevated D-dimer, negative for PE -Cardiac echo -CONCLUSIONS Normal left ventricular size and systolic function, EF 73%.mild left ventricular hypertrophy. No regional wall motion abnormalities. Mild mitral annular calcification. Trace to mild mitral valve regurgitation. Mild aortic valve stenosis, mean gradient 16.3 mmHg, KATE 2.1 cm squared. Peak velocity of 2.5 m/s Trace tricuspid valve regurgitation. Estimated pulmonary artery peak systolic pressure within normal limits No similar previous studies are available for comparison ? Venous ultrasound within normal limits ?Monitor respiratory status closely Sepsis, currently on 6 of Levophed, wean as tolerated resolving secondary to pneumonia, aspiration pneumonitis, sepsis features met given elevated lactic acid, leukopenia, elevated inflammatory markers, encephalopathy, hypoxia, soft blood pressures Staph hominis bacteremia, likely contamination repeat blood cultures negative Acute kidney injury, 1.7 ? Likely multifactorial from sepsis, contrast-induced nephropathy, ? Consult nephrology, - Monitor urine output, monitor creatinine Atrial fibrillation with rapid ventricular response ? Off amiodarone drip ? Anticoagulation currently on hold due to acute encephalopathy likely secondary acute CVA, risk of hemorrhagic conversion Acute hypoxic respiratory failure ? Secondary to pneumonia, aspiration pneumonitis ? As above Acute CVA , with left-sided deficits, out of tPA window, not a candidate for vascular intervention History of GI bleed, ? Monitor as patient is on aspirin, ? Protonix Folic acid deficiency, start folic acid Hypernatremia -Spoke to nephrology ? D5 water ? Check serum sodiums every 4 hours Falls, PT OT - ? Full code, ?will need a one-to-one consider ? Will keep n.p.o. due to high aspiration risk, Patient was seen this morning, overnight events, patient went into respiratory distress, tachypneic, was intubated currently on 40% FiO2, on 6 of Levophed, febrile episodes at night, this morning she was seen with family members at bedside, has pupillary reflex, has corneal reflex, has cough reflex, she does not withdraw from pain, Babinski is downward going bilaterally, she does open her eyes to her name, but does not track, urine output 1300 ? I had a detailed discussion with patient's son, patient's , and also spoke to patient's [id number] over the phone -Discussed patient's acute hypoxic respiratory failure, likely secondary to pneumonia, aspiration pneumonitis, fluid overload now developing acute respiratory distress syndrome, given her increased oxygen requirements, acute respiratory distress syndrome has increased risk of morbidity and mortality, risk of prolonged intubation, risk of requiring tracheostomy, however we can give her time, and see if her ox requirements improved, although she is on 40% ? In terms of her kidney function creatinine is up to 1.7 will continue to monitor her urine output was 1300, ? Cardiac echo was within normal limits, ? All her cultures have been unremarkable ? Given her fevers, seems like cyclic fevers, my concern would be already drug induced fevers or other central fevers from significant neurologic injury ?in terms of her encephalopathy, acute CVA, patient remains globally encephalopathic, since this morning at about 7, her propofol was turned off upon my request, upon my examination, she is not following commands will continue to recheck her neurologic status, but my concern is is that with her hypoxic respiratory failure with her acute CVA, she sustained significant neurologic injury and my concern is that this will be Rain's quality of life, she will likely require life-sustaining interventions such as ventilation, tracheostomy, PEG tube placement -Other possibility includes withdrawal from gabapentin, venlafaxine, resume, -Other possibilities include possible seizures would require trial of seizures ? Other possibilities include possible viral encephalitis will do a trial of acyclovir ? However as per my discussion with patient's family on Tuesday, and review of patient's healthcare directive, she would not want any life-sustaining measures such as tracheostomy prolonged intubation, PEG tube placement if the likelihood of meaningful recovery is very unlikely, in addition along the lines of her wishes, she would want all life-sustaining measures to be discontinued if the likelihood of meaningful recovery is very unlikely ? However there is certainly a dwyer area she just been intubated, continuing medical interventions the question is that how long do we give her before making that decision to proceed with her wishes and make her comfortable and ease her pain and ease her suffering and terminally extubate her ? This is ultimately up to her , and her family, what I would encourage is for the family to have a meeting, give him time to digest the information, I would keep her off sedation and monitor mentation, within the next 24 to 48 hours if her mentation does not improve, I would say that the likelihood of her having meaningful recovery is fairly unlikely, I did do a CT of her head yesterday, it was within normal limits, unfortunate cannot do an MRI given that we do not have portable MRIs here at [facility], ? I have also given her a trial of Keppra to see if that improves her mentation potentially she could be having subclinical seizures, unfortunately do not do EEGs here over the weekend ? Certainly if the family decides we could consult neurology on Tuesday do an EEG, hopefully that could help in the decision-making process, ? But I advised family that I think it would be reasonable to give her time monitor mentation, and to see if her mentation has improved, and if it is ultimately up to their decision if they want all life-sustaining measures to be discontinued, for us to ease her pain and ease her suffering allow her to pass away comfortably on hospice care I think that would be reasonable and in line with her wishes, as it is my concern that she has had sustained significant neurologic injury and she will not have a good quality of life - Attestations 2 Medical Necessity Statement*: Patient requires hospitalization for concerns for acute acute encephalopathy secondary to irreversible neurologic injury, acute respiratory failure, pneumonia, sepsis, acute renal failure, acute CVA Coding Level of Care Code Critical Care >/= 30 minutes Critical care time (in minutes): 60 The high probability of a clinically significant, sudden or life threatening deterioration, as referenced in this documentation, required my full and direct attention, intervention and personal management. The critical care time shown is in addition to time spent performing any reported separately billable procedures and includes the following: [x] Data and vital sign review and interpretation [x ] Patient assessment, examination and intervention [x] Medication orders and management [x] Patient/Family updates as able [x] Care Coordination and Documentation. Diagnoses Gram-positive bacteremia R78.81 Acute hypoxic respiratory failure J96.01 Atrial fibrillation with RVR I48.91 Acute encephalopathy G93.40 Pneumonia J18.9 Falls W19.XXXA Acute CVA (cerebrovascular accident) I63.9 History of GI bleed Z87.19 Goals of care, counseling/discussion Z71.89 Essential hypertension I10 Mixed dyslipidemia E78.2 Thrombocytosis D75.839 Chronic anemia D64.9 Acute kidney injury N17.9 Sepsis A41.9 Folic acid deficiency E53.8 Aspiration pneumonia J69.0 Aspiration pneumonitis J69.0 Fluid overload E87.70 CHF exacerbation I50.9 Hypernatremia E87.0
[2023-09-02] MEDS: gabapentin 400 mg Capsule PO ×2 (15:00→22:48)
--- NOTE | 2023-09-02 15:52 | PC.OT ---
Spoke with nursing. Patient has experienced a decline in function. She has moved to the ICU and is on a ventilator. Will hold OT today. Updated plan of care to reflect current status.
[2023-09-02 16:27] LABS: Ammonia 118 umol/L (11-51)
[2023-09-02 16:33] LABS: Sodium 149 mmol/L (136-145); Thyroid Stimulating Hormone 1.67 uIU/mL (0.27-4.20)
[2023-09-02] MEDS: enoxaparin 30 mg/0.3 mL Syringe SUBCUT (17:06)
--- NOTE | 2023-09-02 19:20 | PC.NURSE ---
Shift report: Pt remains intubated. FIO2 requirements reduced today. She is now on FIO2 of 40%. Propofol gtt stopped this am. No purposeful movement noted. She does seems to localize to painful stimuli at the time fo this note. She does not follow commands nor does she open her eyes to voice or pain. She moves her head side to side with suctioning and/or oral care. She was coughing earlier and her hand did raise in that direction. She did tolerate weaning off Levophed today. Sinus rhythm noted on monitor throughout shift. She was thrashing slightly in bed and Family reported she does have back pain, so morphine admin for her comfort. She did calm down and rest better after. Fever started again this afternoon at 1530 101.7 then [id number] it was 101.4. Urine out put of 825noted. No BM or flatulence n toed this shift.
[2023-09-02] MEDS: atorvastatin 40 mg Tablet PO (20:46)
[2023-09-02] MEDS: venlafaxine 75 mg Tablet 100 MG PO (20:46)
[2023-09-02] MEDS: acetaminophen 650 mg Supp PR (20:47)
--- NOTE | 2023-09-02 21:35 | PC.NURSE ---
At the beginning of this nurse's shift the levophed drip was stopped. MAR was updated to reflect this.
[2023-09-03] VITALS (54 sets, daily range): BP systolic 85–128; BP diastolic 44–65; PULSE 73–139; RESP 16–23; TEMP 36.6–38.6; O2SAT 86–100
[2023-09-03] MEDS: acyclovir 1,000 MG in sodium chloride 0.9% 250 ML 270 MG IV ×2 (00:58→09:14)
[2023-09-03] MEDS: chlorhexidine gluconate 4% Btl 118 mL 1 APPLIC TOPICAL (01:00)
[2023-09-03 01:04] LABS: Sodium 146 mmol/L (136-145)
[2023-09-03] MEDS: morphine 4 mg/mL SDV 1 mL 2 MG IVP (02:47)
--- NOTE | 2023-09-03 02:56 | ECG_ITS ---
[facility] Test Date: 2023-09-03 Pat Name: Rain Butcher Department: Room: ICU11 Gender: Female Germ Drier: : [id number] Requested By: Shay Robles Order Number: [id number] Brandon MD: Herminia Cortes M.D. Measurements Intervals [place] Rate: 139 P: 0 MT: 0 QRS: -35 QRSD: 88 T: 43 QT: 334 QTc: 508 Interpretive Statements Sinus tachycardia with occasional PACs LEFT AXIS DEVIATION [QRS AXIS < -30] LOW QRS VOLTAGE IN EXTREMITY LEADS [QRS DEFLECTION < 0.5 mV IN LIMB LEADS] PATTERN CONSISTENT WITH PULMONARY DISEASE Compared to ECG 08/27/2023 21:58:54 Left-axis deviation now present Low QRS voltage now present Sinus rhythm no longer present Electronically Signed On 09-03-2023 11:08:01 CDT by Herminia Cortes M.D. [id number]
--- NOTE | 2023-09-03 03:00 | PC.NURSE ---
At 0238 the patient converted to A-fib with tachycardia with a heart rate of 145. Dr. Robles was contacted and he ordered for an EKG to be done and to push 150 mg of amiodarone and to start an amiodarone drip.
[2023-09-03] MEDS: amiodarone 50 mg/mL SDV 3 mL 150 MG IVP (03:05)
[2023-09-03] MEDS: pantoprazole 40 mg SDV IVP ×2 (03:31→16:17)
[2023-09-03 04:16] LABS: Basophils % 0.5 %; Eosinophils % 0.5 %; Hematocrit 29.3 % (36-47); Lymphocytes # 3.8 10^3/uL (0.8-4.8); Lymphocytes % 57.4 %; Mean Corpuscular HGB Conc 30.7 g/dL (30-55); Mean Corpuscular Hemoglobin 22.5 pg (27-33); Mean Corpuscular Volume 73.3 fl (85-98); Monocytes # 0.3 10^3/uL (0.2-0.9); Monocytes % 4.4 %; Neutrophils # 2.36 10^3/uL (1.8-7.7); Neutrophils % 35.8 %; Nucleated Red Blood Cells % 0 %; Platelet Count 172 10^3/cmm (157-399); Red Cell Distribution Width 22.3 % (12.1-15.1); White Blood Count 6.57 10^3/uL (3.29-11.43)
[2023-09-03 04:19] LABS: ABG PCO2 32.4 mmHg (35-45); ABG PH Result 7.43 (7.35-7.45); Arterial Blood Gas Hematocrit 29.9 % (37-47); Base Excess ABG -2.5 mmol/L (-2.0-2.0); Blood Gas Allen Test Pos; Blood Gas Sample Site Radial, right; Blood Gas Sample Type Arterial; Fractionated Inspired Oxygen 0.6 %; HCO3 ABG 21.3 mmol/L (22-26); Oxygen Device VENT; PO2 ABG 69.1 mmHg (80.0-100.0); PO2 FiO2 Ratio Arterial Blood 0
[2023-09-03 04:20] LABS: Blood Gas Tidal Volume 0.45
[2023-09-03 04:37] LABS: Ammonia 94 umol/L (11-51)
[2023-09-03 04:39] LABS: Lactate (Lactic Acid level) 3.5 mmol/L (0.5-2.2)
[2023-09-03 04:40] LABS: Alanine Aminotransferase 18 U/L (0-33); Albumin Level 2.4 g/dL (3.5-5.2); Alkaline Phosphatase 41 U/L (35-105); Anion Gap 18.2 (5-19); Aspartate Amino Transferase 44 U/L (0-32); Blood Urea Nitrogen 50 mg/dL (8-23); C Reactive Protein 20.5 mg/L (0.0-4.9); Calcium 7.1 mg/dL (8.5-10.5); Carbon Dioxide 20 mmol/L (22-29); Chloride 114 mmol/L (98-107); Creatinine Clr Calc Pharmacy 18.5604; Globulin 3.4 g/dL (1.3-4.6); Glucose 106 mg/dL (65-115); Osmolality Calculated 322 mOsm/kg (285-295); Phosphorus 3.2 mg/dL (2.5-4.5); Potassium 3.2 mmol/L (3.5-5.1); Sodium 149 mmol/L (136-145); Total Bilirubin 0.5 mg/dL (0.15-1.2); Total Protein 5.8 g/dL (6.6-8.7)
[2023-09-03 04:50] LABS: NT Pro B Type Natriuretic Pept 639 pg/mL (0-450)
[2023-09-03 05:02] LABS: Creatine Phosphokinase 43 U/L (26-192)
[2023-09-03] MEDS: piperacillin-tazobactam 3.375 GM in sodium chloride 0.9% (plus) 50 ML IV ×3 (05:03→20:54)
[2023-09-03] MEDS: gabapentin 400 mg Capsule PO ×3 (05:44→22:38)
[2023-09-03] MEDS: ferrous sulfate EC 325 mg Tablet PO ×2 (08:34→17:32)
[2023-09-03] MEDS: levothyroxine 100 mcg SDV 75 MCG IVP (08:35)
[2023-09-03] MEDS: dextrose 5% 1,000 ML 50 ML IV (08:35)
[2023-09-03] MEDS: folic acid 1 mg Tablet PO ×2 (08:35→17:32)
[2023-09-03] MEDS: aspirin 81 mg EC Tablet PO (08:35)
[2023-09-03] MEDS: levETIRAcetam 500 MG/100 ML PREMIX 400 MG IV ×2 (10:12→20:55)
[2023-09-03] MEDS: lactulose oral liq 20 gm/30 mL UDC PO ×3 (10:12→22:38)
[2023-09-03] MEDS: venlafaxine 75 mg Tablet 125 MG PO (10:12)
[2023-09-03 10:43] LABS: Vancomycin Trough 11.5 ug/mL (10-15)
[2023-09-03] MEDS: venlafaxine 75 mg Tablet 150 MG PO (11:54)
[2023-09-03] MEDS: sucralfate 1 gm/10 mL Oral Liq UDC PO ×2 (11:56→22:38)
--- NOTE | 2023-09-03 11:58 | PC.NUTR ---
Initiate enteral nutrition OGT following RD recs below: -Nepro 1.8 starting at 10 ml/hr x12hrs and advance to goal of 25 ml/hr x24hrs -FWF 100 ml q4 or per MD See most recent RD note for details
--- NOTE | 2023-09-03 12:12 | PC.NURSE ---
Tube feeding started Nephro 1.8 at 10cc/hr, 200 ml FWF delivered and pump programed to deliver FWF Q4hrs.
[2023-09-03 13:52] LABS: Ammonia 85 umol/L (11-51)
--- NOTE | 2023-09-03 14:25 | P.PN_ITS ---
Subjective 2 Subjective: Patient was seen this morning ? Family members at bedside, yesterday afternoon and in the evening time patient had fevers ? She is off the Levophed is currently on 55% FiO2, intubated, ? Remains off sedation, ? She has a pupillary reflex, has a corneal reflex has a gag reflex she does respond to a sternal rub winces in pain ? But does not track, Babinski is by laterally downwards going, she does not withdraw from pain, but she does move her right arm during sternal rub, she moves both legs ? She does not follow commands this morning ? Creatinine 2.3, urine output has been lackluster ? Again I had a detailed discussion with patient's family, I have placed patient on Keppra, as seizures could be a possibility for her encephalopathy although unlikely she received a gram of Keppra yesterday and I did not notice any difference in her mentation but I have continued it ? Unfortunate I think that she has had a significant neurologic injury which is reversible from her acute CVA, hypoxia, I have placed her back on her gabapentin, place her back on her Lexapro, has not made a big difference in her mentation, in addition her ammonia levels are 85, liver functions within normal limits, will place lactulose to see if bringing down ammonia levels improves her mentation ? My worry is is that with her cyclic fevers, and her mentation, concerns for irreversible neurologic injury from acute CVA, likely poor quality of life, likely dependent on artificial life support which is not in line with Rain wishes, nor family's wishes however family wants to give her time,?plan for today continue to monitor for fevers monitor vitals, continue antibiotics continue seizure medications, monitor urine output monitor mentation closely, discussed with family in detail, they voiced understanding, all questions answered Vitals/I&O/Wt Last Vital Signs Temp 97.9 F 09/03/23 12:00 Pulse 81 09/03/23 14:00 Resp 18 09/03/23 11:22 BP 113/58 09/03/23 12:30 Pulse Ox 93 09/03/23 12:30 O2 Del Method Mechanical Ventilation 09/03/23 12:30 O2 Flow Rate 15 08/31/23 11:35 FiO2 55 09/03/23 11:22 09/02/23 09/03/23 09/03/23 22:59 06:59 14:59 Intake Total 768 / 2597.240 1045 / 3642.240 1227.201 / 1227.201 Output Total 925 / 925 100 / 1025 Balance -157 / 1672.240 945 / 2617.240 1227.201 / 1227.201 Weight last 48 hrs Weight 79.379 kg Weight 79.379 kg Physical Exam 2 Const: COMMON NORMALS: no acute distress Resp: COMMON NORMALS: normal respiratory effort, No retractions, No use of accessory muscles and clear to auscultation bilaterally AUSCULTATION: clear to auscultation bilaterally Cardio: COMMON NORMALS: regular rate, regular rhythm, S1 normal heart sound present and S2 normal heart sound present RATE: regular rate RHYTHM: r egular rhythm HEART SOUNDS: S1 normal heart sound present and S2 normal heart sound present GI: COMMON NORMALS: Normal to inspection, nondistended, normoactive bowel sounds present and non-tender Extremity: COMMON NORMALS: no pedal edema Urinary Catheter Management: Barksdale: Cath Placed During This Visit: yes Reason for Continuing Indwelling Catheter: Accurate Measurement of Urinary Output in Critically Ill Patients Urinary Catheter Date of Insertion: 08/26/23 Urinary Catheter Time of Insertion: 21:33 Data 09/03/23 04:02 09/03/23 04:02 Micro: Microbiology 08/29/23 11:17 Blood Culture - Final Blood NO GROWTH AFTER 5 DAYS 08/29/23 11:12 Blood Culture - Final Blood NO GROWTH AFTER 5 DAYS 09/02/23 04:40 Gram Stain - Final Sputum - Endotracheal Tube Aspirate Sputum Culture - Preliminary 09/01/23 00:48 Blood Culture - Preliminary Blood NEGATIVE TO DATE 09/01/23 00:44 Blood Culture - Preliminary Blood NEGATIVE TO DATE A&P Assessment and plan (1) Gram-positive bacteremia: (2) Acute hypoxic respiratory failure: (3) Atrial fibrillation with RVR: (4) Acute encephalopathy: (5) Pneumonia: (6) Falls: (7) Acute CVA (cerebrovascular accident): (8) History of GI bleed: (9) Goals of care, counseling/discussion: (10) Essential hypertension: (11) Mixed dyslipidemia: (12) Thrombocytosis: (13) Chronic anemia: (14) Acute kidney injury: (15) Sepsis: (16) Folic acid deficiency: (17) Aspiration pneumonia: (18) Aspiration pneumonitis: (19) Fluid overload: (20) CHF exacerbation: (21) Hypernatremia: Plan Acute encephalopathy -Concerns for irreversible neurologic injury, from acute CVA, hypoxia -Continues to have cyclic fevers, concerns for central fevers ? Likely multifactorial - component related to pneumonia, aspiration pneumonia, hypoxia, fluid overload, CHF exacerbation ? Acute CVA, Alert oriented x 0, word finding difficulty, receptive aphasia, can follow commands, at times, left upper extremity strength 3 out of 5 in left lower extremity strength 4-5, slight left facial droop, however now globally encephalopathic ?Continues to have global encephalopathy ? Hypernatremia potentially playing a role ? Possible gabapentin withdrawal? Venlafaxine withdrawal? Resume gabapentin, venlafaxine ? Repeat CT head within normal limits, ? CTA head and neck within normal limits, MRI no acute findings likely it was done too early to show any radiographic findings from acute CVA ? Plan ? Keep n.p.o. ? Sputum cultures, blood cultures, so far unremarkable ? Monitor respiratory status closely, ? Neurochecks, and a stroke scale, aspiration precautions ? aspirin ? Completed permissive hypertension window ? Cardiac echo Normal left ventricular size and systolic function, EF 73%.mild left ventricular hypertrophy. No regional wall motion abnormalities. Mild mitral annular calcification. Trace to mild mitral valve regurgitation. Mild aortic valve stenosis, mean gradient 16.3 mmHg, KATE 2.1 cm squared. Peak velocity of 2.5 m/s Trace tricuspid valve regurgitation. Estimated pulmonary artery peak systolic pressure within normal limits No similar previous studies are available for comparison ?telemetry monitoring ? On D5 water -Resume gabapentin, venlafaxine -Will do a trial of Keppra ? PT OT, speech therapy eval ? Goals of care discussion with Rain is a full code ? Lovenox for DVT prophylaxis Acute hypoxic respiratory failure ? Secondary to pneumonia -component related to pneumonia, aspiration pneumonia, hypoxia, fluid overload, CHF exacerbation ? Fluid overload ? A-fib with RVR ? Plan -Currently intubated, on mechanical ventilation, 40 percent FiO2, minimize PEEP, minimize tidal volume ?monitor respiratory status closely, ? Keep n.p.o. ? Continue BiPAP ? vancomycin, Zosyn, -Trial for acyclovir for viral encephalitis ? Given persistent hypoxic respiratory failure, will do a CT angiogram of the chest to rule out PE, given elevated D-dimer, negative for PE -Cardiac echo -CONCLUSIONS Normal left ventricular size and systolic function, EF 73%.mild left ventricular hypertrophy. No regional wall motion abnormalities. Mild mitral annular calcification. Trace to mild mitral valve regurgitation. Mild aortic valve stenosis, mean gradient 16.3 mmHg, KATE 2.1 cm squared. Peak velocity of 2.5 m/s Trace tricuspid valve regurgitation. Estimated pulmonary artery peak systolic pressure within normal limits No similar previous studies are available for comparison ? Venous ultrasound within normal limits ?Monitor respiratory status closely Sepsis, resolving, wean as tolerated resolving secondary to pneumonia, aspiration pneumonitis, sepsis features met given elevated lactic acid, leukopenia, elevated inflammatory markers, encephalopathy, hypoxia, soft blood pressures Staph hominis bacteremia, likely contamination repeat blood cultures negative Acute kidney injury, 2.3, urine output lackluster ? Likely multifactorial from sepsis, contrast-induced nephropathy, hypotension, Levophed ? Consult nephrology, - Monitor urine output, monitor creatinine Atrial fibrillation with rapid ventricular response ? Off amiodarone drip ? Anticoagulation currently on hold due to acute encephalopathy likely secondary acute CVA, risk of hemorrhagic conversion Acute hypoxic respiratory failure ? Secondary to pneumonia, aspiration pneumonitis ? As above Acute CVA , with left-sided deficits, out of tPA window, not a candidate for vascular intervention History of GI bleed, ? Monitor as patient is on aspirin, ? Protonix Folic acid deficiency, start folic acid Hypernatremia -Spoke to nephrology ? D5 water ? Check serum sodiums every 4 hours Falls, PT OT - ? Full code, ?will need a one-to-one consider ? Will keep n.p.o. due to high aspiration risk, Patient was seen this morning ? Family members at bedside, yesterday afternoon and in the evening time patient had fevers ? She is off the Levophed is currently on 55% FiO2, intubated, ? Remains off sedation, ? She has a pupillary reflex, has a corneal reflex has a gag reflex she does respond to a sternal rub winces in pain ? But does not track, Babinski is by laterally downwards going, she does not withdraw from pain, but she does move her right arm during sternal rub, she moves both legs ? She does not follow commands this morning ? Creatinine 2.3, urine output has been lackluster ? Again I had a detailed discussion with patient's family, I have placed patient on Keppra, as seizures could be a possibility for her encephalopathy although unlikely she received a gram of Keppra yesterday and I did not notice any difference in her mentation but I have continued it ? Unfortunate I think that she has had a significant neurologic injury which is reversible from her acute CVA, hypoxia, I have placed her back on her gabapentin, place her back on her Lexapro, has not made a big difference in her mentation, in addition her ammonia levels are 85, liver functions within normal limits, will place lactulose to see if bringing down ammonia levels improves her mentation ? My worry is is that with her cyclic fevers, and her mentation, concerns for irreversible neurologic injury from acute CVA, likely poor quality of life, likely dependent on artificial life support which is not in line with Rain wishes, nor family's wishes however family wants to give her time,?plan for today continue to monitor for fevers monitor vitals, continue antibiotics continue seizure medications, monitor urine output monitor mentation closely, discussed with family in detail, they voiced understanding, all questions answered - Attestations 2 Medical Necessity Statement*: Patient requires hospitalization for acute encephalopathy, concerns for irreversible neurologic injury, acute respiratory failure, pneumonia, acute CVA, acute renal failure Coding Level of Care Code Critical Care >/= 30 minutes Critical care time (in minutes): 50 The high probability of a clinically significant, sudden or life threatening deterioration, as referenced in this documentation, required my full and direct attention, intervention and personal management. The critical care time shown is in addition to time spent performing any reported separately billable procedures and includes the following: [x] Data and vital sign review and interpretation [x ] Patient assessment, examination and intervention [x] Medication orders and management [x] Patient/Family updates as able [x] Care Coordination and Documentation. Diagnoses Gram-positive bacteremia R78.81 Acute hypoxic respiratory failure J96.01 Atrial fibrillation with RVR I48.91 Acute encephalopathy G93.40 Pneumonia J18.9 Falls W19.XXXA Acute CVA (cerebrovascular accident) I63.9 History of GI bleed Z87.19 Goals of care, counseling/discussion Z71.89 Essential hypertension I10 Mixed dyslipidemia E78.2 Thrombocytosis D75.839 Chronic anemia D64.9 Acute kidney injury N17.9 Sepsis A41.9 Folic acid deficiency E53.8 Aspiration pneumonia J69.0 Aspiration pneumonitis J69.0 Fluid overload E87.70 CHF exacerbation I50.9 Hypernatremia E87.0
[2023-09-03] MEDS: enoxaparin 30 mg/0.3 mL Syringe SUBCUT (16:17)
--- NOTE | 2023-09-03 18:05 | P.PN_ITS ---
Subjective 2 Subjective: on vent Medications: Reviewed: Yes Vitals/I&O/Wt Last Vital Signs Temp 98.9 F 09/03/23 16:30 Pulse 84 09/03/23 16:30 Resp 19 H 09/03/23 17:30 BP 119/59 09/03/23 16:30 Pulse Ox 88 L 09/03/23 17:30 O2 Del Method Mechanical Ventilation 09/03/23 16:30 O2 Flow Rate 15 08/31/23 11:35 FiO2 55 09/03/23 17:30 09/03/23 09/03/23 09/03/23 06:59 14:59 22:59 Intake Total 1045 / 3642.240 1227.201 / 1227.201 496 / 1723.201 Output Total 100 / 1025 350 / 350 Balance 945 / 2617.240 1227.201 / 1227.201 146 / 1373.201 Weight last 48 hrs Weight 79.379 kg Weight 79.379 kg Physical Exam 2 Narrative: on vent neurologically unresponsive Urinary Catheter Management: Barksdale: Cath Placed During This Visit: yes Reason for Continuing Indwelling Catheter: Accurate Measurement of Urinary Output in Critically Ill Patients Urinary Catheter Date of Insertion: 08/26/23 Urinary Catheter Time of Insertion: 21:33 Data 09/03/23 04:02 09/03/23 04:02 Micro: Microbiology 08/29/23 11:17 Blood Culture - Final Blood NO GROWTH AFTER 5 DAYS 08/29/23 11:12 Blood Culture - Final Blood NO GROWTH AFTER 5 DAYS 09/02/23 04:40 Gram Stain - Final Sputum - Endotracheal Tube Aspirate Sputum Culture - Preliminary 09/01/23 00:48 Blood Culture - Preliminary Blood NEGATIVE TO DATE 09/01/23 00:44 Blood Culture - Preliminary Blood NEGATIVE TO DATE A&P Assessment and plan (1) Acute kidney injury: Plan 1. Acute kidney injury: Baseline creatinine was 0.7 in June 2023. Now has an JEISON with a creatinine of 2.0 range . Most likely multifactorial including possible ATN in the setting of infection/pneumonia and contrast exposure. 2. Acute on chronic respiratory failure: Multifactorial in the setting of pneumonia and volume overload,on vent , 3. Metabolic acidosis: Mild, monitor 4. Hypernatremia: Sodium 149 , free water via OGT 300 ml q 6 hours poor prognosis , family considering comfort care Attestations 2 Medical Necessity Statement*: per mediicne Coding Level of Care Code Acute Code for Chg Fwd Diagnoses Acute kidney injury N17.9
[2023-09-03] MEDS: venlafaxine 75 mg Tablet 100 MG PO (20:54)
[2023-09-03] MEDS: atorvastatin 40 mg Tablet PO (20:54)
--- NOTE | 2023-09-03 21:41 | PC.NURSE ---
Comfort Care Discussion Son, Juan Daniel, at bedside. Goals of care discussed, son stated that he is planning on making her comfortable for end of life care starting on Tuesday09/05/23. In the meantime, son stated that he did not want any labs drawn for he did not want any additional pain added on that was not necessary. Furthermore, when asked if the son wished for CPR measures in case the patient's heart were to stop, the son stated that he did not want any CPR measures taken. Dr. Robles notified of son's wish for code status change as well as no lab draws. Lab orders cancelled. Code status to be updated by physician.
--- NOTE | 2023-09-03 22:35 | W.PM.EVENTAC ---
Event Note Event Note: Family wants to change her CODE STATUS to DNR/ They are even skeptical about blood work on Tuesday did not want to cause more painful procedures or blood work I will go ahead change CODE STATUS in our EMR Seems like there is plan to go on comfort care on Tuesday
[2023-09-04] VITALS (57 sets, daily range): BP systolic 96–133; BP diastolic 50–70; PULSE 61–83; RESP 16–25; TEMP 36.6–37.3; O2SAT 91–96; BMI 31.0
[2023-09-04] MEDS: chlorhexidine gluconate 4% Btl 118 mL 1 APPLIC TOPICAL (02:04)
[2023-09-04 02:48] LABS: Glucose Point of Care 128 mg/dL (70-110)
[2023-09-04] MEDS: morphine 4 mg/mL SDV 1 mL 2 MG IVP ×2 (02:52→14:39)
[2023-09-04] MEDS: pantoprazole 40 mg SDV IVP ×2 (04:45→16:38)
[2023-09-04] MEDS: amiodarone 200 mg Tablet 400 MG PO ×2 (04:45→17:15)
--- NOTE | 2023-09-04 04:58 | PC.NURSE ---
Informed Dr. Robles about patient's loose stools, gave order to hold lactulose. Also gave an order to DC amiodarone drip and start amiodarone 400mg PO BID.
[2023-09-04] MEDS: piperacillin-tazobactam 3.375 GM in sodium chloride 0.9% (plus) 50 ML IV (05:37)
[2023-09-04] MEDS: gabapentin 400 mg Capsule PO (05:38)
[2023-09-04] MEDS: ferrous sulfate EC 325 mg Tablet PO ×2 (07:50→17:15)
[2023-09-04] MEDS: levothyroxine 100 mcg SDV 75 MCG IVP (07:51)
[2023-09-04] MEDS: aspirin 81 mg EC Tablet PO (07:51)
[2023-09-04] MEDS: folic acid 1 mg Tablet PO (07:51)
[2023-09-04] MEDS: venlafaxine 75 mg Tablet 125 MG PO (07:51)
[2023-09-04] MEDS: fentaNYL 1,000 MCG/100 ML BAG 2.5 MCG IV (08:32)
--- NOTE | 2023-09-04 10:34 | PC.NURSE ---
Tube feeding and FWF discontinued per Dr. Alan verbal order.
[2023-09-04] MEDS: lanolin oint 7 gm 1 APPLIC TOPICAL (11:51)
--- NOTE | 2023-09-04 11:58 | P.PN_ITS ---
Subjective 2 Subjective: - Patient was seen this morning, patient 's son is at bedside, overnight she remains on 55% FiO2, remains intubated, off sedation, normotensive, no febrile episodes, family last night decided to change CODE STATUS to DNR, they did not want any more blood work -This morning, patient has a pupillary r eflex, no corneal reflex, does have a gag reflex, does not withdraw from pain does not localize pain, does not open her eyes to her name, does wince in pain, when receiving sternal rub, no other meaningful responses, she looks fluid overloaded, crackles on exam, 1+ pitting edema, diffuse anasarca -I had a detailed discussion with santy dan's son, and patient's , at bedside, goals of care discussion, discussion about respiratory failure wrist is on 55% FiO2 and worried she developing fluid overload, with her renal failure urine output has been lackluster, 850, she is developing anasarca -The biggest issue and biggest factor is her neurologic status, she is likely in a vegetative state, secondary to her CVA, hypoxic brain injury, pneumonia, and I think the likelihood of her having a meaningful recovery is fairly unlikely ? She is been off sedation for the last 72 hours and I have not had any meaningful responses from her, and throughout the last week, when she was on BiPAP, she had global encephalopathy, had poor neurologic functioning, poor neurologic outcome at that time ? On her goals of care discussion, on her living well, she is clearly stated that if she does not have the likelihood of meaningful recovery, she wants all life-sustaining measures to be stopped and for her to be kept comfortable ? Patient's family confirmed that that is her wishes, and that it do not want any aggressive interventions, they just want her to be comfortable, their wanting to proceed ? I had a detailed discussion with patient's family, they want to proceed with comfort care, however there is family from out of state and family from all around that wanted, and give their goodbyes before we terminally extubate her and make her full comfort care, the plan is for most family members to be there tomorrow morning ? I had a detailed discussion with patient's and patient's son about comfort care, shared decision making, discussed risk and benefits, they voiced understanding, all questions answered, agreed to proceed with comfort care once all family members have seen her tomorrow morning, given their final goodbyes, will plan on terminally extubating her ? For now they do want her to be in pain, discussed starting her on a low-dose fentanyl drip, will also place morphine and Ativan pushes for anxiety and agitation, Vitals/I&O/Wt Last Vital Signs Temp 97.8 F 09/04/23 07:00 Pulse 69 09/04/23 08:00 Resp 16 09/04/23 09:47 BP 110/52 09/04/23 08:00 Pulse Ox 95 09/04/23 09:47 O2 Del Method Mechanical Ventilation 09/04/23 08:00 O2 Flow Rate 15 08/31/23 11:35 FiO2 55 09/04/23 09:47 09/03/23 09/04/23 09/04/23 22:59 06:59 14:59 Intake Total 732.67 / 1959.871 863.034 / 2822.905 68.166 / 68.166 Output Total 350 / 350 500 / 850 Balance 382.67 / 1609.871 363.034 / 1972.905 68.166 / 68.166 Weight last 48 hrs Weight 82.1 kg Weight 79.379 kg Physical Exam 2 Const: COMMON NORMALS: no acute distress Resp: COMMON NORMALS: normal respiratory effort, No retractions, No use of accessory muscles and clear to auscultation bilaterally AUSCULTATION: clear to auscultation bilaterally Cardio: COMMON NORMALS: regular rate, regular rhythm, S1 normal heart sound present and S2 normal heart sound present RATE: regular rate RHYTHM: r egular rhythm HEART SOUNDS: S1 normal heart sound present and S2 normal heart sound present GI: COMMON NORMALS: Normal to inspection, nondistended, normoactive bowel sounds present and non-tender Extremity: COMMON NORMALS: no pedal edema Urinary Catheter Management: Barksdale: Cath Placed During This Visit: yes Reason for Continuing Indwelling Catheter: Accurate Measurement of Urinary Output in Critically Ill Patients Urinary Catheter Date of Insertion: 08/26/23 Urinary Catheter Time of Insertion: 21:33 Data 09/03/23 04:02 09/03/23 04:02 Micro: Microbiology 09/02/23 04:40 Gram Stain - Final Sputum - Endotracheal Tube Aspirate Sputum Culture - Final 08/29/23 11:17 Blood Culture - Final Blood NO GROWTH AFTER 5 DAYS 08/29/23 11:12 Blood Culture - Final Blood NO GROWTH AFTER 5 DAYS A&P Assessment and plan (1) Gram-positive bacteremia: (2) Acute hypoxic respiratory failure: (3) Atrial fibrillation with RVR: (4) Acute encephalopathy: (5) Pneumonia: (6) Falls: (7) Acute CVA (cerebrovascular accident): (8) History of GI bleed: (9) Goals of care, counseling/discussion: (10) Essential hypertension: (11) Mixed dyslipidemia: (12) Thrombocytosis: (13) Chronic anemia: (14) Acute kidney injury: (15) Sepsis: (16) Folic acid deficiency: (17) Aspiration pneumonia: (18) Aspiration pneumonitis: (19) Fluid overload: (20) CHF exacerbation: (21) Hypernatremia: (22) Persistent vegetative state: Plan Goals of care discussion ? DNR, patient's family does not want her to to suffer, they want her to be comfortable, agreeable to fentanyl drip for now, with morphine and Ativan pushes as needed -They want other family members to give their goodbyes, plan on terminally extubating tomorrow once family has seen ? Plan on full comfort care, and terminal extubation tomorrow potentially in the afternoon Acute encephalopathy -Concerns for irreversible neurologic injury, from acute CVA, hypoxia -Continues to have cyclic fevers, concerns for central fevers ? Likely multifactorial - component related to pneumonia, aspiration pneumonia, hypoxia, fluid overload, CHF exacerbation ? Acute CVA, Alert oriented x 0, word finding difficulty, receptive aphasia, can follow commands, at times, left upper extremity strength 3 out of 5 in left lower extremity strength 4-5, slight left facial droop, however now globally encephalopathic ?Continues to have global encephalopathy ? Hypernatremia potentially playing a role ? Possible gabapentin withdrawal? Venlafaxine withdrawal? Resume gabapentin, venlafaxine ? Repeat CT head within normal limits, ? CTA head and neck within normal limits, MRI no acute findings likely it was done too early to show any radiographic findings from acute CVA ? Plan ? Keep n.p.o. ? Sputum cultures, blood cultures, so far unremarkable ? Monitor respiratory status closely, ? Neurochecks, and a stroke scale, aspiration precautions ? aspirin ? Completed permissive hypertension window ? Cardiac echo Normal left ventricular size and systolic function, EF 73%.mild left ventricular hypertrophy. No regional wall motion abnormalities. Mild mitral annular calcification. Trace to mild mitral valve regurgitation. Mild aortic valve stenosis, mean gradient 16.3 mmHg, KATE 2.1 cm squared. Peak velocity of 2.5 m/s Trace tricuspid valve regurgitation. Estimated pulmonary artery peak systolic pressure within normal limits No similar previous studies are available for comparison ?telemetry monitoring ? On D5 water -Resume gabapentin, venlafaxine -Will do a trial of Keppra ? PT OT, speech therapy eval ? Goals of care discussion with , Rain is a full code ? Lovenox for DVT prophylaxis Acute hypoxic respiratory failure ? Secondary to pneumonia -component related to pneumonia, aspiration pneumonia, hypoxia, fluid overload, CHF exacerbation ? Fluid overload ? A-fib with RVR ? Plan -Currently intubated, on mechanical ventilation, 40 percent FiO2, minimize PEEP, minimize tidal volume ?monitor respiratory status closely, ? Keep n.p.o. ? Continue BiPAP ? vancomycin, Zosyn, -Trial for acyclovir for viral encephalitis ? Given persistent hypoxic respiratory failure, will do a CT angiogram of the chest to rule out PE, given elevated D-dimer, negative for PE -Cardiac echo -CONCLUSIONS Normal left ventricular size and systolic function, EF 73%.mild left ventricular hypertrophy. No regional wall motion abnormalities. Mild mitral annular calcification. Trace to mild mitral valve regurgitation. Mild aortic valve stenosis, mean gradient 16.3 mmHg, KATE 2.1 cm squared. Peak velocity of 2.5 m/s Trace tricuspid valve regurgitation. Estimated pulmonary artery peak systolic pressure within normal limits No similar previous studies are available for comparison ? Venous ultrasound within normal limits ?Monitor respiratory status closely Sepsis, resolving, wean as tolerated resolving secondary to pneumonia, aspiration pneumonitis, sepsis features met given elevated lactic acid, leukopenia, elevated inflammatory markers, encephalopathy, hypoxia, soft blood pressures Staph hominis bacteremia, likely contamination repeat blood cultures negative Acute kidney injury, 2.3, urine output lackluster ? Likely multifactorial from sepsis, contrast-induced nephropathy, hypotension, Levophed ? Consult nephrology, - Monitor urine output, monitor creatinine Atrial fibrillation with rapid ventricular response ? Off amiodarone drip ? Anticoagulation currently on hold due to acute encephalopathy likely secondary acute CVA, risk of hemorrhagic conversion Acute hypoxic respiratory failure ? Secondary to pneumonia, aspiration pneumonitis ? As above Acute CVA , with left-sided deficits, out of tPA window, not a candidate for vascular intervention History of GI bleed, ? Monitor as patient is on aspirin, ? Protonix Folic acid deficiency, start folic acid Hypernatremia -Spoke to nephrology ? D5 water ? Check serum sodiums every 4 hours Falls, PT OT - ? Full code, ?will need a one-to-one consider ? Will keep n.p.o. due to high aspiration risk, Patient was seen this morning ? Family members at bedside, yesterday afternoon and in the evening time patient had fevers ? She is off the Levophed is currently on 55% FiO2, intubated, ? Remains off sedation, ? She has a pupillary reflex, has a corneal reflex has a gag reflex she does respond to a sternal rub winces in pain ? But does not track, Babinski is by laterally downwards going, she does not withdraw from pain, but she does move her right arm during sternal rub, she moves both legs ? She does not follow commands this morning ? Creatinine 2.3, urine output has been lackluster ? Again I had a detailed discussion with patient's family, I have placed patient on Keppra, as seizures could be a possibility for her encephalopathy although unlikely she received a gram of Keppra yesterday and I did not notice any difference in her mentation but I have continued it ? Unfortunate I think that she has had a significant neurologic injury which is reversible from her acute CVA, hypoxia, I have placed her back on her gabapentin, place her back on her Lexapro, has not made a big difference in her mentation, in addition her ammonia levels are 85, liver functions within normal limits, will place lactulose to see if bringing down ammonia levels improves her mentation ? My worry is is that with her cyclic fevers, and her mentation, concerns for irreversible neurologic injury from acute CVA, likely poor quality of life, likely dependent on artificial life support which is not in line with Rain wishes, nor family's wishes however family wants to give her time,?plan for today continue to monitor for fevers monitor vitals, continue antibiotics continue seizure medications, monitor urine output monitor mentation closely, discussed with family in detail, they voiced understanding, all questions answered - Attestations 2 Medical Necessity Statement*: Patient requires hospitalization for concerns for persistent vegetative state, acute acute CVA, hypoxic brain injury, pneumonia, respiratory failure renal failure Coding Level of Care Code Critical Care >/= 30 minutes Critical care time (in minutes): 55 The high probability of a clinically significant, sudden or life threatening deterioration, as referenced in this documentation, required my full and direct attention, intervention and personal management. The critical care time shown is in addition to time spent performing any reported separately billable procedures and includes the following: [x] Data and vital sign review and interpretation [x ] Patient assessment, examination and intervention [x] Medication orders and management [x] Patient/Family updates as able [x] Care Coordination and Documentation. Diagnoses Gram-positive bacteremia R78.81 Acute hypoxic respiratory failure J96.01 Atrial fibrillation with RVR I48.91 Acute encephalopathy G93.40 Pneumonia J18.9 Falls W19.XXXA Acute CVA (cerebrovascular accident) I63.9 History of GI bleed Z87.19 Goals of care, counseling/discussion Z71.89 Essential hypertension I10 Mixed dyslipidemia E78.2 Thrombocytosis D75.839 Chronic anemia D64.9 Acute kidney injury N17.9 Sepsis A41.9 Folic acid deficiency E53.8 Aspiration pneumonia J69.0 Aspiration pneumonitis J69.0 Fluid overload E87.70 CHF exacerbation I50.9 Hypernatremia E87.0 Persistent vegetative state R40.3
[2023-09-04] MEDS: fentaNYL 1,000 MCG/100 ML BAG 10 MCG IV (19:55)
[2023-09-04] MEDS: atorvastatin 40 mg Tablet PO (21:04)
[2023-09-05] VITALS (44 sets, daily range): BP systolic 109–171; BP diastolic 54–97; PULSE 62–80; RESP 14–30; TEMP 36.6–37.6; O2SAT 71–96; BMI 30.9
[2023-09-05] MEDS: sucralfate 1 gm/10 mL Oral Liq UDC PO (03:07)
[2023-09-05] MEDS: pantoprazole 40 mg SDV IVP ×2 (03:07→17:49)
[2023-09-05] MEDS: chlorhexidine gluconate 4% Btl 118 mL 1 APPLIC TOPICAL (03:42)
[2023-09-05] MEDS: fentaNYL 1,000 MCG/100 ML BAG 10 MCG IV ×2 (04:07→12:27)
--- NOTE | 2023-09-05 09:58 | PC.SOCIAL ---
IMM Update pg 2 of IMM updated and reviewed w/ patients . Copy provided and copy dated, initialed and placed in chart.
--- NOTE | 2023-09-05 10:06 | PC.SOCIAL ---
Addendum entered by Jen Ross RN 09/05/23 10:07: IMM Updated w/ patients . Patient is intubated. Original Note: IMM Update pg 2 of IMM updated and reviewed w/ patient. Copy provided and copy dated, initialed and placed in chart.
--- NOTE | 2023-09-05 10:36 | PC.OT ---
discharge skilled OT services secondary to change to comfort care
--- NOTE | 2023-09-05 12:00 | PC.NURSE ---
MTS notified of terminal extubation to occur this afternoon when family ready. MTS sales representative electric service: Mo. ok to proceed.
--- NOTE | 2023-09-05 13:15 | PC.NURSE ---
Left AC IV migrated, occluded. removed. Inserted another IV 20 gauge,about an inch below previous site. Both labeled Left AC. Pt tolerated well.
--- NOTE | 2023-09-05 13:45 | PC.NURSE ---
Pt extubated to room air. OG removed. Fentanyl gtt remains on at 100mcg/min.
[2023-09-05] MEDS: morphine 4 mg/mL SDV 1 mL IVP (17:59)
--- NOTE | 2023-09-05 18:31 | P.PN_ITS ---
Subjective 2 Subjective: Patient focal and no purposeful movements. Met with son and [id number]-vog and granddaughter. They wish to proceed with terminal extubation as discussed with Dr. Alan the last several days. Vitals/I&O/Wt Last Vital Signs Temp 99.2 F 09/05/23 07:50 Pulse 78 09/05/23 17:00 Resp 22 H 09/05/23 17:59 BP 171/97 09/05/23 14:00 Pulse Ox 77 L 09/05/23 17:59 O2 Del Method Room Air 09/05/23 17:00 O2 Flow Rate 15 08/31/23 11:35 FiO2 55 09/05/23 12:57 09/05/23 09/05/23 09/05/23 06:59 14:59 22:59 Intake Total 135 / 358.958 100 / 100 41.584 / 141.584 Output Total 450 / 1150 625 / 625 Balance -315 / -791.042 100 / 100 -583.416 / -483.416 Weight last 48 hrs Weight 81.902 kg Weight 82.1 kg Physical Exam 2 Narrative: No acute distress on fentanyl drip Patient withdraws to painful stimuli. No purposeful movement nonfocal. Upgoing toes bilaterally Heart: Regular normal S1-S2 without murmurs clicks gallops or rubs Lungs diminished breath sounds clear throughout Abdomen soft nontender nondistended positive bowel sounds Extremities no clubbing cyanosis or edema Urinary Catheter Management: Barksdale: Cath Placed During This Visit: yes Reason for Continuing Indwelling Catheter: Accurate Measurement of Urinary Output in Critically Ill Patients Urinary Catheter Date of Insertion: 08/26/23 Urinary Catheter Time of Insertion: 21:33 Data 09/03/23 04:02 09/03/23 04:02 A&P Assessment and plan (1) Persistent vegetative state: (2) Aspiration pneumonitis: (3) Sepsis: (4) Acute hypoxic respiratory failure: (5) Acute CVA (cerebrovascular accident): Plan As per Dr. Alan;s discussion with family and per the patient's living will that patient would want all life-sustaining measures to be stopped and for her to be kept comfortable if she were not to have a high likelihood of meaningful recovery. Comfort measures were mostly initiated yesterday and we were waiting for family to arrive. Earlier today the son asked if extubation could wait till after lunch. Extubated at 1345. She remained on the fentanyl drip patient appears comfortable. Attestations 2 Medical Necessity Statement*: Patient requires additional midnight stay for comfort measures after being extubated today. Coding Level of Care Code Acute Code for [facility] Diagnoses Persistent vegetative state R40.3 Aspiration pneumonitis J69.0 Sepsis A41.9 Acute hypoxic respiratory failure J96.01 Acute CVA (cerebrovascular accident) I63.9
--- NOTE | 2023-09-05 19:04 | PC.NURSE ---
Shift summary: Pt rested in bed throughout shift. Pt had no purposeful movements this am. Family made decision to terminally extubate patient. This occurred at 1345. Her lungs sounds are clear. She is on room air at this time. O2 sats remain around 75%. Heart rate in the 70's. She has actually spoke yes to her son and she has nodded yes/no to questions about pain. Son, Juan Daniel, expressed concern about her being more alert. Family also expressed concern about her being around for several days and no nutrition. I reassured family about end of life care. If patient wants to eat/drink she can try. Typically patients at the end of life do not fell hunger or thirst, this is a natural progression of the end of life process. Also discussed the surge of energy i.e. talking, visiting, etc. seen at the end of life. Juan Daniel and the rest of the family verbalized understanding and had no further qualms expressed. 625 ml of urine output. No Bm noted today. Bathing provided prior to extubation.
[2023-09-05] MEDS: morphine 4 mg/mL SDV 1 mL 2 MG IVP (20:52)
[2023-09-06] VITALS (28 sets, daily range): BP systolic 139–167; BP diastolic 68–83; PULSE 61–85; RESP 15–23; TEMP 36–36.5; O2SAT 66–93
[2023-09-06] MEDS: morphine 4 mg/mL SDV 1 mL 2 MG IVP (00:57)
[2023-09-06] MEDS: LORazepam 2 mg/mL INJ 10 mL MDV IVP ×2 (02:27→12:01)
[2023-09-06] MEDS: pantoprazole 40 mg SDV IVP ×2 (02:52→17:42)
--- NOTE | 2023-09-06 03:51 | PC.NURSE ---
Patient resting comfortably throughout shift. Patient wakes up with complaints of back pain at times and calls out requesting drink of water at times. Patient making her needs known. Medicated for pain as needed and also medicated with prn ativan when becoming restless once. Patient repositioned for comfort continues on fentanyl gtt.
--- NOTE | 2023-09-06 09:25 | PC.NURSE ---
Alek-chaparro respiratory pattern noted. O2 sats 85%
[2023-09-06] MEDS: morphine 4 mg/mL SDV 1 mL IVP ×2 (10:32→21:34)
--- NOTE | 2023-09-06 11:27 | MR_ITS ---
WS: [id number] MRI BRAIN WITH AND WITHOUT CONTRAST HISTORY: suspected stroke COMPARISON: 08/28/2023 TECHNIQUE: Multiplanar imaging performed through the brain with MultiHance 15 ml's IV. Normal diffusion imaging. No ischemic event. Mild small vessel ischemic disease is similar to the [facility] recent study of 08/28/2023. No mass effect or hemorrhage. No susceptibility artifacts or prior lacunar infarcts. Cavum pellucidum at vergae deformity. Normal variant. Clivus and pituitary gland are normal. Visualized posterior fossa and brainstem are also normal. Motion artifact. Small enhancing lesions may be obscured. There is no large mass. Dural venous sinuses are normal. Paranasal sinuses: Small air-fluid level in the LEFT maxillary sinus Mastoid air cells: Normal. Calvarium and scalp: Normal. IMPRESSION: 1. Quality this examination is compromised by motion artifact. 2. Normal diffusion imaging. No acute infarct. 3. Moderate atrophy and small vessel ischemic disease unchanged since 08/28/2023 4. No enhancing masses.
--- NOTE | 2023-09-06 11:30 | XR_ITS ---
WS: [id number] Examination: XR chest 1V portable [id number] Reason for Exam: hypoxia Date: September 06, 2023 Comparison: August 27, 2023 Findings: In the interval the ET tube and NG tube have been removed. The heart is prominent in size. Again there is elevation of the right hemidiaphragm Interval development of bilateral infiltrates are noted. Small effusions are present Impression: Diffuse bilateral infiltrates with small effusions. This may represent pulmonary edema. Diffuse pneum onia could also have this appearance. Clinical correlation is needed.
[2023-09-06] MEDS: sucralfate 1 gm/10 mL Oral Liq UDC PO (12:02)
[2023-09-06] MEDS: gadobenate dimeglumine 20 mL vial IV (13:09)
--- NOTE | 2023-09-06 15:51 | PM.PN ---
Subjective Subjective: Patient was terminally extubated yesterday. She was without supplemental oxygen and pulse ox in the 70s for most of the day. This morning she was talking and somewhat interactive with her family and myself. It was agreed to place her on oxygen and further assess. Vitals/I&O/Wt Last Vital Signs Temp 97.2 F L 09/06/23 08:00 Pulse 64 09/06/23 11:30 Resp 20 H 09/06/23 11:30 BP 166/76 09/06/23 11:30 Pulse Ox 89 L 09/06/23 11:30 O2 Del Method Nasal Cannula 09/06/23 11:30 O2 Flow Rate 2 09/06/23 11:30 FiO2 55 09/05/23 12:57 09/06/23 09/06/23 09/06/23 06:59 14:59 22:59 Intake Total 200 / 441.584 85.05 / 85.05 0 / 85.05 Output Total 475 / 1375 Balance -275 / -933.416 85.05 / 85.05 0 / 85.05 Weight last 48 hrs Weight 78.789 kg Weight 81.902 kg Physical Exam Narrative: On exam earlier this morning patient was awake she appeared to have a right gaze. Neuro. Right gaze did not cross midline right left confusion left sided weakness compared to right and overall weakness present. Heart: Regular rate and rhythm normal S1-S2 no loud murmur Lungs: Clear anteriorly diminished breath sounds Abdomen: Soft nontender nondistended positive bowel sounds Extremities: No clubbing cyanosis or edema Urinary Catheter Management: Barksdale: Cath Placed During This Visit: yes Reason for Continuing Indwelling Catheter: Acute Urinary Retention or Obstruction Urinary Catheter Date of Insertion: 08/26/23 Urinary Catheter Time of Insertion: 21:33 Data 09/03/23 04:02 09/03/23 04:02 CXR: My impression: Elevated right hemidiaphragm. Poor quality film most likely due to to poor inspiration. Bilateral pleural effusions present with increased interstitial markings Radiologist's impression: Diffuse bilateral infiltrates with small effusions. This may represent pulmonary edema. Diffuse pneumonia could also have this appearance. Clinical correlation is needed. MRI: My impression: No acute infarct. Moderate atrophy. Moderate small vessel change Radiologist's impression: MPRESSION: 1. Quality this examination is compromised by motion artifact. 2. Normal diffusion imaging. No acute infarct. 3. Moderate atrophy and small vessel ischemic disease unchanged since 08/28/2023 4. No enhancing masses. A&P Assessment and plan (1) Encephalopathy: (2) CHF exacerbation: Qualifiers: Heart failure type: unspecified Qualified Code(s): I50.9 - Heart failure, unspecified (3) Aspiration pneumonitis: (4) Acute kidney injury: (5) Acute hypoxic respiratory failure: Plan Met with patient's son [id number] and bedside nurse. Neurologically patient appears to have a stroke mimic. Best educated guesstimate is patient with moderate cerebrovascular disease and significant hypotension in the hospital and perhaps at home with multiple falls is the underlying cause. There is also metabolic causes including hyperammonemia. Despite EF being negative for systolic or able to diagnose diastolic dysfunction suspect underlying heart failure/fluid overload from chest x-ray. Will prescribe IV Lasix. Per family the last few days prior to ask the patient patient was suffering from multiple blood draws and the various oxygenation procedures. They feel strongly that patients with's wishes are for comfort over aggressive measures. Thus blood draw in the morning and will treat as appropriate We discussed big picture patient not likely to return home. Patient will be unable to care for her . Patient would require residential facility and then 24-hour care most likely even with significant improvement. Will assess on a daily basis each test or study indications. Attestations Medical Necessity Statement*: Patient requires continued hospitalization for reassessment of patient's cognitive and mental status. Coding Level of Care Code Acute Code for [facility] Diagnoses Encephalopathy G93.40 Acute on chronic congestive heart failure, unspecified heart failure type I50.9 Heart failure type: unspecified Aspiration pneumonitis J69.0 Acute kidney injury N17.9 Acute hypoxic respiratory failure J96.01
--- NOTE | 2023-09-06 17:30 | PC.NURSE ---
Shift summary: Pt rested in bed throughout the shift. Fentanyl gtt still on at 30mcg/min. She started the day off in sinus rhythm , heart rate in the 0's. O2 sats 74%. Pt smiling, bright eyes and answering yes and no questions. Comfort care daily bath provided. Her O2 sats then hovered around 87%. She was asking for water, she could not suck a straw. Ice chips offered . She stated they were delicious. She required morphine once for her back pain. Due to her improvement, plan of care changed. Fentanyl gtt stopped. O2at 2lpm/NC applied. MRI and chest xray completed today. Ativan administered once to help her during the MRI. She has sat up in the bed napped/visited with family, and ate ice chips this afternoon. She had 775ml of clear yellow urine output today.
--- NOTE | 2023-09-06 18:00 | PC.NURSE ---
Report called to [facility]. Pt transferred to room 264 with her belongings via bed.
--- NOTE | 2023-09-06 18:15 | PC.NURSE ---
Hema Lewis and son, Juan Daniel Silva both called and informed of room transfer to [facility].
[2023-09-07] VITALS (8 sets, daily range): BP systolic 146–168; BP diastolic 70–81; PULSE 71–81; RESP 17–22; TEMP 36.4–36.6; O2SAT 90–96
[2023-09-07] MEDS: morphine 4 mg/mL SDV 1 mL IVP ×2 (00:31→20:16)
[2023-09-07] MEDS: morphine 10 mg/0.5 mL oral liq UD PO ×3 (04:24→09:55)
[2023-09-07] MEDS: lidocaine 5% Patch 1 PATCH TOPICAL ×2 (09:26→20:46)
--- NOTE | 2023-09-07 10:03 | P.PN_ITS ---
Subjective 2 Subjective: Patient with eyes closed restless with some agitation. But mostly restless. Per and other family report patient is recognizing some people and not others. She is minimally interactive and appropriate at times. Vitals/I&O/Wt Last Vital Signs Temp 97.5 F L 09/07/23 08:00 Pulse 81 09/07/23 08:19 Resp 18 09/07/23 08:19 BP 146/74 09/07/23 08:00 Pulse Ox 94 09/07/23 08:19 O2 Del Method Nasal Cannula 09/07/23 08:19 O2 Flow Rate 4 09/07/23 08:19 FiO2 55 09/05/23 12:57 09/06/23 09/07/23 09/07/23 22:59 06:59 14:59 Intake Total 0 / 125.05 240 / 240 Output Total 700 / 700 Balance 0 / 125.05 -700 / -574.95 240 / 240 Weight last 48 hrs Weight 77.428 kg Weight 78.789 kg Physical Exam 2 Narrative: Eyes closed for me. Was calm for my exam. Neuro. moving all extremities equally today. Nonfocal exam Heart: Regular rate and rhythm normal S1-S2 no loud murmur Lungs: Clear anteriorly diminished breath sounds Abdomen: Soft nontender nondistended positive bowel sounds Extremities: No clubbing cyanosis or edema Urinary Catheter Management: Barksdale: Cath Placed During This Visit: yes Reason for Continuing Indwelling Catheter: Other Urinary Catheter Date of Insertion: 08/26/23 Urinary Catheter Time of Insertion: 21:33 Data 09/03/23 04:02 09/03/23 04:02 Micro: Microbiology 09/01/23 00:48 Blood Culture - Final Blood NO GROWTH AFTER 5 DAYS 09/01/23 00:44 Blood Culture - Final Blood NO GROWTH AFTER 5 DAYS A&P Assessment and plan (1) Encephalopathy: (2) CHF exacerbation: Qualifiers: Heart failure type: unspecified Qualified Code(s): I50.9 - Heart failure, unspecified (3) Aspiration pneumonitis: (4) Acute kidney injury: (5) Acute hypoxic respiratory failure: Plan Met with , his daughter and patient's son Juan Daniel. Patient had pulled out her IV and took off her oxygen. At this time there is not not a definitive diagnosis. Patient has encephalopathy. This is most likely multifactorial given moderate cerebrovascular disease and significant hypotension in the hospital and perhaps at home with multiple falls is the underlying cause. There is also metabolic causes including hyperammonemia. Despite EF being negative for systolic or able to diagnose diastolic dysfunction suspect underlying heart failure/fluid overload from chest x-ray. Patient was given Lasix yesterday Today, the discussion was how aggressive to be with Rain. The final result is everyone would like an improved quality of care if possible and patient's and son and family agree for some testing and an IV. We will take a [id number] approach about what is appropriate at each decision. I was clear that the patient is not likely to be able to return home and usp placement should be pursued. At this time she is unable to follow commands and participate with therapy and thus she would reside as a resident of the usp and not have skilled care. The family is aware. And they have discussed their choices of usp with the piano case maker. Plan of care today: * Roxanol increased to 5 mg every 3 hours as needed pain discomfort * Added Ativan 2 mg sublingual every 4 hours as needed agitation and restlessness * Directed RN to give Roxanol and Ativan for comfort and agitation now in order to place an IV. * IV will be placed. * Ordered labs. CBC, CMP, phosphorus, magnesium, lactic acid, ammonia level * Results will be discussed with and son and further plans again made in a stepwise fashion keeping patient's comfort at utmost priority. * No significant escalation of care. DNR/DNI Attestations 2 Medical Necessity Statement*: Patient requires continued hospitalization for reassessment of patient's cognitive status. Coding Level of Care Code Acute Code for [facility] Diagnoses Encephalopathy G93.40 Acute on chronic congestive heart failure, unspecified heart failure type I50.9 Heart failure type: unspecified Aspiration pneumonitis J69.0 Acute kidney injury N17.9 Acute hypoxic respiratory failure J96.01
[2023-09-07] MEDS: morphine 10 mg/0.5 mL oral liq UD 5 MG PO ×2 (12:23→22:30)
[2023-09-07] MEDS: LORazepam 2 mg/mL INJ 10 mL MDV SUBLINGUAL (14:08)
[2023-09-07 14:43] LABS: Basophils % 0.4 %; Eosinophils % 0.5 %; Hematocrit 29.9 % (36-47); Lymphocytes # 1.8 10^3/uL (0.8-4.8); Lymphocytes % 32.9 %; Mean Corpuscular HGB Conc 30.1 g/dL (30-55); Mean Corpuscular Hemoglobin 23.2 pg (27-33); Mean Corpuscular Volume 77.1 fl (85-98); Monocytes # 0.4 10^3/uL (0.2-0.9); Neutrophils # 3.15 10^3/uL (1.8-7.7); Neutrophils % 56.9 %; Nucleated Red Blood Cells % 0.4 %; Platelet Count 191 10^3/cmm (157-399); Red Blood Count 3.88 10^6/uL (3.85-5.65); Red Cell Distribution Width 23.4 % (12.1-15.1); White Blood Count 5.53 10^3/uL (3.29-11.43)
[2023-09-07 15:00] LABS: Alanine Aminotransferase 14 U/L (0-33); Albumin Level 2.5 g/dL (3.5-5.2); Alkaline Phosphatase 47 U/L (35-105); Ammonia 35 umol/L (11-51); Blood Urea Nitrogen 21 mg/dL (8-23); Calcium 8.3 mg/dL (8.5-10.5); Carbon Dioxide 23 mmol/L (22-29); Chloride 120 mmol/L (98-107); Creatinine Clr Calc Pharmacy 52.7163; Globulin 3.7 g/dL (1.3-4.6); Glucose 113 mg/dL (65-115); Magnesium 2.2 mg/dL (1.7-2.3); Osmolality Calculated 322 mOsm/kg (285-295); Phosphorus 1.5 mg/dL (2.5-4.5); Sodium 154 mmol/L (136-145); Total Bilirubin 0.6 mg/dL (0.15-1.2); Total Protein 6.2 g/dL (6.6-8.7)
[2023-09-07 15:02] LABS: Lactate (Lactic Acid level) 1.4 mmol/L (0.5-2.2)
[2023-09-07 15:05] LABS: Anion Gap 13.8 (5-19); Aspartate Amino Transferase 28 U/L (0-32); Potassium 2.8 mmol/L (3.5-5.1)
[2023-09-07] MEDS: lidocaine 1% 5 ML in potassium chloride premix 100 ML 26.25 ML IV (15:32)
[2023-09-07] MEDS: lactulose oral liq 20 gm/30 mL UDC PO (15:33)
[2023-09-07] MEDS: potassium phosphate (mEq K) 40 MEQ in sodium chloride 0.9% (100 ml) 100 ML 27.2699999999999996 MEQ IV (20:14)
[2023-09-07 22:05] LABS: Add Urine Microscopic? YES; Bilirubin Urine Neg (Negative); Blood Urine 2+ (Negative); Glucose Urine UA Norm (Normal); Ketones Urine Negative (Negative); Leukocyte Esterase Urine Negative (Negative); Nitrate Urine Negative (Negative); Protein Urine Trace (Negative); Specific Gravity, Urine 1.015 (1.005-1.030); Urine Appearance SL Hazy (CLEAR); Urine Color Yellow (Yellow); Urobilinogen Urine Neg (Negative); pH Urine 6 (5-7)
[2023-09-07 22:06] LABS: Add Urine Culture? Yes; Bacteria Urine 1+ /hpf; Mucus Urine 2+ /hpf; RBC Urine 0-4 /hpf (0-2); WBC Urine 0-4 /hpf (0-5)
[2023-09-07] MEDS: LORazepam 2 mg/mL INJ 10 mL MDV 0.5 MG SUBLINGUAL (23:57)
[2023-09-07] MEDS: valproic acid inj 500 MG in sodium chloride 0.9% (plus) 50 ML 55 MG IV (23:58)
[2023-09-08] VITALS (8 sets, daily range): BP systolic 155–187; BP diastolic 76–89; PULSE 59–74; RESP 16–22; TEMP 36.2–36.6; O2SAT 92–97
[2023-09-08] MEDS: morphine 10 mg/0.5 mL oral liq UD 5 MG PO ×3 (03:40→12:28)
[2023-09-08] MEDS: LORazepam 2 mg/mL INJ 10 mL MDV 0.5 MG SUBLINGUAL (04:32)
[2023-09-08 05:25] LABS: Anion Gap 12.3 (5-19); Blood Urea Nitrogen 16 mg/dL (8-23); Carbon Dioxide 26 mmol/L (22-29); Chloride 121 mmol/L (98-107); Creatinine Clr Calc Pharmacy 52.5064; Glucose 108 mg/dL (65-115); Osmolality Calculated 324 mOsm/kg (285-295); Potassium 3.3 mmol/L (3.5-5.1); Sodium 156 mmol/L (136-145)
[2023-09-08] MEDS: valproic acid inj 500 MG in sodium chloride 0.9% (plus) 50 ML 55 MG IV (08:04)
[2023-09-08] MEDS: morphine 4 mg/mL SDV 1 mL IVP (10:39)
--- NOTE | 2023-09-08 11:58 | P.PN_ITS ---
Subjective 2 Subjective: Patient remains bedridden lethargic minimal interaction. Occasionally becomes uncomfortable which is easily treated with Roxanol dosing. Family at bedside I spoke with patient's . And then subsequently spoke with patient's son. See below for recommendations Vitals/I&O/Wt Last Vital Signs Temp 97.5 F L 09/08/23 08:00 Pulse 66 09/08/23 08:00 Resp 18 09/08/23 10:39 BP 168/89 09/08/23 08:00 Pulse Ox 97 09/08/23 08:00 O2 Del Method Nasal Cannula 09/08/23 07:52 O2 Flow Rate 3 09/08/23 07:52 FiO2 55 09/05/23 12:57 09/07/23 09/08/23 09/08/23 22:59 06:59 14:59 Intake Total 165 / 791 606.4982 / 568.5106 55 / 55 Output Total 1750 / 1750 550 / 2300 Balance -1585 / -1345 -386.4894 / -1731.4894 55 / 55 Weight last 48 hrs Weight 76.793 kg Weight 77.428 kg Physical Exam 2 Narrative: Eyes closed for me. Was calm for my exam. Heart: Regular rate and rhythm normal S1-S2 no loud murmur Lungs: Clear anteriorly diminished breath sounds Abdomen: Soft nontender nondistended positive bowel sounds Extremities: No clubbing cyanosis or edema Urinary Catheter Management: Barksdale: Cath Placed During This Visit: yes Reason for Continuing Indwelling Catheter: Other Urinary Catheter Date of Insertion: 08/26/23 Urinary Catheter Time of Insertion: 21:33 Data 09/07/23 14:22 09/08/23 04:17 A&P Assessment and plan (1) Encephalopathy: (2) CHF exacerbation: Qualifiers: Heart failure type: unspecified Qualified Code(s): I50.9 - Heart failure, unspecified (3) Aspiration pneumonitis: (4) Acute kidney injury: (5) Acute hypoxic respiratory failure: Plan Met with , his daughter and patient's son Juna Daniel a few other family members were also present at 1 point. At this time there is not not a definitive diagnosis. Patient has encephalopathy. This is most likely multifactorial given moderate cerebrovascular disease and significant hypotension in the hospital and perhaps at home with multiple falls is the underlying cause. There is also metabolic causes including hyperammonemia. Laboratory studies from yesterday were relatively unremarkable except for significant hypokalemia which was treated with 2 K-riders yesterday. She shows no significant improvement in mental status. Today I advised no further aggressive workup as this would likely be against her wishes. is concerned that patient would not want to be like this . We discussed that this is the normal dying process and I recommend 24-hour care either at home or at a snf with hospice services. Michael and son Juan Daniel are in agreement. Discussed with Za from case management to pursue snf placement with hospice. Patient would be stable to transfer today if not patient will likely be excepted tomorrow. Patient is now formally comfort measures although she was receiving comfort medications yesterday as appropriate. I will place comfort care order set. Attestations 2 Medical Necessity Statement*: Patient requires continued hospitalization for transition to comfort care and obtaining place to receive this care. Coding Level of Care Code Acute Code for [facility] Diagnoses Encephalopathy G93.40 Acute on chronic congestive heart failure, unspecified heart failure type I50.9 Heart failure type: unspecified Aspiration pneumonitis J69.0 Acute kidney injury N17.9 Acute hypoxic respiratory failure J96.01
--- NOTE | 2023-09-08 15:33 | P.DS_ITS ---
Discharge Providers Date of Admission: 08/26/23 15:54 Date of Discharge: September 08, 2023 Attending Provider at Admission: Chris Alan MD Attending Provider at Discharge: Peewee Bullock DO Primary Care Provider: Robin Crum DO Diagnoses at Discharge Discharge Diagnosis (1) Encephalopathy: Status: Acute (2) CHF exacerbation: Status: Acute Qualifiers: Heart failure type: unspecified Qualified Code(s): I50.9 - Heart failure, unspecified (3) Aspiration pneumonitis: Status: Acute (4) Acute kidney injury: Status: Acute (5) Acute hypoxic respiratory failure: Status: Acute Reason for Visit Reason for Visit: AMS/ fall on tuesday Hospital Course Hospital Course Originally presented status post fall. It appeared that perhaps she suffered from CVA however MRI was negative. Patient was encephalopathic. She then developed acute respiratory failure requiring BiPAP she suffered from hyperammonia anemia and eventually had to be intubated. She spent about 3 days intubated when the family confirmed that patient would not want to be maintained on life support. She was terminally extubated on 09/05/2023. She remained stable. Her pulse ox was in the 70s during the day but eventually increased. At that time I wondered if the patient had a stroke mimic. MRI was repeated and again negative. The patient did have significant cerebrovascular disease with small vessel disease found on MRI. She also had fluid overload and were unable to diagnose diastolic dysfunction due to history of A-fib she was prescribed Lasix. Unfortunately the patient never improved enough to warrant further workup and discussion with patient's and son revealed that the patient would not want aggressive measures. After baseline lab work obtained and found to have hypokalemia which was replaced without change in patient's mental status it was determined that patient was most likely not going to return to prior level of care or a quality of life that she would be satisfied with. Thus, the patient's and son agreed to residential care at residential with hospice. Arrangements are made for today 09/08/2023 Physical Exam Narrative: Eyes closed for me. Was calm for my exam. Heart: Regular rate and rhythm normal S1-S2 no loud murmur Lungs: Clear anteriorly diminished breath sounds Abdomen: Soft nontender nondistended positive bowel sounds Extremities: No clubbing cyanosis or edema Urinary Catheter Management: Barksdale: Cath Placed During This Visit: yes Reason for Continuing Indwelling Catheter: Other Urinary Catheter Date of Insertion: 08/26/23 Urinary Catheter Time of Insertion: 21:33 Discharge Data Studies Completed and Pending Completed Studies During Hospitalization Category Date Time Status CT abdomen pelvis wo con [id number] Stat Cat Scan 08/26/23 12:[address] angio chest PE protcl [id number] Stat Cat Scan 09/01/23 14:[address] head wo con* [id number] Routine Cat Scan 08/27/23 19:[address] head wo con* [id number] Routine Cat Scan 09/01/23 16:[address] head wo con* [id number] Stat Cat Scan 08/26/23 10:[address] head wo con* [id number] Stat Cat Scan 08/30/23 10:43 Completed CTA head neck [CT angio headneck* [id number]] Stat Cat Scan 08/26/23 13:44 Completed CXRP [XR chest 1V portable [id number]] Urgent Exams 09/06/23 11:30 Completed XR chest 1V portable [id number] Routine Exams 08/28/23 10:03 Completed XR chest 1V portable [id number] Routine Exams 08/29/23 07:00 Completed XR chest 1V portable [id number] Routine Exams 08/31/23 08:35 Completed XR chest 1V portable [id number] Routine Exams 09/01/23 12:15 Completed XR chest 1V portable [id number] Stat Exams 08/26/23 10:37 Completed XR chest 1V portable [id number] Stat Exams 09/01/23 22:58 Completed MR head wo con* [id number] Routine MRI 08/28/23 08:34 Completed MR head wo/w con [id number] Stat MRI 09/06/23 11:27 [place] [id number] Routine Ultrasound 08/28/23 11:18 Completed CV. echo complete* [id number] Routine Ultrasound 08/28/23 08:36 Completed Pending at discharge Category Date Time Status Fibrinogen Degradation Product Routine Lab 09/01/23 13:00 Received SARS Covid-2 Antigen Routine Lab 09/08/23 15:15 Uncollected Urine Culture Routine Lab 09/07/23 21:37 Received Radiology Impressions Abdomen/Pelvis CT 08/26/23 12:08 IMPRESSION: No obvious acute abnormality detected within the abdomen or pelvis. Various incidental and nonacute findings as reported above. Head/Neck CTA 08/26/23 13:44 IMPRESSION: No intracranial stenosis or occlusion IMPRESSION: No carotid or vertebral artery stenosis. REFERENCES: NASCET CRITERIA. The degree of stenosis in the cervical segment of the internal carotid artery is based on NASCET criteria. Normal is no stenosis. Mild is less than 50% stenosis. Moderate is 50-69% stenosis. Severe is 70% to 99% stenosis. Total occlusion is no detectable patent lumen. Venous Duplex 08/28/23 11:18 IMPRESSION: No evidence of deep vein thrombosis. Chest CTA 09/01/23 14:55 IMPRESSION: 1. No evidence of central PE or acute aortic abnormality. 2. Mid to lower lung atelectasis. Superimposed infection in the right lung base would be difficult to exclude in the proper clinical setting. 3. Trace-small left-sided pleural effusion. Head CT 09/01/23 16:13 IMPRESSION: 1. No acute intracranial abnormality. Laboratory Results WBC 5.53 10^3/uL (3.29-11.43) 09/07/23 14:22 RBC 3.88 10^6/uL (3.85-5.65) 09/07/23 14:22 Hgb 9.00 g/dL (11.27-16.99) L 09/07/23 14:22 Hct 29.9 % (36-47) L 09/07/23 14:22 MCV 77.1 fl (85-98) L 09/07/23 14:22 MCH 23.2 pg (27-33) L 09/07/23 14:22 MCHC 30.1 g/dL (30-55) 09/07/23 14:22 RDW 23.4 % (12.1-15.1) H 09/07/23 14:22 Plt Count 191 10^3/cmm (157-399) 09/07/23 14:22 MPV Not Reportable 09/07/23 14:22 Neut % (Auto) 56.9 % 09/07/23 14:22 Lymph % (Auto) 32.9 % 09/07/23 14:22 Storey % (Auto) 8.0 % 09/07/23 14:22 Eos % (Auto) 0.5 % 09/07/23 14:22 Baso % (Auto) 0.4 % 09/07/23 14:22 Neut # (Auto) 3.15 10^3/uL (1.8-7.7) 09/07/23 14:22 Lymph # (Auto) 1.8 10^3/uL (0.8-4.8) 09/07/23 14:22 [place]y # (Auto) 0.4 10^3/uL (0.2-0.9) 09/07/23 14:22 Eos # (Auto) 0.0 10^3/uL (0.0-0.8) 09/07/23 14:22 Baso # (Auto) 0.0 10^3/uL (0.0-0.1) 09/07/23 14:22 Nucleated RBC % (auto) 0.4 % 09/07/23 14: Nucleated RBCs # 0.0 /100WBC 09/07/23 14: ESR 26 mm/hr (0-15) H 08/26/23 10:10 PT 22.20 SECONDS (12.1-14.9) H 09/01/23 12:55 INR 1.87 (0.8-1.2) H 09/01/23 12:55 APTT 40.3 SECONDS (23.9-36.7) H 09/01/23 12:55 Fibrinogen 244 mg/dL (174-498) 09/01/23 12:55 D-Dimer 3.12 ug/mLFEU (0-0.59) H 09/01/23 12:55 Specimen Type Arterial 09/03/23 04:00 Sample Site Radial, right 09/03/23 04:00 ABG pH 7.43 (7.35-7.45) 09/03/23 04:00 ABG pCO2 32.4 mmHg (35-45) L 09/03/23 04:00 ABG pO2 69.1 mmHg (80.0-100.0) L 09/03/23 04:00 ABG PO2/FiO2 Ratio 0 09/03/23 04:00 ABG HCO3 21.3 mmol/L (22-26) L 09/03/23 04:00 ABG O2 Saturation 92.9 09/01/23 21:08 ABG Base Excess -2.5 mmol/L (-2.0-2.0) L 09/03/23 04:00 Juan Daniel Test Pos 09/03/23 04:00 A-a O2 Gradient 23.3 mmHg (5-10) H 09/01/23 21:08 Hematocrit 29.9 % (37-47) L 09/03/23 04:00 Hgb O2 Saturation 90.8 % (95-100) L 09/01/23 21:08 Carboxyhemoglobin 1.1 %THgb (0.4-20.1) 09/01/23 21:08 Methemoglobin 1.2 % (0.4-1.5) 09/01/23 21:08 Total Hemoglobin 10.2 g/dL (12-16) L 09/01/23 21:08 Sodium 157.0 mmol/L (131-143) H 09/01/23 21:08 Potassium 3.1 mmol/L (3.5-5.0) L 09/01/23 21:08 Glucose 122.0 mg/dL (70-115) H 09/01/23 21:08 Ionized Calcium 1.2 mmol/L (1.1-1.4) 09/01/23 21:08 O2 Delivery Device Vent 09/03/23 04:00 O2 Liters/Min 10.0 % 08/31/23 05:22 FiO2 0.6 % 09/03/23 04:00 Tidal Volume 0.45 09/03/23 04:00 PEEP 8.0 cmH20 09/03/23 04:00 Electrical Technician ID Samantasteffen 09/03/23 04:00 Sodium 156 mmol/L (136-145) H 09/08/23 04:17 Potassium 3.3 mmol/L (3.5-5.1) L 09/08/23 04:17 Chloride 121 mmol/L (98-107) H 09/08/23 04:17 Carbon Dioxide 26 mmol/L (22-29) 09/08/23 04:17 Anion Gap 12.3 (5-19) 09/08/23 04:17 BUN 16 mg/dL (8-23) 09/08/23 04:17 Creatinine 0.8 mg/dL (0.5-0.9) 09/08/23 04:17 GFR Calculation Not Reportable 09/08/23 04:17 Glucose 108 mg/dL (65-115) 09/08/23 04:17 POC Glucose 128 mg/dL (70-110) H 09/04/23 02:43 Estimat Average Glucose 123 08/26/23 17:18 Hemoglobin A1c 5.9 % (4.0-6.0) 08/26/23 17:18 Calculated Osmolality 324 mOsm/kg (285-295) H 09/08/23 04:17 Lactic Acid 3.1 mmol/L (0.5-2.2) H 08/29/23 09:02 Lactic Acid (Sepsis) 3.5 mmol/L (0.5-2.2) H 08/29/23 11:12 Lactate 1.4 mmol/L (0.5-2.2) 09/07/23 14:22 Calcium 8.0 mg/dL (8.5-10.5) L 09/08/23 04:17 Phosphorus 1.5 mg/dL (2.5-4.5) L 09/07/23 14:22 Magnesium 2.2 mg/dL (1.7-2.3) 09/07/23 14:22 Iron 14 ug/dL (37-145) L 08/28/23 05:06 Ferritin 379 ng/mL (15-150) H 08/28/23 05:06 Total Bilirubin 0.6 mg/dL (0.15-1.2) 09/07/23 14:22 AST 28 U/L (0-32) 09/07/23 14:22 ALT 14 U/L (0-33) 09/07/23 14:22 Alkaline Phosphatase 47 U/L (35-105) 09/07/23 14:22 Ammonia 35 umol/L (11-51) 09/07/23 14:22 Creatine Kinase 43 U/L (26-192) 09/03/23 04:02 Troponin T Baseline 24 ng/L (0-10) H 08/27/23 17:10 Troponin T 120 Minute 23.63 ng/L (0-10) H 08/27/23 19:17 Delta Troponin T -0.37 ABS# (0-10) L 08/27/23 19:17 Troponin T Hi Sens 6Hr 26.52 ng/L (0-10) H 08/27/23 23:11 Troponin T Hi Sens 6Hr Delta 2.52 ng/L (0-12) 08/27/23 23:11 C-Reactive Protein 20.5 mg/L (0.0-4.9) H 09/03/23 04:02 NT-Pro-B Natriuret Pep 639 pg/mL (0-450) H 09/03/23 04:02 Total Protein 6.2 g/dL (6.6-8.7) L 09/07/23 14:22 Albumin 2.5 g/dL (3.5-5.2) L 09/07/23 14:22 Globulin 3.7 g/dL (1.3-4.6) 09/07/23 14:22 Triglycerides 178 mg/dL (0-150) H 08/26/23 17:18 Cholesterol 78 mg/dL (0-200) 08/26/23 17:18 LDL Cholesterol, Calc 27 mg/dL (50-129) L 08/26/23 17:18 HDL Cholesterol 15 mg/dL (60-100) L 08/26/23 17:18 LDL/HDL Ratio 1.80 RATIO (0.00-3.22) 08/26/23 17:18 Cholesterol/HDL Ratio 5.20 mg/dL (0.0-4.40) H 08/26/23 17:18 Lipase 74 U/L (13-60) H 08/26/23 10:10 Vitamin B12 294 pg/mL (232-1245) 08/28/23 05:06 Folate 4.4 ng/mL (4.8-37.3) L 08/28/23 05:06 Procalcitonin 1.40 ng/mL (0-0.5) H 09/03/23 04:02 TSH 1.67 uIU/mL (0.27-4.20) 09/02/23 15:38 Urine Color Yellow (Yellow) 09/07/23 21:37 Urine Appearance Sl hazy (CLEAR) A 09/07/23 21:37 Urine pH 6 (5-7) 09/07/23 21:37 Ur Specific [place] 1.015 (1.005-1.030) 09/07/23 21:37 Urine Protein Trace (Negative) 09/07/23 21:37 Urine Glucose (UA) Norm (Normal) 09/07/23 21:37 Urine Ketones Negative (Negative) 09/07/23 21:37 Urine Blood 2+ (Negative) H 09/07/23 21:37 Urine Nitrate Negative (Negative) 09/07/23 21:37 Urine Bilirubin Neg (Negative) 09/07/23 21:37 Urine Urobilinogen Neg mg/dL (Negative) 09/07/23 21:37 Ur Leukocyte Esterase Negative (Negative) 09/07/23 21:37 Urine RBC 0-4 /hpf (0-2) H 09/07/23 21:37 Urine WBC 0-4 /hpf (0-5) H 09/07/23 21:37 Ur Squamous Epith Cells None /hpf (0-5) 09/07/23 21:37 Amorphous Sediment Not Reportable 09/07/23 21:37 Urine Bacteria 1+ /hpf (NONE) H 09/07/23 21:37 Hyaline Casts 0-4 /lpf H 08/26/23 21:33 Urine Mucus 2+ /hpf 09/07/23 21:37 Urine Yeast 3+ /hpf H 09/07/23 21:37 Vancomycin Trough 11.5 ug/mL (10-15) 09/03/23 10:10 Adenovirus (PCR) Not detected (NOT DETECT) 08/27/23 03:54 C. pneumoniae DNA (PCR) Not detected (NOT DETECT) 08/27/23 03:54 Coronavirus 229E (PCR) Not detected (NOT DETECT) 08/27/23 03:54 Human Metapneumovir PCR Not detected (NOT DETECT) 08/27/23 03:54 Influenza A (H1) PCR Not detected (NOT DETECT) 08/27/23 03:54 Influ A (H1/09) PCR Not detected (NOT DETECT) 08/27/23 03:54 Influenza A (H3) PCR Not detected (NOT DETECT) 08/27/23 03:54 Influenza Type A Ag negative (Negative) 08/26/23 13:53 Influenza Type A (PCR) Not detected (NOT DETECT) 08/27/23 03:54 Influenza Type B Ag negative (Negative) 08/26/23 13:53 Influenza Type B (PCR) Not detected (NOT DETECT) 08/27/23 03:54 M. pneumoniae (PCR) Not detected (NOT DETECT) 08/27/23 03:54 Parainfluenza 1 (PCR) Not detected (NOT DETECT) 08/27/23 03:54 Parainfluenza 2 (PCR) Not detected (NOT DETECT) 08/27/23 03:54 Parainfluenza 3 (PCR) Not detected (NOT DETECT) 08/27/23 03:54 Parainfluenza 4 (PCR) Not detected (NOT DETECT) 08/27/23 03:54 RSV Type A (PCR) Not detected (NOT DETECT) 08/27/23 03:54 RSV Type B (PCR) Not detected (NOT DETECT) 08/27/23 03:54 Entero/Rhino (PCR) Not detected (NOT DETECT) 08/27/23 03:54 SARS-CoV-2 (PCR) Not detected (NOT DETECT) 08/27/23 03:54 Vitals Last Vital Signs Temp 97.5 F L 09/08/23 12:00 Pulse 59 L 09/08/23 12:00 Resp 18 09/08/23 12:00 BP 155/76 09/08/23 12:00 Pulse Ox 96 09/08/23 12:00 O2 Del Method Nasal Cannula 09/08/23 07:52 O2 Flow Rate 3 09/08/23 07:52 FiO2 55 09/05/23 12:57 Discharge Plan Discharge Patient Disposition: Xfer SNF Condition: Stable Prescriptions: New morphine concentrate 100 mg/5 mL (20 mg/mL) solution 5 mg PO Q6H Qty: 30 0RF Ativan 2 mg/mL solution 0.5 mg buccal Q8H Qty: 25 0RF Rx Instructions: q8hr scheduled and q4 hr prn Discontinued docusate sodium 100 mg capsule 100 mg PO DAILY cholecalciferol (vitamin D3) 50 mcg (2,000 unit) capsule 50 mcg PO DAILY levothyroxine 150 mcg tablet 150 mcg PO DAILY Qty: 90 3RF lovastatin 40 mg tablet 40 mg PO DAILY Qty: 90 3RF venlafaxine 100 mg tablet See Rx Instructions .ROUTE .COMPLEX Qty: 338 3RF Dose Instruction: TAKE 1 AND 1/4 TABLETS IN THE MORNING, 1 AND 1/2 TABLETS AT NOON AND 1 TABLET AT NIGHT Rx Instructions: TAKE 1 AND 1/4 TABLETS IN THE MORNING, 1 AND 1/2 TABLETS AT NOON AND 1 TABLET AT NIGHT metoprolol succinate 50 mg tablet extended release 24 hr 50 mg PO DAILY alendronate 70 mg tablet 70 mg PO Q7D gabapentin 400 mg capsule 400 mg PO TID spironolactone 25 mg tablet 25 mg PO DAILY mirtazapine 15 mg tablet 15 mg PO DAILY losartan 100 mg tablet 100 mg PO DAILY Discharge Orders: Discharge Order (Routine); Ordered 09/08/23 Ordered By: Peewee Bullock Referrals: [facility] [Outside] Robin Crum DO [Primary Care Provider] - Discharge Diet: Advance as tolerated Discharge Activity: Bedrest Patient Instructions: Lorazepam (By mouth), Morphine, Rapid Release (By mouth), Hospice Care (GEN) Discharge Attestations Time Spent in Discharge Care*: greater than 30 min Quality Metrics Clinical Quality Measures [ No reported AMI, CVA or VTE this stay] Coding Level of Care Code Acute Code for [facility] Diagnoses Encephalopathy G93.40 Acute on chronic congestive heart failure, unspecified heart failure type I50.9 Heart failure type: unspecified Aspiration pneumonitis J69.0 Acute kidney injury N17.9 Acute hypoxic respiratory failure J96.01
[2023-09-08 17:05] LABS: SARS Covid-2 Antigen negative (Negative)
== END 2023-09-08 16:50 | disposition hospice, home (50) | DRG 871 ==
LOC: ER 11:20 → MEDSURG 14:26 → CSU 08-27 19:38 → ICU 09-01 22:31 → MEDSURG 09-06 18:02
PROVIDERS: Internal Medicine; Admitting Provider Family Medicine; Emergency Provider Family Medicine; PCP Family Medicine; Visit Provider Internal Medicine
DX: A41.9 Sepsis, unspecified organism (principal); I63.9 Cerebral infarction, unspecified; J69.0 Pneumonitis due to inhalation of food and vomit; J80 Acute respiratory distress syndrome; G93.49 Other encephalopathy; G81.94 Hemiplegia, unspecified affecting left nondominant side; E87.20 Acidosis, unspecified; N17.9 Acute kidney failure, unspecified; E87.1 Hypo-osmolality and hyponatremia; G93.1 Anoxic brain damage, not elsewhere classified; R65.20 Severe sepsis without septic shock; R29.810 Facial weakness; R47.81 Slurred speech; W18.30XA Fall on same level, unspecified, initial encounter; E03.9 Hypothyroidism, unspecified; D50.9 Iron deficiency anemia, unspecified; I10 Essential (primary) hypertension; E78.2 Mixed hyperlipidemia; D75.839 Thrombocytosis, unspecified; I48.91 Unspecified atrial fibrillation; E87.70 Fluid overload, unspecified; E53.8 Deficiency of other specified B group vitamins; N14.11 Contrast-induced nephropathy; T50.8X5A Adverse effect of diagnostic agents, initial encounter; E87.6 Hypokalemia; I95.9 Hypotension, unspecified; Z51.5 Encounter for palliative care; Z66 Do not resuscitate; Z11.52 Encounter for screening for COVID-19
CPT/HCPCS: 36415; 36416; 36600; 51702; 70450; 70496; 70498; 70551; 70553; 71045; 71275; 74176; 80048; 80051; 80053; 80061; 80202; 81001; 82140; 82330; 82550; 82607; 82728; 82746; 82803; 82805; 82962; 83036; 83540; 83605; 83690; 83735; 83880; 84100; 84145; 84295; 84443; 84484; 85025; 85362; 85378; 85384; 85610; 85651; 85730; 86140; 87040; 87070; 87077; 87086; 87106; 87150; 87186; 87205; 87426; 87486; 87581; 87633; 87635; 87804; 92610; 93005; 93306; 93970; 94002; 94003; 94640; 94660; 94664; 94799; 96365; 96372; 96374; 96376; 97110; 97161; 97166; 97530; 97535; 99285; A4222; A4570; A9577; C9113; J0131; J0133; J0282; J0283; J0456; J0696; J1630; J1650; J1940; J1953; J1956; J2060; J2270; J2543; J2704; J3010; J3370; J3480; J3490; J7030; J7050; J7070; J7613; P9046; Q3014; Q9967